=== PATIENT | female | born 1945 | race Caucasian/White ===

== ENCOUNTER → 2016-05-12 | Outpatient (CLI) | payer MEDICARE, MEDICAID ==
[~2016-05-12] MED LIST: /CELE20CA PO; /DICL25CA PO; /DULO30CA; /DULO30CA OR; /ESOM40CA OR; /GLIM4TA; /GLIM4TA OR; /MOXI40TA OR; /OMEP10CA; /OMEP10CA OR; ADV250INH INH; ALBUTEROL LIQ INH; ALEV220T26 PO; BACL10TA2 PO; CARA1SUS OR; CARV3.12 OR; CARV6.25 PO; CIPR500T89 PO; COLA100C2 OR; COLA50CA3 PO; CYCL10TA PO; CYCL5TA PO; DARV100T; DARV100T OR; DEXI60CA PO; DIAZ5TAB PO; DOC-8.6T PO; DULO1CAP3 PO; EXCEDRIN TENSION; EXCETAB; EXCETAB OR; FERR325T OR; FLAG500T PO; FLUN7IN; FLUT50SP; FLUTISP; GEMF600T OR; GLIM4TAB PO; HYDR12.55 PO; HYDR1TAB97 PO; HYDR25TA8 OR; IBUP600T26 PO; INSUH10VL INJ; INSUH10VL SC; INSULADS SC; INSULANT; INSULANT SC; INVO300T PO; IRON28TA OR; Januvia PO; LANTINJ4 SC; LIDO5DIS TOP; LINZ145C PO; LISI10TA4; LISI10TA4 OR; LISI10TA4 PO; MELA10CA PO; MELA5TAB13 PO; METF500T PO; METF500T4; METF500T4 OR; MORP-39 PO; MORP15TASA PO; MORPHINE SULFATE IR PO; MS C200T PO; MSIR30TA PO; NASAL SPRAY; NEUR300C; NEUR300C OR; NICO21DI TD; NICO21DI4 TD; NORC10TA2 PO; OMEP20CA3 PO; OMEP40CA2 PO; OXYC5CAP2 PO; OXYCPOW OR; PRED20TA OR; SENN8.6T5 OR; SENO8.6T9 PO; SERT-141 PO; SIMV40TA2; SIMV40TA2 OR; SITA50TAB PO; SOMA350T PO; SPIR1CAP INH; TRAM50TA2 PO; TYLENOL #3 OR; ULTR37.52 PO; VALI5TAB OR; VITA200016 PO; VITA50003 PO; VOLT1GEL EX; ZANA4CAP OR; ZANA4CAP PO; ZOCO40TA PO; ZOFR8TAB SL; ZOFRAN PO; ZOLO50TA PO; [UNRECOGNIZED DRUG - OTHER]; [UNRECOGNIZED DRUG - OTHER]; [UNRECOGNIZED DRUG - OTHER]; [UNRECOGNIZED DRUG - OTHER] OR; [UNRECOGNIZED DRUG - OTHER] OR; [UNRECOGNIZED DRUG - OTHER] OR; [UNRECOGNIZED DRUG - OTHER] PO; [UNRECOGNIZED DRUG - OTHER] PO; ms contin PO; novolog SQ; oxycontin OR; spiriva INH
[2016-05-12 11:17] LABS: BASO % 0.8 % (0.0-1.0); EOS # 0.2 K/mm3 (0.0-0.50); EOS % 2.6 % (0.0-3.0); LARGE UNSTAINED CELL # 0.1 K/mm3 (0.0-0.4); LARGE UNSTAINED CELL % 2.5 % (0.0-4.0); LYMPH # 1.6 K/mm3 (1.5-4.5); LYMPH % 28.1 % (24.0-44.0); MEAN CORPUSCULAR HEMOGLOBIN 31.7 pg (27.0-33.0); MEAN CORPUSCULAR HGB CONC 32.4 g/dl (32.0-36.5); MONO # 0.3 K/mm3 (0.0-0.8); NEUTROPHILS # 3.4 K/mm3 (1.8-7.7); PLATELET COUNT, AUTOMATED 261 k/mm3 (150-450); RED CELL DISTRIBUTION WIDTH 14.5 % (11.5-14.5); WHITE BLOOD COUNT 5.6 K/mm3 (4.0-10.0)
--- NOTE | 2016-05-12 16:27 | REP ---
CHEST, TWO VIEWS: HISTORY: Shortness of breath. COMPARISON: 01/31/2016. The lungs are clear. The heart is normal in size. The patient is status-post stenting of the thoracic aorta. The thoracic aorta is tortuous. IMPRESSION: No acute disease. Signed by Naeem Artis MD 05/12/2016 04:31 P
== END ==
LOC: M LAB 10:25
PROVIDERS: ATTEND Internal Medicine Cardiovascular Disease
DX: R06.02 Shortness of breath (principal)

== ENCOUNTER → 2016-05-13 | Outpatient (CLI) | payer MEDICARE, MEDICAID ==
[2016-05-13 14:02] LABS: REASON FOR REVIEW COMPREHENSIVE REVIEW
[2016-05-13 14:27] LABS: FOLATE > 24.0 NG/ML; VITAMIN B12 LEVEL 469 PG/ML
[2016-05-13 14:44] LABS: ALBUMIN 3.8 GM/DL (3.2-5.2); ALBUMIN/GLOBULIN RATIO 1.15 (1.00-1.93); ALKALINE PHOSPHATASE 109 U/L (45-117); ALT/SGPT 30 U/L (12-78); AST/SGOT 18 U/L (15-37); BILIRUBIN,DIRECT < 0.1 MG/DL (0.0-0.2); BILIRUBIN,TOTAL 0.4 MG/DL (0.2-1.0); TOTAL IRON BINDING CAPACITY 460 UG/DL (250-450); TOTAL PROTEIN 7.1 GM/DL (6.4-8.2)
[2016-05-14 10:28] LABS: FERRITIN 9 NG/ML (8-252)
== END ==
LOC: M LAB 11:20
PROVIDERS: ATTEND Internal Medicine Cardiovascular Disease
DX: R06.02 Shortness of breath (principal); D64.9 Anemia, unspecified

== ENCOUNTER → 2016-05-22 | Outpatient (CLI) | payer MEDICARE, MEDICAID ==
[~2016-05-22] MED LIST changes: +BUPIVACAINE HCL 0.25% 30 ML VIAL As Ordered ONE; +HYDR-3713 PO; -HYDR1TAB97 PO; +ISOVUE-M 300 61% 15ML VIAL (Q9967) As Ordered ONE; +LIDOCAINE 1% SDV INJ 30 ML VIAL As Ordered ONE; +TRIAMCINOLONE ACETONIDE SUSP 40 MG/ML VIAL (J3301) As Ordered ONE
--- NOTE | 2016-05-22 13:43 | REP ---
Partial SI joint series: Two views. History: Bilateral SI joint injection for pain. 16 seconds of fluoroscopy time was utilized. Findings: A sequence of two fluoroscopically obtained intraprocedural spot radiographs of the SI joints document needle position and contrast injection associated with SI joint injection procedure. Signed by Oracio Barkley MD 05/22/2016 01:45 P
--- NOTE | 2016-05-28 00:39 | ECWPNPC ---
PATIENT NAME: JULES JIMÉNEZ : 1945 GENDER: FEMALE VISIT DATE: 05/22/2016 DISCHARGE DATE: 05/22/16 1303 VISIT LOCKED DATE TIME: PHYSICIAN: ABHIJIT QUIÑONES RESOURCE: ABHIJIT QUIÑONES REASON FOR APPOINTMENT 1. LFBT VS SIJ HISTORY OF PRESENT ILLNESS HISTORY OF PRESENT ILLNESS: PAIN THE PATIENT DESCRIBES THE PAIN... FALL RISK SCREENING: SCREENING :TWO OR MORE FALLS WITH INJURY IN THE PAST YEAR CURRENT MEDICATIONS TAKING CYCLOBENZAPRINE HCL 10 MG TABLET 1 TABLET ORALLY THREE TIMES A DAY NEEDED FOR SPASMS AND PAIN, NOTES: 05/21/162199 TAKING GABAPENTIN 300 MG CAPSULE 1 CAPSULE ORALLY BEFORE BEDTIME FOR PAIN, NOTES: 05/21/16 08 TAKING NUCYNTA 50 MG TABLET 1 TABLET ORALLY EVERY 6 HRS PRN FOR PAIN MDD4, NOTES: 05/21/162199 TAKING GABAPENTIN 300 MG CAPSULE 1 CAPSULE ORALLY BEFORE BEDTIME FOR PAIN, NOTES: 05/21/16799 TAKING DIAZEPAM 5 MG TABLET 1 TABLET NEEDED ORALLY DAILY, NOTES: 05/21/16799 TAKING CYMBALTA 60 MG 1 CAPSULE ORALLY ONCE A DAY, NOTES: 05/21/16799 TAKING FLUTICASONE PROPIONATE 50 MCG/DOSE SUSPENSION 1 SPRAY IN EACH NOSTRIL NASALLY ONCE A DAY, NOTES: 05-22-16599 TAKING LISINOPRIL 10 10 MG TABLET ORAL DAILY, NOTES: 05/21/16 08 TAKING OMEPRAZOLE 40MG 40GM TABLET ORAL DAILY, NOTES: 05/21/16799 TAKING SERTRALINE HCL 100 MG TABLET 1 TABLET ORALLY ONCE A DAY, NOTES: 05/21/16799 TAKING SIMVASTATIN 40 40MG TABLET ORAL DAILY, NOTES: 05/21/16 08 TAKING MYRBETRIQ 25 MG TABLET EXTENDED RELEASE 24 HOUR 1 TABLET ORALLY ONCE A DAY, NOTES: 05/21/16 08 TAKING ACTOS 30 MG TABLET 1 TABLET ORALLY ONCE A DAY, NOTES: 05/21/16 08 TAKING CARVEDILOL 6.25 MG TABLET ORALLY ONCE DAILY, NOTES: 05/21/16 08 TAKING JANUVIA 100 MG TABLET 1/2 TABLET ORALLY ONCE A DAY, NOTES: 05/21/16 08 TAKING SPIRIVA HANDIHALER 18 MCG CAPSULE INHALATION , NOTES: 05/21/16 0800 TAKING ADVAIR DISKUS 250-50 MCG/DOSE AEROSOL POWDER BREATH ACTIVATED 1 PUFF INHALATION TWICE A DAY, NOTES: 05/21/16 0800 TAKING LANTUS 100 UNIT/ML SOLUTION 50 SUBCUTANEOUS , NOTES: 05/21/16 1700 TAKING OXYCODONE-ACETAMINOPHEN 7.5-325 MG TABLET 1 TABLET NEEDED ORALLY EVERY 6 HRS PRN FOR PAIN MDD3, NOTES: 05/21/16 1700 TAKING ALBUTEROL SULFATE (2.5 MG/3ML) 0.083% NEBULIZATION SOLUTION 3 ML INHALATION THREE TIMES A DAY, NOTES: 05/21/16 2200 NOT-TAKING OXYCODONE HCL 5 MG TABLET 1 TO 2 TABLET ORALLY EVERY 6 HRS PRN FOR PAIN MDD4 NOT-TAKING LIDOCAINE 5 % PATCH 2 PATCH TO INTACT SKIN REMOVE AFTER 12 HOURS EXTERNALLY FOR PAIN ONCE A DAY NOT-TAKING BUTRANS 5 MCG/HR PATCH WEEKLY 1 PATCH TO SKIN TRANSDERMAL ONCE PER WEEK NOT-TAKING ULTRACET 37.5-325 MG TABLET 1 TO 2 TABLET NEEDED FOR PAIN MDD6 ORALLY EVERY 6 HRS MDD6 MEDICATION LIST REVIEWED AND RECONCILED WITH THE PATIENT PAST MEDICAL HISTORY DIABETES HYPERTENSION GERD COPD CHRONIC BACK PAIN POST-LAMINECTOMY PAIN SYNDROME HYPERCHOLESTEROLEMIA ALLERGIES TYLENOL/CODEINE #3: NAUSEA, HEADACHE: ALLERGY ALCOHOL (DRINKING): NAUSEA, VOMITING: ALLERGY SOCIAL HISTORY GENERAL: TOBACCO USE ARE YOU A:CURRENT SMOKER LEARNING BARRIERS / SPECIAL NEEDS ORIENTED TO PLAN OF CARE: PATIENT, PAIN MANAGEMENT PATIENT, ORIENTED TO PLAN OF CARE: PATIENT, PAIN MANAGEMENT PATIENT. NEW PATIENT PAIN DIARY TODAY'S VISITNOTES FROM 0-10, WHAT LEVEL IS YOUR PAIN TODAY?0 PAIN CLINIC PFS, CLERGY, PUBLIC HEALTH REFERRALS PFS REFERRAL NEEDED?NO CLERGY REFERRAL NEEDED?NO PUBLIC HEALTH REFERRAL NEEDED?NO WAS THE PROVIDER NOTIFIED OF ANY PERTINENT INFO?NO PFS REFERRAL NEEDED?NO CLERGY REFERRAL NEEDED?NO PUBLIC HEALTH REFERRAL NEEDED?NO WAS THE PROVIDER NOTIFIED OF ANY PERTINENT INFO?NO HOSPITALIZATION/MAJOR DIAGNOSTIC PROCEDURE DIVERTICULITIS REVIEW OF SYSTEMS CONSTITUTIONAL: ANY CHANGE IN YOUR MEDICAL CONDITION? NO . CHILLS NO . FEVER NO . INFECTION: DO YOU HAVE NEW INFECTIONS? NO . DO YOU HAVE HISTORY OF MRSA? NO . MUSCULOSKELETAL: ANY NEW PATTERNS OF PAIN OR NUMBNESS? NO . GASTROENTEROLOGY: ANY NEW CHANGE IN BOWEL CONTROL? NO . GENITOURINARY: ANY NEW CHANGE IN BLADDER CONTROL? NO . IS THERE A CHANCE YOU COULD BE ? NO . HEMATOLOGY/LYMPH: DO YOU TAKE ANY BLOOD THINNERS? (FOR EXAMPLE- COUMADIN, PLAVIX, AGGRENOX, PLATEL, PRADAXA, OR XARELTO) NO . WHEN WAS YOUR LAST DOSE? DATE: TIME: . NEUROLOGY: HAVE YOU FALLEN IN THE PAST 6 MONTHS? YES . ANY NEW EXTREMITY NUMBNESS OR WEAKNESS? NO . CARDIOLOGY: DO YOU HAVE A PACEMAKER OR DEFIBRILLATOR? NO . RESPIRATORY: HAVE YOU BEEN SICK IN THE PAST WEEK? NO . FEVER NO . FLU LIKE SYMPTOMS? NO . COUGH NO . INTEGUMENTARY: DO YOU HAVE ANY RASHES OR OPEN SORES? NO . ALLERGIC/IMMUNO: ARE YOU ALLERGIC TO SHELLFISH OR IV DYE? NO . ANY NEW ALLERGIES? NO . PSYCHIATRIC: DO YOU HAVE THOUGHTS OF HURTING YOURSELF OR SOMEONE ELSE? NO . ARE YOU ABUSED, NEGLECTED, OR IN AN UNSAFE ENVIRONMENT? NO . ENDOCRINOLOGY: ARE YOU DIABETIC? YES . OTHER: DO YOU NEED ANY PRESCRIPTIONS? YES . IF YES, PLEASE LIST: PAIN . ANY NEW PROBLEMS WITH YOUR MEDICATIONS? NO . WHEN DID YOU LAST EAT? 2199 . WHEN DID YOU LAST DRINK? 2229 . WHAT DID YOU LAST DRINK? WATER . NAME OF PERSON DRIVING YOU HOME? [employer] . DO YOU HAVE ANY OTHER QUESTIONS OR CONCERNS NO . REVIEWED BY: PROVIDER: . VITAL SIGNS WT 218 LBS, HT 64 IN, BMI 37.42 INDEX, BP 134/71 MM HG, HR 102 /MIN, RR 18 /MIN, TEMP 97.1 F, OXYGEN SAT % 97%, NA INITIALS SC 11:12, REVIEWED BY: LS. ASSESSMENTS SACROILIITIS, NOT ELSEWHERE CLASSIFIED - M46.1 (PRIMARY) TREATMENT SACROILIITIS, NOT ELSEWHERE CLASSIFIED REFILL OXYCODONE-ACETAMINOPHEN TABLET, 7.5-325 MG, 1 TABLET NEEDED, ORALLY, EVERY 6 HRS PRN FOR PAIN MDD3, 30 DAY(S), 70, REFILLS 0, NOTES: 05/21/16 1700 PROCEDURES PN SI PRE PROCEDURE DIAGNOSIS SACROILIITIS, SACROILIAC JOINT DYSFUNCTION POST PROCEDURE DIAGNOSIS SACROILIITIS, SACROILIAC JOINT DYSFUNCTION PROCEDURE ., BILATERAL SACROILIAC JOINT BLOCK SURGEON DR. ABHIJIT QUIÑONES CABLE ENGINEER NONE ANESTHESIA LOCAL PRE PROCEDURE NOTE PATIENT WITH HISTORY OF CHRONIC LOW BACK PAIN. I EVALUATED THE PATIENT AND REVIEWED THE CHART. I WENT OVER THE RISKS, ALTERNATIVES, AND BENEFITS ASSOCIATED WITH THIS PROCEDURE. THE PATIENT WOULD LIKE TO PROCEED AND GAVE CONSENT TO PERFORM THE PROCEDURE. THE PATIENT DENIES UNEXPLAINABLE WEIGHT LOSS, FEVER, CHILLS, OR NEW CHANGES IN URINARY OR BOWEL CONTROL DESCRIPTION OF PROCEDURE THE PATIENT WAS BROUGHT TO THE PROCEDURE ROOM AND PLACED IN THE PRONE POSITION. THE LUMBOSACRAL AREA WAS CLEANED WITH CHLORAPREP SOLUTION AND DRAPED ASEPTICALLY. THE PROCEDURE WAS DONE UNDER STERILE CONDITIONS. I CHECKED LATERALITY AND THE LEVEL WHERE THE PROCEDURE WAS GOING TO BE PERFORMED WITH THE PATIENT AND THE SUPPORTING STAFF AT THE MOMENT OF THE TIME OUT IN THE PROCEDURE ROOM. UNDER FLUOROSCOPIC GUIDANCE, TARGET POINT WAS SELECTED AT THE LOWER BORDER OF THE RIGHT AND LEFT SACROILIAC JOINT. TARGET POINT WAS SELECTED AFTER MEDIAL ROTATION AND TILT OF THE MAGNIFIER OF THE C-ARM. LIDOCAINE WAS USED TO NUMB THE SKIN AND SUBCUTANEOUS TISSUE BELOW IT. A SPINAL NEEDLE, 22-GAUGE, WAS ADVANCED UNDER FLUOROSCOPIC GUIDANCE AND FOLLOWING PATIENT FEEDBACK UNTIL THE TARGET AREA WAS TOUCHED. THE POSITION OF THE NEEDLE WAS VERIFIED WITH AP AND LATERAL VIEWS. AFTER PROPER POSITION OF THE NEEDLE WAS ACHIEVED, ISOVUE M DYE 30%, 0.25 ML, WAS INJECTED SHOWING SPREAD OF THE DYE. THEN, A SOLUTION OF 20 MG OF KENALOG WAS INJECTED IN RIGHT JOINT WITH 3 ML OF BUPIVACAINE 0.125%. THERE WAS NO EVIDENCE OF BLOOD, PARESTHESIA OR CEREBROSPINAL FLUID DURING THE PROCEDURE. THE PATIENT WAS SENT TO THE RECOVERY ROOM. THE PATIENT WAS MOVING THE EXTREMITIES AND DOING WELL. THERE WAS NO COMPLICATION DURING THE PROCEDURE. FLUOROSCOPY TIME WAS 18 SECONDS POST PROCEDURE NOTE THE PATIENT WILL BE SEEN IN A FOLLOW UP IN THE NEXT FEW WEEKS. INSTRUCTIONS WERE GIVEN, QUESTIONS WERE ANSWERED, AND THE PATIENT EXPRESSED UNDERSTANDING AND AGREED WITH THE PLAN. INSTRUCTIONS WERE GIVEN, QUESTIONS WERE ANSWERED, PATIENT REPORTS UNDERSTANDING AND AGREES WITH THE PLAN. I, MARIELLE MILLIGAN, DOCUMENTED THE ABOVE INFORMATION ACTING A SCRIBE FOR DR. QUIÑONES. I HAVE REVIEWED THE ABOVE DOCUMENT, WRITTEN BY MARIELLE MILLIGAN SCRIBRikki AND I VERIFY THAT IT IS ACCURATE. DIAGNOSTIC IMAGING [facility] FLUORO GUIDANCE (PAIN)[id number] PROCEDURE CODES 76601 INJECT SACROILIAC JOINT [id number] RADXPS IN END [id number] PXD FOLLOW UP 3 WEEKS ELECTRONICALLY SIGNED BY ABHIJIT QUIÑONES MD ON 05/27/2016 AT 08:22 PM EST DISCLAIMER : THIS IS A VISIT SUMMARY EXTRACTED FROM THE [employer] CHART. IT IS NOT A COPY OF THE [employer] PROGRESS NOTE. BRENDAN
== END ==
LOC: M PAIN 11:10
PROVIDERS: ATTEND Anesthesiology
DX: G89.29 Other chronic pain (principal); M46.1 Sacroiliitis, not elsewhere classified; M54.5 Low back pain; Z79.891 Long term (current) use of opiate analgesic; Z79.4 Long term (current) use of insulin; Z79.899 Other long term (current) drug therapy; E11.9 Type 2 diabetes mellitus without complications; I10 Essential (primary) hypertension; J44.9 Chronic obstructive pulmonary disease, unspecified; M96.1 Postlaminectomy syndrome, not elsewhere classified; Z88.6 Allergy status to analgesic agent; Z91.018 Allergy to other foods
CPT/HCPCS: G0260; J3301; Q9967

== ENCOUNTER → 2016-06-19 | Outpatient (CLI) | payer MEDICARE, MEDICAID ==
[~2016-06-19] MED LIST changes: -BUPIVACAINE HCL 0.25% 30 ML VIAL As Ordered ONE; -ISOVUE-M 300 61% 15ML VIAL (Q9967) As Ordered ONE; -LIDOCAINE 1% SDV INJ 30 ML VIAL As Ordered ONE; -TRIAMCINOLONE ACETONIDE SUSP 40 MG/ML VIAL (J3301) As Ordered ONE
--- NOTE | 2016-06-26 02:10 | ECWPNPC ---
PATIENT NAME: JULES JIMÉNEZ : 1945 GENDER: FEMALE VISIT DATE: 06/19/2016 DISCHARGE DATE: 06/19/16 1316 VISIT LOCKED DATE TIME: PHYSICIAN: ABHIJIT QUIÑONES RESOURCE: ABHIJIT QUIÑONES REASON FOR APPOINTMENT 1. LOW BACK PAIN HISTORY OF PRESENT ILLNESS HISTORY OF PRESENT ILLNESS: PAIN THE PATIENT DESCRIBES THE PAIN... THE PATIENT DESCRIBES THE PAIN... 71 YEAR OLD FEMALE PATIENT WITH HISTORY OF CHRONIC BACK PAIN. PATIENT DESCRIBES THE PAIN ACHING, SHARP AND HAVING IT ALL THE TIME WITH A PAIN SCORE OF 10/10. PATIENT RECEIVED A SACROILIAC JOINT BLOCK ON 05/22/16 AND STATES SHE DID NOT GET ANY RELIEF FROM THE INJECTION. CURRENTLY THE PATIENT IS USING CYCLOBENZAPRINE, LIDOCAINE PATCHES, GABAPENTIN, AND OXYCODONE. PATIENT STATES THAT THE MEDICATION IS NOT STRONG ENOUGH TO HELP RELIEVE THE PAIN. MRS. JIMÉNEZ STATES THAT IT IS DIFFICULT FOR HER TO DO ANY TYPE OF ACTIVITY DUE TO THE PAIN. AT THIS TIME THE ONLY THING THAT HAS HELPED IS THE RADIOFREQUENCY BUT THAT ONLY HELPED WITH THE LEG PAIN AND NOT WITH THE LOW BACK PAIN. PATIENT DENIES UNEXPLAINABLE WEIGHT LOSS, FEVER, CHILLS, NEW CHANGES ON HER URINARY OR BOWEL CONTROL. FALL RISK SCREENING: SCREENING :NO FALLS IN THE PAST YEAR :NO FALLS IN THE PAST YEAR SCREENING :NO FALLS IN THE PAST YEAR :NO FALLS IN THE PAST YEAR CURRENT MEDICATIONS TAKING CYCLOBENZAPRINE HCL 10 MG TABLET 1 TABLET ORALLY THREE TIMES A DAY NEEDED FOR SPASMS AND PAIN TAKING GABAPENTIN 300 MG CAPSULE 1 CAPSULE ORALLY BEFORE BEDTIME FOR PAIN TAKING GABAPENTIN 300 MG CAPSULE 1 CAPSULE ORALLY BEFORE BEDTIME FOR PAIN TAKING DIAZEPAM 5 MG TABLET 1 TABLET NEEDED ORALLY DAILY TAKING CYMBALTA 60 MG 1 CAPSULE ORALLY ONCE A DAY TAKING FLUTICASONE PROPIONATE 50 MCG/DOSE SUSPENSION 1 SPRAY IN EACH NOSTRIL NASALLY ONCE A DAY TAKING LISINOPRIL 10 10 MG TABLET ORAL DAILY TAKING OMEPRAZOLE 40MG 40GM TABLET ORAL DAILY TAKING SERTRALINE HCL 100 MG TABLET 1 TABLET ORALLY ONCE A DAY TAKING SIMVASTATIN 40 40MG TABLET ORAL DAILY TAKING MYRBETRIQ 25 MG TABLET EXTENDED RELEASE 24 HOUR 1 TABLET ORALLY ONCE A DAY TAKING ACTOS 30 MG TABLET 1 TABLET ORALLY ONCE A DAY TAKING CARVEDILOL 6.25 MG TABLET ORALLY ONCE DAILY TAKING JANUVIA 100 MG TABLET 1/2 TABLET ORALLY ONCE A DAY, NOTES: NOT SURE IF STILL TAKING TAKING SPIRIVA HANDIHALER 18 MCG CAPSULE INHALATION TAKING ADVAIR DISKUS 500-50 MCG/DOSE AEROSOL POWDER BREATH ACTIVATED 1 PUFF INHALATION TWICE A DAY, NOTES: 05/21/16 0800 TAKING LANTUS 100 UNIT/ML SOLUTION 50 SUBCUTANEOUS TAKING ALBUTEROL SULFATE (2.5 MG/3ML) 0.083% NEBULIZATION SOLUTION 3 ML INHALATION THREE TIMES A DAY TAKING OXYCODONE-ACETAMINOPHEN 7.5-325 MG TABLET 1 TABLET NEEDED ORALLY EVERY 6 HRS PRN FOR PAIN MDD3, NOTES: 05/21/16 1700 TAKING MULTIVITAMIN ADULT - TABLET ORALLY NOT-TAKING NUCYNTA 50 MG TABLET 1 TABLET ORALLY EVERY 6 HRS PRN FOR PAIN MDD4, NOTES: 05/21/16 2200 NOT-TAKING OXYCODONE HCL 5 MG TABLET 1 TO 2 TABLET ORALLY EVERY 6 HRS PRN FOR PAIN MDD4 NOT-TAKING LIDOCAINE 5 % PATCH 2 PATCH TO INTACT SKIN REMOVE AFTER 12 HOURS EXTERNALLY FOR PAIN ONCE A DAY NOT-TAKING BUTRANS 5 MCG/HR PATCH WEEKLY 1 PATCH TO SKIN TRANSDERMAL ONCE PER WEEK NOT-TAKING ULTRACET 37.5-325 MG TABLET 1 TO 2 TABLET NEEDED FOR PAIN MDD6 ORALLY EVERY 6 HRS MDD6 MEDICATION LIST REVIEWED AND RECONCILED WITH THE PATIENT PAST MEDICAL HISTORY DIABETES HYPERTENSION GERD COPD CHRONIC BACK PAIN POST-LAMINECTOMY PAIN SYNDROME HYPERCHOLESTEROLEMIA ALLERGIES TYLENOL/CODEINE #3: NAUSEA, HEADACHE: ALLERGY ALCOHOL (DRINKING): NAUSEA, VOMITING: ALLERGY SURGICAL HISTORY NO SURGICAL HISTORY DOCUMENTED. FAMILY HISTORY NO FAMILY HISTORY DOCUMENTED. SOCIAL HISTORY GENERAL: TOBACCO USE ARE YOU A: IN PROCESS OF QUITTING ARE YOU A: IN PROCESS OF QUITTING LEARNING BARRIERS / SPECIAL NEEDS ORIENTED TO PLAN OF CARE: PATIENT, PAIN MANAGEMENT PATIENT, ORIENTED TO PLAN OF CARE: PATIENT, PAIN MANAGEMENT PATIENT, ORIENTED TO PLAN OF CARE: PATIENT, PAIN MANAGEMENT PATIENT, ORIENTED TO PLAN OF CARE: PATIENT, PAIN MANAGEMENT PATIENT. NEW PATIENT PAIN DIARY TODAY'S VISITNOTES FROM 0-10, WHAT LEVEL IS YOUR PAIN TODAY?0 TODAY'S VISITNOTES FROM 0-10, WHAT LEVEL IS YOUR PAIN TODAY?0 PAIN CLINIC PFS, CLERGY, PUBLIC HEALTH REFERRALS PFS REFERRAL NEEDED?NO CLERGY REFERRAL NEEDED?NO PUBLIC HEALTH REFERRAL NEEDED?NO WAS THE PROVIDER NOTIFIED OF ANY PERTINENT INFO?NO PFS REFERRAL NEEDED?NO CLERGY REFERRAL NEEDED?NO PUBLIC HEALTH REFERRAL NEEDED?NO WAS THE PROVIDER NOTIFIED OF ANY PERTINENT INFO?NO PFS REFERRAL NEEDED?NO CLERGY REFERRAL NEEDED?NO PUBLIC HEALTH REFERRAL NEEDED?NO WAS THE PROVIDER NOTIFIED OF ANY PERTINENT INFO?NO PFS REFERRAL NEEDED?NO CLERGY REFERRAL NEEDED?NO PUBLIC HEALTH REFERRAL NEEDED?NO WAS THE PROVIDER NOTIFIED OF ANY PERTINENT INFO?NO HOSPITALIZATION/MAJOR DIAGNOSTIC PROCEDURE DIVERTICULITIS REVIEW OF SYSTEMS CONSTITUTIONAL: ANY CHANGE IN YOUR MEDICAL CONDITION? NO . CHILLS NO . FEVER NO, NO . INFECTION: DO YOU HAVE NEW INFECTIONS? NO . DO YOU HAVE HISTORY OF MRSA? NO, NO . MUSCULOSKELETAL: ANY NEW PATTERNS OF PAIN OR NUMBNESS? NO . GASTROENTEROLOGY: ANY NEW CHANGE IN BOWEL CONTROL? NO . GENITOURINARY: ANY NEW CHANGE IN BLADDER CONTROL? NO . IS THERE A CHANCE YOU COULD BE ? NO, NO . HEMATOLOGY/LYMPH: DO YOU TAKE ANY BLOOD THINNERS? (FOR EXAMPLE- COUMADIN, PLAVIX, AGGRENOX, PLATEL, PRADAXA, OR XARELTO) NO, NO . WHEN WAS YOUR LAST DOSE? DATE: TIME: , DATE: TIME: . NEUROLOGY: HAVE YOU FALLEN IN THE PAST 6 MONTHS? YES [facility] REG . ANY NEW EXTREMITY NUMBNESS OR WEAKNESS? NO, NO . CARDIOLOGY: DO YOU HAVE A PACEMAKER OR DEFIBRILLATOR? NO, NO . RESPIRATORY: HAVE YOU BEEN SICK IN THE PAST WEEK? NO, NO . FEVER NO, NO . FLU LIKE SYMPTOMS? NO, NO . COUGH NO, NO . INTEGUMENTARY: DO YOU HAVE ANY RASHES OR OPEN SORES? NO, NO . ALLERGIC/IMMUNO: ARE YOU ALLERGIC TO SHELLFISH OR IV DYE? NO, NO . ANY NEW ALLERGIES? NO, NO . PSYCHIATRIC: DO YOU HAVE THOUGHTS OF HURTING YOURSELF OR SOMEONE ELSE? NO, NO . ARE YOU ABUSED, NEGLECTED, OR IN AN UNSAFE ENVIRONMENT? NO, NO . ENDOCRINOLOGY: ARE YOU DIABETIC? YES . OTHER: DO YOU NEED ANY PRESCRIPTIONS? NO, NO . IF YES, PLEASE LIST: ____, ____ . ANY NEW PROBLEMS WITH YOUR MEDICATIONS? NO, NO . WHEN DID YOU LAST EAT? ____, ____ . WHEN DID YOU LAST DRINK? ____, ____ . WHAT DID YOU LAST DRINK? ____, ____ . NAME OF PERSON DRIVING YOU HOME? ____, ____ . DO YOU HAVE ANY OTHER QUESTIONS OR CONCERNS NO, NO . REVIEWED BY: PROVIDER: , ABHIJIT QUIÑONES MD . VITAL SIGNS WT 216.0 LBS, HT 64 IN, BMI 37.07 INDEX, BP 118/69 MM HG, HR 98 /MIN, RR 16 /MIN, TEMP 97.4 F, OXYGEN SAT % 94%, NA INITIALS SC 10:55, REVIEWED BY: KG. EXAMINATION : PATIENT IS ALERT O X 3 AND COOPERATIVE. TENDERNESS IN THE LOWER BACK AND PARASPINAL MUSCLE GROUP. USES WALKER TO FACILITATE. BANDS OF TISSUE, RESTRICTION OF MOVEMENT, AND PRESENCE OF TRIGGER POINTS IN THE LOWER BACK AREA. MRI DONE ON 09/21/13 SHOWS DISC BULGE AT L4-L5 AND L5-S1 WITH SCAR TISSUE AROUND THE L5 NERVES. ASSESSMENTS MYALGIA - M79.1 (PRIMARY) SACROILIITIS, NOT ELSEWHERE CLASSIFIED - M46.1 TREATMENT SACROILIITIS, NOT ELSEWHERE CLASSIFIED REFILL OXYCODONE-ACETAMINOPHEN TABLET, 10-325 MG, 1 TABLET NEEDED, ORALLY, EVERY 6 HRS PRN FOR PAIN MDD3, 30 DAY(S), 80, REFILLS 0, NOTES: 05/21/16 1700 NOTES: WE DISCUSSED SEVERAL ISSUES WITH MRS. JIMÉNEZ'S PAIN MANAGEMENT CASE. AT THIS TIME THE PATIENT WILL RECEIVE OXYCODONE 10 MG TO SEE IF THAT WILL AID IN PAIN RELIEF. PATIENT BROUGHT MEDICATIONS TO TODAY'S VISIT AND BROUGHT THEM IN THEIR ORIGINAL BOTTLES. PATIENT DENIES ABUSE OF ANY MEDICATION, DENIES USE OF ILLEGAL SUBSTANCES, AND STATES THAT SHE IS ONLY USING THE MEDICATION FOR PAIN MANAGEMENT. MRS. JIMÉNEZ REPORTS HAVING A LOT OF TIGHTNESS THROUGHOUT THE BACK AND MAY BENEFIT FROM TRIGGER POINT INJECTIONS. WE DISCUSSED THE RISKS, BENEFITS, AND ALTNERATIVES OF THE INJECTION AND THE PATIENT WOULD LIKE TO PROCEED AT THIS TIME. INSTRUCTIONS WERE GIVEN, QUESTIONS WERE ANSWERED, PATIENT REPORTS UNDERSTANDING AND AGREES WITH THE PLAN. I, NATY BOND, DOCUMENTED THE ABOVE INFORMATION ACTING A SCRIBE FOR DR. QUIÑONES. I HAVE REVIEWED THE ABOVE DOCUMENT, WRITTEN BY NATY PALACIOS AND I VERIFY THAT IT IS ACCURATE. OTHERS REFILL CYCLOBENZAPRINE HCL TABLET, 10 MG, 1 TABLET, ORALLY, THREE TIMES A DAY NEEDED FOR SPASMS AND PAIN, 30 DAY(S), 90, REFILLS 2 REFILL GABAPENTIN CAPSULE, 300 MG, 1 CAPSULE, ORALLY, BEFORE BEDTIME FOR PAIN, 30 DAY(S), 30, REFILLS 2 PROCEDURE CODES FA211 ESTABILISHED PATIENT [facility] F[facility] CHARGE G8427 DOC MEDS VERIFIED W/PT OR RE G8730 PAIN ASSESS POS TOOL F/U PLAN DOC FOLLOW UP TPI AFTER APPROVAL ELECTRONICALLY SIGNED BY ABHIJIT QUIÑONES MD ON 06/22/2016 AT 11:40 AM EST DISCLAIMER : THIS IS A VISIT SUMMARY EXTRACTED FROM THE Classroom [email or web address] CHART. IT IS NOT A COPY OF THE Classroom [email or web address] PROGRESS NOTE. MTDD
== END ==
LOC: M PAIN 11:00
PROVIDERS: ATTEND Anesthesiology
DX: Z09 Encounter for follow-up examination after completed treatment for conditions other than malignant neoplasm (principal); G89.29 Other chronic pain; M79.1 Myalgia; M46.1 Sacroiliitis, not elsewhere classified; E11.9 Type 2 diabetes mellitus without complications; I10 Essential (primary) hypertension; L21.9 Seborrheic dermatitis, unspecified; J44.9 Chronic obstructive pulmonary disease, unspecified; E78.00 Pure hypercholesterolemia, unspecified; Z88.8 Allergy status to other drugs, medicaments and biological substances; Z91.048 Other nonmedicinal substance allergy status; F17.200 Nicotine dependence, unspecified, uncomplicated; Z79.891 Long term (current) use of opiate analgesic; Z79.899 Other long term (current) drug therapy

== ENCOUNTER → 2016-08-18 | Outpatient (CLI) | payer MEDICARE, MEDICAID ==
[~2016-08-18] MED LIST changes: +BUPIVACAINE HCL 0.25% 10 ML VIAL As Ordered ONE; +BUPIVACAINE HCL 0.25% 30 ML VIAL As Ordered ONE; -SERT-141 PO; +SERT50TA PO; +TRIAMCINOLONE ACETONIDE SUSP 40 MG/ML VIAL (J3301) As Ordered ONE; +diazePAM 5 MG TAB As Ordered ONE; +oxyCODONE 5MG TAB As Ordered ONE
--- NOTE | 2016-08-23 23:06 | ECWPNPC ---
PATIENT NAME: JULES JIMÉNEZ : 1945 GENDER: FEMALE VISIT DATE: 08/18/2016 DISCHARGE DATE: 08/18/16 1122 VISIT LOCKED DATE TIME: PHYSICIAN: ABHIJIT QUIÑONES RESOURCE: ABHIJIT QUIÑONES REASON FOR APPOINTMENT 1. TPI HISTORY OF PRESENT ILLNESS HISTORY OF PRESENT ILLNESS: PAIN THE PATIENT DESCRIBES THE PAIN... FALL RISK SCREENING: SCREENING :NO FALLS IN THE PAST YEAR CURRENT MEDICATIONS TAKING CYCLOBENZAPRINE HCL 10 MG TABLET 1 TABLET ORALLY THREE TIMES A DAY NEEDED FOR SPASMS AND PAIN, NOTES: 08-17-162099 TAKING GABAPENTIN 300 MG CAPSULE 1 CAPSULE ORALLY BEFORE BEDTIME FOR PAIN, NOTES: 08-17-162099 TAKING OXYCODONE-ACETAMINOPHEN 10-325 MG TABLET 1 TABLET NEEDED ORALLY EVERY 6 HRS PRN FOR PAIN MDD3, NOTES: WEEK OUT OF MED TAKING DIAZEPAM 5 MG TABLET 1 TABLET NEEDED ORALLY DAILY, NOTES: 08-17-162099 TAKING CYMBALTA 60 MG 1 CAPSULE ORALLY ONCE A DAY, NOTES: 08-17-16 TAKING FLUTICASONE PROPIONATE 50 MCG/DOSE SUSPENSION 1 SPRAY IN EACH NOSTRIL NASALLY ONCE A DAY, NOTES: 08-17-16 TAKING LISINOPRIL 10 10 MG TABLET ORAL DAILY, NOTES: 08-17-16 TAKING OMEPRAZOLE 40MG 40GM TABLET ORAL DAILY, NOTES: 08-17-16 TAKING SERTRALINE HCL 100 MG TABLET 1 TABLET ORALLY ONCE A DAY, NOTES: 08-17-16 TAKING SIMVASTATIN 40 40MG TABLET ORAL DAILY, NOTES: 08-17-16 TAKING MYRBETRIQ 25 MG TABLET EXTENDED RELEASE 24 HOUR 1 TABLET ORALLY ONCE A DAY, NOTES: 08-17-16 TAKING ACTOS 30 MG TABLET 1 TABLET ORALLY ONCE A DAY, NOTES: 08-17-16 TAKING CARVEDILOL 6.25 MG TABLET ORALLY ONCE DAILY, NOTES: 08-17-16 TAKING SPIRIVA HANDIHALER 18 MCG CAPSULE INHALATION , NOTES: 08-17-16 TAKING ADVAIR DISKUS 500-50 MCG/DOSE AEROSOL POWDER BREATH ACTIVATED 1 PUFF INHALATION TWICE A DAY, NOTES: 08-17-16 TAKING LANTUS 100 UNIT/ML SOLUTION 50 SUBCUTANEOUS TWICE DAILY, NOTES: 08-17-162099 TAKING ALBUTEROL SULFATE (2.5 MG/3ML) 0.083% NEBULIZATION SOLUTION 3 ML INHALATION THREE TIMES A DAY, NOTES: 08-17-16 PM TAKING MULTIVITAMIN ADULT - TABLET ONE HALF ORALLY DAILY, NOTES: 08-17-16 AM TAKING LIDOCAINE 5 % PATCH 2 PATCH TO INTACT SKIN REMOVE AFTER 12 HOURS EXTERNALLY FOR PAIN ONCE A DAY NOT-TAKING JANUVIA 100 MG TABLET 1/2 TABLET ORALLY ONCE A DAY, NOTES: OUT OF MED DISCONTINUED GABAPENTIN 300 MG CAPSULE 1 CAPSULE ORALLY BEFORE BEDTIME FOR PAIN DISCONTINUED NUCYNTA 50 MG TABLET 1 TABLET ORALLY EVERY 6 HRS PRN FOR PAIN MDD4, NOTES: 05/21/16 2200 DISCONTINUED OXYCODONE HCL 5 MG TABLET 1 TO 2 TABLET ORALLY EVERY 6 HRS PRN FOR PAIN MDD4 DISCONTINUED BUTRANS 5 MCG/HR PATCH WEEKLY 1 PATCH TO SKIN TRANSDERMAL ONCE PER WEEK DISCONTINUED ULTRACET 37.5-325 MG TABLET 1 TO 2 TABLET NEEDED FOR PAIN MDD6 ORALLY EVERY 6 HRS MDD6 MEDICATION LIST REVIEWED AND RECONCILED WITH THE PATIENT PAST MEDICAL HISTORY DIABETES HYPERTENSION GERD COPD CHRONIC BACK PAIN POST-LAMINECTOMY PAIN SYNDROME HYPERCHOLESTEROLEMIA ALLERGIES TYLENOL/CODEINE #3: NAUSEA, HEADACHE: ALLERGY ALCOHOL (DRINKING): NAUSEA, VOMITING: ALLERGY SOCIAL HISTORY GENERAL: PAIN CLINIC PFS, CLERGY, PUBLIC HEALTH REFERRALS CLERGY REFERRAL NEEDED?NO WAS THE PROVIDER NOTIFIED OF ANY PERTINENT INFO?NO PFS REFERRAL NEEDED?NO PUBLIC HEALTH REFERRAL NEEDED?NO PATIENT: ____. REVIEW OF SYSTEMS CONSTITUTIONAL: ANY CHANGE IN YOUR MEDICAL CONDITION? NO . CHILLS NO . FEVER NO . INFECTION: DO YOU HAVE NEW INFECTIONS? NO . DO YOU HAVE HISTORY OF MRSA? NO . MUSCULOSKELETAL: ANY NEW PATTERNS OF PAIN OR NUMBNESS? NO . GASTROENTEROLOGY: ANY NEW CHANGE IN BOWEL CONTROL? NO . GENITOURINARY: ANY NEW CHANGE IN BLADDER CONTROL? NO . IS THERE A CHANCE YOU COULD BE ? NO . HEMATOLOGY/LYMPH: DO YOU TAKE ANY BLOOD THINNERS? (FOR EXAMPLE- COUMADIN, PLAVIX, AGGRENOX, PLATEL, PRADAXA, OR XARELTO) NO . WHEN WAS YOUR LAST DOSE? DATE: TIME: . NEUROLOGY: HAVE YOU FALLEN IN THE PAST 6 MONTHS? NO . ANY NEW EXTREMITY NUMBNESS OR WEAKNESS? NO . CARDIOLOGY: DO YOU HAVE A PACEMAKER OR DEFIBRILLATOR? NO . RESPIRATORY: HAVE YOU BEEN SICK IN THE PAST WEEK? NO . FEVER NO . FLU LIKE SYMPTOMS? NO . COUGH NO . INTEGUMENTARY: DO YOU HAVE ANY RASHES OR OPEN SORES? NO . ALLERGIC/IMMUNO: ARE YOU ALLERGIC TO SHELLFISH OR IV DYE? NO . ANY NEW ALLERGIES? NO . PSYCHIATRIC: DO YOU HAVE THOUGHTS OF HURTING YOURSELF OR SOMEONE ELSE? NO . ARE YOU ABUSED, NEGLECTED, OR IN AN UNSAFE ENVIRONMENT? NO . ENDOCRINOLOGY: ARE YOU DIABETIC? YES . OTHER: DO YOU NEED ANY PRESCRIPTIONS? YES . IF YES, PLEASE LIST: OXYCODONE . ANY NEW PROBLEMS WITH YOUR MEDICATIONS? NO . WHEN DID YOU LAST EAT? 08-17-16 7PM . WHEN DID YOU LAST DRINK? 08-17-16 10PM . WHAT DID YOU LAST DRINK? WATER . NAME OF PERSON DRIVING YOU HOME? MELISSA . DO YOU HAVE ANY OTHER QUESTIONS OR CONCERNS NO . REVIEWED BY: PROVIDER: . VITAL SIGNS WT 218 LBS, HT 64 IN, BMI 37.42 INDEX, BP 126/72 MM HG, HR 114 /MIN, RR 16 /MIN, TEMP 98.0 F, OXYGEN SAT % 97%, NA INITIALS AW 0929, REVIEWED BY: CM. ASSESSMENTS MYALGIA - M79.1 (PRIMARY) TREATMENT OTHERS REFILL OXYCODONE-ACETAMINOPHEN TABLET, 10-325 MG, 1 TABLET NEEDED, ORALLY, EVERY 6 HRS PRN FOR PAIN MDD3, 30 DAY(S), 80, REFILLS 0, NOTES: 05/21/16 1700 PROCEDURES PN TRIGGER POINT INJECTION WITH STEROIDS PRE PROCEDURE DIAGNOSIS 1. MYALGIA 2. PAIN AT BILATERAL LOWER BACK AREA POST PROCEDURE DIAGNOSIS 1. MYALGIA 2. PAIN AT BILATERAL LOWER BACK AREA PROCEDURE TRIGGER POINT INJECTION AT BILATERAL LOWER BACK AREA SURGEON DR. ABHIJIT QUIÑONES DIRECTOR ECONOMIC NONE ANESTHESIA LOCAL PRE PROCEDURE NOTE THE PATIENT HAS A HISTORY OF CHRONIC PAIN AT THE RIGHT AND LEFT LOWER BACK AREA. I EVALUATE THE PATIENT AND REVIEWED THE CHART. THERE IS EVIDENCE OF BANDS OF TISSUE WITH RESTRICTION OF MOVEMENT AND PRESENCE OF TRIGGER POINT AT THE AFFECTED AREA. I WENT OVER THE RISKS, ALTERNATIVES, AND BENEFITS ASSOCIATED WITH THIS PROCEDURE. THE PATIENT WOULD LIKE TO PROCEED AND GIVE CONSENT TO PERFORMED THE PROCEDURE. THE PATIENT DENIES UNEXPLAINABLE WEIGHT LOSS, FEVER, CHILLS, OR NEW CHANGES IN URINARY OR BOWEL CONTROL DESCRIPTION OF PROCEDURE THE PATIENT WAS BROUGHT TO THE PROCEDURE ROOM AND PLACED IN THE SITTING POSITION. THE AREA WAS CLEANED WITH ALCOHOL. THE PROCEDURE WAS DONE USING ASEPTIC STERILE TECHNIQUE. I CHECKED LATERALITY AND THE LEVEL WHERE THE PROCEDURE WAS GOING TO BE PERFORMED WITH THE PATIENT AND THE SUPPORTING STAFF AT THE MOMENT OF THE TIME OUT IN THE PROCEDURE ROOM. USING A 25-GAUGE NEEDLE, TRIGGER POINTS WERE INJECTED AT THE RIGHT AND LEFT LOWER BACK AREA WITH A TOTAL OF 40 ML OF BUPIVACAINE 0.25% AND KENALOG 40 MG. THERE WAS NO EVIDENCE OF BLOOD, PARESTHESIA OR CEREBROSPINAL FLUID DURING THE PROCEDURE. THE PATIENT WAS SENT TO THE RECOVERY ROOM. THE PATIENT WAS MOVING THE EXTREMITIES AND DOING WELL. THERE WAS NO COMPLICATION DURING THE PROCEDURE POST PROCEDURE NOTE THE PATIENT WILL BE SEEN IN A FOLLOW UP IN THE NEXT FEW WEEKS. INSTRUCTIONS WERE GIVEN, QUESTIONS WERE ANSWERED, AND THE PATIENT EXPRESSED UNDERSTANDING AND AGREES WITH THE PLAN. I, NATY BOND, DOCUMENTED THE ABOVE INFORMATION ACTING A SCRIBE FOR DR. QUIÑONES. I, DR. QUIÑONES, HAVE REVIEWED THE ABOVE DOCUMENT, SCRIBED BY NATY BOND, AND I VERIFY THAT IT IS ACCURATE PROCEDURE CODES 37175 INJ TRIGGER POINT / [facility] [place] FOLLOW UP 3 WEEKS ELECTRONICALLY SIGNED BY ABHIJIT QUIÑONES MD ON 08/23/2016 AT 05:50 PM EDT DISCLAIMER : THIS IS A VISIT SUMMARY EXTRACTED FROM THE [employer] CHART. IT IS NOT A COPY OF THE [employer] PROGRESS NOTE. BRENDAN
== END | disposition home or self-care (01) ==
LOC: M PAIN 09:30
PROVIDERS: ATTEND Anesthesiology
DX: G89.29 Other chronic pain (principal); M79.1 Myalgia; I10 Essential (primary) hypertension; E11.9 Type 2 diabetes mellitus without complications; K21.9 Gastro-esophageal reflux disease without esophagitis; J44.9 Chronic obstructive pulmonary disease, unspecified; E78.00 Pure hypercholesterolemia, unspecified; M96.1 Postlaminectomy syndrome, not elsewhere classified; Z79.899 Other long term (current) drug therapy; Z79.51 Long term (current) use of inhaled steroids; Z79.4 Long term (current) use of insulin; Z88.5 Allergy status to narcotic agent; Z91.018 Allergy to other foods
CPT/HCPCS: 20552; J3301

== ENCOUNTER 2016-08-31 20:52 | Observation (INO) | payer MEDICARE, MEDICAID ==
[~2016-08-31] VITALS: Ht 162.6 cm; Wt 100.9 kg
[~2016-08-31 20:52] MED LIST changes: -BUPIVACAINE HCL 0.25% 10 ML VIAL As Ordered ONE; -BUPIVACAINE HCL 0.25% 30 ML VIAL As Ordered ONE; -TRIAMCINOLONE ACETONIDE SUSP 40 MG/ML VIAL (J3301) As Ordered ONE; -diazePAM 5 MG TAB As Ordered ONE; -oxyCODONE 5MG TAB As Ordered ONE
[2016-08-31] MEDS: ADVAIR DISKUS 500/50 INH PWD INH SCH (21:00)
[2016-08-31 21:21] LABS: VENOUS BASE EXCESS 2.3 (-2.0-2.0); VENOUS O2 SATURATION 83.2 % (60.0-80.0); VENOUS PARTIAL PRESSURE CO2 56.4 mmHg (38.0-50.0); VENOUS PARTIAL PRESSURE O2 50.7 mmHg (30.0-50.0); VENOUS STANDARD HCO3 26.3 MEQ/L
[2016-08-31] MEDS: D5W/0.9% SODIUM CHLORIDE 1,000 ML IV SCH (21:22)
[2016-08-31 21:30] LABS: BASO % 0.2 % (0.0-1.0); EOS # 0.1 K/mm3 (0.0-0.50); EOS % 1.3 % (0.0-3.0); LARGE UNSTAINED CELL # 0.1 K/mm3 (0.0-0.4); LYMPH % 12.9 % (24.0-44.0); MEAN CORPUSCULAR HEMOGLOBIN 32.8 pg (27.0-33.0); MEAN CORPUSCULAR HGB CONC 33.6 g/dl (32.0-36.5); MEAN CORPUSCULAR VOLUME 97.8 fl (80.0-96.0); MONO # 0.3 K/mm3 (0.0-0.8); MONO % 3.8 % (0.0-5.0); NEUTROPHILS # 6.4 K/mm3 (1.8-7.7); NEUTROPHILS % 80.7 % (36.0-66.0); PLATELET COUNT, AUTOMATED 228 k/mm3 (150-450); RED CELL DISTRIBUTION WIDTH 15.9 % (11.5-14.5); WHITE BLOOD COUNT 7.9 K/mm3 (4.0-10.0)
[2016-08-31] MEDS ORDERED: INSULADS INJ (21:38)
[2016-08-31] MEDS ORDERED: HUMA100I5 SC (21:38)
[2016-08-31] MEDS ORDERED: PERC10TA17 PO (21:38)
[2016-08-31] MEDS ORDERED: PIOG30TA4 PO (21:38)
[2016-08-31] MEDS ORDERED: LASI40TA PO (21:38)
[2016-08-31] MEDS ORDERED: MYRB25TA PO (21:38)
[2016-08-31] MEDS ORDERED: GABA-282 PO (21:38)
[2016-08-31 21:46] LABS: ANION GAP 6 MEQ/L (8-16); BLOOD UREA NITROGEN 16 MG/DL (7-18); CALCIUM LEVEL 8.3 MG/DL (8.8-10.2); CARBON DIOXIDE LEVEL 30 MEQ/L (21-32); CHLORIDE LEVEL 104 MEQ/L (98-107); CREATININE FOR GFR 0.92 MG/DL (0.55-1.02); GLOMERULAR FILTRATION RATE > 60.0 (>39); GLUCOSE, FASTING 148 MG/DL (83-110); POTASSIUM SERUM 4.2 MEQ/L (3.5-5.1); SODIUM LEVEL 140 MEQ/L (136-145)
[2016-08-31] MEDS ORDERED: DEXTROSE 50% 50 ML SYRINGE IV STA (22:14)
--- NOTE | 2016-08-31 23:00 | REPUSA ---
CT of the head Clinical history: seizures. Protocol: Multiple axial CT images obtained with 5 mm slice thickness were obtained through the head without administration of contrast. Findings: The ventricles and sulci are symmetric but prominent in size bilaterally. There are periven tricular areas of low attenuation throughout the deep white matter. There is no evidence of acute hem orrhage or infarct. There is no midline shift, mass effect, or extra-axial fluid collection. The osse ous structures are unremarkable. The visualized paranasal sinuses and mastoid air cells are clear. Impression: No acute hemorrhage or infarct. Findings are consistent with age-related atrophy and rampman gracie small vessel ischemic disease.
--- NOTE | 2016-08-31 23:10 | REPUSA ---
CT of the lumbar spine without contrast Clinical history: Pain. Technique: Multiple axial CT images were obtained through the lumbar spine without administration of contrast. Coronal and sagittal 3-D reconstructed images were also obtained. Findings: The lumbar vertebral bodies are in satisfactory alignment There is mild dextroscoliosis noted with th e apex at L3. Posterior surgical fusion at L3/L4 is noted. No fractures or dislocations are demonstra nolan. Intervertebral disc spaces are severely narrowed at all levels, most severe at L3/L4 an L5/S1.. Moderate disc osteophyte complexes are seen at these levels, causing moderate bilateral neural dulce inal narrowing. There is no evidence of facet subluxation. The spinal canal demonstrates normal calib er and contour without evidence of spinal stenosis. There are two large infrarenal abdominal aortic a neurysms, demonstrate and maximal diameter 4.5 x 4.1 cm, measuring approximate 8 cm in length. The s urrounding soft tissues are within normal limits. Impression: 1. No acute fracture or traumatic injury. 2. Scoliosis with severe multilevel degenerative disc disease as described. 3. Disc osteophyte complexes at L3/L4 and L5/S1 are noted, causing moderate bilateral neural foramin al narrowing at both levels.
[2016-09-01] VITALS (7 sets, daily range): BP systolic 110–149; BP diastolic 55–73
[2016-09-01] MEDS ORDERED: ADV500INH INH (00:39)
[2016-09-01] MEDS ORDERED: FLUTISP (00:39)
[2016-09-01] MEDS ORDERED: OXYC1TAB23 PO (00:39)
[2016-09-01] MEDS ORDERED: FLUTICASONE PROP 0.05% NASAL SPRAY 16 GM (FLONASE) PRN (01:00)
[2016-09-01] MEDS ORDERED: ACETAMINOPHEN TAB 650MG DOSE (2X325MG) PO PRN (01:00)
[2016-09-01] MEDS ORDERED: FUROSEMIDE 40 MG TAB PO PRN (01:00)
[2016-09-01] MEDS ORDERED: DEXTROSE 50% 50 ML SYRINGE IV PRN (01:00)
[2016-09-01] MEDS ORDERED: diazePAM 5 MG TAB PO PRN (01:00)
[2016-09-01] MEDS ORDERED: ONDANSETRON 4MG/2ML VIAL (J2405) IV PRN (01:00)
[2016-09-01] MEDS ORDERED: GLUCAGON FOR INJ 1 MG VIAL (J1610) SC PRN (01:00)
[2016-09-01] MEDS ORDERED: GLUCOSE 4 GM CHEW TABLET PO PRN (01:00)
[2016-09-01] MEDS ORDERED: CYCLOBENZAPRINE 10 MG TAB PO PRN (01:00)
--- NOTE | 2016-09-01 01:18 | HPEPDOC ---
General Date of Admission 09/01/16 Primary Care Physician: José Miguel Daniel [facility] Attending Physician: TABITHA RIZVI DO Chief Complaint The patient is a 71-year-old female admitted with a reason for visit of Seizure. Source: Patient History of Present Illness 71-year-old female with past medical history of diabetes mellitus, hypertension , dyslipidemia, COPD, depression, chronic back pain, and GERD was brought to the ER after she was found by her neighbor on the couch in her apartment tremulous and unresponsive. EMS was subsequently called and the patient's blood sugar level was noted to be "too low to read" on the monitor. The patient's blood sugar was checked upon arrival to the ER after she was given some dextrose en route and was noted to be 58. The patient states that she has not been eating much over the last few days because of some personal problems she is dealing with at home. Of note, the patient does state that she has had at least 2 other events like this over the last 5 months because she has not been eating enough food and she has been taking her diabetic medication at the same doses. However, during those episodes the patient states that she woke up on her own. The patient denies any acute complaints of fevers, chills, shortness of breath, chest pain, palpitations, abdominal pain, or any nausea/vomiting/ diarrhea. The patient does not recollect the events that preceded her episode, and notes that the first thing she remembers is waking up in the hospital. She denies any history of seizures, and there were no evidence of any tongue biting , or any urinary/fecal incontinence. In the ER, the patient was given 2 Ampules of dextrose and started on IV fluids containing dextrose but the patient's blood sugar levels still remained in the low 100s. The patient will be admitted under the hospitalist service for further monitoring of hypoglycemic symptoms as the patient is a risk to sent home given the fact that she lives by herself. Home Medications Scheduled Carvedilol (Carvedilol) 6.25 Mg Tab 6.25 MG PO BID (Reported) Duloxetine Hcl (Duloxetine HCl) 60 Mg Cap 60 MG PO QHS (Reported) Gabapentin (Gabapentin) 300 Mg Cap 300 MG PO BID (Reported) Glimepiride (Glimepiride) 4 Mg Tab 8 MG PO DAILY (Reported) Insulin Glargine (Lantus) 100 Unit/Ml Inj 50 UNIT INJ BID (Reported) Insulin Human Lispro (Humalog Kwikpen) 100 Unit/Ml Inj 0 SC ASDIRECTED ( Reported) Per Sliding Scale Lisinopril (Lisinopril) 10 Mg Tab 10 MG PO DAILY (Reported) Mirabegron Base (Myrbetriq) 25 Mg Tab 25 MG PO DAILY (Reported) Omeprazole (Omeprazole) 40 Mg Cap 40 MG PO DAILY (Reported) Pioglitazone Hydrochloride (Pioglitazone HCl) 30 Mg Tab 30 MG PO DAILY ( Reported) Salmeterol/Fluticasone (Advair Diskus 500-50 Mcg/Dose) 28 Puff/Inhaler Aerp 1 PUFF INH BID (Reported) Sertraline Hcl (Sertraline HCl) 50 Mg Tab 100 MG PO DAILY (Reported) Simvastatin - High Dose (Zocor) 40 Mg Tab 40 MG PO DAILY (Reported) Tiotropium [place] Monohydrate (Spiriva Handihaler) 18 Mcg Cap 1 INHALATION INH DAILY (Reported) Scheduled PRN Cyclobenzaprine HCl (Cyclobenzaprine HCl) 10 Mg Tab 10 MG PO BID PRN PRN PAIN ( Reported) Diazepam (Diazepam) 5 Mg Tab 5 MG PO BID PRN PRN ANXIETY (Reported) Fluticasone Propionate (Fluticasone Propionate) 50 Mcg/Act Spr 1 SPRAY NA DAILY PRN PRN NASAL CONGESTION (Reported) Furosemide (Lasix) 40 Mg Tab 40 MG PO DAILY PRN PRN EDEMA (Reported) Oxycodone/Acetaminophen (Oxycodone/Acetaminophen 5-325 mg) 1 Tab Tab 1 TAB PO Q8H PRN PRN PAIN (Reported) Allergies Coded Allergies: Alcohol (Verified Allergy, Unknown, 04/05/13) Acetaminophen (Verified Adverse Reaction, Intermediate, HEADACHE AND NAUSEA, 08/09/12) Codeine (Verified Adverse Reaction, Intermediate, HEADACHE AND NAUSEA, 08/09) Past Medical History Medical History As noted in HPI. Family History Significant Family History: No pertinent family hx Social History * Smoker: other (has smoked 1-2 packs per day for the past 50+ years) Alcohol: Denies Drugs: denies Lives in senior adult apartment complex in an apartment by herself in [facility] Review of Symptoms Other systems 10 point review of systems negative unless otherwise specified in HPI. Physical Examination General Exam: Positive: Alert, Cooperative, No Acute Distress ENT Exam: Positive: Atraumatic, Mucous membr. moist/pink Neck Exam: Negative: JVD Chest Exam: Positive: Clear to auscultation, Normal air movement Heart Exam: Positive: Normal S1, Normal S2, Rate Normal Telemetry: Positive: Sinus Abdomen Exam: Positive: Soft, Negative: Tenderness Extremity Exam: Negative: Swelling, Tenderness Psych Exam: Positive: Oriented x 3 Vital Signs Vital Signs Date Time Temp Pulse Resp B/P Pulse Ox O2 Delivery O2 Flow Rate FiO2 08/31/16 21:40 86 20 113/56 93 Laboratory Data Labs 24H Laboratory Tests 2 08/31/16 21:01: Bedside Glucose (Misc Panel) 177H 08/31/16 21:09: Anion Gap 6L, White Blood Count 7.9, Red Blood Count 3.42L, Hemoglobin 11.2L, Hematocrit 33.4L, Mean Corpuscular Volume 97.8H, Mean Corpuscular Hemoglobin 32.8, Mean Corpuscular Hemoglobin Concent 33.6, Red Cell Distribution Width 15.9H, Platelet Count 228, Neutrophils (%) (Auto) 80.7H, Lymphocytes (%) (Auto) 12.9L, Monocytes (%) (Auto) 3.8, Eosinophils (%) (Auto) 1.3, Basophils (%) (Auto ) 0.2, Neutrophils # (Auto) 6.4, Lymphocytes # (Auto) 1.0L, Monocytes # (Auto) 0.3, Eosinophils # (Auto) 0.1, Basophils # (Auto) 0.0, Blood Gas Bicarbonate Standard 26.3, Blood Urea Nitrogen 16, Creatinine 0.92, Sodium Level 140, Potassium Level 4.2, Chloride Level 104, Carbon Dioxide Level 30, Calcium Level 8.3L, Glomerular Filtration Rate > 60.0, Large Unclassified Cells # 0.1, Large Unclassified Cells % 1.0, Venous Blood Base Excess 2.3H, Venous Blood pH 7.333, Venous Blood Partial Pressure CO2 56.4H, Venous Blood Partial Pressure O2 50.7H , Venous Blood Total Carbon Dioxide 31.0H, Venous Blood HCO3 29.3H, Venous Blood Oxygen Saturation 83.2H 08/31/16 22:11: Bedside Glucose (Misc Panel) 58L 08/31/16 23:06: Bedside Glucose (Misc Panel) 130H 08/31/16 23:59: Bedside Glucose (Misc Panel) 147H CBC/BMP Laboratory Tests 08/31/16 21:09 Calcium Level 8.3 L, Red Blood Count 3.42 L, Mean Corpuscular Volume 97.8 H, Mean Corpuscular Hemoglobin 32.8, Mean Corpuscular Hemoglobin Concent 33.6, Red Cell Distribution Width 15.9 H, Neutrophils (%) (Auto) 80.7 H, Lymphocytes (%) ( Auto) 12.9 L, Monocytes (%) (Auto) 3.8, Eosinophils (%) (Auto) 1.3, Basophils (% ) (Auto) 0.2, Neutrophils # (Auto) 6.4, Lymphocytes # (Auto) 1.0 L, Monocytes # (Auto) 0.3, Eosinophils # (Auto) 0.1, Basophils # (Auto) 0.0 Plan / VTE VTE Prophylaxis Ordered?: Yes Plan Plan Episode of hypoglycemia 2/2 decreased by mouth intake Status post 2 ampules of dextrose, and IV fluids with dextrose in the ER- however her blood sugars have still remained in the low 100s We will admit the patient to med/surgical unit given the fact that the patient lives by herself and is a high risk to become hypoglycemic again this evening/ morning The patient has been continued on IV fluids with dextrose We will continue to monitor her blood glucose levels I have discussed at length with the patient about the importance of maintaining by mouth intake while taking her insulin medication. In addition, I have asked the patient to follow-up with her primary care physician and decrease her insulin dosing on the days that she is not eating as much. We will continue to monitor the patient's progress Diabetes mellitus We'll check a hemoglobin A1c I have held the patient's oral hypoglycemics as they are more likely to cause hypoglycemic events The patient usually takes Lantus 50 units twice a day, I have reduced her dose to Levemir 20 units twice a day here-Will be adjusted according to her blood sugar level readings Insulin sliding scale for additional coverage Dyslipidemia Continue statin COPD, stable Continue current inhaler regimen Hypertension, stable Continue current regimen Depression Continue current regimen GERD Continue PPI DVT prophylaxis-Lovenox subcutaneously The patient will be admitted under the service of Dr. Rizvi, who will begin to follow the patient on 09/01/16 at 7 AM. YECENIA GAMBOA MD Sep 01, 2016 01:18
[2016-09-01] MEDS: GABAPENTIN 300 MG CAP PO SCH ×3 (02:07→22:16)
[2016-09-01] MEDS: DULoxetine 30 MG CAP (CYMBALTA) PO SCH ×2 (02:09→22:16)
[2016-09-01] MEDS: CARVedilol 6.25 MG TAB PO SCH ×3 (02:09→22:17)
[2016-09-01] MEDS: PERCOCET 5MG/325MG TAB PO PRN ×2 (02:10→12:54)
[2016-09-01] MEDS: D5W/0.9% SODIUM CHLORIDE 1,000 ML IV SCH ×2 (04:15→09:12)
[2016-09-01 07:30] LABS: MEAN CORPUSCULAR HEMOGLOBIN 31.9 pg (27.0-33.0); MEAN CORPUSCULAR VOLUME 96.4 fl (80.0-96.0); RED CELL DISTRIBUTION WIDTH 16.1 % (11.5-14.5); WHITE BLOOD COUNT 6.6 K/mm3 (4.0-10.0)
[2016-09-01] MEDS: HumaLOG INSULIN (NovoLOG) PER UNIT SC SCH ×3 (07:30→16:42)
[2016-09-01 07:39] LABS: ANION GAP 7 MEQ/L (8-16); BLOOD UREA NITROGEN 10 MG/DL (7-18); CALCIUM LEVEL 7.8 MG/DL (8.8-10.2); CARBON DIOXIDE LEVEL 27 MEQ/L (21-32); CHLORIDE LEVEL 109 MEQ/L (98-107); CREATININE FOR GFR 0.73 MG/DL (0.55-1.02); GLOMERULAR FILTRATION RATE > 60.0 (>39); POTASSIUM SERUM 3.9 MEQ/L (3.5-5.1); SODIUM LEVEL 143 MEQ/L (136-145)
[2016-09-01 07:58] LABS: GLUCOSE, FASTING 33 MG/DL (83-110)
[2016-09-01] MEDS ORDERED: LEVEMIR (INSULIN DETEMIR) 1 UNITS/0.01ML SC SCH (09:00)
[2016-09-01] MEDS: SIMVASTATIN 40 MG TAB PO SCH (09:05)
[2016-09-01] MEDS: OMEPRAZOLE 20 MG CAP PO SCH (09:05)
[2016-09-01] MEDS: LISINOPRIL 10 MG TAB PO SCH (09:06)
[2016-09-01] MEDS: SERTRALINE HCL 50 MG TAB PO SCH (09:07)
[2016-09-01] MEDS: ENOXAPARIN 40 MG/0.4 ML SYRINGE (J1650) SC SCH (09:08)
[2016-09-01] MEDS: TIOTROPIUM INHALER/CAPSULE (SPIRIVA) INH SCH (09:16)
[2016-09-01] MEDS: ADVAIR DISKUS 500/50 INH PWD INH SCH ×2 (09:16→23:36)
--- NOTE | 2016-09-01 09:20 | ECGEPIP ---
Stationary ECG Study [facility] - ED Test Date: 2016-08-31 Pat Name: JULES JIMÉNEZ Department: Room: [place] [address] Gender: F Area Intelligence Technician: MclaughlinB: 1945 Requested By: BERNARDA Solano Order Number: [id number] Reading MD: Miguel Andrade Measurements Intervals [place] Rate: 84 P: 30 MD: 162 QRS: -36 QRSD: 122 T: 19 QT: 389 QTc: 461 Interpretive Statements SINUS RHYTHM LEFT AXIS DEVIATION LAFB MODERATE INTRAVENTRICULAR CONDUCTION DELAY MODERATE VOLTAGE CRITERIA FOR LVH, CONSIDER NORMAL VARIANT SIMILAR TO 07/15/15 Electronically Signed On 09-01-2016 9:20:46 EDT by Miguel Andrade
[2016-09-01] MEDS ORDERED: HumaLOG INSULIN (NovoLOG) PER UNIT SC SCH (21:00)
[2016-09-02 00:40] VITALS: BP 133/61
[2016-09-02 05:02] VITALS: BP 111/58
[2016-09-02 05:52] LABS: MEAN CORPUSCULAR HEMOGLOBIN 31.8 pg (27.0-33.0); MEAN CORPUSCULAR VOLUME 99.3 fl (80.0-96.0); RED CELL DISTRIBUTION WIDTH 16.5 % (11.5-14.5); WHITE BLOOD COUNT 5.1 K/mm3 (4.0-10.0)
[2016-09-02 06:10] LABS: CALCIUM LEVEL 8.2 MG/DL (8.8-10.2); CREATININE FOR GFR 1.09 MG/DL (0.55-1.02); GLOMERULAR FILTRATION RATE 52.7 (>39); POTASSIUM SERUM 4.3 MEQ/L (3.5-5.1)
[2016-09-02 07:30] VITALS: BP 121/60
[2016-09-02] MEDS: HumaLOG INSULIN (NovoLOG) PER UNIT SC SCH ×2 (08:31→12:31)
[2016-09-02] MEDS: ENOXAPARIN 40 MG/0.4 ML SYRINGE (J1650) SC SCH (08:31)
[2016-09-02] MEDS: GABAPENTIN 300 MG CAP PO SCH (08:31)
[2016-09-02] MEDS: OMEPRAZOLE 20 MG CAP PO SCH (08:32)
[2016-09-02] MEDS: SERTRALINE HCL 50 MG TAB PO SCH (08:33)
[2016-09-02] MEDS: SIMVASTATIN 40 MG TAB PO SCH (08:33)
[2016-09-02 08:39] VITALS: BP 121/60
[2016-09-02] MEDS: LISINOPRIL 10 MG TAB PO SCH (08:39)
[2016-09-02] MEDS: CARVedilol 6.25 MG TAB PO SCH (08:39)
[2016-09-02] MEDS: ADVAIR DISKUS 500/50 INH PWD INH SCH (09:17)
[2016-09-02] MEDS: TIOTROPIUM INHALER/CAPSULE (SPIRIVA) INH SCH (09:17)
[2016-09-02] MEDS ORDERED: SLF 3 ML SYR IV PRN (10:15)
[2016-09-02 12:00] VITALS: BP 139/66
[2016-09-02] MEDS ORDERED: SLF 3 ML SYR IV SCH (14:00)
== END 2016-09-02 16:45 | disposition home or self-care (01) ==
LOC: EDBD 20:52 → M ED 23:17 → M ED INP 09-01 00:50 → UNDOADMOB 09-01 00:50 → M PCU 09-01 18:24 → M ED INP 09-01 18:24 → M PCU 09-01 23:18 → UNDODISOB 09-02 16:45
PROVIDERS: ADMIT Internal Medicine; ATTEND Internal Medicine
DX: E11.649 Type 2 diabetes mellitus with hypoglycemia without coma (principal); R56.9 Unspecified convulsions; E78.5 Hyperlipidemia, unspecified; J44.9 Chronic obstructive pulmonary disease, unspecified; K21.9 Gastro-esophageal reflux disease without esophagitis; I10 Essential (primary) hypertension; F32.9 Major depressive disorder, single episode, unspecified; M54.9 Dorsalgia, unspecified; G89.29 Other chronic pain; F17.210 Nicotine dependence, cigarettes, uncomplicated; Z79.899 Other long term (current) drug therapy; Z79.4 Long term (current) use of insulin; Z79.51 Long term (current) use of inhaled steroids; Z88.8 Allergy status to other drugs, medicaments and biological substances; Z88.5 Allergy status to narcotic agent; Z91.09 Other allergy status, other than to drugs and biological substances
CPT/HCPCS: 36415; 70450; 72131; 80048; 82803; 83036; 83735; 85025; 85027; 93005; 96372; 97161; 99284; G0378; J1650

== ENCOUNTER → 2016-09-07 | Outpatient (CLI) | payer MEDICARE, MEDICAID ==
[~2016-09-07] MED LIST changes: +ADV500INH INH; +GABA-282 PO; +HUMA100I5 SC; +INSULADS INJ; +LASI40TA PO; +MYRB25TA PO; +OXYC1TAB23 PO; +PERC10TA17 PO; +PIOG30TA4 PO
--- NOTE | 2016-09-15 02:08 | ECWPNPC ---
PATIENT NAME: JULES JIMÉNEZ : 1945 GENDER: FEMALE VISIT DATE: 09/07/2016 DISCHARGE DATE: 09/07/16 1458 VISIT LOCKED DATE TIME: PHYSICIAN: ABHIJIT QUIÑONES RESOURCE: ABHIJIT QUIÑONES REASON FOR APPOINTMENT 1. LOW BACK PAIN HISTORY OF PRESENT ILLNESS HISTORY OF PRESENT ILLNESS: PAIN THE PATIENT DESCRIBES THE PAIN... 71 YEAR OLD FEMALE PATIENT WITH HISTORY OF CHRONIC LOW BACK PAIN. PATIENT DESCRIBES THE PAIN ACHING, SHARP, AND HAVING IT ALL THE TIME WITH A PAIN SCORE OF 10/10. PATIENT RECEIVED A TRIGGER POINT INJECTION ON 08/18/16 AND STATES THAT SHE ONLY HAD RELIEF FOR A VERY SHORT AMOUNT OF TIME. PATIENT IS CURRENTLY USING OXYCODONE, GABAPENTIN, AND CYCLOBENZAPRINE. MRS. JIMÉNEZ STATES THAT THE OXYCODONE IS NOT STRONG ENOUGH AND DOES NOT AID IN PAIN RELIEF. PATIENT STATES THAT ANY TYPE OF ACTIVITY INCLUDING STANDING, SITTING, AND WALKING INCREASES THE PAIN IN HER LOWER BACK. PATIENT STATES AT THIS TIME NOTHING GIVES HER RELIEF FROM THE PAIN. PATIENT DENIES UNEXPLAINABLE WEIGHT LOSS, FEVER, CHILLS, NEW CHANGES ON HER URINARY OR BOWEL CONTROL. FALL RISK SCREENING: SCREENING :NO FALLS IN THE PAST YEAR CURRENT MEDICATIONS TAKING CYCLOBENZAPRINE HCL 10 MG TABLET 1 TABLET ORALLY THREE TIMES A DAY NEEDED FOR SPASMS AND PAIN TAKING GABAPENTIN 300 MG CAPSULE 1 CAPSULE ORALLY BEFORE BEDTIME FOR PAIN TAKING DIAZEPAM 5 MG TABLET 1 TABLET NEEDED ORALLY DAILY TAKING CYMBALTA 60 MG 1 CAPSULE ORALLY ONCE A DAY TAKING FLUTICASONE PROPIONATE 50 MCG/DOSE SUSPENSION 1 SPRAY IN EACH NOSTRIL NASALLY ONCE A DAY TAKING LISINOPRIL 10 10 MG TABLET ORAL DAILY TAKING OMEPRAZOLE 40MG 40GM TABLET ORAL DAILY TAKING SERTRALINE HCL 100 MG TABLET 1 TABLET ORALLY ONCE A DAY TAKING SIMVASTATIN 40 40MG TABLET ORAL DAILY TAKING MYRBETRIQ 25 MG TABLET EXTENDED RELEASE 24 HOUR 1 TABLET ORALLY ONCE A DAY TAKING ACTOS 30 MG TABLET 1 TABLET ORALLY ONCE A DAY TAKING CARVEDILOL 6.25 MG TABLET ORALLY ONCE DAILY TAKING SPIRIVA HANDIHALER 18 MCG CAPSULE INHALATION TAKING ADVAIR DISKUS 500-50 MCG/DOSE AEROSOL POWDER BREATH ACTIVATED 1 PUFF INHALATION TWICE A DAY TAKING ALBUTEROL SULFATE (2.5 MG/3ML) 0.083% NEBULIZATION SOLUTION 3 ML INHALATION THREE TIMES A DAY TAKING MULTIVITAMIN ADULT - TABLET ONE HALF ORALLY DAILY TAKING LIDOCAINE 5 % PATCH 2 PATCH TO INTACT SKIN REMOVE AFTER 12 HOURS EXTERNALLY FOR PAIN ONCE A DAY TAKING OXYCODONE-ACETAMINOPHEN 10-325 MG TABLET 1 TABLET NEEDED ORALLY EVERY 6 HRS PRN FOR PAIN MDD3, NOTES: 05/21/16 1700 TAKING JANUVIA 100 MG TABLET 1 TAB ORALLY ONCE A DAY, NOTES: OUT OF MED NOT-TAKING LANTUS 100 UNIT/ML SOLUTION 50 SUBCUTANEOUS TWICE DAILY MEDICATION LIST REVIEWED AND RECONCILED WITH THE PATIENT PAST MEDICAL HISTORY DIABETES HYPERTENSION GERD COPD CHRONIC BACK PAIN POST-LAMINECTOMY PAIN SYNDROME HYPERCHOLESTEROLEMIA ALLERGIES TYLENOL/CODEINE #3: NAUSEA, HEADACHE: ALLERGY ALCOHOL (DRINKING): NAUSEA, VOMITING: ALLERGY SURGICAL HISTORY NO SURGICAL HISTORY DOCUMENTED. FAMILY HISTORY NO FAMILY HISTORY DOCUMENTED. SOCIAL HISTORY GENERAL: PAIN CLINIC PFS, CLERGY, PUBLIC HEALTH REFERRALS CLERGY REFERRAL NEEDED?NO WAS THE PROVIDER NOTIFIED OF ANY PERTINENT INFO?NO PFS REFERRAL NEEDED?NO PUBLIC HEALTH REFERRAL NEEDED?NO PATIENT: ____. HOSPITALIZATION/MAJOR DIAGNOSTIC PROCEDURE DIVERTICULITIS REVIEW OF SYSTEMS CONSTITUTIONAL: ANY CHANGE IN YOUR MEDICAL CONDITION? RESCENT SEIZURE RELATED TO LOW BLOOD SUGAR . CHILLS NO . FEVER NO . INFECTION: DO YOU HAVE NEW INFECTIONS? NO . DO YOU HAVE HISTORY OF MRSA? NO . MUSCULOSKELETAL: ANY NEW PATTERNS OF PAIN OR NUMBNESS? NO . GASTROENTEROLOGY: ANY NEW CHANGE IN BOWEL CONTROL? NO . GENITOURINARY: ANY NEW CHANGE IN BLADDER CONTROL? NO . IS THERE A CHANCE YOU COULD BE ? NO . HEMATOLOGY/LYMPH: DO YOU TAKE ANY BLOOD THINNERS? (FOR EXAMPLE- COUMADIN, PLAVIX, AGGRENOX, PLATEL, PRADAXA, OR XARELTO) NO . WHEN WAS YOUR LAST DOSE? DATE: TIME: . NEUROLOGY: HAVE YOU FALLEN IN THE PAST 6 MONTHS? YES, WITHIN THE LAST WEEK AND SKINNED RIGHT KNEE . ANY NEW EXTREMITY NUMBNESS OR WEAKNESS? NO . CARDIOLOGY: DO YOU HAVE A PACEMAKER OR DEFIBRILLATOR? NO . RESPIRATORY: HAVE YOU BEEN SICK IN THE PAST WEEK? NO . FEVER NO . FLU LIKE SYMPTOMS? NO . COUGH NO . INTEGUMENTARY: DO YOU HAVE ANY RASHES OR OPEN SORES? NO . ALLERGIC/IMMUNO: ARE YOU ALLERGIC TO SHELLFISH OR IV DYE? NO . ANY NEW ALLERGIES? NO . PSYCHIATRIC: DO YOU HAVE THOUGHTS OF HURTING YOURSELF OR SOMEONE ELSE? YES, IS HAVING TROUBLES WITH OTHER RESIDENTS AT HER FACILITY . ARE YOU ABUSED, NEGLECTED, OR IN AN UNSAFE ENVIRONMENT? YES, SEE ABOVE . ENDOCRINOLOGY: ARE YOU DIABETIC? NO . OTHER: DO YOU NEED ANY PRESCRIPTIONS? NO . IF YES, PLEASE LIST: ____ . ANY NEW PROBLEMS WITH YOUR MEDICATIONS? NO . WHEN DID YOU LAST EAT? ____ . WHEN DID YOU LAST DRINK? ____ . WHAT DID YOU LAST DRINK? ____ . NAME OF PERSON DRIVING YOU HOME? ____ . DO YOU HAVE ANY OTHER QUESTIONS OR CONCERNS NO . REVIEWED BY: PROVIDER: ABHIJIT QUIÑONES MD . VITAL SIGNS WT 218 LBS, HT 64 IN, BMI 37.42 INDEX, BP 141/76 MM HG, HR 119 /MIN, RR 16 /MIN, TEMP 97.2 F, OXYGEN SAT % 93%, NA INITIALS AW 1323. EXAMINATION : PATIENT IS ALERT O X 3 AND COOPERATIVE. TENDERNESS IN THE LOWER BACK AND PARASPINAL MUSCLE GROUP. USES WALKER TO FACILITATE. BANDS OF TISSUE, RESTRICTION OF MOVEMENT, AND PRESENCE OF TRIGGER POINTS IN THE LOWER BACK AREA. MRI DONE ON 09/21/13 SHOWS DISC BULGE AT L4-L5 AND L5-S1 WITH SCAR TISSUE AROUND THE L5 NERVES. 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 JIMÉNEZ'S PAIN MANAGEMENT CASE. PATIENT WILL DISCONTINUE OXYCODONE SHE STATES IT DOES NOT AID IN PAIN RELIEF. MRS. JIMÉNEZ WILL START DILAUDID AND WAS ADVISED TO STOP THE MEDICATION IF SHE HAS ANY ADVERSE SIDE EFFECTS. MRS. JIMÉNEZ IS AWARE OF THE RISKS WHILE USING THIS MEDICATION INCLUDING . PATIENT BROUGHT HER MEDICATION TO TODAY'S VISIT IN THEIR ORIGINAL BOTTLES. PATIENT DENIES ABUSE OF ANY MEDICATION, DENIES USE OF ILLEGAL SUBSTANCES, AND STATES THAT HE IS ONLY USING THE MEDICATION FOR PAIN MANAGEMENT. URINE TOXICOLOGY REPORT DONE ON 06/19/16 SHOWS CONSISTENT RESULTS WITH THE PATIENT'S MEDICATION LIST. PATIENT DID NOT HAVE ADEQUATE RESULTS FROM THE TRIGGER POINT INJECTION. WE DISCUSSED DOING A DIAGNOSTIC FACET BLOCK ON THE RIGHT SIDE TO CONSIDER ANOTHER RADIOFREQUENCY. WE DISCUSSED THE RISKS, BENENFITS, AND ALTNERATIVES OF THE INJECTION AND THE PATIENT WOULD LIKE TO PROCEED. INSTRUCTIONS WERE GIVEN, QUESTIONS WERE ANSWERED, PATIENT REPORTS UNDERSTANDING AND AGREES WITH THE PLAN. I, NATY BOND, DOCUMENTED THE ABOVE INFORMATION ACTING A SCRIBE FOR DR. QUIÑONES. I HAVE REVIEWED THE ABOVE DOCUMENT, WRITTEN BY NATY PALACIOS AND I VERIFY THAT IT IS ACCURATE. SACROILIITIS, NOT ELSEWHERE CLASSIFIED START DILAUDID TABLET, 2 MG, 1 TABLET NEEDED, ORALLY FOR PAIN, EVERY 6 HRS PRN FOR PAIN MDD2, 10 DAYS, 20, REFILLS 0 OTHERS REFILL CYCLOBENZAPRINE HCL TABLET, 10 MG, 1 TABLET, ORALLY, THREE TIMES A DAY NEEDED FOR SPASMS AND PAIN, 30 DAY(S), 90, REFILLS 2 REFILL GABAPENTIN CAPSULE, 300 MG, 1 CAPSULE, ORALLY, BEFORE BEDTIME FOR PAIN, 30 DAY(S), 30, REFILLS 2 PREVENTIVE MEDICINE GAVE INFO ON DILAUDIDDISCUSSED PREPROCEDURE CARE AND GAVE INFO ON IT. PROCEDURE CODES FA211 ESTABILISHED PATIENT [facility] CHARGE G8427 DOC MEDS VERIFIED W/PT OR RE G1730 PAIN ASSESS POS TOOL F/U PLAN DOC DISPOSITION & COMMUNICATION FOLLOW UP LFBD AFTER APPROVAL ELECTRONICALLY SIGNED BY ABHIJIT QUIÑONES MD ON 09/14/2016 AT 08:20 PM EDT DISCLAIMER : THIS IS A VISIT SUMMARY EXTRACTED FROM THE [employer] CHART. IT IS NOT A COPY OF THE [employer] PROGRESS NOTE. KAREND
== END | disposition home or self-care (01) ==
LOC: M PAIN 13:20
PROVIDERS: ATTEND Anesthesiology
DX: G89.29 Other chronic pain (principal); M47.816 Spondylosis without myelopathy or radiculopathy, lumbar region; M46.1 Sacroiliitis, not elsewhere classified; M47.817 Spondylosis without myelopathy or radiculopathy, lumbosacral region; M96.1 Postlaminectomy syndrome, not elsewhere classified; E11.9 Type 2 diabetes mellitus without complications; I10 Essential (primary) hypertension; J44.9 Chronic obstructive pulmonary disease, unspecified; K21.9 Gastro-esophageal reflux disease without esophagitis; E78.00 Pure hypercholesterolemia, unspecified; Z79.899 Other long term (current) drug therapy; Z79.84 Long term (current) use of oral hypoglycemic drugs; Z79.51 Long term (current) use of inhaled steroids; Z88.5 Allergy status to narcotic agent; Z91.018 Allergy to other foods

== ENCOUNTER → 2016-10-06 | Outpatient (CLI) | payer MEDICARE, MEDICAID ==
[~2016-10-06] MED LIST changes: +BUPIVACAINE HCL 0.25% 30 ML VIAL As Ordered ONE; +HYDR-3716 PO; +HYDR2TAB2 PO; +IBUP80TA PO; +ISOVUE-M 300 61% 15ML VIAL (Q9967) As Ordered ONE; +JANU100T PO; +LANTINJ4 INJ; +LIDOCAINE 1% SDV INJ 30 ML VIAL As Ordered ONE; +MELO7.5T6 PO; +TRIAMCINOLONE ACETONIDE SUSP 40 MG/ML VIAL (J3301) As Ordered ONE; +diazePAM 5 MG TAB As Ordered ONE; +oxyCODONE 5MG TAB As Ordered ONE
--- NOTE | 2016-10-07 17:49 | REP ---
FLUOROSCOPIC GUIDANCE: The images were reviewed with Dr. Graves. The patient has a history of back pain. The portable C-Arm was provided in the OR for Dr. Martinez for fluoroscopic guidance. Two intraoperative fluoroscopic spot films were obtained for needle placement verification for right sacroiliac joint injection. The films are on the PACs system and are available for review. 13 seconds of fluoroscopy time was utilized for this procedure. Reviewed by GUNNER Dunn 10/08/2016 12:36 PEdited and Signed by Dada Graves MD 10/08/2016 07:22 P
--- NOTE | 2016-10-11 23:35 | ECWPNPC ---
PATIENT NAME: JULES JIMÉNEZ : 1945 GENDER: FEMALE VISIT DATE: 10/06/2016 DISCHARGE DATE: 10/06/16 1146 VISIT LOCKED DATE TIME: PHYSICIAN: ABHIJIT QUIÑONES RESOURCE: ABHIJIT QUIÑONES REASON FOR APPOINTMENT 1. FACET HISTORY OF PRESENT ILLNESS HISTORY OF PRESENT ILLNESS: PAIN THE PATIENT DESCRIBES THE PAIN... FALL RISK SCREENING: SCREENING :NO FALLS IN THE PAST YEAR CURRENT MEDICATIONS TAKING DIAZEPAM 5 MG TABLET 1 TABLET NEEDED ORALLY DAILY, NOTES: 10/05/16 08 TAKING CYMBALTA 60 MG 1 CAPSULE ORALLY ONCE A DAY, NOTES: 10/05/162199 TAKING FLUTICASONE PROPIONATE 50 MCG/DOSE SUSPENSION 1 SPRAY IN EACH NOSTRIL NASALLY ONCE A DAY, NOTES: 10/05/162099 TAKING LISINOPRIL 10 10 MG TABLET ORAL DAILY, NOTES: 10/05/16799 TAKING OMEPRAZOLE 40MG 40GM TABLET ORAL DAILY, NOTES: 10/05/16799 TAKING SERTRALINE HCL 100 MG TABLET 1 TABLET ORALLY ONCE A DAY, NOTES: 10/05/16799 TAKING SIMVASTATIN 40 40MG TABLET ORAL DAILY, NOTES: 09/2916 TAKING MYRBETRIQ 25 MG TABLET EXTENDED RELEASE 24 HOUR 1 TABLET ORALLY ONCE A DAY, NOTES: 10/05/16799 TAKING ACTOS 30 MG TABLET 1 TABLET ORALLY ONCE A DAY, NOTES: 10/05/16799 TAKING CARVEDILOL 6.25 MG TABLET ORALLY ONCE DAILY, NOTES: 10/05/16799 TAKING SPIRIVA HANDIHALER 18 MCG CAPSULE INHALATION , NOTES: 10/05/16799 TAKING ADVAIR DISKUS 500-50 MCG/DOSE AEROSOL POWDER BREATH ACTIVATED 1 PUFF INHALATION TWICE A DAY, NOTES: 10/05/16799 TAKING ALBUTEROL SULFATE (2.5 MG/3ML) 0.083% NEBULIZATION SOLUTION 3 ML INHALATION THREE TIMES A DAY, NOTES: 10/02/16 TAKING MULTIVITAMIN ADULT - TABLET ONE HALF ORALLY DAILY, NOTES: 10/05/16799 TAKING LIDOCAINE 5 % PATCH 2 PATCH TO INTACT SKIN REMOVE AFTER 12 HOURS EXTERNALLY FOR PAIN ONCE A DAY, NOTES: NOT USING TAKING OXYCODONE-ACETAMINOPHEN 10-325 MG TABLET 1 TABLET NEEDED ORALLY EVERY 6 HRS PRN FOR PAIN MDD3, NOTES: NOT TAKING TAKING JANUVIA 100 MG TABLET 1 TAB ORALLY ONCE A DAY, NOTES: 10/05/16 0800 TAKING CYCLOBENZAPRINE HCL 10 MG TABLET 1 TABLET ORALLY THREE TIMES A DAY NEEDED FOR SPASMS AND PAIN, NOTES: 10/05/16 0800 TAKING GABAPENTIN 300 MG CAPSULE 1 CAPSULE ORALLY BEFORE BEDTIME FOR PAIN, NOTES: 10/05/16 2100 TAKING DILAUDID 2 MG TABLET 1 TABLET NEEDED ORALLY FOR PAIN EVERY 6 HRS PRN FOR PAIN MDD2, NOTES: 10/05/16 08 TAKING NOVOLOG FLEXPEN 100 UNIT/ML SOLUTION SUBCUTANEOUS TAKING LANTUS 100 UNIT/ML SOLUTION 50 SUBCUTANEOUS TWICE DAILY MEDICATION LIST REVIEWED AND RECONCILED WITH THE PATIENT PAST MEDICAL HISTORY DIABETES HYPERTENSION GERD COPD CHRONIC BACK PAIN POST-LAMINECTOMY PAIN SYNDROME HYPERCHOLESTEROLEMIA ALLERGIES TYLENOL/CODEINE #3: NAUSEA, HEADACHE: ALLERGY ALCOHOL (DRINKING): NAUSEA, VOMITING: ALLERGY REVIEW OF SYSTEMS CONSTITUTIONAL: ANY CHANGE IN YOUR MEDICAL CONDITION? NO . CHILLS NO . FEVER NO . INFECTION: DO YOU HAVE NEW INFECTIONS? NO . DO YOU HAVE HISTORY OF MRSA? NO . MUSCULOSKELETAL: ANY NEW PATTERNS OF PAIN OR NUMBNESS? NO . GASTROENTEROLOGY: ANY NEW CHANGE IN BOWEL CONTROL? NO . GENITOURINARY: ANY NEW CHANGE IN BLADDER CONTROL? NO . IS THERE A CHANCE YOU COULD BE ? NO . HEMATOLOGY/LYMPH: DO YOU TAKE ANY BLOOD THINNERS? (FOR EXAMPLE- COUMADIN, PLAVIX, AGGRENOX, PLATEL, PRADAXA, OR XARELTO) NO . WHEN WAS YOUR LAST DOSE? DATE: TIME: . NEUROLOGY: HAVE YOU FALLEN IN THE PAST 6 MONTHS? NO . ANY NEW EXTREMITY NUMBNESS OR WEAKNESS? NO . CARDIOLOGY: DO YOU HAVE A PACEMAKER OR DEFIBRILLATOR? NO . RESPIRATORY: HAVE YOU BEEN SICK IN THE PAST WEEK? NO . FEVER NO . FLU LIKE SYMPTOMS? NO . COUGH NO . INTEGUMENTARY: DO YOU HAVE ANY RASHES OR OPEN SORES? NO . ALLERGIC/IMMUNO: ARE YOU ALLERGIC TO SHELLFISH OR IV DYE? NO . ANY NEW ALLERGIES? NO . PSYCHIATRIC: DO YOU HAVE THOUGHTS OF HURTING YOURSELF OR SOMEONE ELSE? NO . ARE YOU ABUSED, NEGLECTED, OR IN AN UNSAFE ENVIRONMENT? NO . ENDOCRINOLOGY: ARE YOU DIABETIC? YES . OTHER: DO YOU NEED ANY PRESCRIPTIONS? YES . IF YES, PLEASE LIST: ____DILAUDID . ANY NEW PROBLEMS WITH YOUR MEDICATIONS? NO . WHEN DID YOU LAST EAT? ____10/05/16 2200 . WHEN DID YOU LAST DRINK? ____10/05/16 2300 . WHAT DID YOU LAST DRINK? ____WATER . NAME OF PERSON DRIVING YOU HOME? ____NICKY . DO YOU HAVE ANY OTHER QUESTIONS OR CONCERNS NO . REVIEWED BY: PROVIDER: . VITAL SIGNS WT 216 LBS, HT 64 IN, BMI 37.07 INDEX, BP 118/58 MM HG, HR 97 /MIN, RR 16 /MIN, TEMP 96.8 F, OXYGEN SAT % 97%, SAFE IN ENV? (Y/N) YES, NA INITIALS SC 10:23, REVIEWED BY: RUPA. ASSESSMENTS SACROILIITIS, NOT ELSEWHERE CLASSIFIED - M46.1 (PRIMARY) TREATMENT SACROILIITIS, NOT ELSEWHERE CLASSIFIED REFILL DILAUDID TABLET, 2 MG, 1 TABLET NEEDED, ORALLY FOR PAIN, EVERY 6 HRS PRN FOR PAIN MDD2, 10 DAYS, 20, REFILLS 0, NOTES: 10/05/16 0800 PROCEDURES PN SI PRE PROCEDURE DIAGNOSIS SACROILIITIS, SACROILIAC JOINT DYSFUNCTION POST PROCEDURE DIAGNOSIS SACROILIITIS, SACROILIAC JOINT DYSFUNCTION PROCEDURE RIGHT SACROILIAC JOINT BLOCK SURGEON DR. 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 I EVALUATED THE PATIENT AND REVIEWED THE CHART. I WENT OVER THE RISKS, ALTERNATIVES, AND BENEFITS ASSOCIATED WITH THIS PROCEDURE. THE PATIENT WOULD LIKE TO PROCEED AND GAVE CONSENT TO PERFORM THE PROCEDURE. THE PATIENT DENIES UNEXPLAINABLE WEIGHT LOSS, FEVER, CHILLS, OR NEW CHANGES IN URINARY OR BOWEL CONTROL DESCRIPTION OF PROCEDURE THE PATIENT WAS BROUGHT TO THE PROCEDURE ROOM AND PLACED IN THE PRONE POSITION. THE LUMBOSACRAL AREA WAS CLEANED WITH CHLORAPREP SOLUTION AND DRAPED ASEPTICALLY. THE PROCEDURE WAS DONE UNDER STERILE CONDITIONS. I CHECKED LATERALITY AND THE LEVEL WHERE THE PROCEDURE WAS GOING TO BE PERFORMED WITH THE PATIENT AND THE SUPPORTING STAFF AT THE MOMENT OF THE TIME OUT IN THE PROCEDURE ROOM. UNDER FLUOROSCOPIC GUIDANCE, TARGET POINT WAS SELECTED AT THE LOWER BORDER OF THE RIGHT SACROILIAC JOINT. TARGET POINT WAS SELECTED AFTER MEDIAL ROTATION AND TILT OF THE MAGNIFIER OF THE C-ARM. LIDOCAINE WAS USED TO NUMB THE SKIN AND SUBCUTANEOUS TISSUE BELOW IT. A SPINAL NEEDLE, 22-GAUGE, WAS ADVANCED UNDER FLUOROSCOPIC GUIDANCE AND FOLLOWING PATIENT FEEDBACK UNTIL THE TARGET AREA WAS TOUCHED. THE POSITION OF THE NEEDLE WAS VERIFIED WITH AP AND LATERAL VIEWS. AFTER PROPER POSITION OF THE NEEDLE WAS ACHIEVED, ISOVUE M DYE 30%, 0.25 ML, WAS INJECTED SHOWING SPREAD OF THE DYE. THEN, A SOLUTION OF 20 MG OF KENALOG WAS INJECTED IN RIGHT JOINT WITH 3 ML OF BUPIVACAINE 0.125%. THERE WAS NO EVIDENCE OF BLOOD, PARESTHESIA OR CEREBROSPINAL FLUID DURING THE PROCEDURE. THE PATIENT WAS SENT TO THE RECOVERY ROOM. THE PATIENT WAS MOVING THE EXTREMITIES AND DOING WELL. THERE WAS NO COMPLICATION DURING THE PROCEDURE. FLUOROSCOPY TIME WAS 13 SECONDS POST PROCEDURE NOTE THE PATIENT WILL BE SEEN IN A FOLLOW UP IN THE NEXT FEW WEEKS. INSTRUCTIONS WERE GIVEN, QUESTIONS WERE ANSWERED, AND THE PATIENT EXPRESSED UNDERSTANDING AND AGREED WITH THE PLAN. I, NATY BOND, DOCUMENTED THE ABOVE INFORMATION ACTING A SCRIBE FOR DR. QUIÑONES. I, DR. QUIÑONES, HAVE REVIEWED THE ABOVE DOCUMENT, SCRIBED BY NATY BOND, AND I VERIFY THAT IT IS ACCURATE DIAGNOSTIC IMAGING [facility] FLUORO GUIDANCE (PAIN)[id number] PROCEDURE CODES 46345 INJECT SACROILIAC JOINT 6045F RADXPS IN END [id number] PXD DISPOSITION & COMMUNICATION FOLLOW UP 3 WEEKS ELECTRONICALLY SIGNED BY ABHIJIT QUIÑONES MD ON 10/11/2016 AT 05:34 PM EDT DISCLAIMER : THIS IS A VISIT SUMMARY EXTRACTED FROM THE [employer] CHART. IT IS NOT A COPY OF THE [employer] PROGRESS NOTE. MTDD
== END | disposition home or self-care (01) ==
LOC: M PAIN 10:20
PROVIDERS: ATTEND Anesthesiology
DX: G89.29 Other chronic pain (principal); M46.1 Sacroiliitis, not elsewhere classified; E11.9 Type 2 diabetes mellitus without complications; I10 Essential (primary) hypertension; K21.9 Gastro-esophageal reflux disease without esophagitis; J44.9 Chronic obstructive pulmonary disease, unspecified; M96.1 Postlaminectomy syndrome, not elsewhere classified; E78.00 Pure hypercholesterolemia, unspecified; Z79.899 Other long term (current) drug therapy; Z79.51 Long term (current) use of inhaled steroids; Z79.4 Long term (current) use of insulin; Z79.84 Long term (current) use of oral hypoglycemic drugs; Z88.8 Allergy status to other drugs, medicaments and biological substances; Z91.09 Other allergy status, other than to drugs and biological substances
CPT/HCPCS: G0260; J3301; Q9967

== ENCOUNTER → 2016-10-14 | Outpatient (CLI) | payer MEDICARE, MEDICAID ==
[~2016-10-14] MED LIST changes: -BUPIVACAINE HCL 0.25% 30 ML VIAL As Ordered ONE; -ISOVUE-M 300 61% 15ML VIAL (Q9967) As Ordered ONE; -LIDOCAINE 1% SDV INJ 30 ML VIAL As Ordered ONE; -TRIAMCINOLONE ACETONIDE SUSP 40 MG/ML VIAL (J3301) As Ordered ONE; -diazePAM 5 MG TAB As Ordered ONE; -oxyCODONE 5MG TAB As Ordered ONE
--- NOTE | 2016-10-27 01:24 | ECWPNPC ---
PATIENT NAME: JULES JIMÉNEZ : 1945 GENDER: FEMALE VISIT DATE: 10/14/2016 DISCHARGE DATE: 10/14/16 1447 VISIT LOCKED DATE TIME: PHYSICIAN: ABHIJIT QUIOÑNES RESOURCE: ABHIJIT QUIÑONES REASON FOR APPOINTMENT 1. LOW BACK PAIN HISTORY OF PRESENT ILLNESS HISTORY OF PRESENT ILLNESS: PAIN THE PATIENT DESCRIBES THE PAIN... 71 YEAR OLD FEMALE PATIENT WITH HISTORY OF CHRONIC LOW BACK PAIN. PATIENT DESCRIBES THE PAIN ACHING, STABBING, THROBBING AND SORE WITH A PAIN SCORE OF 5/10. MRS. JIMÉNEZ RECEIVED A SACROILIAC JOINT INJECTION ON 10/06/16 AND STATES THE INJECTION DECREASED HER PAIN OVER 50% AND INCREASED HER MOBILITY AND FUNCTIONALITY. CURRENTLY THE PATIENT IS USING CYCLOBENZAPRINE, CYMBALTA AND GABAPENTIN AND WAS USING DILAUDID BUT REPORTS IT DID NOT AID IN PAIN RELIEF. MRS. JIMÉNEZ STATES THAT ANY TYPE OF ACTIVITY INCLUDING WALKING, STANDING, AND SITTING INCREASES THE PAIN IN THE LOWER BACK. PATIENT DENIES UNEXPLAINABLE WEIGHT LOSS, FEVER, CHILLS, NEW CHANGES ON HER URINARY OR BOWEL CONTROL. FALL RISK SCREENING: SCREENING :NO FALLS IN THE PAST YEAR CURRENT MEDICATIONS TAKING DIAZEPAM 5 MG TABLET 1 TABLET NEEDED ORALLY DAILY TAKING CYMBALTA 60 MG 1 CAPSULE ORALLY ONCE A DAY TAKING FLUTICASONE PROPIONATE 50 MCG/DOSE SUSPENSION 1 SPRAY IN EACH NOSTRIL NASALLY ONCE A DAY TAKING LISINOPRIL 10 10 MG TABLET ORAL DAILY TAKING OMEPRAZOLE 40MG 40GM TABLET ORAL DAILY TAKING SERTRALINE HCL 100 MG TABLET 1 TABLET ORALLY ONCE A DAY TAKING SIMVASTATIN 40 40MG TABLET ORAL DAILY TAKING MYRBETRIQ 25 MG TABLET EXTENDED RELEASE 24 HOUR 1 TABLET ORALLY ONCE A DAY TAKING ACTOS 30 MG TABLET 1 TABLET ORALLY ONCE A DAY TAKING CARVEDILOL 6.25 MG TABLET ORALLY ONCE DAILY TAKING SPIRIVA HANDIHALER 18 MCG CAPSULE INHALATION ONCE DAILY TAKING ADVAIR DISKUS 500-50 MCG/DOSE AEROSOL POWDER BREATH ACTIVATED 1 PUFF INHALATION TWICE A DAY TAKING ALBUTEROL SULFATE (2.5 MG/3ML) 0.083% NEBULIZATION SOLUTION 3 ML INHALATION THREE TIMES A DAY TAKING MULTIVITAMIN ADULT - TABLET ONE HALF ORALLY DAILY TAKING LIDOCAINE 5 % PATCH 2 PATCH TO INTACT SKIN REMOVE AFTER 12 HOURS EXTERNALLY FOR PAIN ONCE A DAY TAKING JANUVIA 100 MG TABLET 1 TAB ORALLY ONCE A DAY TAKING CYCLOBENZAPRINE HCL 10 MG TABLET 1 TABLET ORALLY THREE TIMES A DAY NEEDED FOR SPASMS AND PAIN TAKING GABAPENTIN 300 MG CAPSULE 1 CAPSULE ORALLY BEFORE BEDTIME FOR PAIN TAKING NOVOLOG FLEXPEN 100 UNIT/ML SOLUTION SLIDING SCALE SUBCUTANEOUS BID TAKING LANTUS 100 UNIT/ML SOLUTION 45 UNITS SUBCUTANEOUS TWICE DAILY TAKING DILAUDID 2 MG TABLET 1 TABLET NEEDED ORALLY FOR PAIN EVERY 6 HRS PRN FOR PAIN MDD2 NOT-TAKING OXYCODONE-ACETAMINOPHEN 10-325 MG TABLET 1 TABLET NEEDED ORALLY EVERY 6 HRS PRN FOR PAIN MDD3 MEDICATION LIST REVIEWED AND RECONCILED WITH THE PATIENT PAST MEDICAL HISTORY DIABETES HYPERTENSION GERD COPD CHRONIC BACK PAIN POST-LAMINECTOMY PAIN SYNDROME HYPERCHOLESTEROLEMIA ALLERGIES TYLENOL/CODEINE #3: NAUSEA, HEADACHE: ALLERGY ALCOHOL (DRINKING): NAUSEA, VOMITING: ALLERGY SURGICAL HISTORY NO SURGICAL HISTORY DOCUMENTED. FAMILY HISTORY NO FAMILY HISTORY DOCUMENTED. SOCIAL HISTORY GENERAL: TOBACCO USE E-CIGARETTEYES PAIN CLINIC PFS, CLERGY, PUBLIC HEALTH REFERRALS CLERGY REFERRAL NEEDED?NO WAS THE PROVIDER NOTIFIED OF ANY PERTINENT INFO?NO PFS REFERRAL NEEDED?NO PUBLIC HEALTH REFERRAL NEEDED?NO PATIENT: ____. HOSPITALIZATION/MAJOR DIAGNOSTIC PROCEDURE DIVERTICULITIS REVIEW OF SYSTEMS CONSTITUTIONAL: ANY CHANGE IN YOUR MEDICAL CONDITION? NO . CHILLS NO . FEVER NO . INFECTION: DO YOU HAVE NEW INFECTIONS? NO . DO YOU HAVE HISTORY OF MRSA? NO . MUSCULOSKELETAL: ANY NEW PATTERNS OF PAIN OR NUMBNESS? NO . GASTROENTEROLOGY: ANY NEW CHANGE IN BOWEL CONTROL? NO . GENITOURINARY: ANY NEW CHANGE IN BLADDER CONTROL? NO . IS THERE A CHANCE YOU COULD BE ? NO . HEMATOLOGY/LYMPH: DO YOU TAKE ANY BLOOD THINNERS? (FOR EXAMPLE- COUMADIN, PLAVIX, AGGRENOX, PLATEL, PRADAXA, OR XARELTO) NO . WHEN WAS YOUR LAST DOSE? DATE: TIME: . NEUROLOGY: HAVE YOU FALLEN IN THE PAST 6 MONTHS? YES, CAN'T REMEMBER WHEN THE LAST TIME WAS, JUST LOST HER BALANCE WHEN TURNING TOO FAST&NBSP;. ANY NEW EXTREMITY NUMBNESS OR WEAKNESS? &NBSP;&NBSP; NO&NBSP;. CARDIOLOGY: DO YOU HAVE A PACEMAKER OR DEFIBRILLATOR? NO . RESPIRATORY: HAVE YOU BEEN SICK IN THE PAST WEEK? NO . FEVER NO . FLU LIKE SYMPTOMS? NO . COUGH NO . INTEGUMENTARY: DO YOU HAVE ANY RASHES OR OPEN SORES? YES . ALLERGIC/IMMUNO: ARE YOU ALLERGIC TO SHELLFISH OR IV DYE? NO . ANY NEW ALLERGIES? NO . PSYCHIATRIC: DO YOU HAVE THOUGHTS OF HURTING YOURSELF OR SOMEONE ELSE? NO . ARE YOU ABUSED, NEGLECTED, OR IN AN UNSAFE ENVIRONMENT? NO . ENDOCRINOLOGY: ARE YOU DIABETIC? YES FSBS THIS A.M. 138 . OTHER: DO YOU NEED ANY PRESCRIPTIONS? NO . IF YES, PLEASE LIST: ____ . ANY NEW PROBLEMS WITH YOUR MEDICATIONS? NO . WHEN DID YOU LAST EAT? ____ . WHEN DID YOU LAST DRINK? ____ . WHAT DID YOU LAST DRINK? ____ . NAME OF PERSON DRIVING YOU HOME? ____ . DO YOU HAVE ANY OTHER QUESTIONS OR CONCERNS DILAUDID IS NOT EFFECTIVE . REVIEWED BY: PROVIDER: ABHIJIT QUIÑONES MD . VITAL SIGNS WT 208 LBS, HT 64 IN, BMI 35.70 INDEX, BP 118/69 MM HG, HR 104 /MIN, RR 16 /MIN, TEMP 98.6 F, OXYGEN SAT % 96%, NA INITIALS AW 1354, REVIEWED BY: AD. EXAMINATION : PATIENT IS ALERT O X 3 AND COOPERATIVE. TENDERNESS IN THE LOWER BACK AND PARASPINAL MUSCLE GROUP. USES WALKER TO FACILITATE. BANDS OF TISSUE, RESTRICTION OF MOVEMENT, AND PRESENCE OF TRIGGER POINTS IN THE LOWER BACK AREA. MRI DONE ON 09/21/13 SHOWS DISC BULGE AT L4-L5 AND L5-S1 WITH SCAR TISSUE AROUND THE L5 NERVES. ASSESSMENTS POSTLAMINECTOMY SYNDROME, NOT ELSEWHERE CLASSIFIED - M96.1 (PRIMARY) SACROILIITIS, NOT ELSEWHERE CLASSIFIED - M46.1 SPONDYLOSIS WITHOUT MYELOPATHY OR RADICULOPATHY, LUMBAR REGION - M47.816 SPONDYLOSIS WITHOUT MYELOPATHY OR RADICULOPATHY, LUMBOSACRAL REGION - M47.817 TREATMENT POSTLAMINECTOMY SYNDROME, NOT ELSEWHERE CLASSIFIED NOTES: WE DISCUSSED SEVERAL ISSUES WITH MRS. JIMÉNEZ'S PAIN MANAGEMENT CASE. AT THIS TIME THE PATIENT WILL CONTINUE USING GABAPENTIN AND CYMBALTA FOR THE NEUROPATHIC PAIN. I WOULD LIKE THE PATIENT TO START USING IBUPROFEN. PATIENT WAS ADVISED TO USE THE MEDICATION WITH FOOD. AT THIS TIME THE PATIENT IS DOING FAIRLY WELL FROM THE SACROILIAC JOINT INJECTION AND STATES THAT HER PAIN IS MANAGEABLE. PATIENT WILL RETURN TO THE CLINIC IN 2 MONTHS BUT WAS ADVISED TO CALL IF THE PAIN SIGNIFICANTLY WORSENS AT ANY TIME. INSTRUCTIONS WERE GIVEN, QUESTIONS WERE ANSWERED, PATIENT REPORTS UNDERSTANDING AND AGREES WITH THE PLAN. I, NATY BOND, DOCUMENTED THE ABOVE INFORMATION ACTING A SCRIBE FOR DR. QUIÑONES. I HAVE REVIEWED THE ABOVE DOCUMENT, WRITTEN BY NATY PALACIOS AND I VERIFY THAT IT IS ACCURATE. OTHERS REFILL CYMBALTA, 60 MG, 1 CAPSULE, ORALLY, ONCE A DAY, 30 DAY(S), 30 CAPSULE, REFILLS 2 REFILL GABAPENTIN CAPSULE, 300 MG, 1 CAPSULE, ORALLY, BEFORE BEDTIME FOR PAIN, 30 DAY(S), 30, REFILLS 2 START IBUPROFEN TABLET, 800 MG, 1 TABLET WITH FOOD OR MILK, ORALLY, EVERY 6 HOURS NEEDED FOR PAIN MDD3, 30 DAY(S), 50, REFILLS 1 PROCEDURE CODES G8427 DOC MEDS VERIFIED W/PT OR RE G8730 PAIN ASSESS POS TOOL F/U PLAN DOC FA211 ESTABILISHED PATIENT [facility] CHARGE DISPOSITION & COMMUNICATION FOLLOW UP 2 MONTHS ELECTRONICALLY SIGNED BY ABHIJIT QUIÑONES MD ON 10/26/2016 AT 04:28 PM EDT DISCLAIMER : THIS IS A VISIT SUMMARY EXTRACTED FROM THE [employer] CHART. IT IS NOT A COPY OF THE [employer] PROGRESS NOTE. BRENDAN
== END | disposition home or self-care (01) ==
LOC: M PAIN 13:40
PROVIDERS: ATTEND Anesthesiology
DX: G89.29 Other chronic pain (principal); M96.1 Postlaminectomy syndrome, not elsewhere classified; M46.1 Sacroiliitis, not elsewhere classified; M47.816 Spondylosis without myelopathy or radiculopathy, lumbar region; M47.817 Spondylosis without myelopathy or radiculopathy, lumbosacral region; E11.9 Type 2 diabetes mellitus without complications; I10 Essential (primary) hypertension; J44.9 Chronic obstructive pulmonary disease, unspecified; K21.9 Gastro-esophageal reflux disease without esophagitis; E78.00 Pure hypercholesterolemia, unspecified; Z79.899 Other long term (current) drug therapy; Z79.4 Long term (current) use of insulin; Z79.84 Long term (current) use of oral hypoglycemic drugs; Z79.51 Long term (current) use of inhaled steroids; Z88.8 Allergy status to other drugs, medicaments and biological substances; Z91.018 Allergy to other foods; F17.210 Nicotine dependence, cigarettes, uncomplicated

== ENCOUNTER 2016-10-19 11:53 | Inpatient (IN) | payer MEDICARE, MEDICAID ==
[~2016-10-19] VITALS: Ht 162.6 cm; Wt 68.0 kg
[~2016-10-19 11:53] MED LIST changes: -HYDR-3716 PO; -HYDR2TAB2 PO; -IBUP80TA PO; -JANU100T PO; -LANTINJ4 INJ; -MELO7.5T6 PO
[2016-10-19] MEDS ORDERED: TETANUS/DIPHTHERIA TOX ADSORB ADULT 0.5ML SYR/VIAL (90714) IM ONE (12:15)
[2016-10-19] MEDS ORDERED: MORPHINE 4 MG/ML 1ML SYRINGE IV ONE ×2 (12:15→13:45)
[2016-10-19] MEDS ORDERED: GLIM4TAB PO (12:26)
[2016-10-19] MEDS ORDERED: HYDR2TAB2 PO (12:26)
[2016-10-19] MEDS ORDERED: JANU100T PO (12:26)
[2016-10-19] MEDS ORDERED: LANTINJ4 INJ (12:26)
[2016-10-19] MEDS ORDERED: PIOG30TA4 PO (12:26)
[2016-10-19] MEDS ORDERED: IBUP80TA PO (12:26)
--- NOTE | 2016-10-19 13:05 | REP ---
CT of the brain without IV contrast: Comparison is 08/31/2016. There is no subdural or epidural hematoma. There is no hemorrhage, edema, mass effect or midline shift. There are left basal ganglia calcifications, unchanged. There are lucencies in the periventricular white matter, unchanged, compatible with chronic microvascular ischemic change. The visualized paranasal sinuses and mastoid air cells are clear. Impression: No subdural hematoma or hemorrhage. No mass effect or shift. There is evidence for chronic microvascular ischemia. Otherwise, negative CT study of the brain. No change from the comparison study. Signed by Dada Arteaga MD 10/19/2016 12:56 P
[2016-10-19 13:08] LABS: BASO % 0.4 % (0.0-1.0); EOS # 0.1 K/mm3 (0.0-0.50); LARGE UNSTAINED CELL # 0.1 K/mm3 (0.0-0.4); LARGE UNSTAINED CELL % 0.7 % (0.0-4.0); LYMPH # 1.2 K/mm3 (1.5-4.5); LYMPH % 12.4 % (24.0-44.0); MEAN CORPUSCULAR HEMOGLOBIN 32.6 pg (27.0-33.0); MEAN CORPUSCULAR HGB CONC 32.4 g/dl (32.0-36.5); MEAN CORPUSCULAR VOLUME 100.5 fl (80.0-96.0); MONO # 0.4 K/mm3 (0.0-0.8); MONO % 3.8 % (0.0-5.0); NEUTROPHILS # 8.1 K/mm3 (1.8-7.7); NEUTROPHILS % 81.8 % (36.0-66.0); PLATELET COUNT, AUTOMATED 261 k/mm3 (150-450); RED CELL DISTRIBUTION WIDTH 14.7 % (11.5-14.5); WHITE BLOOD COUNT 9.9 K/mm3 (4.0-10.0)
[2016-10-19 13:32] LABS: ANION GAP 5 MEQ/L (8-16); BLOOD UREA NITROGEN 20 MG/DL (7-18); CALCIUM LEVEL 8.7 MG/DL (8.8-10.2); CARBON DIOXIDE LEVEL 31 MEQ/L (21-32); CHLORIDE LEVEL 102 MEQ/L (98-107); CREATININE FOR GFR 1.11 MG/DL (0.55-1.02); GLOMERULAR FILTRATION RATE 51.6 (>39); GLUCOSE, FASTING 104 MG/DL (83-110); POTASSIUM SERUM 4.7 MEQ/L (3.5-5.1); SODIUM LEVEL 138 MEQ/L (136-145)
--- NOTE | 2016-10-19 13:48 | REP ---
CT CERVICAL SPINE WITHOUT CONTRAST: HISTORY: Trauma. There is no acute fracture. Disc bulges are present at the C2-3 through C4-5 levels. Disc bulges with associated osteophyte formation are present at the C5-6 and C6-7 levels. There is minimal narrowing of the spinal canal. Uncinate process and/or facet hypertrophy are present at the C2-3 through C7-T1 levels. These findings produce minimal to severe narrowing of the neural foramina. The C4-5 through C6-7 intervertebral discs are decreased in height consistent with disc degeneration. There are 1.5 mm of anterior subluxation of C3 on C4 and C4 on C5. IMPRESSION: 1. There is no acute fracture. 2. There is cervical spondylosis at the C2-3 through C6-7 levels. Signed by Naeem Artis MD 10/19/2016 01:58 P
--- NOTE | 2016-10-19 13:49 | REP ---
CT THORACIC SPINE WITHOUT CONTRAST: HISTORY: Trauma. There is no acute fracture or subluxation. There is an old compression fracture of the T10 vertebral body with minimal height loss. There is no disc bulge or herniation. The spinal canal and the neural foramina are patent. There is loss of height of several mid and lower thoracic intervertebral discs. There is scoliosis of the upper thoracic spine convex to the right and lower thoracic spine convex to the left. A 7 mm parenchymal nodule is present in the right upper lobe. The patient is status post stenting of the thoracic aorta. IMPRESSION: 1. There is no acute fracture or subluxation. 2. Old T10 compression fracture with minimal height loss. 3. 7 mm right upper lobe parenchymal nodule. CT of the chest may be helpful for further evaluation. Signed by Naeem Artis MD 10/19/2016 01:58 P
--- NOTE | 2016-10-19 13:59 | REP ---
CT LUMBAR SPINE WITHOUT CONTRAST: HISTORY: Trauma. COMPARISON: 08/31/2016. A diffuse disc bulge is present at the L1-2 level. There is minimal compression of the thecal sac. There is hypertrophy of the posterior articulating facets. The L1 nerves exit the neural foramina without compression. A diffuse disc bulge is present at the L2-3 level. There is hypertrophy of the ligamenta flava and posterior articulating facets. These findings produce moderate central canal stenosis. The L2 nerves exit the neural foramina without compression. A diffuse disc bulge is present at the L3-4 level. There is hypertrophy of the ligamenta flava and posterior articulating facets. These findings produce moderate central canal stenosis. There is compression of the left L3 nerve in the neural foramen. The right L3 nerve exits the neural foramen without compression. An interspinous spacer is present. A diffuse disc bulge is present at the L4-5 level. There is hypertrophy of the ligamenta flava and posterior articulating facets. There are 3 mm of grade 1 spondylolisthesis of L4 on 5. These findings produce moderate central canal stenosis. There is compression of the L4 nerves in the neural foramina. A laminectomy defect is present. A diffuse disc bulge is present at the L5-S1 level. There is minimal compression of the thecal sac. There is hypertrophy of the posterior articulating facets. There is compression of the L5 nerves in the neural foramina. The L2-3 through L5-S1 intervertebral discs are decreased in height. Vacuum phenomenon is present at the L2-3, L3-4 and L5-S1 levels. These findings are consistent with disc degeneration. There is no acute fracture. IMPRESSION: 1. Diffuse disc bulge at the L1-2 level with minimal thecal sac compression. 2. Moderate central canal stenosis at the L2-3 and L3-4 levels secondary to disc bulge, ligamentous and facet hypertrophy. An intraspinous spacer is present at the L3-4 level. 3. Moderate central canal stenosis at the L4-5 level secondary to disc bulge, ligamentous and facet hypertrophy and grade 1 spondylolisthesis. A laminectomy defect is present. 4. Diffuse disc bulge at the L5-S1 level with minimal thecal sac compression. Signed by Naeem Artis MD 10/19/2016 02:11 P
--- NOTE | 2016-10-19 15:14 | HPEPDOC ---
"Medical History and Physical Date of Admission 10/19/16 History and Physical ATTENDING: PCP: Niru Daniel NP CC: Low BS HPI: 71yoF with a past medical history significant for HTN, HLD, IDDM who was found on the floor by neighbor at 6 Am. FSBS 20s, 250ml D10 IVF given with FSBS 82. Pt was brought to ED for evaluation by EMS. Pt states she took her DM medications last PM but then she was upset with a neighbor in her complex and forgot to eat, so when she got up this AM her BS was low. She states she noticed she was unsteady when she got out of bed. She got to the front door and fell on the floor. She was unable to get up for 2 hours because of her back pain. She states she has been feeling anxious and depressed. She states she intended to eat but then she didn't. Her neighbor has been saying things about her and she got upset. Denies any fevers, chills, weakness, fatigue, [place], CP, SOB, cough, palpitations , abdominal pain, N/V/D or changes in bowel or bladder habits. Upon presentation to the hospital the patient was found to have hypoglycemia, s/ p fall, thus the hospitalist team was consulted. PMHx: IDDM depression anxiety COPD GERD Chronic back pain- SMV|C pain mgmt HTN HLD allergic rhinitis [place]-declines CPAP PSHX: hysterectomy Lumbar laminectomy-[place] Bladder suspension SOCHX: Resides in: [facility] Kids: 1 son Tobacco use: Denies ETOH: Denies Illicit Drugs: Denies Recent travel: Denies Advanced directives: None FAMHX: Mother: , unknown Father: , heart disease Siblings: One brother, one sister Alive, obesity, diabetes Children: Alive, well Unexpected deaths due to medical reasons: None. ROS: As noted in HPI, otherwise 11pt ROS of systems reviewed and unremarkable. PE: GEN: 71yoF, appears stated age. Well-nourished, well developed. No acute distress. Alert and oriented x 3. Pleasant, interactive. HEENT: Normocephalic, atraumatic. Pupils are equal, round, and reactive to light. Extraocular movements are intact. No nystagmus appreciated. Sclera are nonicteric. Conjunctiva without injection. Nose midline. Nasal turbinates without bogginess. EACs both patent BL. TMs both visualized and choudhury with good cone of light, no bulging or erythema. No facial asymmetry. Moist mucous membranes. Dentition fair. Pharynx pink and moist, no cobblestoning. Neck supple , trachea midline. No lymphadenopathy or thyromegaly appreciated. CHEST: Regular rate and rhythm, +S1, +S2 LUNGS: Clear to auscultation bilaterally. No wheezes, rales, or rhonchi. Breathing appears symmetric and easy. Patient is speaking in full sentences. No accessory muscle use. ABD: Round, soft, non-tender, non-distended. +Bowel sounds throughout. No rebound or guarding. No costovertebral angle tenderness. EXT: Pulses 2+ bilaterally dorsalis pedis and radial. No lower extremity edema appreciated. SKIN: [place], dry, warm. Capillary refill <2sec. No rashes. NEURO: Alert and oriented x 3. Cranial nerves III-XII are intact. No focal deficits appreciated. Mild TTP in lumbar area. CT: head No subdural hematoma or hemorrhage. No mass effect or shift. There is evidence for chronic microvascular ischemia. Otherwise, negative CT study of the brain. No change from the comparison study CT C spine There is no acute fracture. There is cervical spondylosis at the C2-3 through C6-[address] Thoracic spine There is no acute fracture or subluxation. Old T10 compression fracture with minimal height loss. 7 mm right upper lobe parenchymal nodule. CT of the chest may be helpful for further evaluation. CT Lspine Diffuse disc bulge at the L1-2 level with minimal thecal sac compression. Moderate central canal stenosis at the L2-3 and L3-4 levels secondary to disc bulge, ligamentous and facet hypertrophy. An intraspinous spacer is present at the L3-4 level. Moderate central canal stenosis at the L4-5 level secondary to disc bulge, ligamentous and facet hypertrophy and grade 1 spondylolisthesis. A laminectomy defect is present. Diffuse disc bulge at the L5-S1 level with minimal thecal sac compression. A&P: 71yoF with a past medical history significant for HTN, HLD, IDDM who was found on the floor by neighbor at 6 Am. FSBS 20s, 250ml D10 IVF given with FSBS 82. Pt was brought to ED for evaluation by EMS. The patient will be admitted to PCU for at least [address] Villela's service. Pt is discussed with Dr Barone. 1. Status post fall/intractable back pain. Imaging as noted above. No acute changes noted. Will continue home pain medication regimen. This includes Flexeril 10 mg 3 times a day as needed, ibuprofen 800 mg 3 times a day as needed and hydromorphone 2 mg every 6 hours as needed, gabapentin 300 mg at bedtime. Also check CIP/troponin 3. Urine culture, blood cultures. 2. Chronic low back pain. Patient [facility] with [facility] pain management. Consider pain management consultation if pain remains uncontrolled. 3. Hypoglycemia. We will hold oral diabetic agents. Reduce Lantus to half dosing. Sliding scale insulin. Serum creatinine is noted to be slightly elevated at 1.11. IV fluids for gentle hydration at 75 mL per hour. 4. IDDM. As noted above, we will hold Januvia and glimepiride. Consistent carbohydrate diet. Sliding scale insulin. Levemir 22 units subcutaneous twice a day. 5. Hypertension. Continue Coreg with hold parameters. Hold Lasix and lisinopril temporarily. Blood pressure noted to be 111/56. 6. [place]. Patient refuses CPAP. 7. GERD. Continue PPI. 8. Hyperlipidemia. Continue Zocor. 9. Depression/anxiety. Patient remains on Cymbalta 60 mg daily, sertraline 100 mg daily, and diazepam 5 mg twice a day as needed. Patient is reporting increased anxiety and depression related to her neighbor at her housing complex. Possibly consider psychiatry pending her mood. 10. DVT prophylaxis. Lovenox. The patient is a full code Vital Signs Vital Signs Date Time Temp Pulse Resp B/P (MAP) Pulse Ox O2 Delivery O2 Flow Rate FiO2 10/19/16 14:58 20 111/56 (74) 10/19/16 14:38 88 94 Room Air 10/19/16 11:58 96.8 Laboratory Data Labs 24H Laboratory Tests 2 10/19/16 12:43: Bedside Glucose (Misc Panel) 115H 10/19/16 12:53: White Blood Count 9.9, Red Blood Count 3.71L, Hemoglobin 12.1, Hematocrit 37.3, Mean Corpuscular Volume 100.5H, Mean Corpuscular Hemoglobin 32.6, Mean Corpuscular Hemoglobin Concent 32.4, Red Cell Distribution Width 14.7H, Platelet Count 261, Neutrophils (%) (Auto) 81.8H, Lymphocytes (%) (Auto) 12.4L, Monocytes (%) (Auto) 3.8, Eosinophils (%) (Auto) 1.0, Basophils (%) (Auto) 0.4, Neutrophils # (Auto) 8.1H, Lymphocytes # (Auto) 1.2L, Monocytes # (Auto) 0.4, Eosinophils # (Auto) 0.1, Basophils # (Auto) 0.0, Large Unclassified Cells % 0.7 , Large Unclassified Cells # 0.1, Anion Gap 5L, Glomerular Filtration Rate 51.6 , Blood Urea Nitrogen 20H, Creatinine 1.11H, Sodium Level 138, Potassium Level 4.7, Chloride Level 102, Carbon Dioxide Level 31, Calcium Level 8.7L CBC/BMP Laboratory Tests 10/19/16 12:53 Red Blood Count 3.71 L, Mean Corpuscular Volume 100.5 H, Mean Corpuscular Hemoglobin 32.6, Mean Corpuscular Hemoglobin Concent 32.4, Red Cell Distribution Width 14.7 H, Neutrophils (%) (Auto) 81.8 H, Lymphocytes (%) (Auto ) 12.4 L, Monocytes (%) (Auto) 3.8, Eosinophils (%) (Auto) 1.0, Basophils (%) ( Auto) 0.4, Neutrophils # (Auto) 8.1 H, Lymphocytes # (Auto) 1.2 L, Monocytes # ( Auto) 0.4, Eosinophils # (Auto) 0.1, Basophils # (Auto) 0.0, Calcium Level 8.7 L Home Medications Scheduled Carvedilol (Carvedilol) 6.25 Mg Tab, 6.25 MG PO BID Duloxetine Hcl (Duloxetine HCl) 60 Mg Cap, 60 MG PO QHS Fluticasone Propionate (Fluticasone Propionate) 50 Mcg/Act Spr, 1 SPRAY NA DAILY Gabapentin (Gabapentin) 300 Mg Cap, 300 MG PO QHS Glimepiride (Glimepiride) 4 Mg Tab, 8 MG PO QAM Insulin Glargine (Lantus Solostar) 100 Unit/Ml Inj, 45 UNITS INJ BID Insulin Human Lispro (Humalog Kwikpen) 100 Unit/Ml Inj, 1 DOSE SC BID Per Sliding Scale Lisinopril (Lisinopril) 10 Mg Tab, 10 MG PO DAILY Mirabegron Base (Myrbetriq) 25 Mg Tab, 25 MG PO DAILY Omeprazole (Omeprazole) 40 Mg Cap, 40 MG PO DAILY Pioglitazone Hydrochloride (Pioglitazone HCl) 30 Mg Tab, 30 MG PO DAILY Salmeterol/Fluticasone (Advair Diskus 500-50 Mcg/Dose) 28 Puff/Inhaler Aerp, 1 PUFF INH BID Sertraline Hcl (Sertraline HCl) 50 Mg Tab, 100 MG PO DAILY Simvastatin - High Dose (Zocor) 40 Mg Tab, 40 MG PO DAILY Sitagliptin Phosphate (Januvia) 100 Mg Tab, 100 MG PO DAILY Tiotropium [place] Monohydrate (Spiriva Handihaler) 18 Mcg Cap, 1 INHALATION INH DAILY Scheduled PRN Cyclobenzaprine HCl (Cyclobenzaprine HCl) 10 Mg Tab, 10 MG PO TID PRN for PAIN Diazepam (Diazepam) 5 Mg Tab, 5 MG PO BID PRN for ANXIETY Furosemide (Lasix) 40 Mg Tab, 40 MG PO DAILY PRN for EDEMA Hydromorphone HCl (Hydromorphone HCl) 2 Mg Tab, 2 MG PO Q6H PRN for PAIN Ibuprofen (Ibuprofen) 800 Mg Tab, 800 MG PO Q6H PRN for PAIN Allergies Coded Allergies: Alcohol (Verified Allergy, Unknown, 04/05/13) Acetaminophen (Verified Adverse Reaction, Intermediate, HEADACHE AND NAUSEA, 08/09/12) Codeine (Verified Adverse Reaction, Intermediate, HEADACHE AND NAUSEA, 08/09) Attending Note Attending Note I have seen and examined the above patient and agree with the assessment and plan as documented. The one exception is that the patient tells me when I interview her that she has thought about resuscitation and wishes to be DNR/ DNI. We will honor these wishes. Patsy Gil Oct 19, 2016 15:14 ANUP BARONE Oct 19, 2016 17:38"
[2016-10-19] MEDS ORDERED: GLUCAGON FOR INJ 1 MG VIAL (J1610) SC PRN (16:00)
[2016-10-19] MEDS ORDERED: diazePAM 5 MG TAB PO PRN (16:00)
[2016-10-19] MEDS ORDERED: DEXTROSE 50% 50 ML SYRINGE IV PRN (16:00)
[2016-10-19] MEDS ORDERED: GLUCOSE 4 GM CHEW TABLET PO PRN (16:00)
[2016-10-19] MEDS: HumaLOG INSULIN (NovoLOG) PER UNIT SC SCH ×2 (18:00→20:38)
[2016-10-19] MEDS: NS 1,000 ML IV SCH ×2 (18:02→22:06)
[2016-10-19 20:00] VITALS: BP 122/59
[2016-10-19] MEDS ORDERED: traMADol 50 MG TAB PO ONE (20:15)
[2016-10-19] MEDS ORDERED: PERCOCET 5MG/325MG TAB PO ONE (20:30)
[2016-10-19] MEDS: GABAPENTIN 300 MG CAP PO SCH (20:32)
[2016-10-19] MEDS: CYCLOBENZAPRINE 10 MG TAB PO PRN (20:32)
[2016-10-19] MEDS: CARVedilol 6.25 MG TAB PO SCH (20:48)
[2016-10-19] MEDS: DULoxetine 30 MG CAP (CYMBALTA) PO SCH (20:48)
[2016-10-19] MEDS: LEVEMIR (INSULIN DETEMIR) 1 UNITS/0.01ML SC SCH (20:48)
[2016-10-19 21:25] VITALS: BP 129/71
[2016-10-20] MEDS: ADVAIR DISKUS 500/50 INH PWD INH SCH ×3 (01:30→19:53)
[2016-10-20] MEDS: HYDROmorphone 2 MG TAB PO PRN ×2 (01:53→09:05)
[2016-10-20 06:00] VITALS: BP 122/63
[2016-10-20 07:15] LABS: MEAN CORPUSCULAR HEMOGLOBIN 33.2 pg (27.0-33.0); MEAN CORPUSCULAR HGB CONC 33.3 g/dl (32.0-36.5); MEAN CORPUSCULAR VOLUME 99.7 fl (80.0-96.0); RED CELL DISTRIBUTION WIDTH 14.7 % (11.5-14.5)
[2016-10-20 07:18] LABS: ALBUMIN 3.3 GM/DL (3.2-5.2); BILIRUBIN,TOTAL 0.3 MG/DL (0.2-1.0); CALCIUM LEVEL 8.6 MG/DL (8.8-10.2); CREATININE FOR GFR 1.06 MG/DL (0.55-1.02); GLOMERULAR FILTRATION RATE 54.4 (>39); MAGNESIUM LEVEL 2.3 MG/DL (1.8-2.4); POTASSIUM SERUM 4.8 MEQ/L (3.5-5.1); TOTAL PROTEIN 6.6 GM/DL (6.4-8.2)
[2016-10-20] MEDS: HumaLOG INSULIN (NovoLOG) PER UNIT SC SCH ×4 (07:30→20:35)
[2016-10-20] MEDS: TIOTROPIUM INHALER/CAPSULE (SPIRIVA) INH SCH (07:54)
[2016-10-20] MEDS: LEVEMIR (INSULIN DETEMIR) 1 UNITS/0.01ML SC SCH (08:40)
[2016-10-20] MEDS: SIMVASTATIN 40 MG TAB PO SCH (09:04)
[2016-10-20] MEDS: OMEPRAZOLE 20 MG CAP PO SCH (09:04)
[2016-10-20] MEDS: CARVedilol 6.25 MG TAB PO SCH ×2 (09:04→21:42)
[2016-10-20] MEDS: SERTRALINE HCL 50 MG TAB PO SCH (09:04)
[2016-10-20] MEDS: ENOXAPARIN 40 MG/0.4 ML SYRINGE (J1650) SC SCH (09:05)
[2016-10-20] MEDS: FLUTICASONE PROP 0.05% NASAL SPRAY 16 GM (FLONASE) SCH (09:05)
--- NOTE | 2016-10-20 09:11 | ED PDOC ---
Post-Departure Follow-Up radiology report faxed to Mirella Day MD Oct 20, 2016 09:11
[2016-10-20] MEDS ORDERED: MORPHINE 2 MG/ML 1ML SYRINGE IV ONE (11:15)
[2016-10-20] MEDS ORDERED: ANEXSIA, NORCO 7.5MG/325MG TABLET(HYDROCODONE/APAP) PO PRN (11:15)
[2016-10-20] MEDS ORDERED: ANEXSIA, NORCO 7.5MG/325MG TABLET(HYDROCODONE/APAP) PO ONE (11:15)
[2016-10-20] MEDS: D5W 1,000 ML IV SCH ×2 (11:30→19:47)
[2016-10-20] MEDS: LIDOCAINE 5% OINT 30 GM TOP SCH ×2 (12:54→21:42)
--- NOTE | 2016-10-20 13:10 | REP ---
CT of the chest without IV contrast: Comparisons are the PA and lateral chest of 05/[address] dated 07/06/2010. There is a 7 mm sharply circumscribed noncalcified nodule in the apex of the right upper lobe posterolaterally. On the comparison CT this measured 6 mm. Given the time differences 6 years this is not significant growth. There are no other lung nodules or masses. There are no acute infiltrates or effusions. There is an endovascular stent in the descending thoracic aorta as previously. Cardiac size is normal. The visualized upper abdominal contents are unchanged and unremarkable. There is no adrenal mass. Impression: There is a stable nodule in the right upper lobe, likely a granuloma. Otherwise, essentially negative CT study of the chest. There is an endovascular stent in the descending thoracic aorta, as previously. Signed by Dada Arteaga MD 10/20/2016 01:02 P
[2016-10-20 14:00] VITALS: BP 148/70
[2016-10-20] MEDS: MORPHINE 2 MG/ML 1ML SYRINGE IV PRN ×2 (15:51→19:51)
[2016-10-20] MEDS: CYCLOBENZAPRINE 10 MG TAB PO PRN (15:51)
--- NOTE | 2016-10-20 16:08 | REP ---
RIGHT HIP, TWO VIEWS: There is no evidence of an acute fracture, dislocation or intrinsic bone disease. IMPRESSION: No fracture or dislocation. Signed by Dada Graves MD 10/21/2016 07:39 P
--- NOTE | 2016-10-20 16:37 | IPN ---
DATE: 10/20/2016 The patient is seen and examined at the bedside. Chart has been reviewed. This morning, the patient complains of severe pain of the right lateral hip area in the parasternal region, described as 10/10. No radiation to the lower extremity. No weakness. No urine or bowel incontinence. No constipation or diarrhea. The patient had a fall yesterday and was found to have glucose in the 20s. She was brought into the hospital for severe hypoglycemia. VITAL SIGNS: Temperature 97.3, pulse 76, respiratory rate 18, blood pressure 122/63, 93% on room air. GENERAL: Awake, alert and oriented times three, answering questions appropriately. HEENT: Pupils are equal, round, and reactive to light and accommodation. Extraocular muscles are intact. No nystagmus. Sclera is anicteric. No jaundice. Nasal turbinates: No bogginess. Facial asymmetry. Moist mucous membranes. Trachea is midline. No jugular venous distention, thyromegaly or cervical lymphadenopathy. LUNGS: Clear to auscultation. No wheezing, rales, or rhonchi. HEART: S1, S2, sinus rhythm. No murmurs, rubs, or gallops. ABDOMEN: Soft, nontender, nondistended. Positive bowel sounds. EXTREMITIES: No lower extremity edema. No cyanosis or clubbing. MUSCULOSKELETAL: The patient has some point tenderness in the paraspinal area around L4-5 on the right. Hip able to interval and external rotate with no difficulty. Gait was not tested. LABORATORY DATA: White count 8, hemoglobin 11, hematocrit 33, platelet count 216. Sodium 139, potassium 4.9, chloride 104, bicarbonate 27, BUN 27, creatinine 1.06, glucose of 26. Lumbar spine CT shows diffuse disc bulges, moderate central canal stenosis L2-4, intraspinous spacer at L3-4, disc bulge L1-2. A laminectomy defect is present, diffuse disc bulge L5-S1 with minimal thecal sac compression. Cervical spine CT shows no acute fracture, cervical spondylosis C2-3, C6-7. CT of the head shows subdural hematoma. No mass effect or shift. Chronic microvascular ischemia. Otherwise, negative CT of the brain. Thoracic spine CT shows old T10 compression fracture, minimal height loss, 7 mm right upper lobe nodule. CT of the chest may be helpful for further evaluation. CT chest still pending. ASSESSMENT AND PLAN: This is a 71-year-old female with a history of 7 mm right upper lobe nodule, insulin-dependent diabetes, depression, anxiety, chronic obstructive pulmonary disease (COPD), reflux, spinal stenosis, disc bulges, status post laminectomy with Dr. West three years ago, hypertension, hyperlipidemia, allergic rhinitis, obstructive sleep apnea (CLAY[place]) declined continuous positive airway pressure (CPAP), hysterectomy, bladder suspension, resides in [place], was brought in to the hospital due to low blood sugar after being found on the floor by a neighbor at 6:00 a.m. Glucose was in the 20s. The patient had gotten to the front door and fell on the floor, unable to get up for two hours due to back pain. CURRENT ISSUES: 1. Hypoglycemia. Infectious etiology is currently being ruled out. Obtain urinalysis (UA), urine culture and sensitivity. Blood culture is negative. Chest x-ray is unremarkable. No empiric antibiotics. Hypoglycemia is not improved. We will discontinue long-acting Levemir insulin. Continue the patient on supplemental glucose with D5W 100 mL per hour. Continue with fingersticks. Once stabilized, we may resume low-dose baseline long-acting hyperglycemic. 2. Back pain, status post fall with laminectomy defect. Per the patient, no relief from current medications. We will provide with [place] 1-2 tablets every six hours for severe pain, morphine for breakthrough pain, and consult neurosurgery, Dr. West, due to laminectomy defect for disc bulges and central canal stenosis. Consult pain management. Due to risk of hypercarbia with history of obstructive sleep apnea (CLAYTON), Narcan as needed for respiratory rate less than 10. 3. Obstructive sleep apnea, refused continuous positive airway pressure (CPAP). We will monitor for hypercarbia in light of hydrocodone use and morphine as needed. 4. Hypertension, appears to be controlled at the moment. Continue with present medications. Continue with Coreg. 5. Hyperlipidemia. Continue on simvastatin. 6. Diabetic neuropathy, on Neurontin. We may need to decrease if patient exhibits confusion. 7. Reflux. Continue on Prilosec. 8. Depression. Continue on Zoloft.
[2016-10-20] MEDS: ANEXSIA, NORCO 7.5MG/325MG TABLET(HYDROCODONE/APAP) PO PRN (18:25)
[2016-10-20] MEDS: DULoxetine 30 MG CAP (CYMBALTA) PO SCH (21:41)
[2016-10-20] MEDS: GABAPENTIN 300 MG CAP PO SCH (21:42)
[2016-10-20 22:00] VITALS: BP 120/60
[2016-10-20] MEDS: IBUPROFEN 800 MG TAB PO PRN (23:55)
[2016-10-21] MEDS: ANEXSIA, NORCO 7.5MG/325MG TABLET(HYDROCODONE/APAP) PO PRN ×3 (05:07→23:44)
[2016-10-21] MEDS: D5W 1,000 ML IV SCH ×3 (05:08→23:57)
[2016-10-21 06:00] VITALS: BP 111/62
[2016-10-21] MEDS: CYCLOBENZAPRINE 10 MG TAB PO PRN ×2 (06:23→21:44)
[2016-10-21] MEDS ORDERED: ANEXSIA, NORCO 7.5MG/325MG TABLET(HYDROCODONE/APAP) PO ONE (06:30)
[2016-10-21] MEDS ORDERED: HYDR-3716 PO (06:34)
[2016-10-21 06:39] LABS: MEAN CORPUSCULAR HEMOGLOBIN 33.6 pg (27.0-33.0); MEAN CORPUSCULAR HGB CONC 33.7 g/dl (32.0-36.5); MEAN CORPUSCULAR VOLUME 99.5 fl (80.0-96.0); RED CELL DISTRIBUTION WIDTH 15.1 % (11.5-14.5)
[2016-10-21 06:59] LABS: ALBUMIN 3.1 GM/DL (3.2-5.2); ALBUMIN/GLOBULIN RATIO 0.97 (1.00-1.93); BILIRUBIN,TOTAL 0.3 MG/DL (0.2-1.0); CALCIUM LEVEL 8.3 MG/DL (8.8-10.2); CREATININE FOR GFR 1.08 MG/DL (0.55-1.02); GLOMERULAR FILTRATION RATE 53.2 (>39); MAGNESIUM LEVEL 1.9 MG/DL (1.8-2.4); POTASSIUM SERUM 4.5 MEQ/L (3.5-5.1); TOTAL PROTEIN 6.3 GM/DL (6.4-8.2)
[2016-10-21] MEDS: HumaLOG INSULIN (NovoLOG) PER UNIT SC SCH ×4 (08:00→20:55)
[2016-10-21] MEDS: ENOXAPARIN 40 MG/0.4 ML SYRINGE (J1650) SC SCH (08:00)
[2016-10-21] MEDS: OMEPRAZOLE 20 MG CAP PO SCH (08:01)
[2016-10-21] MEDS: SERTRALINE HCL 50 MG TAB PO SCH (08:02)
[2016-10-21] MEDS: FLUTICASONE PROP 0.05% NASAL SPRAY 16 GM (FLONASE) SCH (08:02)
[2016-10-21] MEDS: LIDOCAINE 5% OINT 30 GM TOP SCH ×2 (08:02→21:00)
[2016-10-21] MEDS: SIMVASTATIN 40 MG TAB PO SCH (08:02)
[2016-10-21] MEDS: CARVedilol 6.25 MG TAB PO SCH ×2 (08:03→21:00)
[2016-10-21] MEDS: ADVAIR DISKUS 500/50 INH PWD INH SCH ×2 (08:42→19:52)
[2016-10-21] MEDS: TIOTROPIUM INHALER/CAPSULE (SPIRIVA) INH SCH (08:42)
[2016-10-21 14:00] VITALS: BP 139/67
--- NOTE | 2016-10-21 14:57 | CR ---
DATE OF CONSULTATION: 10/21/2016 CHIEF COMPLAINT: Right thoracic lateral torso pain. HISTORY OF PRESENT ILLNESS: Zo is a 71-year-old female, well-known to the pain clinic, who was found on the floor with complaints of severe right thoracic back pain. Her blood sugar was noted to be in the 20s on admission. Complaining of severe right thoracic back pain. Rating pain level 10/10. Pain is aggravated by any movement. Currently receiving pain medication but the patient does not feel they are effective. Reporting normal bowel and bladder function. No recent fever, illness, or weight loss. PAST MEDICAL HISTORY: 1. Insulin dependent diabetes mellitus. 2. Depression. 3. Anxiety. 4. Chronic obstructive pulmonary disease (COPD). 5. Gastroesophageal reflux disease (GERD). 6. Chronic back pain. 7. Hypertension. 8. Hyperlipidemia. 9. Allergic rhinitis. 10. Obstructive sleep apnea (CLAYTON), declined continuous positive airway pressure (CPAP). PAST SURGICAL HISTORY: 1. Hysterectomy. 2. Lumbar laminectomy. 3. Bladder suspension. ALLERGIES: ALCOHOL, CODEINE. SOCIAL HISTORY: She lives in [place]. She has one son. Denies alcohol use. Denies illicit drug use. Recent history of smoking several packs per day. FAMILY HISTORY: Children alive and well. Mother, unknown. Father , heart disease. Siblings, one brother, one sister alive, obesity, diabetes. REVIEW OF SYSTEMS: As noted in history of present illness (HPI), otherwise 11-point review of systems reviewed and unremarkable. PHYSICAL EXAMINATION: GENERAL: Appears uncomfortable. VITAL SIGNS: Temperature 97.3, pulse 90, respiratory rate 20, blood pressure 148/70, oxygen saturation is 94% on room air. CARDIAC: S1, S2. Normal rate and rhythm. RESPIRATORY: Lung sounds clear. Respirations nonlabored. ABDOMEN: Soft, nontender. MUSCULOSKELETAL: Palpation nontender over hip region bilaterally. No bruising noted over torso. Trigger point: Multiple trigger points elicited in mid to lower right thoracic region. Nontender over sacroiliac joint (SIJ) region bilaterally. Mild tenderness noted over lumbosacral (LS) spine and lumbar paraspinals. Very difficult for the patient to move from side to side. EXTREMITIES: Bruising noted over left arm. Full range of joint motion, upper and lower extremities. Normal sensation to light touch, upper and lower extremities. DIAGNOSTICS DATA: Right hip x-ray 10/20/2016 shows no fracture or dislocation. Chest CT 10/19/2016 shows stable nodule in the right upper lobe likely a granuloma. CT cervical spine without contrast 10/19/2016 shows cervical spondylosis at the C2-3 through C6-7 level. No acute fracture. Head CT 10/19/2016: There is no subdural or epidural hematoma. Lumbar spine CT 10/19/2016: Multilevel degenerative disc causing moderate central canal stenosis at the L2-3 and L3-4 levels. Moderate central canal stenosis at the L4-5 level. A laminectomy duct is present. Grade 1 spondylolisthesis. Diffuse disc bulge L5-S1 with minimal thecal sac compression. ASSESSMENT: 1. Myalgia 2. Chronic low back pain. 3. Lumbar spinal stenosis. PLAN: May consider switching Flexeril to [place] 350 three times a day. Plan is to do trigger point injections at pain center 10/21/2016. Continue periodic use of IV morphine or hydrocodone for pain. Thank you for allowing us to participate in the care of your patient, Zo Lemon. If you have any questions or concerns, please do not hesitate to contact me.
[2016-10-21] MEDS ORDERED: BUPIVACAINE HCL 0.25% 10 ML VIAL As Ordered ONE (16:09)
[2016-10-21] MEDS ORDERED: TRIAMCINOLONE ACETONIDE SUSP 40 MG/ML VIAL (J3301) As Ordered ONE (16:09)
[2016-10-21] MEDS ORDERED: BUPIVACAINE HCL 0.25% 30 ML VIAL As Ordered ONE (16:09)
[2016-10-21 20:30] VITALS: BP 174/79
[2016-10-21] MEDS: GABAPENTIN 300 MG CAP PO SCH (21:00)
[2016-10-21] MEDS: DULoxetine 30 MG CAP (CYMBALTA) PO SCH (21:00)
[2016-10-22] MEDS: IBUPROFEN 800 MG TAB PO PRN (03:20)
[2016-10-22 05:25] VITALS: BP 150/74
[2016-10-22 06:11] LABS: MEAN CORPUSCULAR HEMOGLOBIN 32.5 pg (27.0-33.0); MEAN CORPUSCULAR HGB CONC 32.8 g/dl (32.0-36.5); MEAN CORPUSCULAR VOLUME 98.9 fl (80.0-96.0); RED CELL DISTRIBUTION WIDTH 14.4 % (11.5-14.5); WHITE BLOOD COUNT 5.2 K/mm3 (4.0-10.0)
[2016-10-22 06:29] LABS: ALBUMIN/GLOBULIN RATIO 0.88 (1.00-1.93); BILIRUBIN,TOTAL 0.2 MG/DL (0.2-1.0); CALCIUM LEVEL 8.5 MG/DL (8.8-10.2); CREATININE FOR GFR 1.07 MG/DL (0.55-1.02); GLOMERULAR FILTRATION RATE 53.8 (>39); MAGNESIUM LEVEL 2.1 MG/DL (1.8-2.4); POTASSIUM SERUM 4.6 MEQ/L (3.5-5.1); TOTAL PROTEIN 6.4 GM/DL (6.4-8.2)
[2016-10-22] MEDS ORDERED: SOMA350T PO (07:10)
[2016-10-22] MEDS: TIOTROPIUM INHALER/CAPSULE (SPIRIVA) INH SCH (08:11)
[2016-10-22] MEDS: ADVAIR DISKUS 500/50 INH PWD INH SCH ×2 (08:11→20:30)
[2016-10-22] MEDS: SERTRALINE HCL 50 MG TAB PO SCH (08:14)
[2016-10-22] MEDS: LIDOCAINE 5% OINT 30 GM TOP SCH ×2 (08:14→20:23)
[2016-10-22] MEDS: FLUTICASONE PROP 0.05% NASAL SPRAY 16 GM (FLONASE) SCH (08:14)
[2016-10-22] MEDS: SIMVASTATIN 40 MG TAB PO SCH (08:15)
[2016-10-22] MEDS: CARVedilol 6.25 MG TAB PO SCH ×2 (08:15→20:22)
[2016-10-22] MEDS: GLIMEPIRIDE 2 MG TAB PO SCH (08:15)
[2016-10-22] MEDS: HumaLOG INSULIN (NovoLOG) PER UNIT SC SCH ×4 (08:15→20:18)
[2016-10-22] MEDS: OMEPRAZOLE 20 MG CAP PO SCH (08:16)
[2016-10-22] MEDS: SITagliptin 50 MG TAB (JANUVIA) PO SCH (08:16)
[2016-10-22] MEDS ORDERED: CARISOPRODOL 350 MG TAB PO SCH (09:00)
[2016-10-22] MEDS: ANEXSIA, NORCO 7.5MG/325MG TABLET(HYDROCODONE/APAP) PO PRN ×2 (11:39→20:22)
--- NOTE | 2016-10-22 13:35 | IPN ---
DATE OF SERVICE: 10/21/2016 The patient is seen and examined at the bedside. Chart has been reviewed. This morning, she still complains of severe pain along the right hip area. X-ray is negative. Severe pain and discomfort is 10/10 when she tries to sit up and ambulate. Unable to fully assess due to severe pain. Temperature 99, pulse 88, respiratory rate 20, blood pressure 111/62, 92% on room air. Generally, awake, alert, and oriented times three, answering questions appropriately. LUNGS: Clear to auscultation. No wheezing, rales, or rhonchi. HEART: S1, S2, sinus rhythm. No murmurs, rubs, or gallops. ABDOMEN: Soft, nontender, nondistended. Positive bowel sounds. EXTREMITIES: No pitting edema, cyanosis, or clubbing. MUSCULOSKELETAL: Paraspinal area L4-L5 pain. Unable to complete examination due to severe discomfort. LABORATORY DATA: Reviewed. IMAGING STUDIES: Reviewed. ASSESSMENT AND PLAN: This is a 71-year-old female with a history of right upper lobe nodule 7 mm, insulin-dependent diabetes, depression, anxiety, chronic obstructive pulmonary disease (COPD), reflux, spinal stenosis, disc bulge status post laminectomy with Dr. West in 2013, hypertension, hyperlipidemia, allergic rhinitis, obstructive sleep apnea ([place]) declined continuous positive airway pressure (CPAP), hysterectomy, bladder suspension, resides in [place], was brought in to the hospital due to low blood sugar and found on the floor by a neighbor after a fall. Now, has worsening back pain, which is intractable. CURRENT ISSUES: 1. Hypoglycemia. Infectious etiology has been ruled out. Currently, on D5W. Appears to be stable. Discontinue long-acting Levemir insulin. On sliding scale and consistent-carbohydrate diet. 2. Back pain, status post fall, laminectomy defect. Intractable despite [place], pain clinic, and neurosurgery has been consulted. 3. Obstructive sleep apnea (CLAYTON), on continuous positive airway pressure (CPAP). 4. Hypertension. Continue on Coreg. 5. Hyperlipidemia. On simvastatin. DISPOSITION: Unable to be discharged due to intractable back pain.
[2016-10-22 14:00] VITALS: BP 159/76
[2016-10-22] MEDS ORDERED: MOM 30ML SUSPENSION UDC PO PRN (18:00)
[2016-10-22] MEDS ORDERED: SENNA 8.6 MG TAB (SENOKOT) PO ONE (18:00)
[2016-10-22 19:55] VITALS: BP 144/84
[2016-10-22] MEDS: DULoxetine 30 MG CAP (CYMBALTA) PO SCH (20:22)
[2016-10-22] MEDS: GABAPENTIN 300 MG CAP PO SCH (20:23)
--- NOTE | 2016-10-22 20:35 | IPN ---
DATE: 10/22/2016 Yesterday, pain management had done trigger point injections. Patient has seen not much relief. They had recommended Soma, which is not covered by her insurance. She has had good control with Anexsia 1-2 tablets every 6 hours and has passed a home safety evaluation. Patient's glucose has been improved on D5 normal saline, currently discontinued. Oral hyperglycemics will be resumed today. Patient feels well, able to ambulate with minimal distress. Temperature 98.9, pulse 87, respiratory rate 17, blood pressure 155/74, 91% on room air. Lungs are clear to auscultation. No wheezing, rales, or rhonchi. Heart S1, S2, sinus rhythm. Abdomen is obese, soft, nontender, nondistended. Positive bowel sounds. Extremities trace edema. Patient has multiple ecchymotic areas on the right paravertebral area where trigger point injections were administered. LABORATORY DATA: White count 5.2, hemoglobin 9.7, hematocrit 29, platelet count 187. Sodium 134, potassium 4.6, chloride 101, bicarbonate 28, BUN 24, creatinine 1.07, glucose 350. Microbiology: Urine culture 10/21/2016, no growth. Blood culture no growth. IMAGING STUDIES: Hip xray: No acute fracture or dislocation. ASSESSMENT AND PLAN: This is a 71-year-old female with history of diabetes, hypertension, depression, anxiety, chronic obstructive pulmonary disease (COPD), reflux, spinal stenosis, disc bulges, status post laminectomy by Dr. West in 2013, hyperlipidemia, allergic rhinitis, obstructive sleep apnea ([place]), declines continuous positive airway pressure (CPAP), hysterectomy, bladder suspension, resides alone with her dog in [place], was brought in to the hospital due to hypoglycemia after being found by the neighbor on the floor, glucose level was in the 20s. Her oral, as well as her long-acting insulin, had been discontinued and she has been placed on D5W. Since the fall, patient complained of right paravertebral pain evaluated with xrays and a CT scan which were negative for acute fracture or dislocation. There was a laminectomy defect evaluated by her neurosurgeon, Dr. West. Patient has had symptomatic relief with hydrocodone. Pain Clinic has done trigger point injections with no relief per the patient. At this time, her pain appears to be well controlled on Clawson. Her insurance will not cover Soma, therefore we will discontinue. Current active issues are as follows: 1. Hypoglycemia. We will discontinue the D5 today, resume her on her oral hyperglycemics. If stable, will continue sliding scale and consistent carbohydrate diet as outpatient. Will need a home care referral to check up on her glucose control at home. Continue to withhold long-acting insulin until the patient's oral hyperglycemics have been instituted and stable. 2. Fall with right paravertebral pain. Improved with Clawson. Soma is not covered by her insurance and will not be prescribed. She has been evaluated by both neurosurgeon as well as pain management, diagnosed with myalgia and lumbar spinal stenosis. Recommendation was to switch from Flexeril to Soma but the insurance company is not covering the Soma and patient is comfortable on her Clawson, therefore will prescribe Clawson as outpatient with outpatient followup with pain management as well as neurosurgery. 3. Obstructive sleep apnea. Refused CPAP. Monitor for hypercarbia in light of hydrocodone use. 4. Hypertension. Continue on Coreg. 5. Hyperlipidemia. On simvastatin. 6. Diabetic neuropathy. On Neurontin. 7. Reflux. On Prilosec. 8. Depression. On Zoloft. DISPOSITION: Discharge home on 10/23/2016, if patient is stable on her oral hyperglycemics.
[2016-10-23] MEDS: ANEXSIA, NORCO 7.5MG/325MG TABLET(HYDROCODONE/APAP) PO PRN ×2 (03:29→09:48)
[2016-10-23 05:30] VITALS: BP 142/78
[2016-10-23 06:21] LABS: MEAN CORPUSCULAR HEMOGLOBIN 33.6 pg (27.0-33.0); MEAN CORPUSCULAR HGB CONC 34.2 g/dl (32.0-36.5); MEAN CORPUSCULAR VOLUME 98.3 fl (80.0-96.0); RED CELL DISTRIBUTION WIDTH 14.8 % (11.5-14.5)
[2016-10-23] MEDS: IBUPROFEN 800 MG TAB PO PRN (06:43)
[2016-10-23 06:52] LABS: ALBUMIN 3.4 GM/DL (3.2-5.2); ALBUMIN/GLOBULIN RATIO 1.03 (1.00-1.93); BILIRUBIN,TOTAL 0.2 MG/DL (0.2-1.0); CALCIUM LEVEL 8.5 MG/DL (8.8-10.2); CREATININE FOR GFR 1.01 MG/DL (0.55-1.02); GLOMERULAR FILTRATION RATE 57.5 (>39); MAGNESIUM LEVEL 2.5 MG/DL (1.8-2.4); POTASSIUM SERUM 4.5 MEQ/L (3.5-5.1); TOTAL PROTEIN 6.7 GM/DL (6.4-8.2)
[2016-10-23] MEDS: ADVAIR DISKUS 500/50 INH PWD INH SCH (08:23)
[2016-10-23] MEDS ORDERED: MELO7.5T6 PO (08:33)
[2016-10-23] MEDS ORDERED: LACTULOSE 20 GM/30 ML SYRUP UD PO ONE (08:45)
[2016-10-23] MEDS ORDERED: MOM 30ML SUSPENSION UDC PO ONE (08:45)
[2016-10-23] MEDS ORDERED: MELOXICAM (MOBIC) 7.5 MG TAB PO SCH (09:00)
[2016-10-23] MEDS ORDERED: SENNA 8.6 MG TAB (SENOKOT) PO SCH (09:00)
[2016-10-23] MEDS: HumaLOG INSULIN (NovoLOG) PER UNIT SC SCH ×2 (09:38→13:26)
[2016-10-23] MEDS: SITagliptin 50 MG TAB (JANUVIA) PO SCH (09:39)
[2016-10-23] MEDS: ENOXAPARIN 40 MG/0.4 ML SYRINGE (J1650) SC SCH (09:39)
[2016-10-23] MEDS: GLIMEPIRIDE 2 MG TAB PO SCH (09:40)
[2016-10-23] MEDS: SIMVASTATIN 40 MG TAB PO SCH (09:40)
[2016-10-23] MEDS: OMEPRAZOLE 20 MG CAP PO SCH (09:40)
[2016-10-23 09:41] VITALS: BP 142/78
[2016-10-23] MEDS: SERTRALINE HCL 50 MG TAB PO SCH (09:41)
[2016-10-23] MEDS: CARVedilol 6.25 MG TAB PO SCH (09:41)
[2016-10-23] MEDS: LIDOCAINE 5% OINT 30 GM TOP SCH (09:41)
[2016-10-23] MEDS: FLUTICASONE PROP 0.05% NASAL SPRAY 16 GM (FLONASE) SCH (09:42)
--- NOTE | 2016-10-24 10:04 | DSES ---
DATE OF ADMISSION: 10/21/2016 DATE OF DISCHARGE: 10/23/2016 PRIMARY CARE PHYSICIAN: Carrie Davies. CONSULTANTS DURING THIS ADMISSION: Pain management, Greta Marin. Neurosurgeon Dr. West. PRIMARY DISCHARGE DIAGNOSES: Hypoglycemia. Fall with right paravertebral pain and myalgia. Obstructive sleep apnea refused CPAP. Hypertension. Hyperlipidemia. Diabetic neuropathy. Reflex depression. Laminectomy defect status post fall. Chronic lumbar disc bulges. DISCHARGE MEDICATIONS: - Belding - hydrocodone/acetaminophen 7.5/325 one tablet every 4 hours as needed, maximum daily dose of 6, dispense 60 tablets - meloxicam 7.5 mg daily dispense 30 tablets - Coreg 6.25 twice daily - duloxetine 60 daily at bedtime - fluticasone 1 spray daily - Lasix 40 daily - gabapentin 300 daily at bedtime - glimepiride 8 mg daily every morning - Lispro twice daily - lisinopril 10 daily - Myrbetriq 25 daily - Prilosec 40 daily - Advair discus one puff twice daily - Sertraline 50 mg tablet 100 daily - Simvastatin 40 daily - Januvia 100 daily - Spiriva one inhaled daily Patient's Lantus insulin 45 units twice daily has been discontinued due to persistent hypoglycemia. Glucose level yesterday was 77 with a peak of 3 at 1 this morning on her current oral hypoglycemics. PROCEDURES DURING THIS ADMISSION: Trigger point injections by pain management on the right thoracic lateral torso on 10/21/2016. HOSPITAL COURSE: This is a 71-year-old female with history of 7 mm right upper lobe nodule, insulin dependent diabetes, depression, anxiety, chronic obstructive pulmonary disease (COPD), reflex spinal stenosis, disc bulges status post laminectomy by Dr. West 3 years ago in 2013, hypertension, hyperlipidemia, allergic rhinitis, obstructive sleep apnea declined CPAP, hysterectomy, bladder suspension, resides in [place], lives alone with her dog, was brought into the hospital by the neighbor after calling EMS. Patient was found down on the ground with the dog barking, was found to have a glucose level in the 20s. Patient was brought in, ruled out for infectious etiology. No empiric antibiotics. Urine, blood and chest x-rays were negative. Hypoglycemia improved with discontinuation of Levemir insulin and holding oral hypoglycemics. Patient remained on D5W with stable findings. This was discontinued and patient was placed back on oral hypoglycemics with glucose ranging from 77-301. Long acting Levemir insulin, Lantus insulin had not been resumed due to persistent hypoglycemia and due to the fall, patient complained of severe pain at the right lateral thoracic torso area. Evaluated with CT of the thorax and lumbar spine shows disc bulges, right laminectomy defect evaluated by Dr. West, no neurosurgical intervention and pain management Greta Marin who had done finger point injections with no relief. Patient was placed on Belding and soma. Soma was not covered by her insurance and was changed over to meloxicam with little improvement. Patient passed a home safety evaluation, is currently on Belding and discharged to followup with pain clinic as outpatient. LABS ON DISCHARGE: White count 5, hemoglobin 10, hematocrit 29, platelet count 219. Sodium 134, potassium 4.5, chloride 101, bicarbonate 27, BUN 25, creatinine 1, glucose of 248. Microbiology: Urine culture 10/20 negative, blood culture negative. Imaging studies: CT of the thoracic spine: Lumbar disc changes, old T10 compression fracture with minimal height loss, 7 mm right upper lobe parenchymal nodule. FOLLOWUP ISSUES: Right upper lobe parenchymal nodule 7 mm requires outpatient followup. CT thorax and lumbar spine shows disc bulges, moderate central canal stenosis at L2-L5 with minimal thecal fat compression. CT of the head showed no subdural hematoma or hemorrhage, mass effect or shift. Evidence of chronic microvascular ischemia. Negative CT of the brain. Time spent on discharge: 30 minutes.
== END 2016-10-23 16:30 | disposition home health service (06) | DRG 639 ==
LOC: EDBD 11:53 → M ED 12:43 → M ED INP 15:58 → M MSPAV 21:01 → OBSVTOIN 10-21 06:30
PROVIDERS: ADMIT Hospitalist; ATTEND General Practice
PROC: 3E0R3NZ Introduction of Analgesics, Hypnotics, Sedatives into Spinal Canal, Percutaneous Approach (ICD-10-PCS; principal; 2016-10-21)
DX: E11.649 Type 2 diabetes mellitus with hypoglycemia without coma (principal); I10 Essential (primary) hypertension; E78.5 Hyperlipidemia, unspecified; F32.9 Major depressive disorder, single episode, unspecified; F41.9 Anxiety disorder, unspecified; J44.9 Chronic obstructive pulmonary disease, unspecified; E11.40 Type 2 diabetes mellitus with diabetic neuropathy, unspecified; K21.9 Gastro-esophageal reflux disease without esophagitis; J30.9 Allergic rhinitis, unspecified; R91.1 Solitary pulmonary nodule; M79.1 Myalgia; M48.06 Spinal stenosis, lumbar region; M51.26 Other intervertebral disc displacement, lumbar region; G47.33 Obstructive sleep apnea (adult) (pediatric); Z79.4 Long term (current) use of insulin; Z79.84 Long term (current) use of oral hypoglycemic drugs; Z79.899 Other long term (current) drug therapy; Z88.5 Allergy status to narcotic agent; Z88.6 Allergy status to analgesic agent; Z88.8 Allergy status to other drugs, medicaments and biological substances; Z87.891 Personal history of nicotine dependence

== ENCOUNTER 2016-11-20 18:32 | Inpatient (IN) | payer MEDICARE, MEDICAID ==
[~2016-11-20] VITALS: Ht 162.6 cm; Wt 94.0 kg
[~2016-11-20 18:32] MED LIST changes: +CIPR-249 PO; -CIPR500T89 PO; +HYDR-3716 PO; +HYDR2TAB2 PO; +IBUP-1022 PO; -IBUP600T26 PO; +IBUP80TA PO; +JANU100T PO; +LANTINJ4 INJ; +MELO7.5T7 PO; -METF500T PO; +METF500T13 PO; -NORC10TA2 PO; +NORC10TA21 PO; -PERC10TA17 PO; +PERC10TA26 PO; -ULTR37.52 PO; +ULTR37.54 PO; +VITA1CAP40 PO; -VITA50003 PO
[2016-11-20] MEDS ORDERED: NS 500 ML IV ONE ×2 (19:00→19:30)
--- NOTE | 2016-11-20 19:16 | REP ---
Chest one-view HISTORY: Syncope Comparison: 05/12/2016 The lungs are clear. The heart is normal in size. The pulmonary vasculature is normal in appearance. The patient is status post stenting of the thoracic aorta. Impression: No acute disease. Signed by Naeem Artis MD 11/20/2016 07:08 P
[2016-11-20 19:20] LABS: MEAN CORPUSCULAR HEMOGLOBIN 33.4 pg (27.0-33.0); MEAN CORPUSCULAR HGB CONC 33.5 g/dl (32.0-36.5); MEAN CORPUSCULAR VOLUME 99.7 fl (80.0-96.0); RED CELL DISTRIBUTION WIDTH 14.3 % (11.5-14.5)
--- NOTE | 2016-11-20 19:36 | REP ---
CT Head without contrast HISTORY: Syncope COMPARISON: 10/19/2016 Areas of decreased attenuation are present in the periventricular and subcortical white matter. This represents small-vessel ischemic disease. There is no intraparenchymal hemorrhage, acute infarct, mass or midline shift. The ventricular system and cortical sulci are dilated consistent with mild volume loss. There is no extra cerebral collection. There is no fracture. The visualized sinuses are clear. IMPRESSION: 1. Small vessel ischemic disease. 2. Mild volume loss. Signed by Naeem Artis MD 11/20/2016 07:27 P
[2016-11-20 19:44] LABS: ANION GAP 8 MEQ/L (8-16); BLOOD UREA NITROGEN 48 MG/DL (7-18); CALCIUM LEVEL 9.3 MG/DL (8.8-10.2); CARBON DIOXIDE LEVEL 26 MEQ/L (21-32); CHLORIDE LEVEL 105 MEQ/L (98-107); CREATININE FOR GFR 2.58 MG/DL (0.55-1.02); GLOMERULAR FILTRATION RATE 19.5 (>39); GLUCOSE, FASTING 74 MG/DL (83-110); POTASSIUM SERUM 4.3 MEQ/L (3.5-5.1); SODIUM LEVEL 139 MEQ/L (136-145)
[2016-11-20 20:00] LABS: BASOPHILS 1 % (0-4)
[2016-11-20 21:09] LABS: T UPTAKE 32 % (30-39)
[2016-11-20] MEDS ORDERED: SERT-138 PO (21:13)
[2016-11-20] MEDS ORDERED: DIAZ5TAB PO (21:18)
[2016-11-20] MEDS ORDERED: NORC7.5T35 PO (21:18)
[2016-11-20] MEDS ORDERED: LANTINJ4 SC (21:18)
[2016-11-20] MEDS ORDERED: CYCL10TA PO (21:18)
[2016-11-20] MEDS ORDERED: IBUP1TAB7 PO (21:18)
--- NOTE | 2016-11-20 21:40 | ECGEPIP ---
Stationary ECG Study [facility] - ED Test Date: 2016-11-20 Pat Name: JULES JIMÉNEZ Department: Room: - Gender: F Sleep Medicine Physician: martin : 1945 Requested By: JUANCHO Hayes Order Number: [id number] Reading MD: Mirella Gustafson Measurements Intervals [place] Rate: 71 P: 49 MS: 161 QRS: -37 QRSD: 118 T: -1 QT: 392 QTc: 426 Interpretive Statements SINUS RHYTHM MARKED LEFT AXIS DEVIATION/LAFB LOW QRS VOLTAGE IN PRECORDIAL LEADS MODERATE INTRAVENTRICULAR CONDUCTION DELAY MODERATE VOLTAGE CRITERIA FOR LVH, CONSIDER NORMAL VARIANT DECREASED RATE 08/31/16 Electronically Signed On 11-20-2016 21:40:43 EDT by Mirella Gustafson
[2016-11-20] MEDS ORDERED: DEXTROSE 50% 50 ML SYRINGE IV PRN (21:45)
[2016-11-20] MEDS ORDERED: GLUCAGON FOR INJ 1 MG VIAL (J1610) SC PRN (21:45)
[2016-11-20] MEDS: NS 1,000 ML IV SCH (21:45)
[2016-11-20] MEDS ORDERED: GLUCOSE 4 GM CHEW TABLET PO PRN (21:45)
[2016-11-20] MEDS ORDERED: ONDANSETRON 4MG/2ML VIAL (J2405) IV PRN (22:00)
[2016-11-20] MEDS ORDERED: ACETAMINOPHEN TAB 650MG DOSE (2X325MG) PO PRN (22:00)
[2016-11-21] VITALS (10 sets, daily range): BP systolic 89–123; BP diastolic 47–70
--- NOTE | 2016-11-21 00:16 | HPE ---
DATE OF ADMISSION: 11/20/2016 CHIEF COMPLAINT: Episodes of unresponsiveness, hypotension. HISTORY OF THE PRESENT ILLNESS: This is a 71-year-old female patient with underlying medical history of insulin-dependent diabetes, type 2 diabetes, depression, anxiety, chronic obstructive pulmonary disease (COPD), gastroesophageal reflux disease (GERD), chronic back pain with degenerative disc disease, hypertension, dyslipidemia, allergic rhinitis, obstructive sleep apnea, refusing continuous positive airway pressure (CPAP). The patient was brought in by emergency medical services (EMS), called by a friend who noticed that the patient has been having two episodes of LOC, lethargy and as per friend, has been with loss of consciousness. As per patient, she really does not remember that. The last time the patient was admitted for a similar problem about a month ago, in October 2016, patient was found to be hypotensive by EMS with blood pressure systolic in the 80s as well as a fingerstick of 80. Given IV fluids in the emergency room (ER).After IV fluids, the patient's blood pressure has improved, but at the lowest, it was 78/51, orthostatic positive. The patient denies any fevers, chills, chest pain, pressure or discomfort. Denies any palpitations, abdominal pain, diarrhea. Denies any recent medication change. The patient is in the process of getting back surgery set up with the patient's neurosurgeon, Dr. West's group, and will be following with Dr. Rose for a stress test prior to surgery. ALLERGIES: ALCOHOL and CODEINE. PAST MEDICAL HISTORY: Insulin-dependent type 2 diabetes. Depression. Anxiety. COPD. GERD. Chronic back pain. Hypertension. Dyslipidemia. Allergic rhinitis. Obstructive sleep apnea, refusing continuous positive airway pressure (CPAP). PAST SURGICAL HISTORY: Lumbar laminectomy by Dr. West. Hysterectomy. Bladder suspension. SOCIAL HISTORY: Has a son. Quit smoking 2 months ago; one pack per day smoking history since she was 13 years old. Denies alcohol use or illicit drug use. FAMILY HISTORY: Father with coronary artery disease. Sister with obesity and diabetes. REVIEW OF SYSTEMS: Reported back pain and chilliness. All other review of systems are negative. HOME MEDICATIONS: - [place] 7.5/325 mg by mouth every 4 hours as needed - Coreg 6.25 mg by mouth twice a day - cyclobenzaprine 10 mg by mouth three times a day - Valium 5 mg by mouth twice a day - duloxetine 60 mg by mouth nightly - Flonase nasal spray daily - Lasix 40 mg by mouth daily as needed - gabapentin 300 mg by mouth nightly - glimepiride 8 mg by mouth every morning - ibuprofen 800 mg by mouth three times a day as needed - Lantus SoloStar 50 units subcu nightly - Humalog insulin twice a day via scale - lisinopril 10 mg by mouth daily - mirabegron 25 mg by mouth daily - omeprazole 40 mg by mouth daily - Advair Diskus 500-50 mcg inhalation twice a day - Zoloft 100 mg by mouth daily - Zocor 40 mg by mouth daily - Januvia 100 mg by mouth daily - Spiriva inhalation daily PHYSICAL EXAMINATION: VITAL SIGNS: Patient orthostatic positive. Temperature 96.7, pulse 60, respirations 18, blood pressure 92/54, pulse oximetry 93% on room air. GENERAL: Patient alert and oriented times three, in no acute distress. Obese. HEENT: Normocephalic, atraumatic. PULMONARY: Bilaterally clear to auscultation. CARDIAC: Regular, S1, S2. ABDOMEN: Obese, soft, nontender. Positive bowel sounds. EXTREMITIES: No edema bilateral lower extremities. NEUROLOGIC: Cranial nerves II-XII grossly intact. Able to move all four extremities. LABORATORY: WBC 15, hemoglobin and hematocrit 11.5 over 36.3, platelets 276. Chemistry: Sodium 139, potassium 4.3, chloride 105, bicarbonate 26, BUN 48, creatinine 2.5, A1c 9. Cardiac enzymes negative times one. C-reactive protein negative. TSH 11.5. Urine toxicology is still pending. ASSESSMENT AND PLAN: This is a 71-year-old female patient with underlying medical history of insulin-dependent type 2 diabetes, depression, anxiety, chronic obstructive pulmonary disease, gastroesophageal reflux disease, chronic back pain, hypertension, dyslipidemia, allergic rhinitis, obstructive sleep apnea, not compliant with CPAP, presented with syncopal episode with hypotension. PROBLEMS: 1. Syncope with hypotension. Differential diagnosis includes volume depletion versus adrenal insufficiency, versus cardiac disease. Blood pressure improved with IV fluids. Followup cardiac enzymes. Telemetry monitoring. EKG is appreciated, was sinus rhythm at 71 with no change. Continue IV fluids for hydration. Followup urine toxicology (u tox). Will be holding Lasix, lisinopril , monitor blood pressure. Cosyntropin stimulation test in the morning and morning cortisol. 2. Hypothyroidism. Synthroid added. Thyroid panel appreciated. Patient also needs outpatient followup with primary care provider for further followup thyroid study. 3. Leukocytosis, likely reactive. Will withhold antibiotics given C-reactive protein has been negative. Followup cultures. 4. Diabetes. A1c appreciated. Insulin basal bolus given elevated creatinine function. Will decrease Levemir, holding oral medications. 5. Acute renal insufficiency. Possible dehydration versus alternative explanation. Followup urine studies and followup with ultrasound - renal. 6. Chronic back pain. Continue pain medication as ordered. Pain management consultation. Outpatient followup with neurosurgery for back surgery. The patient will also need a stress test from Dr. Rose prior to surgery. Will need assessment for adrenal insufficiency with Cosyntropin stimulation test. Pain medication as ordered. 7. Chronic obstructive pulmonary disease. Continue current pain medication. Patient does not have any wheeze. 8. Anxiety and depression. Continue current medication. 9. Gastroesophageal reflux disease. Continue current medication. 10. Dyslipidemia. Continue statin. 11. Hypertension. The patient is currently hypotensive. Will continue to follow. 12. Obstructive sleep apnea. Patient declines CPAP. CLAYTON monitoring. 13. Deep vein thrombosis (DVT) prophylaxis. Heparin subcutaneously. DISPOSITION PLANNING: Pending echocardiogram, serial cardiac enzymes, Cosyntropin stimulation test, workup for renal insufficiency. Physical therapy has been ordered. MTDD
[2016-11-21] MEDS: LEVEMIR (INSULIN DETEMIR) 1 UNITS/0.01ML SC SCH ×2 (00:53→20:53)
[2016-11-21] MEDS ORDERED: LEVEMIR (INSULIN DETEMIR) 1 UNITS/0.01ML SC ONE (01:00)
[2016-11-21] MEDS: DULoxetine 30 MG CAP (CYMBALTA) PO SCH ×2 (01:07→20:30)
[2016-11-21] MEDS: GABAPENTIN 300 MG CAP PO SCH ×2 (01:07→20:30)
[2016-11-21] MEDS: HEPARIN SOD (PORCINE) 5000 UNITS/ML VIAL SC SCH ×4 (01:07→20:31)
[2016-11-21] MEDS: CYCLOBENZAPRINE 10 MG TAB PO SCH ×4 (01:07→20:30)
[2016-11-21] MEDS: diazePAM 5 MG TAB PO SCH ×3 (01:08→20:30)
[2016-11-21] MEDS: CARVedilol 6.25 MG TAB PO SCH ×4 (02:59→20:59)
[2016-11-21] MEDS ORDERED: COSYNTROPIN 0.25 MG/ML VIAL (J0835) IV ONE (06:00)
[2016-11-21] MEDS: LEVOTHYROXINE 50MCG TABLET (0.05MG) PO SCH (06:09)
[2016-11-21 06:32] LABS: MEAN CORPUSCULAR HEMOGLOBIN 33.8 pg (27.0-33.0); MEAN CORPUSCULAR HGB CONC 33.4 g/dl (32.0-36.5); MEAN CORPUSCULAR VOLUME 101.2 fl (80.0-96.0); RED CELL DISTRIBUTION WIDTH 14.8 % (11.5-14.5); WHITE BLOOD COUNT 5.5 K/mm3 (4.0-10.0)
[2016-11-21 06:46] LABS: CALCIUM LEVEL 8.3 MG/DL (8.8-10.2); CREATININE FOR GFR 2.52 MG/DL (0.55-1.02); MAGNESIUM LEVEL 2.3 MG/DL (1.8-2.4); POTASSIUM SERUM 4.4 MEQ/L (3.5-5.1)
[2016-11-21] MEDS: TIOTROPIUM INHALER/CAPSULE (SPIRIVA) INH SCH (07:45)
[2016-11-21] MEDS: ADVAIR HFA 230/21MCG INHALER INH SCH ×2 (07:45→20:39)
[2016-11-21] MEDS: HumaLOG INSULIN (NovoLOG) PER UNIT SC SCH ×4 (07:58→20:48)
--- NOTE | 2016-11-21 08:26 | IPNPDOC ---
Subjective Date Seen The patient was seen on 11/21/16. Subjective Chief Complaint/HPI The patient is a 71-year-old female admitted with a reason for visit of Hypotension. General: Denies: Chills, Night Sweats Eyes: Denies: Pain, Vision change, Conjunctivae inflammation ENT: Denies: Head Aches Skin: Denies: Lesions Pulmonary: Denies: Dyspnea, Cough, Pleuritic Chest Pain Cardiovascular: Reports: Lt Headedness, Denies: Chest Pain, Palpitations, Orthopnea Gastrointestinal: Denies: Nausea, Vomiting, Abdominal Pain, Diarrhea, Constipation Genitourinary: Denies: Dysuria Neurological: Reports: Weakness, Denies: Incoordination Psych: Reports: Mood Normal Objective Physical Examination General Exam: Positive: Alert, Cooperative, No Acute Distress Eye Exam: Positive: PERRLA ENT Exam: Positive: Atraumatic, Mucous membr. moist/pink Neck Exam: Positive: Supple Chest Exam: Positive: Clear to auscultation, Normal air movement, Negative: Rales, Rhonchi, Wheezing Heart Exam: Positive: Rate Normal, Normal S1, Normal S2, Negative: Gallops, Murmurs, Rubs Telemetry: Positive: No significant arrhythmia Abdomen Exam: Positive: Normal bowel sounds, Soft, Negative: Tenderness, Hepatospenomegaly Extremity Exam: Negative: Clubbing, Cyanosis, Edema Assessment /Plan Problems (1) Hypotension Status: Acute Problem Text: stable 106/56 likely 2/2 polypharmacy and dehydration WBC normal, no fevers reported. do not believe infectious in nature-bloodcx pending AM cortisol pending will d/c fluids and allow pts BP to rise naturally will perform orthostatics hold home BP meds no events overnight on tele. (2) Syncope and collapse Status: Acute Response to Treatment: Stable Problem Text: suspect 2/2 low BP continue to monitor w/ fall precautions (3) CLEVE (acute kidney injury) Status: Acute Response to Treatment: Stable Problem Text: cr 2.5 today baseline below 1 before 08/24 suspect likely to polypharmacy ( DYLAN and Lasix) and possible dehydration pt denies vomiting or diarrhea c/w fluid therapy renal u/s -L 1.6 cm renal cyst urine osmo. low, protein high- suspect likely due to acute ARF and decreased kidney ability to concentrate (4) Hyperlipidemia Status: Chronic Response to Treatment: Stable Problem Text: c/w home med (5) DVT prophylaxis Status: Acute Response to Treatment: Stable Problem Text: scd nolan Plan/VTE VTE Prophylaxis Ordered?: Yes Plan/Urinary Catheter Reason for insertion/continuin: Critical Pt monitoring VS, I&O, 24H, Fishbone Vital Signs/I&O Vital Signs Date Time Temp Pulse Resp B/P (MAP) Pulse Ox O2 Delivery O2 Flow Rate FiO2 11/21/16 07:43 Room Air 11/21/16 04:07 106/56 (73) 11/21/16 04:00 97.3 77 18 93 I&O- Last 24 Hours up to 6 AM 11/21/16 06:00 Intake Total 1840 ml Output Total 475 ml Balance 1365 ml Laboratory Data 24H LABS Laboratory Tests 2 11/20/16 19:00: Neutrophils 57, Lymphocytes (Manual) 34, Monocytes (Manual) 6, Basophils (Manual ) 1, Atypical Lymphocytes 2, Platelet Estimate NORMAL, Anion Gap 8, Glomerular Filtration Rate 19.5L, Estimated Mean Plasma Glucose 212H, Hemoglobin A1c 9.0H, Lactic Acid Level 1.1, Blood Urea Nitrogen 48H, Creatinine 2.58H, Sodium Level 139, Potassium Level 4.3, Chloride Level 105, Carbon Dioxide Level 26, Calcium Level 9.3, Total Creatine Kinase 46, Creatine Kinase MB 1.8, Creatine Kinase MB Relative Index 3.91, Troponin I < 0.02, C-Reactive Protein, Quantitative < 0.30 , Thyroid Stimulating Hormone (TSH) 11.500H, Free Thyroxine Index 1.3, Thyroxine (T4) 4.0L, Triiodothyronine (T3) Uptake 32, Ethyl Alcohol Level < 0.003 11/20/16 19:53: Urine Appearance CLEAR, Urine Color YELLOW, Urine pH 5.0, Urine Specific [place] 1.013, Urine Protein NEGATIVE, Urine Glucose (UA) NEGATIVE, Urine Ketones NEGATIVE, Urine Urobilinogen 0.2, Urine Bilirubin NEGATIVE, Urine Leukocyte Esterase NEGATIVE, Urine Blood NEGATIVE, Urine Nitrite NEGATIVE, Urine WBC (Auto) 0, Urine RBC (Auto) 0, Urine Hyaline Casts (Auto) 0, Urine Bacteria (Auto) NEGATIVE, Urine Squamous Epithelial Cells 0, Urine Mucus (Auto) SMALL, Urine Sperm (Auto) 11/21/16 01:00: Total Creatine Kinase 45, Creatine Kinase MB 2.1, Creatine Kinase MB Relative Index 4.66H, Troponin I < 0.02 11/21/16 01:06: Bedside Glucose (Misc Panel) 142H 11/21/16 06:00: Anion Gap 10, Glomerular Filtration Rate 20.0L, Blood Urea Nitrogen 48H, Creatinine 2.52H, Sodium Level 139, Potassium Level 4.4, Chloride Level 108H, Carbon Dioxide Level 21, Calcium Level 8.3L, Magnesium Level 2.3 11/21/16 06:16: Urine Random Osmolality 373L, Urine Random Creatinine 87.4, Urine Random Total Protein 44.3H, Urine Random Sodium 38, Urine Random Potassium 40.6, Urine Random Chloride 39 11/21/16 06:42: 11/21/16 07:14: CBC/BMP Laboratory Tests 11/20/16 19:00 Calcium Level 9.3 11/21/16 06:00 Calcium Level 8.3 L, Red Blood Count 3.01 L, Mean Corpuscular Volume 101.2 H, Mean Corpuscular Hemoglobin 33.8 H, Mean Corpuscular Hemoglobin Concent 33.4, Red Cell Distribution Width 14.8 H Microbiology Microbiology 11/20/16 Blood Culture, Received Pending 11/20/16 Urine Culture, Received Pending GME ATTESTATION GME ATTESTATION My preceptor for this patient encounter was physically present in the building during the encounter and was fully available. As needed, all aspects of the patient interview, examination, medical decision making process, and medical care plan development were reviewed and approved by the preceptor. Preceptor is aware and concurs with the plan as stated in the body of this note and will attest to such by his/her cosignature. GURWINDER BORGES DO Nov 21, 2016 08:25
[2016-11-21] MEDS: FLUTICASONE PROP 0.05% NASAL SPRAY 16 GM (FLONASE) SCH (09:00)
--- NOTE | 2016-11-21 09:10 | REP ---
RENAL ULTRASOUND: HISTORY: Acute injury. The kidneys are slightly decreased in echogenicity. The right kidney measures 5.8 cm in transverse x 5.2 cm in AP x 10.1 cm in cephalocaudal dimensions. The left kidney measures 4.9 cm in transverse x 5.2 cm in AP x 10.2 cm in cephalocaudal dimensions. A 1.6 cm cyst is present in the left kidney. There is no hydronephrosis or mass. The urinary bladder is not seen. IMPRESSION: 1.6 cm left renal cyst. Signed by Naeem Artis MD 11/21/2016 09:21 A
[2016-11-21] MEDS: SERTRALINE 100 MG TAB PO SCH (09:42)
[2016-11-21] MEDS: SIMVASTATIN 40 MG TAB PO SCH (09:42)
[2016-11-21] MEDS: SENOKOT S TAB PO SCH ×2 (09:42→20:30)
[2016-11-21] MEDS: OMEPRAZOLE 20 MG CAP PO SCH (09:44)
[2016-11-21] MEDS: NS 1,000 ML IV SCH (09:44)
[2016-11-21] MEDS: ANEXSIA, NORCO 7.5MG/325MG TABLET(HYDROCODONE/APAP) PO PRN ×2 (15:03→19:51)
[2016-11-22] VITALS (8 sets, daily range): BP systolic 98–145; BP diastolic 49–92
[2016-11-22] MEDS: ANEXSIA, NORCO 7.5MG/325MG TABLET(HYDROCODONE/APAP) PO PRN ×4 (04:02→23:35)
[2016-11-22] MEDS: HEPARIN SOD (PORCINE) 5000 UNITS/ML VIAL SC SCH (05:03)
[2016-11-22] MEDS: LEVOTHYROXINE 50MCG TABLET (0.05MG) PO SCH (05:03)
[2016-11-22 05:33] LABS: MEAN CORPUSCULAR HEMOGLOBIN 33.8 pg (27.0-33.0); MEAN CORPUSCULAR HGB CONC 33.1 g/dl (32.0-36.5); MEAN CORPUSCULAR VOLUME 101.9 fl (80.0-96.0); RED CELL DISTRIBUTION WIDTH 14.7 % (11.5-14.5); WHITE BLOOD COUNT 9.5 K/mm3 (4.0-10.0)
[2016-11-22 05:51] LABS: CALCIUM LEVEL 8.7 MG/DL (8.8-10.2); CREATININE FOR GFR 1.94 MG/DL (0.55-1.02); GLOMERULAR FILTRATION RATE 27.1 (>39); MAGNESIUM LEVEL 2.1 MG/DL (1.8-2.4)
--- NOTE | 2016-11-22 07:29 | ECHO ---
DATE OF PROCEDURE: 11/21/2016 AGE: 71 GENDER: Female HEIGHT: 64 inches WEIGHT: 198 pounds BODY SURFACE AREA: 1.95 m2 PATIENT LOCATION: Inpatient, PCU, room 3228 REFERRING PHYSICIAN: Eufemia Roldan MD INDICATION: Hypotension. 2-D MEASUREMENTS: RV: 2.9 cm LV: 4.4 cm Septum: 1.2 cm Posterior wall: 1.2 cm Aortic root: 3.7 cm LA: 3.9 cm LVEF: 80% DOPPLER MEASUREMENTS: AV: 1.7 m/s LVOT: 1.6 m/s LVOT diameter: 2.4 cm MV-E: 99, A: 180, EA ratio: 0.5 E prime: 7.6, A prime: 14, EE prime ratio: 13 PV: 1.2 m/s Pulmonary artery acceleration time: 90 ms RVSP: 45 mmHg IVC: 1.7 cm COMMENTS: Sinus tachycardia with incomplete left bundle branch block (LBBB) configuration. Borderline left atrial enlargement, but normal left ventricular size. Right heart chamber sizes were normal. Borderline concentric left ventricle hypertrophy with hyperkinetic wall motion. Moderate to moderately severe mitral annular calcification, but normal leaflet thickness and excursion with no posterior systolic buckling. Three equal sized aortic cusps with mildly thickened cusp edges, but adequate cusp separation. Aortic root diameter upper limits of normal. No apparent intracardiac mass. Very small pericardial effusion. Color flow Doppler study taken from the parasternal and apical projections showed trace aortic, very mild mitral and moderate tricuspid insufficiency. Guided continuous wave Doppler of her aortic valve showed a normal peak systolic velocity against LV outflow tract obstruction. Pulsed and continuous wave Doppler of her LV inflow tract taken from the apical four-chamber projection showed normal diastolic filling velocities against mitral stenosis. There was more prominent late diastolic / atrial dependent filling pattern. Diastolic dysfunction was confirmed using tissue Doppler of her mitral annulus, but current estimated mean left atrial pressure was only upper limits of normal at approximately 15 mmHg. Pulsed and continuous wave Doppler of her pulmonary trunk showed a normal peak systolic velocity against RV outflow tract obstruction. Her pulmonary artery acceleration time was abbreviated in keeping with an elevated pulmonary vascular resistance. Guided continuous wave Doppler of her tricuspid valve allowed our estimation of her right ventricular systolic pressure (moderately increased). Her inferior vena cava was of normal size with normal size with normal respiratory collapse against an elevated central venous pressure at this time. CONCLUSIONS: Borderline concentric left ventricle hypertrophy with hyperkinetic wall motion. Borderline left atrial enlargement with Doppler evidence of impairment of LV diastolic function, but currently normal estimated mean left atrial pressure. Normal right heart chamber sizes and contraction with Doppler evidence of moderate pulmonary hypertension. Normal IVC size and collapse against an elevated central venous pressure. Mild aortic valvular sclerosis without stenosis and only trace insufficiency. Moderate to moderately severe mitral annular calcification without inflow tract obstruction and only very mild insufficiency. Based on the above test findings it may be prudent to consider pulmonary embolism as the cause of the patient's hypotension.
[2016-11-22] MEDS: SENOKOT S TAB PO SCH ×2 (07:36→21:32)
[2016-11-22] MEDS: TIOTROPIUM INHALER/CAPSULE (SPIRIVA) INH SCH (07:43)
[2016-11-22] MEDS: ADVAIR HFA 230/21MCG INHALER INH SCH ×2 (07:44→20:30)
[2016-11-22] MEDS ORDERED: GASTROGRAFIN SOLUTION 30ML PO ONE (08:30)
[2016-11-22] MEDS: HumaLOG INSULIN (NovoLOG) PER UNIT SC SCH ×4 (08:36→21:32)
[2016-11-22] MEDS: FLUTICASONE PROP 0.05% NASAL SPRAY 16 GM (FLONASE) SCH (08:36)
[2016-11-22] MEDS: CYCLOBENZAPRINE 10 MG TAB PO SCH ×3 (08:36→21:32)
[2016-11-22] MEDS: SIMVASTATIN 40 MG TAB PO SCH (08:36)
[2016-11-22] MEDS: diazePAM 5 MG TAB PO SCH ×2 (08:36→21:32)
[2016-11-22] MEDS: OMEPRAZOLE 20 MG CAP PO SCH (08:36)
[2016-11-22] MEDS: CARVedilol 6.25 MG TAB PO SCH ×2 (08:40→21:31)
[2016-11-22] MEDS: SERTRALINE 100 MG TAB PO SCH (08:41)
[2016-11-22] MEDS ORDERED: GASTROGRAFIN SOLUTION 30ML (Q9963) PO ONE (09:00)
[2016-11-22] MEDS: NS 1,000 ML IV SCH ×2 (09:19→21:52)
--- NOTE | 2016-11-22 10:42 | IPNPDOC ---
Subjective Date Seen The patient was seen on 11/22/16. Subjective Chief Complaint/HPI The patient is a 71-year-old female admitted with a reason for visit of Hypotension. Events since last encounter pateint started having bloody diarrhea overnight several episodes with crampy abdominal pain , no fever or chills, no nausea or vomiting . no chest pain or sob. Objective Physical Examination General Exam: Positive: Alert, Cooperative, No Acute Distress Eye Exam: Positive: PERRLA ENT Exam: Positive: Atraumatic, Mucous membr. moist/pink Neck Exam: Positive: Supple Chest Exam: Positive: Clear to auscultation, Normal air movement, Negative: Rales, Rhonchi, Wheezing Heart Exam: Positive: Rate Normal, Normal S1, Normal S2, Negative: Gallops, Murmurs, Rubs Telemetry: Positive: No significant arrhythmia Abdomen Exam: Positive: Normal bowel sounds, Soft, Negative: Tenderness, Hepatospenomegaly Extremity Exam: Negative: Clubbing, Cyanosis, Edema Assessment /Plan Problems (1) Bloody diarrhea Status: Acute Problem Text: will check GI youth nutritional monitor h/h q 6hs clear liquid diet will get ct abdomen and pelvis with po contrast. (2) Hypotension Status: Acute Problem Text: stable 106/56 likely 2/2 polypharmacy and dehydration WBC normal, no fevers reported. do not believe infectious in nature-bloodcx pending AM cortisol pending will d/c fluids and allow pts BP to rise naturally will perform orthostatics hold home BP meds no events overnight on tele. (3) Syncope and collapse Status: Acute Response to Treatment: Stable Problem Text: suspect 2/2 low BP continue to monitor w/ fall precautions (4) CLEVE (acute kidney injury) Status: Acute Response to Treatment: Stable, Improving Problem Text: baseline below 1 before 08/24 suspect likely to polypharmacy ( DYLAN and Lasix) and possible dehydration pt denies vomiting or diarrhea c/w fluid therapy renal u/s -L 1.6 cm renal cyst urine osmo. low, protein high- suspect likely due to acute ARF and decreased kidney ability to concentrate (5) Hyperlipidemia Status: Chronic Response to Treatment: Stable Problem Text: c/w home med (6) DVT prophylaxis Status: Acute Response to Treatment: Stable Problem Text: scd nolan will hold heparin due to GIB Plan/VTE VTE Prophylaxis Ordered?: Yes Plan/Urinary Catheter Reason for insertion/continuin: Critical Pt monitoring VS, I&O, 24H, Fishbone Vital Signs/I&O Vital Signs Date Time Temp Pulse Resp B/P (MAP) Pulse Ox O2 Delivery O2 Flow Rate FiO2 11/22/16 09:10 18 11/22/16 08:40 75 145/92 11/22/16 08:00 98.3 93 Room Air I&O- Last 24 Hours up to 6 AM 11/22/16 06:00 Intake Total 3380 ml Output Total 1800 ml Balance 1580 ml Laboratory Data 24H LABS Laboratory Tests 2 11/21/16 11:38: Bedside Glucose (Misc Panel) 107 11/21/16 17:00: Bedside Glucose (Misc Panel) 162H 11/21/16 20:47: Bedside Glucose (Misc Panel) 85 11/22/16 04:48: Anion Gap 7L, Glomerular Filtration Rate 27.1L, Blood Urea Nitrogen 40H, Creatinine 1.94H, Sodium Level 142, Potassium Level 5.0, Chloride Level 111H, Carbon Dioxide Level 24, Calcium Level 8.7L, Magnesium Level 2.1 CBC/BMP Laboratory Tests 11/22/16 04:48 Red Blood Count 3.26 L, Mean Corpuscular Volume 101.9 H, Mean Corpuscular Hemoglobin 33.8 H, Mean Corpuscular Hemoglobin Concent 33.1, Red Cell Distribution Width 14.7 H, Calcium Level 8.7 L 11/22/16 09:57 Microbiology Microbiology 11/20/16 Blood Culture - Preliminary, Resulted No growth after 24 hours . All specim... 11/20/16 Urine Culture - Final, Complete NAN MCKEON MD Nov 22, 2016 10:42
--- NOTE | 2016-11-22 11:11 | REP ---
CT ABDOMEN AND PELVIS WITHOUT CONTRAST: HISTORY: Diarrhea. COMPARISON: 07/15/2015 The pancreas is very atrophic. The liver, gallbladder, spleen, adrenal glands and kidneys are normal in appearance. The patient is status post stenting of a thoracic aortic aneurysm. The aneurysm measures 4.5 x 3.5 cm and appears unchanged compared to the previous study. An infrarenal abdominal aortic aneurysm is present. This measures 5.8 x 4.3 cm and is unchanged compared to the previous study. An aneurysm is present at the aortic bifurcation involving the proximal left common iliac artery. This measures 3.9 x 3.4 cm and is unchanged compared to the previous study. There is thickening of the wall of the descending and sigmoid colon. A small amount of surrounding edema is present. Several diverticula are present in the sigmoid colon. The patient is status post hysterectomy. A small amount of air is present in the urinary bladder. There is no mass or adenopathy. Degenerative change is present in the spine. There is an old compression fracture of the T12 vertebral body with mild height loss. An interspinous spacer is present at the L3-4 level. The visualized lungs are clear. IMPRESSION: 1. There is atrophy of the pancreas. 2. There is thickening of the wall of the descending and sigmoid colon with surrounding edema consistent with inflammatory bowel disease. 3. The patient is status post stenting of a thoracic aortic aneurysm. 4. Abdominal aortic aneurysms as described above, unchanged compared to the previous study. Signed by Naeem Artis MD 11/22/2016 11:27 A
[2016-11-22] MEDS: DULoxetine 30 MG CAP (CYMBALTA) PO SCH (21:32)
[2016-11-22] MEDS: GABAPENTIN 300 MG CAP PO SCH (21:32)
[2016-11-22] MEDS: LEVEMIR (INSULIN DETEMIR) 1 UNITS/0.01ML SC SCH (21:34)
[2016-11-23] VITALS: BP 103/54
[2016-11-23 04:00] VITALS: BP_SYST 105; BP_SYST 109; BP_DIAS 53; BP_DIAS 60
[2016-11-23 04:29] LABS: MEAN CORPUSCULAR HEMOGLOBIN 34.5 pg (27.0-33.0); MEAN CORPUSCULAR HGB CONC 34.3 g/dl (32.0-36.5); MEAN CORPUSCULAR VOLUME 100.4 fl (80.0-96.0); RED CELL DISTRIBUTION WIDTH 14.6 % (11.5-14.5); WHITE BLOOD COUNT 6.5 K/mm3 (4.0-10.0)
[2016-11-23 04:51] LABS: CALCIUM LEVEL 8.3 MG/DL (8.8-10.2); GLOMERULAR FILTRATION RATE 58.2 (>39); MAGNESIUM LEVEL 1.9 MG/DL (1.8-2.4); POTASSIUM SERUM 3.7 MEQ/L (3.5-5.1)
[2016-11-23] MEDS: LEVOTHYROXINE 50MCG TABLET (0.05MG) PO SCH (06:20)
[2016-11-23] MEDS: HumaLOG INSULIN (NovoLOG) PER UNIT SC SCH ×4 (07:30→21:00)
[2016-11-23] MEDS: TIOTROPIUM INHALER/CAPSULE (SPIRIVA) INH SCH (07:40)
[2016-11-23] MEDS: ADVAIR HFA 230/21MCG INHALER INH SCH ×2 (07:40→20:55)
[2016-11-23 08:00] VITALS: BP 123/62
--- NOTE | 2016-11-23 10:12 | IPNPDOC ---
Subjective Date Seen The patient was seen on 11/23/16. Subjective Chief Complaint/HPI The patient is a 71-year-old female admitted with a reason for visit of Hypotension. Events since last encounter still having diarrhea with blood in it, has some soreness on the left side of the abdomen , no radiation of the pain , no fever or chills, no chest pain or sob , no nausea or vomiting. Objective Physical Examination General Exam: Positive: Alert, Cooperative, No Acute Distress Eye Exam: Positive: PERRLA ENT Exam: Positive: Atraumatic, Mucous membr. moist/pink Neck Exam: Positive: Supple Chest Exam: Positive: Clear to auscultation, Normal air movement, Negative: Rales, Rhonchi, Wheezing Heart Exam: Positive: Rate Normal, Normal S1, Normal S2, Negative: Gallops, Murmurs, Rubs Telemetry: Positive: No significant arrhythmia Abdomen Exam: Positive: Normal bowel sounds, Soft, Negative: Tenderness, Hepatospenomegaly Extremity Exam: Negative: Clubbing, Cyanosis, Edema Assessment /Plan Problems (1) Bloody diarrhea Status: Acute Problem Text: GI panel is negative , CT abdomen and pelvis with inflammatory bowel dis of the left could be ischemic colitis as the patient was hypotensive on presentation will give cipro and flagyl. will send serology monitor h/h q 6hs (2) Hypotension Status: Acute Problem Text: stable 106/56 likely 2/2 polypharmacy and dehydration WBC normal, no fevers reported. do not believe infectious in nature-bloodcx pending AM cortisol pending will d/c fluids and allow pts BP to rise naturally will perform orthostatics hold home BP meds no events overnight on tele. (3) Syncope and collapse Status: Acute Response to Treatment: Stable Problem Text: suspect 2/2 low BP continue to monitor w/ fall precautions (4) CLEVE (acute kidney injury) Status: Resolved Problem Text: baseline below 1 before 08/24 suspect likely to polypharmacy ( DYLAN and Lasix) and possible dehydration pt denies vomiting or diarrhea (5) Hyperlipidemia Status: Chronic Response to Treatment: Stable Problem Text: c/w home med (6) DVT prophylaxis Status: Acute Response to Treatment: Stable Problem Text: scd nolan will hold heparin due to GIB Plan/VTE VTE Prophylaxis Ordered?: Yes Plan/Urinary Catheter Reason for insertion/continuin: Critical Pt monitoring VS, I&O, 24H, Fishbone Vital Signs/I&O Vital Signs Date Time Temp Pulse Resp B/P (MAP) Pulse Ox O2 Delivery O2 Flow Rate FiO2 11/23/16 08:00 99.6 111 18 123/62 (82) 98 Nasal Cannula 2.0 I&O- Last 24 Hours up to 6 AM 11/23/16 06:00 Intake Total 3380 ml Output Total 500 ml Balance 2880 ml Laboratory Data 24H LABS Laboratory Tests 2 11/22/16 12:13: Bedside Glucose (Misc Panel) 294H 11/22/16 16:43: Bedside Glucose (Misc Panel) 188H 11/22/16 21:29: Bedside Glucose (Misc Panel) 165H 11/23/16 04:06: Anion Gap 11, Glomerular Filtration Rate 58.2, Blood Urea Nitrogen 26H, Creatinine 1.00, Sodium Level 140, Potassium Level 3.7#, Chloride Level 108H, Carbon Dioxide Level 21, Calcium Level 8.3L, Magnesium Level 1.9 CBC/BMP Laboratory Tests 11/22/16 21:15 11/23/16 04:06 Red Blood Count 2.75 L, Mean Corpuscular Volume 100.4 H, Mean Corpuscular Hemoglobin 34.5 H, Mean Corpuscular Hemoglobin Concent 34.3, Red Cell Distribution Width 14.6 H, Calcium Level 8.3 L Microbiology Microbiology 11/20/16 Blood Culture - Preliminary, Resulted No Growth after 48 hours. All Specime... 11/23/16 Stool Occult Blood ([facility]) - Final, Complete 11/22/16 Gastrointestinal Tract Panel (PCR) - Final, Complete 11/20/16 Urine Culture - Final, Complete NAN MCKEON MD Nov 23, 2016 10:12
[2016-11-23] MEDS: CIPROFLOXACIN 200 MG in APPROPRIATE DILUENT 1 EA IV SCH ×2 (10:20→21:26)
[2016-11-23] MEDS: OMEPRAZOLE 20 MG CAP PO SCH (10:23)
[2016-11-23] MEDS: CYCLOBENZAPRINE 10 MG TAB PO SCH ×3 (10:23→21:26)
[2016-11-23] MEDS: diazePAM 5 MG TAB PO SCH ×2 (10:23→21:26)
[2016-11-23] MEDS: SIMVASTATIN 40 MG TAB PO SCH (10:24)
[2016-11-23] MEDS: CARVedilol 6.25 MG TAB PO SCH ×2 (10:25→21:25)
[2016-11-23] MEDS: SENOKOT S TAB PO SCH ×2 (10:25→21:26)
[2016-11-23] MEDS: SERTRALINE 100 MG TAB PO SCH (10:26)
[2016-11-23] MEDS: FLUTICASONE PROP 0.05% NASAL SPRAY 16 GM (FLONASE) SCH (10:27)
[2016-11-23] MEDS: metroNIDAZOLE 500 MG in APPROPRIATE DILUENT 1 EA IV SCH ×2 (10:56→17:02)
[2016-11-23] MEDS: ANEXSIA, NORCO 7.5MG/325MG TABLET(HYDROCODONE/APAP) PO PRN ×2 (10:58→21:57)
[2016-11-23] MEDS: NS 1,000 ML IV SCH (10:58)
[2016-11-23 12:00] VITALS: BP 123/60
[2016-11-23 16:00] VITALS: BP 129/69
[2016-11-23 19:45] VITALS: BP 134/63
[2016-11-23] MEDS: LEVEMIR (INSULIN DETEMIR) 1 UNITS/0.01ML SC SCH (21:00)
[2016-11-23] MEDS: GABAPENTIN 300 MG CAP PO SCH (21:26)
[2016-11-23] MEDS: DULoxetine 30 MG CAP (CYMBALTA) PO SCH (21:26)
[2016-11-24] VITALS (7 sets, daily range): BP systolic 123–163; BP diastolic 57–72
[2016-11-24] MEDS: metroNIDAZOLE 500 MG in APPROPRIATE DILUENT 1 EA IV SCH ×3 (01:14→16:32)
[2016-11-24] MEDS: LEVOTHYROXINE 50MCG TABLET (0.05MG) PO SCH (05:16)
[2016-11-24 05:40] LABS: MEAN CORPUSCULAR HEMOGLOBIN 33.9 pg (27.0-33.0); MEAN CORPUSCULAR HGB CONC 34.4 g/dl (32.0-36.5); MEAN CORPUSCULAR VOLUME 98.5 fl (80.0-96.0); RED CELL DISTRIBUTION WIDTH 14.6 % (11.5-14.5); WHITE BLOOD COUNT 5.1 K/mm3 (4.0-10.0)
[2016-11-24] MEDS: ANEXSIA, NORCO 7.5MG/325MG TABLET(HYDROCODONE/APAP) PO PRN ×2 (05:41→12:50)
[2016-11-24 05:58] LABS: ANION GAP 6 MEQ/L (8-16); BLOOD UREA NITROGEN 10 MG/DL (7-18); CALCIUM LEVEL 8.2 MG/DL (8.8-10.2); CARBON DIOXIDE LEVEL 24 MEQ/L (21-32); CHLORIDE LEVEL 112 MEQ/L (98-107); CREATININE FOR GFR 0.61 MG/DL (0.55-1.02); GLOMERULAR FILTRATION RATE > 60.0 (>39); GLUCOSE, FASTING 81 MG/DL (83-110); MAGNESIUM LEVEL 1.9 MG/DL (1.8-2.4); POTASSIUM SERUM 3.5 MEQ/L (3.5-5.1); SODIUM LEVEL 142 MEQ/L (136-145)
[2016-11-24] MEDS: NS 1,000 ML IV SCH (06:54)
[2016-11-24] MEDS: HumaLOG INSULIN (NovoLOG) PER UNIT SC SCH ×4 (07:37→20:20)
[2016-11-24] MEDS: TIOTROPIUM INHALER/CAPSULE (SPIRIVA) INH SCH (07:42)
[2016-11-24] MEDS: ADVAIR HFA 230/21MCG INHALER INH SCH ×2 (07:42→20:25)
--- NOTE | 2016-11-24 08:02 | CR ---
DATE OF CONSULTATION: 11/23/2016 REASON FOR CONSULTATION: Rectal bleeding and abnormal colon by CT scanning HISTORY OF PRESENT ILLNESS: The patient is a very pleasant 71-year-old woman who was admitted on the evening of [id number] after presenting to the emergency department with a history of unresponsiveness and hypotension. The patient is a 71-year-old woman with type 2 diabetes which is insulin dependent. She has multiple other medical problems as well. She was brought to the emergency department by ambulance after a friend noted that the patient was having loss of consciousness with lethargy. The patient did not recall the event. She does report that she has had two prior episodes since when she was found to be hypoglycemic and less responsive. She was noted to be hypotensive. She was admitted by the hospitalist service for management. The patient was felt to be hypotensive from the effects of medication and dehydration. She received some IV fluid. Her kidney function revealed signs of acute kidney injury. She improved with stabilization of her vital signs and improvement in her renal function. However , the patient was noted to have some bloody appearing diarrhea overnight from 11/21/2016 to 11/22/2016. She had some crampy abdominal pain but no fevers or chills and had no nausea or vomiting. She had a gastroenteritis panel obtained, which was negative. A CT scan of the abdomen and pelvis was obtained, which was interpreted by the radiologist as showing some thickening of the wall of the descending and sigmoid colon with surrounding edema. She had evidence of stenting of a thoracic aortic aneurysm. She continued to have some bloody appearing stool and I have been asked to evaluate the patient regarding her apparent rectal bleeding. Allergies are reported to alcohol and codeine. Her medications are as listed in the medical record. Her medical history is significant for type 2 diabetes. She has a history of anxiety and depression. She has chronic obstructive pulmonary disease (COPD). She has diagnosis of gastroesophageal reflux disease. She has chronic back pain , hypertension, and dyslipidemia. She also apparently has obstructive sleep apnea but has refused C-PAP. Surgical history is significant for a lumbar laminectomy previously by Dr. West. She has had a hysterectomy many years ago and reports having had a bladder suspension. She has had an endovascular treatment for a thoracic aneurysm. SOCIAL HISTORY: The patient has one son. She is a former smoker who quit recently. Family history reveals that her father had coronary artery disease. Review of systems reveals a history of some back pain. She reports that she is supposed to have surgery on her spine by Dr. Porter upcoming if she is cleared by her segment block layer and primary physician. She denies any prior history of rectal bleeding. She has apparently not had a colonoscopy in the past. She is having a little abdominal soreness currently but no fevers or chills. No cramping and no nausea or vomiting. She denies chest pains, palpitation, shortness of breath, dysuria or hematuria. Physical exam reveals a pleasant woman lying quietly on the hospital bed watching TV. She is alert, oriented and cooperative. Her most recent vital signs showed temperature of 99.4 with a pulse of 115, respirations of 18 and blood pressure of 134/63. She has a pulse oximetry of 92 % on room air. Skin is warm and dry. Sclerae are anicteric. Neck is supple without mass. Heart exam shows a regular rhythm. The lungs show bilateral breath sounds. The abdomen is obese. She has a depressed lower midline scar. She has very active bowel sounds in all four quadrants. The abdomen is not significantly distended. On percussion, she has some mild tenderness in the left midabdomen and the left upper quadrant and the remainder of the abdomen is without significant tenderness. On palpation there is no guarding or rebound. She does have tenderness on palpation in the left midabdomen far laterally and in the left upper quadrant. She reports some very mild tenderness on palpation elsewhere. There is no mass appreciated and no sign of hernia. She has palpable radial and pedal pulses bilaterally. Her laboratory studies include an H H from 1600 showing a hemoglobin of 9.4 with a hematocrit of 27.3. A BMP from the morning of 11/23/2016 showed a sodium of 140, potassium 0.7, chloride 108, CO2 of 21, BUN of 26, creatinine 1.0 and glucose of 105. At the time of her admission her BUN was 48 with a creatinine of 2.58. Her TSH is high at the time of admission at 11 with a free T4 1.3 and a thyroxine of 4.0. I reviewed the imaging from her CT scan. I would agree that there is thickening in the distal transverse colon and the splenic flexure and descending colon. There is evidence for some inflammation surrounding this portion of the colon. The sigmoid and rectum appear normal as does the proximal transverse colon. There is no sign of free air or significant free fluid. She does have a vascular graft in her thoracic aorta. 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 IMPRESSION: 1. Rectal bleeding most likely secondary to some ischemia of the distal transverse and descending colon from her period of hypotension. 2. Anemia secondary to recent blood loss. 3. Insulin requiring type 2 diabetes. 4. Acute kidney injury, resolved. 5. Chronic back pain. 6. Status post endovascular repair of thoracic aortic aneurysm. 7. Hypertension. 8. Hyperlipidemia. 9. Chronic obstructive pulmonary disease secondary to smoking. 10. Depression and anxiety. 11. History of obstructive sleep apnea. RECOMMENDATIONS: At this point, the patient appears to be doing quite well. She reports some mild tenderness in her abdomen in the areas of her thickened colon. Her passage of blood seems to have diminished. She is tolerating a liquid diet well without any nausea or vomiting. I would anticipate that her colon would heal. I would not recommend acute endoscopy at this point. Once her bleeding has resolved, advancing her diet would certainly I think be reasonable. I will be happy to monitor the patient during the rest of his hospital stay as long as necessary to see that she is continuing to improve. BRENDAN
[2016-11-24] MEDS: OMEPRAZOLE 20 MG CAP PO SCH (09:36)
[2016-11-24] MEDS: SERTRALINE 100 MG TAB PO SCH (09:37)
[2016-11-24] MEDS: diazePAM 5 MG TAB PO SCH ×2 (09:37→20:19)
[2016-11-24] MEDS: SENOKOT S TAB PO SCH ×2 (09:37→20:19)
[2016-11-24] MEDS: CYCLOBENZAPRINE 10 MG TAB PO SCH ×3 (09:37→20:19)
[2016-11-24] MEDS: SIMVASTATIN 40 MG TAB PO SCH (09:37)
[2016-11-24] MEDS: CARVedilol 6.25 MG TAB PO SCH ×2 (09:37→20:20)
[2016-11-24] MEDS: CIPROFLOXACIN 200 MG in APPROPRIATE DILUENT 1 EA IV SCH ×2 (09:38→20:18)
[2016-11-24] MEDS: FLUTICASONE PROP 0.05% NASAL SPRAY 16 GM (FLONASE) SCH (09:38)
--- NOTE | 2016-11-24 12:06 | IPNPDOC ---
Subjective Date Seen The patient was seen on 11/24/16. Subjective Chief Complaint/HPI The patient is a 71-year-old female admitted with a reason for visit of Hypotension. General: Denies: Chills, Night Sweats Constitutional: Denies: Chills, Fever Eyes: Denies: Pain, Vision change Pulmonary: Denies: Dyspnea, Cough, Pleuritic Chest Pain Cardiovascular: Denies: Chest Pain, Palpitations, Orthopnea Gastrointestinal: Denies: Nausea, Vomiting, Abdominal Pain Genitourinary: Denies: Dysuria, Frequency Neurological: Denies: Weakness Psych: Reports: Mood Normal Objective Physical Examination General Exam: Positive: Alert, Cooperative, No Acute Distress Eye Exam: Positive: PERRLA ENT Exam: Positive: Atraumatic, Mucous membr. moist/pink Neck Exam: Positive: Supple Chest Exam: Positive: Clear to auscultation, Normal air movement, Negative: Rales, Rhonchi, Wheezing Heart Exam: Positive: Rate Normal, Normal S1, Normal S2, Negative: Gallops, Murmurs, Rubs Telemetry: Positive: No significant arrhythmia Abdomen Exam: Positive: Normal bowel sounds, Soft, Negative: Tenderness, Hepatospenomegaly Extremity Exam: Negative: Clubbing, Cyanosis, Edema Assessment /Plan Problems (1) Bloody diarrhea Status: Acute Problem Text: GI panel is negative , CT abdomen and pelvis with inflammatory bowel dis of the left could be ischemic colitis as the patient was hypotensive on presentation will give cipro and flagyl. stool occult negative will send serology monitor h/h q 6hs h/h 8.8/25.5 today stable is not actively bleeding Dr Huff saw pt one day ago- appreciate surgery help- can wait on endoscopy for now advance diet as tolerated- patient is feeling well, states abdominal pain has decreased and is now tolerable, would like to eat advance diet to const. carb., if pt tolerating food- can d/c fluids this afternoon (2) Hypotension Status: Acute Problem Text: stable 163/72 likely 2/2 polypharmacy and dehydration-likely WBC normal, no fevers reported. do not believe infectious in nature-bloodcx pending AM cortisol stable will d/c fluids and allow pts BP to rise naturally will perform orthostatics- negative so far will continue to hold home BP meds no events overnight on tele. (3) Syncope and collapse Status: Acute Response to Treatment: Stable Problem Text: suspect 2/2 low BP continue to monitor w/ fall precautions (4) CLEVE (acute kidney injury) Status: Resolved Problem Text: .61 today baseline below 1 before 08/24 suspect likely to polypharmacy ( DYLAN and Lasix) and possible dehydration pt denies vomiting or diarrhea continue to monitor (5) Hyperlipidemia Status: Chronic Response to Treatment: Stable Problem Text: c/w home med (6) DVT prophylaxis Status: Acute Response to Treatment: Stable Problem Text: scd nolan will hold heparin due to GIB Plan/VTE VTE Prophylaxis Ordered?: Yes Plan/Urinary Catheter Reason for insertion/continuin: Critical Pt monitoring VS, I&O, 24H, Fishbone Vital Signs/I&O Vital Signs Date Time Temp Pulse Resp B/P (MAP) Pulse Ox O2 Delivery O2 Flow Rate FiO2 11/24/16 09:37 163/72 11/24/16 07:58 Room Air 11/24/16 07:45 97.9 97 20 93 11/23/16 12:00 2.0 I&O- Last 24 Hours up to 6 AM 11/24/16 06:00 Intake Total 2075 ml Output Total 1800 ml Balance 275 ml Laboratory Data 24H LABS Laboratory Tests 2 11/23/16 16:51: Bedside Glucose (Misc Panel) 107 11/23/16 21:45: Bedside Glucose (Misc Panel) 186H 11/24/16 05:14: Anion Gap 6L, Glomerular Filtration Rate > 60.0, Blood Urea Nitrogen 10#, Creatinine 0.61, Sodium Level 142, Potassium Level 3.5, Chloride Level 112H, Carbon Dioxide Level 24, Calcium Level 8.2L, Magnesium Level 1.9 11/24/16 11:47: Bedside Glucose (Misc Panel) 126H CBC/BMP Laboratory Tests 11/23/16 16:06 11/23/16 22:03 11/24/16 05:14 Red Blood Count 2.59 L, Mean Corpuscular Volume 98.5 H, Mean Corpuscular Hemoglobin 33.9 H, Mean Corpuscular Hemoglobin Concent 34.4, Red Cell Distribution Width 14.6 H, Calcium Level 8.2 L Microbiology Microbiology 11/20/16 Blood Culture - Preliminary, Resulted No Growth after 72 hours. All specime... 11/23/16 Stool Occult Blood (ALEJO) - Final, Complete 11/22/16 Gastrointestinal Tract Panel (PCR) - Final, Complete 11/20/16 Urine Culture - Final, Complete GME ATTESTATION GME ATTESTATION My preceptor for this patient encounter was physically present in the building during the encounter and was fully available. As needed, all aspects of the patient interview, examination, medical decision making process, and medical care plan development were reviewed and approved by the preceptor. Preceptor is aware and concurs with the plan as stated in the body of this note and will attest to such by his/her cosignature. GURWINDER BORGES DO Nov 24, 2016 12:06
[2016-11-24] MEDS: GABAPENTIN 300 MG CAP PO SCH (20:18)
[2016-11-24] MEDS: DULoxetine 30 MG CAP (CYMBALTA) PO SCH (20:19)
[2016-11-24] MEDS: LEVEMIR (INSULIN DETEMIR) 1 UNITS/0.01ML SC SCH (20:20)
[2016-11-25] MEDS: metroNIDAZOLE 500 MG in APPROPRIATE DILUENT 1 EA IV SCH ×2 (01:00→09:14)
[2016-11-25] MEDS: NS 1,000 ML IV SCH (02:54)
[2016-11-25 03:42] VITALS: BP 146/72
[2016-11-25] MEDS: LEVOTHYROXINE 50MCG TABLET (0.05MG) PO SCH (05:29)
[2016-11-25 05:46] LABS: MEAN CORPUSCULAR HGB CONC 34.4 g/dl (32.0-36.5); RED CELL DISTRIBUTION WIDTH 14.5 % (11.5-14.5); WHITE BLOOD COUNT 5.4 K/mm3 (4.0-10.0)
[2016-11-25 06:25] LABS: ANION GAP 6 MEQ/L (8-16); BLOOD UREA NITROGEN 9 MG/DL (7-18); CALCIUM LEVEL 8.3 MG/DL (8.8-10.2); CARBON DIOXIDE LEVEL 25 MEQ/L (21-32); CHLORIDE LEVEL 114 MEQ/L (98-107); GLOMERULAR FILTRATION RATE > 60.0 (>39); GLUCOSE, FASTING 131 MG/DL (83-110); MAGNESIUM LEVEL 1.9 MG/DL (1.8-2.4); POTASSIUM SERUM 3.9 MEQ/L (3.5-5.1); SODIUM LEVEL 145 MEQ/L (136-145)
[2016-11-25] MEDS: HumaLOG INSULIN (NovoLOG) PER UNIT SC SCH ×2 (07:58→12:26)
[2016-11-25] MEDS: CIPROFLOXACIN 200 MG in APPROPRIATE DILUENT 1 EA IV SCH (07:58)
[2016-11-25 08:00] VITALS: BP 138/83
[2016-11-25] MEDS: TIOTROPIUM INHALER/CAPSULE (SPIRIVA) INH SCH (08:36)
[2016-11-25] MEDS: ADVAIR HFA 230/21MCG INHALER INH SCH (08:36)
--- NOTE | 2016-11-25 08:39 | IPNPDOC ---
Subjective Date Seen The patient was seen on 11/25/16. Subjective Chief Complaint/HPI The patient is a 71-year-old female admitted with a reason for visit of Hypotension. General: Denies: Chills, Night Sweats Constitutional: Denies: Chills, Fever Skin: Denies: Rash, Lesions Pulmonary: Reports: Dyspnea, Denies: Cough, Pleuritic Chest Pain Gastrointestinal: Denies: Nausea, Vomiting, Abdominal Pain Neurological: Denies: Weakness Psych: Reports: Mood Normal Objective Physical Examination General Exam: Positive: Alert, Cooperative, No Acute Distress Eye Exam: Positive: PERRLA ENT Exam: Positive: Atraumatic, Mucous membr. moist/pink Neck Exam: Positive: Supple Chest Exam: Positive: Clear to auscultation, Normal air movement, Negative: Rales, Rhonchi, Wheezing Heart Exam: Positive: Rate Normal, Normal S1, Normal S2, Negative: Gallops, Murmurs, Rubs Telemetry: Positive: No significant arrhythmia Abdomen Exam: Positive: Normal bowel sounds, Soft, Negative: Tenderness, Hepatospenomegaly Extremity Exam: Negative: Clubbing, Cyanosis, Edema Neuro Exam: Positive: Normal Speech Assessment /Plan Problems (1) Bloody diarrhea Status: Acute Problem Text: GI panel is negative , CT abdomen and pelvis with inflammatory bowel dis of the left could be ischemic colitis as the patient was hypotensive on presentation c/w cipro and flagyl. stool occult negative will send serology monitor h/h q 6hs h/h 9.3.1 today stable is not actively bleeding Dr Huff saw pt- appreciate surgery help- can wait on endoscopy for now advance diet as tolerated- patient is feeling well, states abdominal pain has decreased and is now tolerable. tolerating food well w/minimal abdominal pain advanced diet to const. carb. (2) Hypotension Status: Acute Problem Text: stable 163/72 likely 2/2 polypharmacy and dehydration-likely WBC normal, no fevers reported. do not believe infectious in nature-bloodcx pending AM cortisol stable will d/c fluids and allow pts BP to rise naturally will perform orthostatics- negative so far will continue to hold home BP meds no events overnight on tele. (3) Syncope and collapse Status: Acute Response to Treatment: Stable Problem Text: suspect 2/2 low BP continue to monitor w/ fall precautions (4) CLEVE (acute kidney injury) Status: Resolved Problem Text: .70 today baseline below 1 before 08/24 suspect likely to polypharmacy ( DYLAN and Lasix) and possible dehydration pt denies vomiting or diarrhea continue to monitor (5) Hyperlipidemia Status: Chronic Response to Treatment: Stable Problem Text: c/w home med (6) DVT prophylaxis Status: Acute Response to Treatment: Stable Problem Text: scd nolan will hold heparin due to GIB Plan/VTE VTE Prophylaxis Ordered?: Yes Plan/Urinary Catheter Reason for insertion/continuin: Critical Pt monitoring VS, I&O, 24H, Fishbone Vital Signs/I&O Vital Signs Date Time Temp Pulse Resp B/P (MAP) Pulse Ox O2 Delivery O2 Flow Rate FiO2 11/25/16 08:01 Room Air 11/25/16 03:42 98.3 98 20 146/72 (96) 96 11/23/16 12:00 2.0 I&O- Last 24 Hours up to 6 AM 11/25/16 06:00 Intake Total 1540 ml Output Total 1075 ml Balance 465 ml Laboratory Data 24H LABS Laboratory Tests 2 11/24/16 11:47: Bedside Glucose (Misc Panel) 126H 11/24/16 17:09: Bedside Glucose (Misc Panel) 126H 11/24/16 20:08: Bedside Glucose (Misc Panel) 213H 11/25/16 05:28: Anion Gap 6L, Glomerular Filtration Rate > 60.0, Blood Urea Nitrogen 9, Creatinine 0.70, Sodium Level 145, Potassium Level 3.9, Chloride Level 114H, Carbon Dioxide Level 25, Calcium Level 8.3L, Magnesium Level 1.9 CBC/BMP Laboratory Tests 11/25/16 05:28 Red Blood Count 2.74 L, Mean Corpuscular Volume 99.0 H, Mean Corpuscular Hemoglobin 34.0 H, Mean Corpuscular Hemoglobin Concent 34.4, Red Cell Distribution Width 14.5, Calcium Level 8.3 L Microbiology Microbiology 11/20/16 Blood Culture - Preliminary, Resulted No Growth after 72 hours. All specime... 11/23/16 Stool Occult Blood (ALEJO) - Final, Complete 11/22/16 Gastrointestinal Tract Panel (PCR) - Final, Complete 11/20/16 Urine Culture - Final, Complete GME ATTESTATION GME ATTESTATION My preceptor for this patient encounter was physically present in the building during the encounter and was fully available. As needed, all aspects of the patient interview, examination, medical decision making process, and medical care plan development were reviewed and approved by the preceptor. Preceptor is aware and concurs with the plan as stated in the body of this note and will attest to such by his/her cosignature. GURWINDER BORGES DO Nov 25, 2016 08:38 ANUP SCOTT Dec 09, 2016 15:49
[2016-11-25] MEDS: SIMVASTATIN 40 MG TAB PO SCH (09:13)
[2016-11-25] MEDS: CYCLOBENZAPRINE 10 MG TAB PO SCH (09:13)
[2016-11-25] MEDS: SENOKOT S TAB PO SCH (09:13)
[2016-11-25 09:14] VITALS: BP 138/83
[2016-11-25] MEDS: FLUTICASONE PROP 0.05% NASAL SPRAY 16 GM (FLONASE) SCH (09:14)
[2016-11-25] MEDS: CARVedilol 6.25 MG TAB PO SCH (09:14)
[2016-11-25] MEDS: diazePAM 5 MG TAB PO SCH (09:14)
[2016-11-25] MEDS: OMEPRAZOLE 20 MG CAP PO SCH (09:14)
[2016-11-25] MEDS: SERTRALINE 100 MG TAB PO SCH (09:14)
[2016-11-25] MEDS ORDERED: FLAG500T PO (11:21)
[2016-11-25] MEDS ORDERED: CIPR500T3 PO (11:21)
--- NOTE | 2016-11-25 12:19 | DS.PDOC ---
Discharge Summary General Date of Admission Nov 20, 2016 at 21:52 Date of Discharge [address] Discharge Summary PROCEDURES PERFORMED DURING STAY: None ADMITTING DIAGNOSES: 1. Syncope w/hypotension 2. Elevated TSH 3. Leukocytosis 4. DM2 5. Acute renal insufficiency 6. CBP 7. anxiety and depression 8. HTN DISCHARGE DIAGNOSES: 1. Bloody diarrhea 2. Hypotension 3. Syncope & Collapse 4. CLEVE 5. Hyperlipidemia COMPLICATIONS/CHIEF COMPLAINT: Hypotension. HISTORY OF PRESENT ILLNESS: 71 y/o female who presented to ED on 11-20-16 with CC of LOC and lethargy. HOSPITAL COURSE: During the course of the stay, the pt was found to have low BP (89/55) that was responsive to IV fluid hydration. Her cardiac enzymes during her stay were all negative and she was monitored on cardiac telemetry which did not reveal a cardiac source for her syncope. Echocardiogram showed diastolic dysfunction. Urine toxicology was negative, and the pts blood pressure medications were held in light of her hypotension. Morning cortisol and cosyntropin stimulation test were also negative and within normal limits. She initially had a leukocytosis on admission that was likely 2/2 reactive process , however the patient was started on ciprofloxacin and flagyl inpatient as pt began to experience episodes of crampy abdominal pain associated with bloody loose stool. Her GI panel was negative for a possible infective source of the change in bowel movements, and her stool occult was negative, she was seen by general surgery inpt who concluded she did not need an endoscopy inpt. CT ab/pelvis did show some inflammatory bowel disease and it was though it could be suggestive of ischemic colitis, the pt was started on Cipro and flagy as mentioned above and will complete 7 day course. Serology testing for inflammatory bowel disease UC vs Crohns was still pending on day of d/c. IV fluids were stopped and the patients BP naturally lalo to acceptable levels on its own. The pts H/H continued to remain stable and on day of d/c it had been three days since last bloody bowel movement. Her hypotension was thought to have been caused from polypharmacy with her DYLAN and Lasix home medications and consequent dehydration. A renal u/s performed inpt did reveal a stable 1.6 cm renal cyst and urine osmo studies demonstrated a low osmolality urine and high protein, likely secondary to ARF and her kidney s inability to concentrate fully at that point in time. Her syncope was thought to be due to her hypotension. Of note, her TSH was also elevated on admission likely 2/2 stress, since it did normalize during the course of her stay, would recommend PCP check TSH within 6 weeks of d/c. On day of d/c the patient felt well, denied feeling light headed or dizzy nor SOB, she stated she was happy to be going home. Her CLEVE has resolved, and ACEI was restarted on discharge, but lasix was stopped. In summary, she did not have any respiratory complaints or symptoms and her hypotension resolved well with fluids during her stay. DISCHARGE MEDICATIONS: Please see below. ALLERGIES: Please see below. PHYSICAL EXAMINATION ON DISCHARGE: VITAL SIGNS: Please see below. GENERAL: pleasant, conversant, in no distress, breathing well and not labored, happy to be going home HEENT: NCAT, nares patent b/l, neck supple, trachea midliline CARDIOVASCULAR EXAMINATION: RRR, normal s1 and s2, no murmurs, rubs or gallops appreciated RESPIRATORY EXAMINATION: diffusely diminished, no rales, rhonchi or crackles appreciated ABDOMINAL EXAMINATION: soft, obese, nabsx4, non-distended, no organomegaly, no tenderness on exam to palpation EXTREMITIES: no cyanosis, clubbing or edema appreciated SKIN: intact NEUROLOGICAL EXAMINATION: no focal deficits appreciated PSYCHIATRIC EXAMINATION: normal affect and appropriate demeanor LABORATORY DATA: Please see below. IMAGING: Head CT 11-20-16 IMPRESSION: 1. Small vessel ischemic disease. 2. Mild volume loss. CXR 11-20-16 The lungs are clear. The heart is normal in size. The pulmonary vasculature is normal in appearance. The patient is status post stenting of the thoracic aorta. Impression: No acute disease. Renal u/s 11-20-16 IMPRESSION: 1.6 cm left renal cyst. CT ab/pelvis 11-22-16 IMPRESSION: 1. There is atrophy of the pancreas. 2. There is thickening of the wall of the descending and sigmoid colon with surrounding edema consistent with inflammatory bowel disease. 3. The patient is status post stenting of a thoracic aortic aneurysm. 4. Abdominal aortic aneurysms as described above, unchanged compared to the previous study. PROGNOSIS: stable ACTIVITY: As tolerated DIET: as tolerated, const. carb due to DM2 DISCHARGE PLAN: home with resumption of home health care, d/c on PO Ciprofloxacin and Flagyl 5 day course. DISPOSITION: Stable DISCHARGE INSTRUCTIONS: 1. Please follow with PCP within one week of d/c, please have them follow TSH levels within 6 weeks of d.c ITEMS TO FOLLOWUP ON ON OUTPATIENT: 1. Please follow with PCP within one week of d/c, please have them follow TSH levels within 6 weeks of d.c 2. PCP will also need to follow serology results for possible IBD, as well as residential follow up of AAA seen on CT A/P. DISCHARGE CONDITION: Stable TIME SPENT ON DISCHARGE: Greater than 30 minutes. Vital Signs/I&Os Vital Signs Date Time Temp Pulse Resp B/P (MAP) Pulse Ox O2 Delivery O2 Flow Rate FiO2 11/25/16 09:14 95 138/83 11/25/16 08:01 Room Air 11/25/16 08:00 97.8 20 94 11/23/16 12:00 2.0 I&O- Last 24 Hours up to 6 AM 11/25/16 06:00 Intake Total 1540 ml Output Total 1075 ml Balance 465 ml Laboratory Data Labs 24H Laboratory Tests 2 11/24/16 17:09: Bedside Glucose (Misc Panel) 126H 11/24/16 20:08: Bedside Glucose (Misc Panel) 213H 11/25/16 05:28: Anion Gap 6L, Glomerular Filtration Rate > 60.0, Blood Urea Nitrogen 9, Creatinine 0.70, Sodium Level 145, Potassium Level 3.9, Chloride Level 114H, Carbon Dioxide Level 25, Calcium Level 8.3L, Magnesium Level 1.9 CBC/BMP Laboratory Tests 11/25/16 05:28 Red Blood Count 2.74 L, Mean Corpuscular Volume 99.0 H, Mean Corpuscular Hemoglobin 34.0 H, Mean Corpuscular Hemoglobin Concent 34.4, Red Cell Distribution Width 14.5, Calcium Level 8.3 L FSBS Laboratory Tests Test 11/24/16 17:09 11/24/16 20:08 Range/Units Bedside Glucose (Misc Panel) 126 213 83-110 MG/DL Microbiology Microbiology 11/20/16 Blood Culture - Preliminary, Resulted No Growth after 72 hours. All specime... 11/23/16 Stool Occult Blood (ALEJO) - Final, Complete 11/22/16 Gastrointestinal Tract Panel (PCR) - Final, Complete 11/20/16 Urine Culture - Final, Complete Discharge Medications Scheduled Carvedilol (Carvedilol) 6.25 Mg Tab, 6.25 MG PO BID, (Reported) Ciprofloxacin HCl (Ciprofloxacin HCl) 500 Mg Tab, 500 MG PO Q12H Cyclobenzaprine HCl (Cyclobenzaprine HCl) 10 Mg Tab, 10 MG PO TID, (Reported) Diazepam (Diazepam) 5 Mg Tab, 5 MG PO BID, (Reported) Duloxetine Hcl (Duloxetine HCl) 60 Mg Cap, 60 MG PO QHS, (Reported) Fluticasone Propionate (Fluticasone Propionate) 50 Mcg/Act Spr, 1 SPRAY NA DAILY , (Reported) Gabapentin (Gabapentin) 300 Mg Cap, 300 MG PO QHS, (Reported) Glimepiride (Glimepiride) 4 Mg Tab, 8 MG PO QAM, (Reported) Insulin Glargine (Lantus Solostar) 100 Unit/Ml Inj, 50 UNITS SC QHS, (Reported) Insulin Human Lispro (Humalog Kwikpen) 100 Unit/Ml Inj, 1 DOSE SC BID, (Reported ) Per Sliding Scale Lisinopril (Lisinopril) 10 Mg Tab, 10 MG PO DAILY, (Reported) Metronidazole (Flagyl) 500 Mg Tab, 500 MG PO Q8H FOR 5 DAYS Mirabegron Base (Myrbetriq) 25 Mg Tab, 25 MG PO DAILY, (Reported) Omeprazole (Omeprazole) 40 Mg Cap, 40 MG PO DAILY, (Reported) Salmeterol/Fluticasone (Advair Diskus 500-50 Mcg/Dose) 28 Puff/Inhaler Aerp, 1 PUFF INH BID, (Reported) Sertraline HCl (Sertraline HCl) 100 Mg Tab, 100 MG PO DAILY, (Reported) Simvastatin - High Dose (Zocor) 40 Mg Tab, 40 MG PO DAILY, (Reported) Sitagliptin Phosphate (Januvia) 100 Mg Tab, 100 MG PO DAILY, (Reported) Tiotropium Chandler Monohydrate (Spiriva Handihaler) 18 Mcg Cap, 1 INHALATION INH DAILY, (Reported) Scheduled PRN Acetaminophen/Hydrocodone (Harmon 7.5-325 mg) 1 Tab Tab, 1 TAB PO Q4H PRN for PAIN, (Reported) Ibuprofen (Ibuprofen) 800 Mg Tab, 800 MG PO TID PRN for PAIN, (Reported) Allergies Coded Allergies: Alcohol (Verified Allergy, Unknown, 04/05/13) Codeine (Verified Adverse Reaction, Intermediate, HEADACHE AND NAUSEA, 08/09) GME ATTESTATION GME ATTESTATION My preceptor for this patient encounter was physically present in the building during the encounter and was fully available. As needed, all aspects of the patient interview, examination, medical decision making process, and medical care plan development were reviewed and approved by the preceptor. Preceptor is aware and concurs with the plan as stated in the body of this note and will attest to such by his/her cosignature. GURWINDER BORGES DO Nov 25, 2016 12:19 ANUP SCOTT Nov 25, 2016 14:25
[2016-11-25] MEDS: ANEXSIA, NORCO 7.5MG/325MG TABLET(HYDROCODONE/APAP) PO PRN (12:26)
[2016-11-26 14:15] LABS: Chitobioside Carbohydrat (ACCA 44 units (0-90); Laminaribioside Carbohyd (ALCA 21 units (0-60); Mannobioside Carbohydrat (AMCA 36 units (0-100); Saccharomyces cerevisiae IgG A 21 units (0-50)
== END 2016-11-25 15:02 | disposition home health service (06) | DRG 394 ==
LOC: M ED 18:32 → EDBD 18:32 → M ED INP 21:52 → M PCU 23:54
PROVIDERS: ADMIT Hospitalist; ATTEND Hospitalist
DX: K55.9 Vascular disorder of intestine, unspecified (principal); N17.9 Acute kidney failure, unspecified; I95.9 Hypotension, unspecified; R55 Syncope and collapse; E78.5 Hyperlipidemia, unspecified; E11.9 Type 2 diabetes mellitus without complications; G47.33 Obstructive sleep apnea (adult) (pediatric); E03.9 Hypothyroidism, unspecified; J44.9 Chronic obstructive pulmonary disease, unspecified; F32.9 Major depressive disorder, single episode, unspecified; F41.9 Anxiety disorder, unspecified; K21.9 Gastro-esophageal reflux disease without esophagitis; I10 Essential (primary) hypertension; Z79.4 Long term (current) use of insulin; Z88.5 Allergy status to narcotic agent; Z88.8 Allergy status to other drugs, medicaments and biological substances; Z91.19 Patient's noncompliance with other medical treatment and regimen; Z90.710 Acquired absence of both cervix and uterus; Z87.891 Personal history of nicotine dependence; Z96.7 Presence of other bone and tendon implants; Z79.899 Other long term (current) drug therapy

== ENCOUNTER → 2016-12-16 | Outpatient (CLI) | payer MEDICARE, MEDICAID ==
[~2016-12-16] MED LIST changes: +CIPR500T3 PO; +IBUP1TAB7 PO; +NORC7.5T35 PO; +SERT-138 PO
[2016-12-16 09:56] LABS: CALCIUM LEVEL 8.7 MG/DL (8.8-10.2); CREATININE FOR GFR 1.31 MG/DL (0.55-1.02); GLOMERULAR FILTRATION RATE 42.6 (>39); POTASSIUM SERUM 4.9 MEQ/L (3.5-5.1)
== END ==
LOC: M LAB 08:17
PROVIDERS: ATTEND Nurse Practitioner Family
DX: I10 Essential (primary) hypertension (principal)

== ENCOUNTER → 2016-12-21 | Outpatient (CLI) | payer MEDICARE, MEDICAID ==
[2016-12-21 11:31] LABS: MEAN CORPUSCULAR HEMOGLOBIN 33.3 pg (27.0-33.0); MEAN CORPUSCULAR HGB CONC 33.7 g/dl (32.0-36.5); MEAN CORPUSCULAR VOLUME 98.8 fl (80.0-96.0); RED CELL DISTRIBUTION WIDTH 13.7 % (11.5-14.5); WHITE BLOOD COUNT 5.9 K/mm3 (4.0-10.0)
[2016-12-21 11:35] LABS: INR 0.97
[2016-12-21 12:00] LABS: ALBUMIN/GLOBULIN RATIO 1.25 (1.00-1.93); BILIRUBIN,TOTAL 0.3 MG/DL (0.2-1.0); CALCIUM LEVEL 9.5 MG/DL (8.8-10.2); CREATININE FOR GFR 1.14 MG/DL (0.55-1.02); TOTAL PROTEIN 7.2 GM/DL (6.4-8.2)
[2016-12-21 12:01] LABS: POTASSIUM SERUM 5.6 MEQ/L (3.5-5.1)
== END ==
LOC: M LAB 10:58
PROVIDERS: ATTEND Neurological Surgery
DX: Z01.818 Encounter for other preprocedural examination (principal); M41.86 Other forms of scoliosis, lumbar region; M48.06 Spinal stenosis, lumbar region

== ENCOUNTER 2017-02-17 08:53 | Outpatient (RCR) | payer MEDICARE, MEDICAID | END 2017-03-09 | LOC: M PT 08:53 | PROVIDERS: ATTEND Neurological Surgery | DX: Z51.89 Encounter for other specified aftercare (principal); M43.17 Spondylolisthesis, lumbosacral region | CPT/HCPCS: 97162; G8978; G8979; G8980 ==

== ENCOUNTER → 2017-04-27 | Outpatient (CLI) | payer MEDICARE, MEDICAID ==
[2017-04-27 15:39] LABS: CREATININE FOR GFR 1.51 MG/DL (0.55-1.02); GLOMERULAR FILTRATION RATE 36.1 (>39)
== END ==
LOC: M LAB 14:49
PROVIDERS: ATTEND Neurological Surgery
DX: Z01.89 Encounter for other specified special examinations (principal)

== ENCOUNTER → 2017-09-08 | Outpatient (CLI) | payer MEDICARE, MEDICAID | LOC: M RAD 08:16 | DX: I71.4 Abdominal aortic aneurysm, without rupture (principal) | CPT/HCPCS: 76706 ==

== ENCOUNTER → 2017-10-07 | Outpatient (CLI) | payer MEDICARE, MEDICAID | LOC: M RAD 18:01 | DX: I71.4 Abdominal aortic aneurysm, without rupture (principal); I25.10 Atherosclerotic heart disease of native coronary artery without angina pectoris; K57.30 Diverticulosis of large intestine without perforation or abscess without bleeding; M51.34 Other intervertebral disc degeneration, thoracic region; Z95.828 Presence of other vascular implants and grafts | CPT/HCPCS: 74176 ==

== ENCOUNTER → 2018-02-10 | Outpatient (CLI) | payer MEDICARE, MEDICAID ==
[2018-02-10 19:09] LABS: ANION GAP 9 MEQ/L (8-16); BLOOD UREA NITROGEN 29 MG/DL (7-18); CALCIUM LEVEL 8.5 MG/DL (8.8-10.2); CARBON DIOXIDE LEVEL 24 MEQ/L (21-32); CHLORIDE LEVEL 107 MEQ/L (98-107); CREATININE FOR GFR 1.62 MG/DL (0.55-1.30); GLOMERULAR FILTRATION RATE 33.2 (>39); GLUCOSE, FASTING 108 MG/DL (70-100); POTASSIUM SERUM 5.4 MEQ/L (3.5-5.1); SODIUM LEVEL 140 MEQ/L (136-145)
== END ==
LOC: M WUC 11:34
DX: I10 Essential (primary) hypertension (principal)
CPT/HCPCS: 80048

== ENCOUNTER → 2018-06-15 | Outpatient (CLI) | payer MEDICARE, MEDICAID ==
[~2018-06-15] MED LIST changes: -GABA-282 PO; +GABA-843 PO; -LASI40TA PO; +LASI40TA9 PO; +PIOG1TAB37 PO; -PIOG30TA4 PO; -VITA1CAP40 PO; +VITA50005 PO
[2018-06-15 11:14] LABS: BASO # 0.1 10^3/uL (0.0-0.2); BASO % 1.2 % (0.0-1.0); EOS # 0.4 10^3/uL (0.0-0.50); EOS % 6.5 % (0.0-3.0); HEMATOCRIT 33.3 % (36.0-47.0); HEMOGLOBIN 10.6 g/dl (12.0-15.5); LYMPH # 1.8 10^3/uL (1.5-4.5); LYMPH % 29.8 % (24.0-44.0); MEAN CORPUSCULAR HGB CONC 31.8 g/dl (32.0-36.5); MEAN CORPUSCULAR VOLUME 103.7 fl (80.0-96.0); MONO # 0.6 10^3/uL (0.0-0.8); MONO % 9.3 % (0.0-5.0); NEUTROPHILS # 3.2 10^3/uL (1.8-7.7); PLATELET COUNT, AUTOMATED 254 10^3/uL (150-450); RED BLOOD COUNT 3.21 10^6/uL (4.00-5.40)
[2018-06-15 11:36] LABS: HEMOGLOBIN A1c 6.7 %
[2018-06-15 12:09] LABS: ALBUMIN 4.2 GM/DL (3.2-5.2); BILIRUBIN,TOTAL 0.3 MG/DL (0.2-1.0); CALCIUM LEVEL 8.9 MG/DL (8.8-10.2); CHOLESTEROL RISK RATIO 5.071 (<5); CREATININE FOR GFR 1.3 MG/DL (0.55-1.30); GLOMERULAR FILTRATION RATE 42.7 (>39); POTASSIUM SERUM 4.4 MEQ/L (3.5-5.1); TOTAL PROTEIN 7.1 GM/DL (6.4-8.2)
== END ==
LOC: M LAB 10:19
PROVIDERS: ATTEND Nurse Practitioner Family
DX: D50.9 Iron deficiency anemia, unspecified (principal); I10 Essential (primary) hypertension; E11.9 Type 2 diabetes mellitus without complications

== ENCOUNTER → 2018-06-21 | Outpatient (CLI) | payer MEDICARE, MEDICAID ==
--- NOTE | 2018-06-21 10:32 | REP ---
Abdominal aorta ultrasound: Abdominal Aortic Measurements are as follows: Proximal 2.5 cm AP 2.8 cm TRV Renal Artery Level 2.7 cm AP 3.0 cm TRV Mid Aorta 4.5 cm AP 2.7 cm TRV Distal Aorta 2.2 cm AP 4.2 cm TRV R Iliac Artery 1.2 cm AP 1.2 cm TRV L Iliac Artery 0.8 cm AP 0.9 cm TRV There is a dumbbell shaped aneurysm measuring 4.5 cm AP by 4.4 cm transverse and extending for a craniocaudad length of 9.9 cm. This is not significantly changed from a prior study dated 09/08/2017. Electronically Signed by Dada Arteaga MD 06/21/2018 10:23 A
== END ==
LOC: M RAD 08:32
PROVIDERS: ATTEND Surgery Vascular Surgery
DX: I71.4 Abdominal aortic aneurysm, without rupture (principal)

== ENCOUNTER 2018-07-03 13:12 | Emergency (ER) | payer MEDICARE, MEDICAID ==
[~2018-07-03] VITALS: Ht 160 cm; Wt 99.1 kg
[2018-07-03] MEDS ORDERED: DEXTROSE 50% 50 ML SYRINGE IV STA (13:59)
[2018-07-03] MEDS ORDERED: DEXTROSE 50% 50 ML SYRINGE As Ordered ONE (14:01)
--- NOTE | 2018-07-03 14:01 | REP ---
CT of the brain without IV contrast: Comparison is 11/20/2016. There is no hemorrhage, edema, mass effect or midline shift. The cortical stripe is unremarkable. The sulci are mildly dilated compatible with diffuse volume loss. This is unchanged. The cortical stripe is unremarkable and unchanged. There is heterogeneity in the deep white matter compatible with chronic microvascular ischemia, unchanged. Impression: There is no hemorrhage, acute infarct or mass. There is mild diffuse volume loss and chronic microvascular ischemia, unchanged. Electronically Signed by Dada Arteaga MD 07/03/2018 01:53 P
[2018-07-03 14:09] LABS: BLOOD UREA NITROGEN 21 MG/DL (7-18); CALCIUM LEVEL 8.8 MG/DL (8.8-10.2); CARBON DIOXIDE LEVEL 25 MEQ/L (21-32); CHLORIDE LEVEL 109 MEQ/L (98-107); CPK CREATINE PHOSPHOKINASE 88 U/L (26-192); CREATININE FOR GFR 1.13 MG/DL (0.55-1.30); ETHYL ALCOHOL (ETHANOL) < 0.003 % (0.000-0.010); GLOMERULAR FILTRATION RATE 50.2 (>39); GLUCOSE, FASTING 71 MG/DL (70-100); MAGNESIUM LEVEL 1.9 MG/DL (1.8-2.4); MB/CK RELATIVE INDEX 3.18 (< OR =4); POTASSIUM SERUM 4.4 MEQ/L (3.5-5.1); SODIUM LEVEL 142 MEQ/L (136-145); TROPONIN I 0.02 NG/ML (< 0.10)
[2018-07-03 14:21] LABS: INR 0.95; PROTHROMBIN TIME 12.8 SECONDS (12.1-14.4)
--- NOTE | 2018-07-03 14:22 | REP ---
Portable chest, 01:46 p.m., AP view, the patient upright: Comparison is 03/15/2017. Lung barney are clear. Cardiac size is normal. The kisha, mediastinum, skeletal structures are unremarkable. An endovascular stent is again identified in the descending thoracic aorta, unchanged. Impression: There are no acute cardiopulmonary findings. There is an endovascular stent in the descending thoracic aorta, unchanged. Electronically Signed by Dada Arteaga MD 07/03/2018 02:14 P
[2018-07-03 14:24] LABS: BASO % 0.4 % (0.0-1.0); EOS # 0.1 10^3/uL (0.0-0.50); EOS % 1.5 % (0.0-3.0); HEMATOCRIT 32.6 % (36.0-47.0); HEMOGLOBIN 10.3 g/dl (12.0-15.5); LYMPH # 0.9 10^3/uL (1.5-4.5); LYMPH % 12.6 % (24.0-44.0); MEAN CORPUSCULAR HEMOGLOBIN 32.5 pg (27.0-33.0); MEAN CORPUSCULAR HGB CONC 31.6 g/dl (32.0-36.5); MEAN CORPUSCULAR VOLUME 102.8 fl (80.0-96.0); MONO # 0.4 10^3/uL (0.0-0.8); MONO % 5.9 % (0.0-5.0); NEUTROPHILS # 5.7 10^3/uL (1.8-7.7); NEUTROPHILS % 79.3 % (36.0-66.0); PLATELET COUNT, AUTOMATED 229 10^3/uL (150-450); RED BLOOD COUNT 3.17 10^6/uL (4.00-5.40); WHITE BLOOD COUNT 7.1 10^3/uL (4.0-10.0)
[2018-07-03 16:16] VITALS: BP 128/70
--- NOTE | 2018-07-03 17:57 | ECGEPIP ---
Stationary ECG Study [facility] - ED Test Date: 2018-07-03 Pat Name: JULES JIMÉNEZ Department: Room: - Gender: F Travel Rn Or: caty : 1945 Requested By: MEGHAN SALINAS Order Number: [id number] Reading MD: Mirella Gustafson Measurements Intervals [place] Rate: 100 P: 56 LA: 181 QRS: -49 QRSD: 108 T: 29 QT: 359 QTc: 463 Interpretive Statements SINUS TACHYCARDIA LEFT ANTERIOR FASCICULAR BLOCK NSTTW ABNORMALITY Electronically Signed On 07-03-2018 17:57:29 EST by Mirella Gustafson
== END 2018-07-03 16:23 | disposition home or self-care (01) ==
LOC: M ED 13:12 → EDSEX 13:12 → EDBD 13:12 → M ED 16:23
DX: E11.649 Type 2 diabetes mellitus with hypoglycemia without coma (principal); I10 Essential (primary) hypertension; I25.10 Atherosclerotic heart disease of native coronary artery without angina pectoris; K21.9 Gastro-esophageal reflux disease without esophagitis; Z79.899 Other long term (current) drug therapy; Z79.4 Long term (current) use of insulin; Z88.5 Allergy status to narcotic agent; Z91.048 Other nonmedicinal substance allergy status
CPT/HCPCS: 36415; 70450; 71045; 80048; 82550; 82553; 83735; 84443; 84484; 85025; 85610; 93005; 93041; 94760; 96374; 99285; G0480

== ENCOUNTER 2018-08-30 14:48 | Emergency (ER) | payer MEDICARE, MEDICAID ==
[~2018-08-30 14:48] MED LIST changes: -/CELE20CA PO; -/DICL25CA PO; -/DULO30CA; -/DULO30CA OR; -/ESOM40CA OR; -/GLIM4TA; -/GLIM4TA OR; -/MOXI40TA OR; +AMAR1TAB6; +AMAR1TAB6 OR; +AVEL1TAB2 OR; +CELE1CAP4 PO; -CYCL5TA PO; +CYCL5TAB5 PO; +CYMB1CAP5; +CYMB1CAP5 OR; +DICL1CAP PO; +FLUT50SP12; +NEXI1CAP3 OR; -NORC10TA21 PO; +NORC1TAB5 PO; +NORC1TAB8 PO; -NORC7.5T35 PO; +ONDA-227 SL; +SERT-141 PO; -SERT50TA PO; -ZOFR8TAB SL
[2018-08-30 15:33] LABS: BASO # 0.1 10^3/uL (0.0-0.2); BASO % 0.6 % (0.0-1.0); EOS # 0.3 10^3/uL (0.0-0.50); EOS % 3.1 % (0.0-3.0); HEMATOCRIT 34.8 % (36.0-47.0); HEMOGLOBIN 10.8 g/dl (12.0-15.5); MONO # 0.5 10^3/uL (0.0-0.8); MONO % 5.8 % (0.0-5.0); NEUTROPHILS # 7.1 10^3/uL (1.8-7.7); NEUTROPHILS % 79.2 % (36.0-66.0); PLATELET COUNT, AUTOMATED 202 10^3/uL (150-450); RED BLOOD COUNT 3.38 10^6/uL (4.00-5.40); WHITE BLOOD COUNT 8.9 10^3/uL (4.0-10.0)
--- NOTE | 2018-08-30 15:36 | REP ---
CT Head without contrast HISTORY: Tremor COMPARISON: 07/03/2018 Areas of decreased attenuation are present in the periventricular and subcortical white matter. This represents small-vessel ischemic disease. There is no intraparenchymal hemorrhage, acute infarct, mass or midline shift. The ventricular system and cortical sulci are dilated consistent with mild volume loss. There is no extra cerebral collection. There is no fracture. The visualized sinuses are clear. IMPRESSION: 1. Small vessel ischemic disease. 2. Mild volume loss. Electronically Signed by Naeem Artis MD 08/30/2018 03:29 P
[2018-08-30 15:53] LABS: ALT/SGPT 17 U/L (12-78); BLOOD UREA NITROGEN 25 MG/DL (7-18); CALCIUM LEVEL 8.7 MG/DL (8.8-10.2); CARBON DIOXIDE LEVEL 29 MEQ/L (21-32); CHLORIDE LEVEL 105 MEQ/L (98-107); CREATININE FOR GFR 1.27 MG/DL (0.55-1.30); GLOMERULAR FILTRATION RATE 43.9 (>39); GLUCOSE, FASTING 239 MG/DL (70-100); POTASSIUM SERUM 4.7 MEQ/L (3.5-5.1); SODIUM LEVEL 138 MEQ/L (136-145)
[2018-08-30 15:54] LABS: ALBUMIN 3.7 GM/DL (3.2-5.2); BILIRUBIN,DIRECT < 0.1 MG/DL (0.0-0.2); BILIRUBIN,TOTAL 0.2 MG/DL (0.2-1.0); LIPASE 55 U/L (73-393); TOTAL PROTEIN 6.5 GM/DL (6.4-8.2)
[2018-08-30 18:00] VITALS: BP 118/63
== END 2018-08-30 18:29 | disposition home or self-care (01) ==
LOC: M ED 14:48 → EDBD 14:48 → M ED 18:29
DX: E11.649 Type 2 diabetes mellitus with hypoglycemia without coma (principal); I10 Essential (primary) hypertension; J44.9 Chronic obstructive pulmonary disease, unspecified; E78.5 Hyperlipidemia, unspecified; K21.9 Gastro-esophageal reflux disease without esophagitis; G89.29 Other chronic pain; M54.9 Dorsalgia, unspecified; G47.33 Obstructive sleep apnea (adult) (pediatric); F33.9 Major depressive disorder, recurrent, unspecified; Z79.899 Other long term (current) drug therapy; Z79.4 Long term (current) use of insulin; Z88.5 Allergy status to narcotic agent; Z91.048 Other nonmedicinal substance allergy status; Z87.891 Personal history of nicotine dependence

== ENCOUNTER → 2018-11-03 | Outpatient (CLI) | payer MEDICARE, MEDICAID ==
--- NOTE | 2018-11-03 13:58 | REP ---
Clinical: Aneurysm. Technique: Axial noncontrast images from the lung bases to the pubic symphysis with coronal and sagittal re-formations. Comparison: 10/07/2017. Findings: The visualized thoracic aneurysm demonstrates prior stent repair. The abdominal aorta demonstrates extensive atherosclerotic disease and tortuosity as well as dumbbell shaped aortic aneurysm originating at the level of the renal arteries and measuring 4.5 cm maximal diameter and approximately 5 cm in craniocaudal length where waist-likely narrowing measures 2.5 cm diameter followed by a second aneurysmal dilatation measuring 3.7 cm maximal diameter and approximately 3.5 cm in craniocaudal length terminating just above the bifurcation to common iliac arteries. Iliac arteries demonstrate extensive atherosclerotic disease without aneurysm. Liver, spleen, atrophic pancreas, gallbladder, and bilateral adrenal glands are normal. The kidneys demonstrate chronic perinephric stranding without hydronephrosis or nephrolithiasis. The enteric system is without obstruction or acute inflammatory process. Colonic and sigmoid diverticulosis noted without acute diverticulitis. Pelvis demonstrates normal bladder and evidence for prior hysterectomy. No ascites. No free air. No adenopathy. Musculoskeletal structures demonstrate degenerative changes and evidence for prior posterior lumbar fixation. Impression: 1. Stent repair to the visualized thoracic aortic aneurysm remains stable. 2. Extensive atherosclerotic disease noted throughout the aorta and branch vessels with relatively stable bilobed dumbbell shaped abdominal aortic aneurysm measuring 4.5 cm maximal diameter and 3.7 cm maximal diameter with intervening waist of approximately 2.5 cm diameter extending from the level of the renal arteries to just above the bifurcation to common iliac arteries. 3. Diverticulosis. 4. Chronic renal changes. 5. No ascites. No free air. No focal inflammatory stranding. No adenopathy. Electronically Signed by Holden Mtz MD 11/03/2018 01:50 P
--- NOTE | 2018-11-03 14:11 | REP ---
Clinical: Thoracic aortic aneurysm. Technique: Axial noncontrast images from the thoracic inlet to the upper abdomen with coronal and sagittal re-formations. Comparison: 10/19/2016. Findings: The patient is again noted to be status post stenting for descending thoracic aortic aneurysm which is stable and unchanged measuring up to approximately 4.5 cm maximal diameter without extraluminal, periaortic fluid or acute inflammatory stranding. Atherosclerotic changes to the thoracic aorta and coronary arteries are again noted. The ascending thoracic aorta measures approximately 3.5 cm maximal diameter and remains unchanged. Pulmonary arteries are normal in appearance. The heart demonstrates atherosclerotic changes without significant cardiomegaly. No pericardial effusion. The bilateral lung barney demonstrate chronic age-related interstitial changes along with stable 7 mm noncalcified granuloma in the right upper lobe and 13 mm noncalcified nodule at the base of the right middle lobe inseparable from the diaphragmatic pleural surface (image 49) which previously measured 10.5 mm maximal diameter. No further parenchymal consolidation, significant nodule or mass lesion appreciated. No pleural effusion. No pneumothorax. Tracheobronchial tree is patent. No obvious adenopathy. Musculoskeletal structures demonstrate age-related degenerative changes. Impression: 1. Stable appearance to the thoracic aorta including extensive atherosclerotic disease and aneurysm with stent repair. 2. Stable noncalcified nodule in the right apex again measures 7 mm. 3. Noncalcified nodule in the right middle lobe base measuring approximately 13 mm with suggestions for slight increased from prior examination and follow-up examination in 3-6 months may be warranted. Electronically Signed by Holden Mtz MD 11/03/2018 02:02 P
== END ==
LOC: M RAD 13:16
PROVIDERS: ATTEND Surgery Vascular Surgery
DX: I72.3 Aneurysm of iliac artery (principal); I71.4 Abdominal aortic aneurysm, without rupture

== ENCOUNTER → 2018-11-04 | Outpatient (CLI) | payer MEDICARE, MEDICAID ==
--- NOTE | 2018-11-04 14:44 | REP ---
Clinical: Back pain. Technique: Single AP view of the pelvis. Findings: Fixation of the lower lumbar spine noted. Skeletal structures demonstrate age-related osteopenia and mild degenerative changes. No acute fracture dislocation. Impression: Essentially age-related degenerative changes. Electronically Signed by Holden Mtz MD 11/04/2018 02:35 P
--- NOTE | 2018-11-04 14:47 | REP ---
Clinical: Back pain. Technique: AP, lateral, bilateral oblique and coned-down views of the lumbosacral spine. Findings: Fixation involving the L4-5 spinous processes noted. Chronic dextroconvex scoliosis and osteopenia appreciated along with advanced multilevel degenerative disc osteophyte complexes including hypertrophic facet changes. There is chronic compression fracture involving T12. Impression: Osteopenia and advanced multilevel degenerative changes including chronic vertebra plana compression deformity at T12. Electronically Signed by Holden Mtz MD 11/04/2018 02:39 P
--- NOTE | 2018-11-04 15:23 | REP ---
MRI lumbar spine without contrast: History: History of lumbar surgery. Disc degeneration. 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 Scoliosis. In July of 2010 the patient underwent endovascular repair for thoracic aortic aneurysm. Comparison lumbar spine radiographs are from November 04, 2018. Comparison CT study of the lumbar spine is from October 19, 2016. Technique: Sagittal and axial T1 and T2-weighted scans are acquired in the usual fashion with and without fat saturation. Sequences include spin echo, turbo spin-echo, and STIR imaging sequences. MRI findings: There is a prominent metallic field susceptibility blooming artifact affecting the upper lumbar spine segments associated with the patient's thoracic aortic graft stent material. There is also metallic field susceptibility artifact emanating from the spinous processes at L3-4 due to effusion metallic hardware at these spinous processes. The abdominal aorta is noted to be aneurysmal although incompletely included in the imaging field of view. The abdominal aorta measures up to 4.4 cm in greatest transverse dimension within a portion of aorta included in the field of view. No other extra vertebral abnormality is appreciated. There is a dextroconvex lumbar scoliotic curvature. Axial and sagittal images taken at L1-L2 show no evidence of disc protrusion or significant thecal sac compression. At L2-L3, there is degenerative disc narrowing. There is diffuse disc bulging. This contributes, along with developmentally short pedicles and mild ligamentum flavum hypertrophy, to central canal stenosis at the L2-3 level moderate in degree. Midline AP dimension of the thecal sac at L2-L3 measures 7 mm. CSF signal is effaced. There is no definite neural foraminal narrowing. At the L3-4, there is marked narrowing of the disc. Diffuse posterior disc bulging and osteophytic ridging is seen. There is mild central canal stenosis at L3-4. Facet hypertrophy is noted bilaterally, worse on the left. There is mild bilateral neural foraminal narrowing at L3-4. At L4-L5, there is diffuse disc bulging. A right foraminal disc protrusion is seen producing neural foraminal encroachment. A left-sided neural foraminal narrowing. There is central canal stenosis at L4-5 mild in degree. At L5-S1, there is facet hypertrophy bilaterally. Diffuse disc bulging and osteophytic ridging is seen. There is bilateral neural foraminal narrowing. Impression: There is some image degradation by metallic hardware in the thoracic aorta and in the spinous processes at the L3-4. There is significant scoliosis and advanced degenerative spondylosis. Central canal stenosis is noted. Multilevel neural foraminal narrowing is seen. An abdominal aortic aneurysm is observed, up to 4.4 cm in transverse dimension. Electronically Signed by Oracio Barkley MD 11/04/2018 04:25 P
== END ==
LOC: M RAD 13:05
PROVIDERS: ATTEND Orthopaedic Surgery
DX: M41.56 Other secondary scoliosis, lumbar region (principal); M48.062 Spinal stenosis, lumbar region with neurogenic claudication

== ENCOUNTER → 2019-01-16 | Outpatient (REF) | payer MEDICARE, MEDICAID ==
[~2019-01-16] MED LIST changes: -DULO1CAP3 PO; +DULO1CAP6 PO
[2019-01-16 13:57] LABS: HEMATOCRIT 36.2 % (36.0-47.0); HEMOGLOBIN 11.5 g/dl (12.0-15.5); MEAN CORPUSCULAR HEMOGLOBIN 32.7 pg (27.0-33.0); MEAN CORPUSCULAR HGB CONC 31.8 g/dl (32.0-36.5); MEAN CORPUSCULAR VOLUME 102.8 fl (80.0-96.0); PLATELET COUNT, AUTOMATED 242 10^3/uL (150-450); RED BLOOD COUNT 3.52 10^6/uL (4.00-5.40); WHITE BLOOD COUNT 7.2 10^3/uL (4.0-10.0)
[2019-01-16 14:17] LABS: PERCENT SATURATION 65.8 % (13.2-45.0)
[2019-01-16 14:23] LABS: ALBUMIN 3.8 GM/DL (3.2-5.2); ALT/SGPT 20 U/L (12-78); BILIRUBIN,TOTAL 0.3 MG/DL (0.2-1.0); BLOOD UREA NITROGEN 26 MG/DL (7-18); CALCIUM LEVEL 9.2 MG/DL (8.8-10.2); CARBON DIOXIDE LEVEL 23 MEQ/L (21-32); CHLORIDE LEVEL 106 MEQ/L (98-107); CHOLESTEROL LEVEL 217 MG/DL (<200); CHOLESTEROL RISK RATIO 5.292 (<5); CREATININE FOR GFR 1.31 MG/DL (0.55-1.30); GLOMERULAR FILTRATION RATE 42.4 (>39); GLUCOSE, FASTING 137 MG/DL (70-100); HDL CHOLESTEROL 41 MG/DL (>40); NON-HDL-C 176 MG/DL; POTASSIUM SERUM 4.7 MEQ/L (3.5-5.1); SODIUM LEVEL 140 MEQ/L (136-145); TOTAL PROTEIN 7.2 GM/DL (6.4-8.2); TRIGLYCERIDES LEVEL 420 MG/DL (<150)
[2019-01-16 14:25] LABS: MALB URINE SIEMENS 42.3 MG/L; MAU/CREAT RATIO 39.5 MCG/MG (0.0-30.0)
[2019-01-16 15:26] LABS: FOLATE 9.6 NG/ML
[2019-01-16 15:39] LABS: HEMOGLOBIN A1c 7.3 %
[2019-01-19 10:45] LABS: FREE T4 0.73 NG/DL (0.76-1.46)
== END ==
LOC: M SFHCPLAZ 08:28
PROVIDERS: ATTEND Nurse Practitioner Family
DX: E11.9 Type 2 diabetes mellitus without complications (principal); E78.5 Hyperlipidemia, unspecified; F41.8 Other specified anxiety disorders; D64.9 Anemia, unspecified
CPT/HCPCS: 80053; 80061; 82043; 82607; 82746; 83036; 83550; 84439; 84443; 85027; G0463

== ENCOUNTER → 2019-03-10 | Outpatient (CLI) | payer MEDICARE, MEDICAID ==
[~2019-03-10] MED LIST changes: +DAILTAB62 PO; -FLUTISP; +FLUTISP NARES; -GLIM4TAB PO; +GLIM4TAB3 PO; +MOBI4TAB PO; +OMEP40CA97 PO; +PIOG1TAB36 PO; +VITA200015 PO; +ZOCO80TA PO; +[UNRECOGNIZED DRUG - OTHER]
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
== END ==
LOC: M PAIN 14:00
PROVIDERS: ATTEND Anesthesiology
DX: M54.5 Low back pain (principal); G89.29 Other chronic pain; M47.816 Spondylosis without myelopathy or radiculopathy, lumbar region; M96.1 Postlaminectomy syndrome, not elsewhere classified; M51.16 Intervertebral disc disorders with radiculopathy, lumbar region; E11.9 Type 2 diabetes mellitus without complications; I10 Essential (primary) hypertension; K21.9 Gastro-esophageal reflux disease without esophagitis; J44.9 Chronic obstructive pulmonary disease, unspecified; E78.00 Pure hypercholesterolemia, unspecified; Z86.59 Personal history of other mental and behavioral disorders; G47.30 Sleep apnea, unspecified; Z87.891 Personal history of nicotine dependence; Z88.5 Allergy status to narcotic agent; Z91.09 Other allergy status, other than to drugs and biological substances; Z79.4 Long term (current) use of insulin; Z79.899 Other long term (current) drug therapy

== ENCOUNTER 2019-03-25 17:32 | Inpatient (IN) | payer MEDICARE, MEDICAID ==
[~2019-03-25] VITALS: Ht 165.1 cm; Wt 88.4 kg
[~2019-03-25 17:32] MED LIST changes: -DAILTAB62 PO; -MOBI4TAB PO; -PIOG1TAB36 PO; -VITA200015 PO; -ZOCO80TA PO; -[UNRECOGNIZED DRUG - OTHER]
[2019-03-25 17:55] LABS: BASO % 0.2 % (0.0-1.0); HEMATOCRIT 38.1 % (36.0-47.0); HEMOGLOBIN 12.1 g/dl (12.0-15.5); LYMPH # 1.1 10^3/uL (1.5-5.0); MEAN CORPUSCULAR HGB CONC 31.8 g/dl (32.0-36.5); MEAN CORPUSCULAR VOLUME 103.8 fl (80.0-96.0); MONO # 1.1 10^3/uL (0.0-0.8); MONO % 7.8 % (0.0-5.0); NEUTROPHILS # 11.3 10^3/uL (1.5-8.5); NEUTROPHILS % 83.6 % (36.0-66.0); PLATELET COUNT, AUTOMATED 230 10^3/uL (150-450); RED BLOOD COUNT 3.67 10^6/uL (4.00-5.40); WHITE BLOOD COUNT 13.5 10^3/uL (4.0-10.0)
[2019-03-25 18:09] LABS: INR 1.06; PROTHROMBIN TIME 13.5 SECONDS (11.8-14.0)
[2019-03-25 18:10] LABS: PARTIAL THROMBOPLASTIN TIME 28.4 SECONDS (25.0-38.4)
[2019-03-25] MEDS: NS 1,000 ML IV SCH (18:23)
[2019-03-25 18:31] LABS: ALBUMIN 3.8 GM/DL (3.2-5.2); ALT/SGPT 30 U/L (12-78); BILIRUBIN,DIRECT < 0.1 MG/DL (0.0-0.2); BILIRUBIN,TOTAL 0.4 MG/DL (0.2-1.0); BLOOD UREA NITROGEN 22 MG/DL (7-18); CALCIUM LEVEL 9.2 MG/DL (8.8-10.2); CARBON DIOXIDE LEVEL 25 MEQ/L (21-32); CHLORIDE LEVEL 106 MEQ/L (98-107); CK-MB VALUE MASS 9.9 NG/ML (<3.6); CPK CREATINE PHOSPHOKINASE 1507 U/L (26-192); CREATININE FOR GFR 1.32 MG/DL (0.55-1.30); ETHYL ALCOHOL (ETHANOL) < 0.003 % (0.000-0.010); GLOMERULAR FILTRATION RATE 41.9 (>39); GLUCOSE, FASTING 175 MG/DL (70-100); MB/CK RELATIVE INDEX 0.66 (< OR =4); POTASSIUM SERUM 4.9 MEQ/L (3.5-5.1); SODIUM LEVEL 139 MEQ/L (136-145); THYROID STIMULATING HORMONE 0.342 uIU/ML (0.358-3.740); TOTAL PROTEIN 7.2 GM/DL (6.4-8.2); TROPONIN I 0.06 NG/ML (< 0.10)
[2019-03-25] MEDS ORDERED: MOBI4TAB PO (18:49)
[2019-03-25] MEDS ORDERED: PIOG1TAB36 PO (18:49)
[2019-03-25] MEDS ORDERED: VITA200015 PO (18:49)
[2019-03-25] MEDS ORDERED: ZOCO80TA PO (18:49)
[2019-03-25] MEDS ORDERED: DAILTAB62 PO (18:49)
[2019-03-25] MEDS ORDERED: TRAM50TA2 PO (18:49)
[2019-03-25] MEDS ORDERED: [UNRECOGNIZED DRUG - OTHER] (18:52)
--- NOTE | 2019-03-25 18:58 | REPVR ---
PROCEDURE INFORMATION: Exam: CT Head Without Contrast Exam date and time: 03/25/2019 6:12 PM Clinical history: 74 years old, female; Injury or trauma; Injury history: Unresponsive; Initial encounter; Unconscious TECHNIQUE: Imaging protocol: Computed tomography of the head without contrast. Radiation optimization: All CT scans at this facility use at least one of tVasculature the cervical finger ray maker Other technique: hese dose optimization techniques: automated exposure control; mA and/or kV adjustment per patient size (includes targeted exams where dose is matched to clinical indication); or iterative reconstruction. COMPARISON: CT Head without contrast 08/30/2018 3:11 PM FINDINGS: Brain: No intracranial mass, focal mass effect or midline shift. No acute intracranial hemorrhage. Moderate decreased attenuation in periventricular/centrum semiovale white matter. No focal effacement of cortical sulci to indicate acute cortical infarct. Ventricles: Prominent ventricles and CSF spaces suggest parenchymal volume loss. Bones/joints: No calvarial fracture or destructive process. Sinuses: Visualized paranasal sinuses are unremarkable. Mastoid air cells: Mastoid air cells are normally aerated. Orbits: Visualized globes and orbits are unremarkable. Soft tissues: Asymmetric left periorbital extracranial soft tissue swelling. IMPRESSION: 1. Left periorbital extracranial swelling. 2. No acute intracranial abnormality. 3. Atrophy and chronic microangiopathic change in supratentorial white matter. Electronically signed by: Gilberto Dhillon On 03/25/2019 18:58:27 PM
[2019-03-25] MEDS ORDERED: cefTRIAXone SOD 1 GM in D5W MINI-BAG PLUS 50 ML IV ONE (19:00)
--- NOTE | 2019-03-25 19:00 | REPVR ---
PROCEDURE INFORMATION: Exam: CT Cervical Spine Without Contrast Exam date and time: 03/25/2019 6:12 PM Clinical history: 74 years old, female; Other: Unresponsive; Additional info: Trauma TECHNIQUE: Imaging protocol: Computed tomography images of the cervical spine without contrast. Radiation optimization: All CT scans at this facility use at least one of these dose optimization techniques: automated exposure control; mA and/or kV adjustment per patient size (includes targeted exams where dose is matched to clinical indication); or iterative reconstruction. COMPARISON: No relevant prior studies available. FINDINGS: Vertebrae: No acute traumatic segmental malalignment of cervical spine or craniocervical junction. Vertebral body height is maintained at all levels. No acute fracture. No destructive or blastic cervical spine osseous lesion. Discs/Spinal canal/Neural foramina: Intervertebral disc height is decreased at multiple levels, with typical degenerative pattern and associated endplate, articular pillar and uncovertebral spurs. Degenerative anterolisthesis C3-4 with hypertrophic facets. Moderate spinal canal stenosis C5-6 and to a lesser extent C6-7 secondary to degenerative osteophytes. Marked right neural foraminal stenosis at C5-6, and mild bilateral neural foraminal stenosis at C6-7 Prevertebral Space: Prevertebral soft tissues demonstrate no asymmetry. Lungs: No concerning abnormality of the imaged lung apices. IMPRESSION: 1. No acute fracture or traumatic subluxation of the cervical spine. 2. Multilevel degenerative disc and articular pillar arthropathy. Electronically signed by: Gilberto Dhillon On 03/25/2019 19:00:02 PM
--- NOTE | 2019-03-25 19:01 | REPVR ---
PROCEDURE INFORMATION: Exam: CT Maxillofacial Without Contrast Exam date and time: 03/25/2019 6:12 PM Clinical history: 74 years old, female; Other: Unresponsive; Additional info: Trauma TECHNIQUE: Imaging protocol: Computed tomography images of the face without contrast. Radiation optimization: All CT scans at this facility use at least one of these dose optimization techniques: automated exposure control; mA and/or kV adjustment per patient size (includes targeted exams where dose is matched to clinical indication); or iterative reconstruction. COMPARISON: No relevant prior studies available. FINDINGS: Asymmetric left periorbital and praneeth-zygomatic soft tissue edema/hematoma is present. Mandible is intact and the TMJ's align normally. Degenerative changes of the TMJs Maxilla, hard palate and pterygoid plates are intact. Zygomaticomaxillary complexes and zygomatic arches appear normal. Paranasal sinuses show no acute fracture. Paranasal sinuses show no abnormal opacification. Mastoid air cells are normally aerated. No acute orbital fracture. Orbital soft tissues are unremarkable. No acute nasal bone or nasal septal fracture. Visualized skull base structures are unremarkable. Posterior nasopharynx soft tissues are symmetric. IMPRESSION: Mild left facial soft tissue injury No acute facial fracture. Electronically signed by: Gilberto Dhillon On 03/25/2019 19:01:25 PM
--- NOTE | 2019-03-25 19:04 | REPVR ---
PROCEDURE INFORMATION: Exam: CT Chest Without Contrast Exam date and time: 03/25/2019 6:12 PM Clinical history: 74 years old, female; Other: Unresponsive; Additional info: Altered mental status TECHNIQUE: Imaging protocol: Computed tomography of the chest without contrast. 3D rendering: MIP reconstructed images were created and reviewed. Radiation optimization: All CT scans at this facility use at least one of these dose optimization techniques: automated exposure control; mA and/or kV adjustment per patient size (includes targeted exams where dose is matched to clinical indication); or iterative reconstruction. COMPARISON: CT Chest without contrast 11/03/2018 1:17 PM FINDINGS: Limited by artifact. Also limited by absence of IV contrast and by patient motion. No obvious mediastinal hematoma. Descending thoracic aortic graft is present with no adjacent abnormal fluid. No hemothorax or pneumothorax. No enlarged mediastinal lymph nodes. No evidence of lung contusion, aspiration or concerning lung mass. No central endobronchial lesion. Pulmonary vascular/interstitial pattern does not suggest active pulmonary edema. No acute displaced fractures involving ribs, thoracic spine or shoulder girdle. Rib fractures could be missed secondary to the significant motion artifact present. Old appearing lower thoracic insufficiency fractures at T10 and T12, unchanged since October 2018 IMPRESSION: No CT evidence of acute thoracic trauma Electronically signed by: Gilberto Dhillon On 03/25/2019 19:04:37 PM
[2019-03-25] MEDS ORDERED: ISOVUE-370 76% 100ML VIAL (Q9967) As Ordered ONE (19:26)
[2019-03-25 19:53] LABS: FREE T4 0.83 NG/DL (0.76-1.46)
[2019-03-25 20:11] LABS: AMPHETAMINES LEVEL URINE NEGATIVE (NEGATIVE); BARBITURATES URINE NEGATIVE (NEGATIVE); BENZODIAZEPINES URINE POSITIVE (NEGATIVE); CANNABINOIDS URINE NEGATIVE (NEGATIVE); COCAINE METABOLITE URINE NEGATIVE (NEGATIVE); METHADONE URINE NEGATIVE (NEGATIVE); OPIATES URINE NEGATIVE (NEGATIVE); PHENCYCLIDINE URINE NEGATIVE (NEGATIVE)
--- NOTE | 2019-03-25 20:13 | REPVR ---
PROCEDURE INFORMATION: Exam: CT Angiography Neck With Contrast Exam date and time: 03/25/2019 7:30 PM Clinical history: 74 years old, female; Other: CVA TECHNIQUE: Imaging protocol: Computed tomography angiography of the neck with intravenous contrast. 3D rendering: MIP and 3D reconstructed images were created and reviewed. Radiation optimization: All CT scans at this facility use at least one of these dose optimization techniques: automated exposure control; mA and/or kV adjustment per patient size (includes targeted exams where dose is matched to clinical indication); or iterative reconstruction. Contrast material: ISOVUE 370; Contrast volume: 75 ml; Contrast route: IV COMPARISON: CT Spine,cervical w/o contrast 03/25/2019 6:03 PM FINDINGS: Right common carotid, cervical ICA and proximal ECA demonstrate contrast opacification with no occlusion, flow limiting stenosis, or intimal flap to suggest dissection. No concerning luminal irregularity to suggest vasculitis. Mild calcified right carotid bulb plaque with lumen narrowing to 3.4 mm focally compared to the poststenotic diameter of 5 mm, indicating mild than 50% luminal caliber narrowing. Left common carotid, cervical ICA and proximal ECA demonstrate contrast opacification, with no occlusion, flow limiting stenosis, or intimal flap to suggest dissection. No concerning luminal irregularity to suggest vasculitis. Left carotid bulb demonstrates minimal plaque with no flow limitation Vertebral arteries demonstrate normal course to the level of the skull base and show no occlusion, flow limiting stenosis or dissection. No flow limiting stenosis or anomaly of the great vessel origins. Imaged soft tissue structures show no abnormality. No focal abnormality in the imaged lung apices IMPRESSION: Minimal bilateral calcified atherosclerotic plaque, with milder than 50% luminal caliber narrowing on the right and negligible narrowing on the left. No hemodynamically significant lesion. CAROTID STENOSIS REFERENCE USING NASCET CRITERIA: % ICA stenosis = (1 - narrowest ICA diameter/diameter of distal cervical ICA) x 100. Mild - <50% stenosis. Moderate - 50-69% stenosis. Severe - 70-94% stenosis. Near occlusion - 95-99% stenosis. Occluded - 100% stenosis. Electronically signed by: Gilberto Dhillon On 03/25/2019 20:12:58 PM
--- NOTE | 2019-03-25 20:14 | REPVR ---
PROCEDURE INFORMATION: Exam: CT Angiography Head With Contrast Exam date and time: 03/25/2019 7:30 PM Clinical history: 74 years old, female; Other: CVA TECHNIQUE: Imaging protocol: Computed tomography angiography of the head with intravenous contrast. 3D rendering: MIP and 3D reconstructed images were created and reviewed. Radiation optimization: All CT scans at this facility use at least one of these dose optimization techniques: automated exposure control; mA and/or kV adjustment per patient size (includes targeted exams where dose is matched to clinical indication); or iterative reconstruction. Contrast material: ISOVUE 370; Contrast volume: 75 ml; Contrast route: IV COMPARISON: CT Head without contrast 03/25/2019 6:03 PM FINDINGS: Ventricles, cisterns and sulci are symmetric and appropriate for age. No intracranial mass or focal mass effect. No intracranial hemorrhage, midline shift or acute territorial infarct. Mild decreased attenuation in periventricular/centrum semiovale white matter. Anterior circulation: Normal contrast opacification and luminal caliber in the petrous, cavernous and supraclinoid internal carotid arteries. Normal appearance of the anterior cerebral artery branches and middle cerebral artery branches through the MCA trifurcations. No occlusion, high-grade focal stenosis or dissection. No aneurysm. Posterior circulation: Normal distal vertebral arteries, with patent normal caliber basilar artery, and normal superior cerebellar and posterior cerebral arteries. No occlusion, high-grade stenosis or aneurysm. Dural sinuses appear patent. Bony structures show no acute fracture or destructive process. IMPRESSION: Unremarkable CT Angiogram of the head and [place]. No intracranial large vessel lesion Electronically signed by: Gilberto Dhillon On 03/25/2019 20:13:53 PM
[2019-03-25] MEDS ORDERED: ACETAMINOPHEN *IV* 1,000 MG in IV 1 EA IV ONE (21:00)
[2019-03-25] MEDS ORDERED: GLUCOSE 4 GM CHEW TABLET PO PRN (21:30)
[2019-03-25] MEDS ORDERED: DEXTROSE 50% 50 ML SYRINGE IV PRN (21:30)
[2019-03-25] MEDS ORDERED: GLUCAGON FOR INJ 1 MG VIAL (J1610) SC PRN (21:30)
--- NOTE | 2019-03-25 21:31 | HPEPDOC ---
[facility] Medical History & Physical Date of Admission Mar 25, 2019 Date of Service: Mar 25, 2019 Attending Physician: BRENDA ISABEL MD History and Physical CHIEF COMPLAINT: Altered mental status, fall HISTORY OF PRESENT ILLNESS: Zo Lemon is a 74 YO F with history of orthostatic hypotension, T2DM, [place] who presents to the ED tonight brought in by EMS after a friend found her on the floor at her home. She was last known well on 03/24/2019 at 1900. The patient was found nonresponsive and soaked in urine face down on the floor in front of her couch. EMS personnel found her blood glucose to be 280, temperature 101. She was breathing on her own. The patient apparently lives alone and manages her own medication. She was still unresponsive in the ED at the time of this admission and the friend who brought her had left the hospital. History is obtained through nursing and [employer]. REVIEW OF SYSTEMS: Unable to perform ROS as patient is unresponsive PAST MEDICAL HISTORY: per chart review History of syncope 2/2 hypotension Insulin-dependent type 2 diabetes. Depression. Anxiety. COPD. GERD. Chronic back pain. Hypertension. Dyslipidemia. Allergic rhinitis. Laminectomy Thoracic Aortic Aneurysm Repair Obstructive sleep apnea CPAP PAST SURGICAL HISTORY: Lumbar laminectomy Hysterectomy. Bladder suspension. SOCIAL HISTORY: per chart review Has a son. Former smoker; no documented history of alcohol use or illicit drug use. FAMILY HISTORY: per chart review Father with coronary artery disease. Sister with obesity and diabetes. ALLERGIES: Please see below. HOME MEDICATIONS: Please see below. PHYSICAL EXAMINATION: VITAL SIGNS: Please see below. GENERAL APPEARANCE: Laying in bed, grunting, appears uncomfortable, unresponsive HEENT: EOMI, PERRLA, neck is supple with no thyromegaly or lymphadenopathy RESPIRATORY: Lungs are clear to auscultation bilaterally with no adventitious breath sounds appreciated CARDIOVASCULAR: no JVD, tachycardic , no murmurs/rubs/gallops ABDOMEN: Soft, obese, nontender to palpation in all four quadrants, no masses/organomegaly EXTREMITIES: no clubbing, cyanosis or edema noted NEUROLOGICAL: unable to perform neurologic exam 2/2 AMS, reflexes are brisk, toes upgoing PSYCHIATRIC: unable to determine Skin: She has dark red howard on the dorsal surface of her toes and redness around her ankles LN: No significant cervical or inguinal lymphadenopathy LABORATORY DATA: See below. IMAGING: CT HEAD: " IMPRESSION: 1. Left periorbital extracranial swelling. 2. No acute intracranial abnormality. 3. Atrophy and chronic microangiopathic change in supratentorial white matter." CT MAXILOFACIAL: "IMPRESSION: Mild left facial soft tissue injury. No acute facial fracture." CT CHEST: "IMPRESSION: No CT evidence of acute thoracic trauma" CT SPINE: "IMPRESSION: 1. No acute fracture or traumatic subluxation of the cervical spine. 2. Multilevel degenerative disc and articular pillar arthropathy" CT ANGIO NECK: "IMPRESSION: Minimal bilateral calcified atherosclerotic plaque, with milder than 50% luminal caliber narrowing on the right and negligible narrowing on the left. No hemodynamically significant lesion." CT ANGIO HEAD: "IMPRESSION: Unremarkable CT Angiogram of the head and [place]. No intracranial large vessel lesion" MICROBIOLOGY: Please see below. ASSESSMENT: This is a 74 YO F with history of syncope, DM2 who presents to ED after being found down and unresponsive found to have possible UTI and rhabdomyolysis and altered mental status. PLAN: 1. Altered mental status/ Encephalopathy -possibly 2/2 infection (UTI vs PNA) vs drug side effect/overdose vs seizure/Stroke activity vs hypertensive encephalopathy -WBC mildly elevated at 13.5, patient afebrile (although was found febrile at home) -No obvious metabolic encephalopathy on labs. Ammonia, lactic acid level WNL & TSH unremarkable -UA demonstrates possible UTI. Empiric Rocephin given in ED -CT Chest negative for PNA -CT Angio head negative for vascular abnormality -Patient was positive for benzodiazepines on tox screen. As she manages meds at home AMS could be 2/2 medication overdose. Takes Diazepam 5mg BID. Holding home pain medications at this time (Meloxicam, Tramadol) as they may be sedating -admit to ICU for frequent neurochecks -Continue IVF NS 150cc/hr -pending MRI brain, respiratory panel VBG, blood cultures, B12, B1 and EEG -Neuro consult placed -if continuest to spike fevers and remains altered would consider getting a LP -PFS consult placed to help find her family 2.Rhabdomyolysis 2/2 fall ? -CK found to be 1507 -Continue IVF NS 150cc/hr -trend CK 3. SIRS -reactive vs possibly 2/2 UTI? -SIRS criterial include fever and tachycardia -lactic acid was 1.8 -Continue IV abx -follow up pancultures -Ofrimev for fever 4. UTI? -Continue IV Rocephin. Pending urine cultures and will deescalate 5. Uncontrolled Hypertension -Hypertensive Urgency resolved, her SPB was in the 190s initially -Patient takes Lisinopril and Carvedilol at home. -Holding oral meds at the moment as she is acutely altered. -Will order IV cardizem with hold parameters 6. T2DM -SSI with hypoglycemic protocol -f/u A1C 7. GERD -IV protonix for now 8. Chronic CAD -Holding Simvastatin for time being 2/2 AMS 9. Abrasions on dorsal surface of toes -wound care 10. Obesity -BMI 37.6 -complicates care -air mattress & frequent repositioning to prevent skin breakdown DVT Ppx: lovenox DISPO: likely home after more than 2 midnight's stay pending improvement in mental status Vital Signs Vital Signs Date Time Temp Pulse Resp B/P (MAP) Pulse Ox O2 Delivery O2 Flow Rate FiO2 03/25/19 17:48 97.5 125 35 173/106 (128) 95 Room Air Laboratory Data Labs 24H Laboratory Tests 2 03/25/19 17:42: Urine Color YELLOW, Urine Appearance HAZY, Urine pH 5.0, Urine Specific [place] 1.021, Urine Protein 1+H, Urine Glucose (UA) 1+H, Urine Ketones 1+H, Urine Blood 3+H, Urine Nitrite POSITIVEH, Urine Bilirubin NEGATIVE, Urine Urobilinogen 0.2, Urine Leukocyte Esterase 1+H, Urine WBC (Auto) 10H, Urine RBC (Auto) 1, Urine Hyaline Casts (Auto) 0, Urine Bacteria (Auto) 3+H, Urine Squamous Epithelial Cells 0, Urine Sperm (Auto) 03/25/19 17:44: Immature Granulocyte % (Auto) 0.4, Neutrophils (%) (Auto) 83.6H, Lymphocytes (%) (Auto) 8.0L, Monocytes (%) (Auto) 7.8H, Eosinophils (%) (Auto) 0.0, Basophils (%) (Auto) 0.2, Neutrophils # (Auto) 11.3H, Lymphocytes # (Auto) 1.1L, Monocytes # (Auto) 1.1H, Eosinophils # (Auto) 0.0, Basophils # (Auto) 0.0, Nucleated Red Blood Cells % (auto) 0.0, Prothrombin Time 13.5, Prothromb Time International Ratio 1.06, Activated Partial Thromboplast Time 28.4, Anion Gap 8, Glomerular Filtration Rate 41.9, Calcium Level 9.2, Total Bilirubin 0.4, Direct Bilirubin < 0.1, Aspartate Amino Transf (AST/SGOT) 43H, Alanine Aminotransferase (ALT/SGPT) 30, Alkaline Phosphatase 91, Total Creatine Kinase 1507H, Creatine Kinase MB 9.9H, Creatine Kinase MB Relative Index 0.66, Troponin I 0.06, Total Protein 7.2, Albumin 3.8, Albumin/Globulin Ratio 1.12, Thyroid Stimulating Hormone (TSH) 0.342L, Ethyl Alcohol Level < 0.003 03/25/19 17:50: POC Glucose (Misc Panel) 186H, POC Sodium (Misc Panel) 138, POC Potassium (Misc Panel) 4.8, POC Chloride (Misc Panel) 105, POC Total CO2 (Misc Panel) 26.0, POC Blood Urea Nitrogen (Misc Panel 26, POC Ionized Calcium (Misc Panel) 4.8, POC Creatinine (Misc Panel) 1.1, POC Hematocrit (Misc Panel) 37.0L 03/25/19 17:52: Bedside Glucose (Misc Panel) 178H CBC/BMP Laboratory Tests 03/25/19 17:44 Microbiology Microbiology 03/25/19 Urine Culture, Received Pending Home Medications Scheduled Carvedilol (Carvedilol) 6.25 Mg Tab, 6.25 MG PO BID Cholecalciferol (Vitamin D3) (Vitamin D3) 2,000 Unit Tablet, 2,000 UNIT PO DAILY Duloxetine Hcl (Duloxetine HCl) 60 Mg Cap, 60 MG PO QHS Fluticasone Propionate (Fluticasone Propionate) 50 Mcg/Act Spr, 1 SPRAY NARES DAILY Glimepiride (Glimepiride) 4 Mg Tab, 8 MG PO QAM Insulin Glargine,Hum.rec.anlog (Lantus Solostar) 100 Unit/Ml Inj, 80 UNITS SC QHS Insulin Lispro (Humalog Kwikpen U-100) 100 Unit/Ml Inj, 1 DOSE SC BID Per Sliding Scale Lisinopril (Lisinopril) 10 Mg Tab, 10 MG PO DAILY Meloxicam (Mobic) 7.5 Mg Tablet, 7.5 MG PO DAILY Mirabegron (Myrbetriq) 25 Mg Tab, 25 MG PO DAILY Multivitamin with Iron (Daily Vitamin + Iron) 1 Each Tablet, 1 TAB PO DAILY Omeprazole (Omeprazole) 40 Mg Cap, 40 MG PO DAILY Pioglitazone HCl (Pioglitazone HCl) 15 Mg Tablet, 15 MG PO DAILY Sertraline HCl (Sertraline HCl) 100 Mg Tab, 100 MG PO DAILY Simvastatin (Zocor) 80 Mg Tablet, 80 MG PO QPM Sitagliptin Phosphate (Januvia) 100 Mg Tab, 100 MG PO DAILY Scheduled PRN Diazepam (Diazepam) 5 Mg Tab, 5 MG PO BID PRN for ANXIETY Tramadol HCl (Tramadol HCl) 50 Mg Tablet, 50 MG PO BID PRN for PAIN Miscellaneous Medications [comm] PT IS UNRESPONSIVE. MED LIST MADE WITH EXTERNAL MED HISTORY WELL THE MEDICATION BROUGHT IN BY THE FAMILY OF THE PT. PT HASN'T BEEN SEEN BY ANYONE SINCE 7PM ON 03/24 Allergies Coded Allergies: alcohol (Verified Allergy, Unknown, 08/30/18) codeine (Verified Allergy, Unknown, 08/30/18) A-FIB/CHADSVASC A-FIB History Current/History of A-Fib/PAF?: No GME ATTESTATION GME ATTESTATION My faculty preceptor for this patient encounter was physically present during the encounter and was fully available. All aspects of the patient interview, examination, medical decision making process, and medical care plan development were reviewed and approved by the faculty preceptor. The faculty preceptor is aware and concurs with the plan as stated in the body of this note and will attest to such by his/her cosignature. ATTENDING NOTE CC time 35 min I examined Ms. Lemon 8:30 PM, discussed the case with Dr. Malone, edited, the note and agree with the findings as documented NELLIE MALONE MD Mar 25, 2019 19:43 BRENDA ISABEL MD Mar 26, 2019 01:31
[2019-03-25 21:51] LABS: VENOUS BASE EXCESS -4.6 (-2.0-2.0); VENOUS HCO3 20.3 MEQ/L (23.0-27.0); VENOUS O2 SATURATION 99.2 % (60.0-80.0); VENOUS PARTIAL PRESSURE CO2 36.8 mmHg (38.0-50.0); VENOUS PARTIAL PRESSURE O2 177.9 mmHg (30.0-50.0); VENOUS PH 7.359 UNITS (7.330-7.430); VENOUS STANDARD HCO3 20.7 MEQ/L; VENOUS TOTAL CO2 21.4 MEQ/L (24.0-28.0)
[2019-03-25 22:00] VITALS: BP 138/76
[2019-03-25] MEDS ORDERED: KETOROLAC 30 MG/ML VIAL (J1885) IV ONE (22:00)
[2019-03-26] VITALS (18 sets, daily range): BP systolic 110–182; BP diastolic 54–99
[2019-03-26] MEDS ORDERED: ACETAMINOPHEN *IV* 650 MG in IV 1 EA IV ONE (01:00)
[2019-03-26] MEDS: NS 1,000 ML IV SCH ×4 (01:46→18:34)
[2019-03-26 05:03] LABS: HEMOGLOBIN 10.7 g/dl (12.0-15.5); MEAN CORPUSCULAR HEMOGLOBIN 32.8 pg (27.0-33.0); MEAN CORPUSCULAR HGB CONC 31.5 g/dl (32.0-36.5); MEAN CORPUSCULAR VOLUME 104.3 fl (80.0-96.0); PLATELET COUNT, AUTOMATED 205 10^3/uL (150-450); RED BLOOD COUNT 3.26 10^6/uL (4.00-5.40); WHITE BLOOD COUNT 8.6 10^3/uL (4.0-10.0)
[2019-03-26 05:25] LABS: ALBUMIN 3.3 GM/DL (3.2-5.2); BILIRUBIN,TOTAL 0.4 MG/DL (0.2-1.0); CALCIUM LEVEL 8.4 MG/DL (8.8-10.2); CREATININE FOR GFR 1.18 MG/DL (0.55-1.30); GLOMERULAR FILTRATION RATE 47.7 (>39); POTASSIUM SERUM 4.4 MEQ/L (3.5-5.1); TOTAL PROTEIN 6.5 GM/DL (6.4-8.2)
[2019-03-26 07:29] LABS: INFLUENZA A AMPLIFICATION NEGATIVE (NEGATIVE); INFLUENZA B AMPLIFICATION NEGATIVE (NEGATIVE)
[2019-03-26] MEDS ORDERED: HumaLOG INSULIN (NovoLOG) PER UNIT SC SCH ×2 (07:30→21:00)
[2019-03-26] MEDS: ENOXAPARIN 40 MG/0.4 ML SYRINGE (J1650) SC SCH (08:55)
--- NOTE | 2019-03-26 09:37 | IPNPDOC ---
Subjective Date Seen The patient was seen on 03/26/19. Subjective Chief Complaint/HPI Patient is confused, does does not follow commands. Not agitated afebrile General: Reports: ROS Unobtainable Objective Physical Examination Chest Exam: Positive: Clear to auscultation, Normal air movement Heart Exam: Positive: Normal S1, Normal S2 Abdomen Exam: Positive: Normal bowel sounds, Soft Extremity Exam: Positive: Normal pulses Neuro Exam: Positive: Other (unable to examine but moves all extremities) Assessment /Plan Problems (1) Acute metabolic encephalopathy Status: Acute Problem Text: -Most likely secondary to urinary tract infection/hypertension/drug overdose -WBC mildly elevated at 13.5, patient afebrile (although was found febrile at home) -Ammonia, lactic acid level WNL & TSH unremarkable -UA demonstrates possible UTI. -CT Chest negative for PNA -CT Angio head negative for vascular abnormality -Patient was positive for benzodiazepines on tox screen. As she manages meds at home AMS could be 2/2 medication overdose. Takes Diazepam 5mg BID. Holding home pain medications at this time (Meloxicam, Tramadol) as they may be sedating -Neuro checks as per orders -Continue IVF NS 150cc/hr -pending MRI brain, respiratory panel VBG, blood cultures, B12, B1 and EEG -Neuro consult placed -Patient's antibiotics changed from Rocephin to Zosyn 3.375 mg IV every 6 hours for broad-spectrum coverage -Follow urine cultures (2) HTN (hypertension) Status: Acute Problem Text: -Hypertensive Urgency resolved, her SPB was in the 190s initially -Patient takes Lisinopril and Carvedilol at home. -Holding oral meds at the moment as she is acutely altered. -Will order IV cardizem with hold parameters (3) Diabetes Status: Chronic Problem Text: Fingerstick blood sugar as per orders with coverage Hold home meds. till Patient is awake, alert and taken oral meds (4) COPD (chronic obstructive pulmonary disease) Status: Chronic Problem Text: DuoNeb every 4 hours when necessary (5) Hyperlipidemia Status: Chronic Problem Text: Home meds Plan/VTE VTE Prophylaxis Ordered?: Yes VS, I&O, 24H, Fishbone Vital Signs/I&O Vital Signs Date Time Temp Pulse Resp B/P (MAP) Pulse Ox O2 Delivery O2 Flow Rate FiO2 03/26/19 08:00 97.8 107 35 130/86 (101) 100 Nasal Cannula 2.0 I&O- Last 24 Hours up to 6 AM 03/26/19 06:00 Intake Total 1415 ml Output Total 535 ml Balance 880 ml Laboratory Data 24H LABS Laboratory Tests 2 03/25/19 17:42: Urine Color YELLOW, Urine Appearance HAZY, Urine pH 5.0, Urine Specific [place] 1.021, Urine Protein 1+H, Urine Glucose (UA) 1+H, Urine Ketones 1+H, Urine Blood 3+H, Urine Nitrite POSITIVEH, Urine Bilirubin NEGATIVE, Urine Urobilinogen 0.2, Urine Leukocyte Esterase 1+H, Urine WBC (Auto) 10H, Urine RBC (Auto) 1, Urine Hyaline Casts (Auto) 0, Urine Bacteria (Auto) 3+H, Urine Squamous Epithelial Cells 0, Urine Sperm (Auto) 03/25/19 17:44: Immature Granulocyte % (Auto) 0.4, Neutrophils (%) (Auto) 83.6H, Lymphocytes (%) (Auto) 8.0L, Monocytes (%) (Auto) 7.8H, Eosinophils (%) (Auto) 0.0, Basophils (%) (Auto) 0.2, Neutrophils # (Auto) 11.3H, Lymphocytes # (Auto) 1.1L, Monocytes # (Auto) 1.1H, Eosinophils # (Auto) 0.0, Basophils # (Auto) 0.0, Nucleated Red Blood Cells % (auto) 0.0, Prothrombin Time 13.5, Prothromb Time International Ratio 1.06, Activated Partial Thromboplast Time 28.4, Anion Gap 8, Glomerular Filtration Rate 41.9, Calcium Level 9.2, Total Bilirubin 0.4, Direct Bilirubin < 0.1, Aspartate Amino Transf (AST/SGOT) 43H, Alanine Aminotransferase (ALT/SGPT) 30, Alkaline Phosphatase 91, Total Creatine Kinase 1507H, Creatine Kinase MB 9.9H, Creatine Kinase MB Relative Index 0.66, Troponin I 0.06, Total Protein 7.2, Albumin 3.8, Albumin/Globulin Ratio 1.12, Thyroid Stimulating Hormone (TSH) 0.342L, Free Thyroxine 0.83, Urine Opiates Screen NEGATIVE, Urine Methadone Screen NEGATIVE, Urine Barbiturates Screen NEGATIVE, Urine Phencyclidine Screen NEGATIVE, Urine Amphetamines Screen NEGATIVE, Urine Benzodiazepines Screen POSITIVEH, Urine Cocaine Metabolite Screen NEGATIVE, Urine Cannabinoids Screen NEGATIVE, Ethyl Alcohol Level < 0.003 03/25/19 17:50: POC Glucose (Misc Panel) 186H, POC Sodium (Misc Panel) 138, POC Potassium (Misc Panel) 4.8, POC Chloride (Misc Panel) 105, POC Total CO2 (Misc Panel) 26.0, POC Blood Urea Nitrogen (Misc Panel 26, POC Ionized Calcium (Misc Panel) 4.8, POC Creatinine (Misc Panel) 1.1, POC Hematocrit (Misc Panel) 37.0L 03/25/19 17:52: Bedside Glucose (Misc Panel) 178H 03/25/19 20:24: POC pH (Misc Panel) 7.346L, POC Base Excess (Misc Panel) -6.0L, POC Saturated Percent O2 (Misc) 97, POC pO2 (Misc Panel) 99.0, POC pCO2 (Misc Panel) 36.6, POC HCO3 (Misc Panel) 20.0L, POC Total CO2 (Misc Panel) 21.0L 03/25/19 20:25: Lactic Acid Level 1.8, Ammonia < 10 03/25/19 21:45: Blood Gas Bicarbonate Standard 20.7, Venous Blood pH 7.359, Venous Blood Partial Pressure CO2 36.8L, Venous Blood Partial Pressure O2 177.9H, Venous Blood Total Carbon Dioxide 21.4L, Venous Blood HCO3 20.3L, Venous Blood Oxygen Saturation 99.2H, Venous Blood Base Excess -4.6L 03/25/19 23:51: Bedside Glucose (Misc Panel) 141H 03/26/19 04:38: Nucleated Red Blood Cells % (auto) 0.0, Anion Gap 6L, Glomerular Filtration Rate 47.7, Calcium Level 8.4L, Total Bilirubin 0.4, Aspartate Amino Transf (AST/SGOT) 56H, Alanine Aminotransferase (ALT/SGPT) 37, Alkaline Phosphatase 71, Total Creatine Kinase 1880H, Total Protein 6.5, Albumin 3.3, Albumin/Globulin Ratio 1.03 03/26/19 06:39: Influenza Type A (RT-PCR) NEGATIVE, Influenza Type B (RT-PCR) NEGATIVE 03/26/19 08:50: Bedside Glucose (Misc Panel) 118H CBC/BMP Laboratory Tests 03/25/19 17:44 11/17/19 04:38 Microbiology Microbiology 03/25/19 Blood Culture, Received Pending 03/25/19 Blood Culture, Received Pending 03/25/19 Urine Culture, Received Pending JUAN GROVES MD Mar 26, 2019 09:37
[2019-03-26] MEDS ORDERED: GLUCAGON FOR INJ 1 MG VIAL (J1610) SC PRN (09:45)
[2019-03-26] MEDS ORDERED: DEXTROSE 50% 50 ML SYRINGE IV PRN (09:45)
[2019-03-26] MEDS ORDERED: GLUCOSE 4 GM CHEW TABLET PO PRN (09:45)
[2019-03-26] MEDS: HumaLOG INSULIN (NovoLOG) PER UNIT SC SCH ×3 (09:45→17:54)
[2019-03-26] MEDS: PIPERACILLIN/TAZOBACTAM SOD 3.375 GM in D5W MINI-BAG PLUS 50 ML IV SCH ×3 (10:50→20:32)
--- NOTE | 2019-03-26 12:09 | ECGEPIP ---
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
--- NOTE | 2019-03-26 13:35 | REP ---
CT brain without contrast: History: Altered mental status. Rule out left parietal CVA. Comparison CT brain study March 25, 2019. CT findings: Digital preliminary net coordinator radiograph is unremarkable. Vascular calcifications are again noted in the distal vertebral and distal carotid arteries. The bony calvarium is intact. Visualized paranasal sinuses are clear. No skull fracture is seen. There is mild generalized volume loss. There are fairly extensive periventricular white matter changes consistent with microangiopathic atherosclerotic change. There is a tiny old lacunar infarct in the left basal ganglia which is unchanged. There is no evidence of hemorrhage. No new infarct is seen. No mass or extra-axial fluid collection. Impression: Old lacunar infarct left basal ganglia. Small vessel changes. No acute intracranial abnormality. Electronically Signed by Oracio Barkley MD 03/26/2019 01:27 P
[2019-03-26] MEDS: IPRATROPIUM 0.5MG/ALBUTEROL 2.5MG INH SOL UD 3ML (DUONEB)(J7620) NEB PRN (15:33)
[2019-03-26] MEDS: cefTRIAXone SOD 1 GM in D5W MINI-BAG PLUS 50 ML IV SCH (18:14)
[2019-03-26] MEDS ORDERED: METOPROLOL 5 MG/5 ML VIAL IV STA (20:05)
[2019-03-27] VITALS (30 sets, daily range): BP systolic 137–194; BP diastolic 65–93
[2019-03-27] MEDS: HumaLOG INSULIN (NovoLOG) PER UNIT SC SCH ×5 (00:50→23:56)
[2019-03-27] MEDS: NYSTATIN 100,000 UNITS/GM TOPICAL PWD 15 GM TOP PRN (03:29)
[2019-03-27] MEDS: PIPERACILLIN/TAZOBACTAM SOD 3.375 GM in D5W MINI-BAG PLUS 50 ML IV SCH ×4 (04:05→21:05)
[2019-03-27] MEDS: NS 1,000 ML IV SCH (04:05)
[2019-03-27] MEDS: hydrALAZINE INJ 20 MG/ML VIAL IV PRN ×3 (04:06→21:05)
[2019-03-27] MEDS: IPRATROPIUM 0.5MG/ALBUTEROL 2.5MG INH SOL UD 3ML (DUONEB)(J7620) NEB PRN (04:25)
[2019-03-27] MEDS ORDERED: FUROSEMIDE 20 MG/2 ML VIAL (J1940) IV ONE (04:30)
[2019-03-27 05:34] LABS: HEMATOCRIT 34.3 % (36.0-47.0); HEMOGLOBIN 11.3 g/dl (12.0-15.5); MEAN CORPUSCULAR HEMOGLOBIN 33.2 pg (27.0-33.0); MEAN CORPUSCULAR HGB CONC 32.9 g/dl (32.0-36.5); MEAN CORPUSCULAR VOLUME 100.9 fl (80.0-96.0); PLATELET COUNT, AUTOMATED 207 10^3/uL (150-450)
[2019-03-27 06:05] LABS: ALBUMIN 3.5 GM/DL (3.2-5.2); ALT/SGPT 45 U/L (12-78); BILIRUBIN,TOTAL 0.5 MG/DL (0.2-1.0); BLOOD UREA NITROGEN 13 MG/DL (7-18); CALCIUM LEVEL 8.9 MG/DL (8.8-10.2); CARBON DIOXIDE LEVEL 19 MEQ/L (21-32); CHLORIDE LEVEL 112 MEQ/L (98-107); GLOMERULAR FILTRATION RATE > 60.0 (>39); GLUCOSE, FASTING 167 MG/DL (70-100); MAGNESIUM LEVEL 1.7 MG/DL (1.8-2.4); POTASSIUM SERUM 3.6 MEQ/L (3.5-5.1); SODIUM LEVEL 142 MEQ/L (136-145); TOTAL PROTEIN 7.1 GM/DL (6.4-8.2)
[2019-03-27] MEDS ORDERED: METOPROLOL 5 MG/5 ML VIAL IV STA (06:25)
--- NOTE | 2019-03-27 07:30 | CR ---
DATE OF CONSULTATION: 03/26/2019 REFERRING PHYSICIAN: Dr. Analisa Rider REASON FOR CONSULTATION: Altered mental status. HISTORY OF PRESENT ILLNESS: Zo Lemon is a 74-year-old woman with history of orthostatic hypotension, type 2 diabetes, sleep apnea who was brought to [facility] after a friend found her on the floor at home. The patient's friend was present in the room during this visit. The patient's friend had last seen her well on March 24, 2019 around 7:00 p.m. The next day she found her in the afternoon unresponsive, incontinent of urine, face down on the floor in front of her couch in her apartment. Her blood sugar was found to be 280 and temperature was 101. The patient was breathing on her own. The patient lives alone and manages her own medications. She was still unresponsive in the emergency department. The patient lives in an apartment and her friend lives nearby. She does her own cooking. Her friend helps her with the shopping. At her baseline she does not drive. She is usually awake, alert and her memory is not different then anybody else at her age. She was not sick in any way. There were no reports of headaches, neck pain or the general medical illnesses currently. The patient has history of chronic back pain and was considered not to be a candidate for repeat back surgery. She had back surgery a few years ago. REVIEW OF SYSTEMS: Could not be obtained from the patient. PAST MEDICAL HISTORY: History of syncope secondary to hypotension and history of possible seizures due to hypoglycemia with blood sugar 45 in 2018, type 2 diabetes, depression, anxiety, chronic obstructive pulmonary artery disease (COPD), chronic back pain, acid reflux, hypertension, dyslipidemia, lumbosacral laminectomy thoracic aortic aneurysm repair sleep apnea. PAST SURGICAL HISTORY: Hysterectomy, lumbosacral laminectomy, bladder suspension. LABORATORY STUDIES: Her CK was 1880 and AST was 56 with urine toxicology screen positive for benzodiazepines. Arterial blood gas was unremarkable. HOME MEDICATIONS: - carvedilol 6.25 mg by mouth twice a day - Cymbalta 60 mg by mouth daily - Flonase nasal spray - glyburide 8 mg by mouth daily - insulin Lantus 80 units subcutaneous daily - insulin Humalog sliding scale - lisinopril 10 mg by mouth daily - meloxicam 7.5 mg by mouth daily - Myrbetriq 25 mg by mouth daily - Prilosec 40 mg by mouth daily - pioglitazone 15 mg by mouth daily - Zoloft 100 mg by mouth daily - simvastatin 80 mg by mouth daily - Januvia 100 mg by mouth daily - Valium 5 mg by mouth twice a day as needed - tramadol 50 mg by mouth twice a day FAMILY HISTORY: Father with history of coronary artery disease and sister with history of obesity and diabetes. PHYSICAL EXAMINATION: Blood pressure 130/80, pulse 107, respiratory 35, 100% saturation on 2 liters nasal cannula oxygen, temperature 97.8. Heart: Regular rate and rhythm. Lungs: Clear to auscultation. Abdomen: Soft, nontender, nondistended. No pedal edema. No musculoskeletal abnormalities. No rash. No signs of meningeal irritation. The patient is awake with her eyes open but only moaning and groaning and moving around in bed. She has mittens on her both arms. She moves both sides equally well. There is no focal motor weakness. She does not follow commands. She does not articulate any words. Extraocular muscles are intact. Tongue and uvula are midline. Face is symmetric bilaterally. Pupils are 5 mm bilaterally reactive to light. She has bruises on her bilateral knees. Plantars are mute. Sensory, cerebellar and gait testing could not be performed. DIAGNOSTIC STUDIES: CT angiography of head and neck were unremarkable. CT scan of cervical spine showed multilevel degenerative disc disease. ASSESSMENT: 1. Altered mental status due to unclear etiology. 2. Seizure is in the differential diagnosis. According to the patient's friend she had seizures related to hypoglycemia in 2018 but her blood sugar was noted to be 280 when EMS checked it at her home this time. It is unknown how long the patient was on the floor unresponsive. 3. History of diabetes and syncopal episodes due to hypotension in past. PLAN: 1. Repeat CT scan of head if we cannot do MRI scan of brain. 2. EEG. Avoid Tramadol. 3. Consider antiepileptic medications if EEG is suggestive of epileptic risk. KAREND
[2019-03-27] MEDS ORDERED: MAG SULF 1GM/100ML (MAG RUN) 1 GM in IV 1 EA IV ONE (08:00)
[2019-03-27] MEDS: ENOXAPARIN 40 MG/0.4 ML SYRINGE (J1650) SC SCH (08:23)
--- NOTE | 2019-03-27 10:57 | IPNPDOC ---
Date Seen The patient was seen on 03/27/19. Progress Note SUBJECTIVE: Patient still appeared confused this morning, mumbles incomprehensively. HR in 110s this morning but now slightly down to 100s. Afebrile overnight. WBC 9.0 Urine culture + E. coli. OBJECTIVE PHYSICAL EXAMINATION: VITAL SIGNS: Please see below. General: confused, mumbles Eyes: Normal sclera, EOMI, KATERIN HENT: Atraumatic Cardiovascular: Tachycardic, regular rhythm Pulmonary: Clear to auscultation b/l GI: Soft, nontender Skin: Warm and dry Neuro: CN grossly intact. confused, does not follow command at this time but moving extremities. LABORATORY DATA, IMAGING STUDIES, MICROBIOLOGY: Please see below. DVT prophylaxis ordered?: Lovenox ASSESSMENT AND PLAN: 1. Acute metabolic encephalopathy - Suspect 2/2 UTI vs. drug use - TSH unremarkable. UA + E. coli. drug screen + benzo, takes diazepam 5mg BID at home, concern for taking too many. - Neuro checks. IVF. - Neuro consulted, appreciated input. - CT showing old lacunar infarct with no acute changes. To get MRI if possible, otherwise repeat CT head per neuro recommendation. 2. DM - FS. NPO at this time. - Consistent carbohydrate diet once mental status improves and patient can tolerate PO/follow directions. 3. HTN - IV antihypertensive until patient is alert and follow commands to take PO meds. - Resume when able. 4. COPD - chronic. Nebs PRN for SOB/wheezing. 5. HLD - resume statin when patient is not NPO. 6. UTI - urine culture + E. coli. - c/w Zosyn with to transition to Rocephin. - f/u blood cultures. Code status: Full code DISPOSITION: Unknown. To assess living situation once clinically improves. VS, I&O, 24H, Fishbone Vital Signs/I&O Vital Signs Date Time Temp Pulse Resp B/P (MAP) Pulse Ox O2 Delivery O2 Flow Rate FiO2 03/27/19 08:00 98.1 106 23 151/67 (95) 96 Room Air 03/26/19 08:00 2.0 l I&O- Last 24 Hours up to 6 AM 03/27/19 06:00 Intake Total 3100 ml Output Total 1675 ml Balance 1425 ml Laboratory Data 24H LABS Laboratory Tests 2 03/26/19 13:30: Bedside Glucose (Misc Panel) 117H 03/26/19 15:43: Bedside Glucose (Misc Panel) 107 03/26/19 17:53: Bedside Glucose (Misc Panel) 132H 03/27/19 01:05: Bedside Glucose (Misc Panel) 148H 03/27/19 05:07: Nucleated Red Blood Cells % (auto) 0.0, Anion Gap 11, Glomerular Filtration Rate > 60.0, Calcium Level 8.9, Magnesium Level 1.7L, Total Bilirubin 0.5, Aspartate Amino Transf (AST/SGOT) 68H, Alanine Aminotransferase (ALT/SGPT) 45, Alkaline Phosphatase 77, Total Protein 7.1, Albumin 3.5, Albumin/Globulin Ratio 0.97L 03/27/19 06:20: Bedside Glucose (Misc Panel) 175H CBC/BMP Laboratory Tests 03/27/19 05:07 Microbiology Microbiology 03/25/19 Blood Culture - Preliminary, Resulted No growth after 24 hours . All specim... 03/25/19 Blood Culture - Preliminary, Resulted No growth after 24 hours . All specim... 03/25/19 Urine Culture - Final, Complete Escherichia Coli RONNY RAYGOZA MD Mar 27, 2019 10:57
[2019-03-27] MEDS: ACETAMINOPHEN 650 MG SUPP PR PRN (17:19)
[2019-03-27] MEDS: cefTRIAXone SOD 1 GM in D5W MINI-BAG PLUS 50 ML IV SCH (18:03)
[2019-03-27] MEDS ORDERED: OLANZapine 5 MG TAB PO ONE (22:45)
[2019-03-27] MEDS ORDERED: OLANZapine INTRAMUSCULAR 10 MG VIAL (S0166) IM ONE (23:00)
[2019-03-27] MEDS ORDERED: ISOVUE-370 76% 100ML VIAL (Q9967) As Ordered ONE (23:05)
[2019-03-27] MEDS: ENOXAPARIN 100MG/1ML SYRINGE (J1650) SC SCH (23:57)
[2019-03-28] VITALS (22 sets, daily range): BP systolic 122–174; BP diastolic 56–90
--- NOTE | 2019-03-28 00:07 | REPVR ---
PROCEDURE INFORMATION: Exam: CT Angiography Chest With Contrast Exam date and time: 03/27/2019 11:20 PM Clinical history: 74 years old, female; Chest pain; Additional info: R/O pe, elevated D-dimer TECHNIQUE: Imaging protocol: Computed tomographic angiography of the chest with intravenous contrast. 3D rendering: MIP reconstructed images were created and reviewed. Radiation optimization: All CT scans at this facility use at least one of these dose optimization techniques: automated exposure control; mA and/or kV adjustment per patient size (includes targeted exams where dose is matched to clinical indication); or iterative reconstruction. Contrast material: ISOVUE 370; Contrast volume: 75 ml; Contrast route: IV; COMPARISON: CT Chest without contrast 03/25/2019 6:16 PM FINDINGS: Limitations: Respiratory motion artifact degrades the image quality. Pulmonary arteries: There is no pulmonary embolism in the main pulmonary arteries. The timing of the contrast bolus was suboptimal for the assessment of the lobar, segmental, and subsegmental pulmonary arteries, which are poorly opacified and degraded by respiratory motion artifact. Aorta: There is an endovascular stent graft extending from the descending thoracic aorta to the suprarenal abdominal aorta. The ascending aorta measures 3.7 cm in diameter and the descending aorta is dilated and measures 3.7 cm in diameter, which are stable measurements compared to the prior CT on 03/25/2019. There are moderate atherosclerotic calcifications. Lungs: There is a 7 mm solid pulmonary nodule in the right upper lobe (image 15 of the axial series 402), which is stable compared to the prior CT on 10/19/2016 and for which follow-up is not necessary. No new pulmonary nodules are noted. There is no lung consolidation. Pleural space: Unremarkable. No pneumothorax. No pleural effusion. Heart: No cardiomegaly. No pericardial effusion. The ratio of the diameter of the right ventricle to the diameter of the left ventricle measures less than 1, which is within normal limits and there is no evidence for a right ventricular strain. There are coronary artery and mitral annular calcifications. There is lipomatous hypertrophy of the interatrial septum. Mediastinum: No mediastinal mass, fluid collection, or pneumomediastinum. Pancreas: There is extensive fatty infiltration of the pancreas. The pancreas was not fully imaged. Kidneys: There is a 16 mm simple cyst in superior pole of the right kidney for which follow-up is not necessary. The kidneys were not fully imaged. Lymph nodes: Normal. No enlarged lymph nodes. Bones/joints: Allowing for motion artifact, no acute fracture is identified. There are old healed fractures of the left anterior third and fourth ribs. There is a mild chronic anterior wedge compression fracture of T10 and a severe chronic anterior wedge compression fracture of T12, which are similar in appearance compared to the prior CT on 03/25/2019. The bones have a demineralized appearance. No suspicious osteolytic or osteoblastic lesion is noted. There is a mild S-shaped scoliosis of the thoracic spine. Soft tissues: Unremarkable. IMPRESSION: No pulmonary embolism in the main pulmonary arteries. The timing of the contrast bolus was suboptimal for the assessment of the lobar, segmental, and subsegmental pulmonary arteries, which are poorly opacified and degraded by respiratory motion artifact. Electronically signed by: Sumanth Flores On 03/28/2019 00:07:11 AM
--- NOTE | 2019-03-28 00:07 | IPNPDOC ---
Text Note Date of Service The patient was seen on 03/28/19. NOTE NIGHT FLOAT NOTE: D-dimer from the day resulted 3300+. Chart reviewed, patient examined at bedside. Reportedly has been agitated for days during this admission and is unchanged currently. Attempted to obtain CTA for concern of possible PE, however she continued to be agitated. Improved somewhat with olanzapine, but pulled out IV midway through imaging. Vitals otherwise unchanged from earlier in the day. We will hold off imaging until the morning so that CTA can be done along with MRI/MRA of head due to the difficulty with her agitation, and consent may be obtained at that time from her HCP to proceed with MR imaging. In meanwhile, will start on therapeutic dose anticoagulation empirically for possible PE and continue close monitoring in ICU. VS,Fishbone, I+O VS, Fishbone, I+O Laboratory Tests 03/27/19 05:07 Vital Signs Date Time Temp Pulse Resp B/P (MAP) Pulse Ox O2 Delivery O2 Flow Rate FiO2 03/27/19 21:16 116 184/77 (112) 97 03/27/19 17:00 20 Room Air 03/27/19 16:00 96.7 03/26/19 08:00 2.0 I&O- Last 24 Hours up to 6 AM 03/28/19 06:00 Intake Total 150 ml Output Total 1350 ml Balance -1200 ml GME ATTESTATION GME ATTESTATION My faculty preceptor for this patient encounter was physically present during the encounter and was fully available. All aspects of the patient interview, examination, medical decision making process, and medical care plan development were reviewed and approved by the faculty preceptor. The faculty preceptor is aware and concurs with the plan as stated in the body of this note and will attest to such by his/her cosignature. BARRIE ALVAREZ DO Mar 28, 2019 00:07
[2019-03-28] MEDS: PIPERACILLIN/TAZOBACTAM SOD 3.375 GM in D5W MINI-BAG PLUS 50 ML IV SCH ×4 (04:04→21:33)
[2019-03-28 05:26] LABS: HEMATOCRIT 35.3 % (36.0-47.0); HEMOGLOBIN 11.4 g/dl (12.0-15.5); MEAN CORPUSCULAR HEMOGLOBIN 32.7 pg (27.0-33.0); MEAN CORPUSCULAR HGB CONC 32.3 g/dl (32.0-36.5); MEAN CORPUSCULAR VOLUME 101.1 fl (80.0-96.0); PLATELET COUNT, AUTOMATED 205 10^3/uL (150-450); RED BLOOD COUNT 3.49 10^6/uL (4.00-5.40); WHITE BLOOD COUNT 7.6 10^3/uL (4.0-10.0)
[2019-03-28 05:50] LABS: ALBUMIN 3.2 GM/DL (3.2-5.2); BILIRUBIN,TOTAL 0.4 MG/DL (0.2-1.0); CREATININE FOR GFR 1.08 MG/DL (0.55-1.30); GLOMERULAR FILTRATION RATE 52.8 (>39); POTASSIUM SERUM 3.3 MEQ/L (3.5-5.1); TOTAL PROTEIN 7.1 GM/DL (6.4-8.2)
[2019-03-28] MEDS: HumaLOG INSULIN (NovoLOG) PER UNIT SC SCH ×4 (06:21→23:33)
[2019-03-28] MEDS: hydrALAZINE INJ 20 MG/ML VIAL IV PRN ×2 (06:22→17:35)
[2019-03-28] MEDS ORDERED: POTASSIUM CHLORIDE 10 MEQ SR TABLET PO ONE (09:00)
[2019-03-28] MEDS: ENOXAPARIN 100MG/1ML SYRINGE (J1650) SC SCH ×2 (11:57→23:33)
[2019-03-28] MEDS: KCL 10MEQ/100ML SWI (KRUN) 10 MEQ in IV 1 EA IV SCH ×4 (15:15→18:26)
--- NOTE | 2019-03-28 15:42 | IPNPDOC ---
Date Seen The patient was seen on 03/28/19. Progress Note SUBJECTIVE: Patient confused but slightly improved in comprehension. Was able to state her name but does not answer other questions. HR remains sinus tachycardia 120s. D dimer elevated, attempted to do CT angio to r/o PE but unable to due to confusion. OBJECTIVE PHYSICAL EXAMINATION: VITAL SIGNS: Please see below. General: confused, mumbles Eyes: Normal sclera, EOMI, KATERIN HENT: Atraumatic Cardiovascular: Tachycardic, regular rhythm Pulmonary: Clear to auscultation b/l GI: Soft, nontender Skin: Warm and dry Neuro: CN grossly intact. confused, does not follow command at this time but moving extremities. LABORATORY DATA, IMAGING STUDIES, MICROBIOLOGY: Please see below. DVT prophylaxis ordered?: Lovenox ASSESSMENT AND PLAN: 1. Acute metabolic encephalopathy - Suspect 2/2 UTI vs. postictal confusion vs. drug use - TSH .34 with normal free T4. UA + E. coli. drug screen + benzo, takes diazepam 5mg BID at home, concern for taking too many. - Neuro checks. IVF. - Neuro consulted, appreciated input. 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 2. DM - FS. NPO at this time. - Consistent carbohydrate diet once mental status improves and patient can tolerate PO/follow directions. 3. HTN - IV antihypertensive until patient is alert and follow commands to take PO meds. - Resume when able. 4. COPD - chronic. Nebs PRN for SOB/wheezing. 5. HLD - resume statin when patient is not NPO. 6. UTI - urine culture + E. coli. - c/w Zosyn to transition to Rocephin. - f/u blood cultures. 7. Tachycardia - sinus rhythm. May partially be contributed to agitation and possible pain but difficult to assess pain. - Patient does appear comfortable but reportedly has had back pain at home and supposed to follow up with pain management. - Will give lose dose morphine standing. - CTA attempted but unsuccessful, only partially done. complete if patient able to cooperate. - increase d dimer. treated with therapeutic Lovenox at this time. Code status: Full code DISPOSITION: Unknown. To assess living situation once clinically improves. VS, I&O, 24H, Fishbone Vital Signs/I&O Vital Signs Date Time Temp Pulse Resp B/P (MAP) Pulse Ox O2 Delivery O2 Flow Rate FiO2 03/28/19 12:16 97.4 121 20 149/74 (99) 96 Room Air 03/28/19 10:16 2.0 I&O- Last 24 Hours up to 6 AM 03/28/19 06:00 Intake Total 200 ml Output Total 1350 ml Balance -1150 ml Laboratory Data 24H LABS Laboratory Tests 2 03/27/19 18:05: Bedside Glucose (Misc Panel) 138H 03/27/19 20:07: D-Dimer, Quantitative 3359.98H 03/27/19 23:51: Bedside Glucose (Misc Panel) 211H 03/28/19 04:59: Nucleated Red Blood Cells % (auto) 0.0, Anion Gap 10, Glomerular Filtration Rate 52.8, Calcium Level 9.0, Total Bilirubin 0.4, Aspartate Amino Transf (AST/SGOT) 75H, Alanine Aminotransferase (ALT/SGPT) 50, Alkaline Phosphatase 69, Total Prot ein 7.1, Albumin 3.2, Albumin/Globulin Ratio 0.82L 03/28/19 11:47: Bedside Glucose (Misc Panel) 152H CBC/BMP Laboratory Tests 03/28/19 04:59 Microbiology Microbiology 03/25/19 Blood Culture - Preliminary, Resulted No Growth after 48 hours. All Specime... 03/25/19 Blood Culture - Preliminary, Resulted No Growth after 48 hours. All Specime... 03/25/19 Urine Culture - Final, Complete Escherichia Coli RONNY RAYGOZA MD Mar 28, 2019 15:42
[2019-03-28] MEDS: NS 1,000 ML IV SCH (15:58)
[2019-03-28] MEDS: cefTRIAXone SOD 1 GM in D5W MINI-BAG PLUS 50 ML IV SCH (18:26)
[2019-03-28] MEDS: ACETAMINOPHEN 650 MG SUPP PR PRN (23:33)
[2019-03-29] VITALS (14 sets, daily range): BP systolic 122–185; BP diastolic 56–82
[2019-03-29] MEDS: NS 1,000 ML IV SCH ×3 (03:08→21:45)
[2019-03-29] MEDS: PIPERACILLIN/TAZOBACTAM SOD 3.375 GM in D5W MINI-BAG PLUS 50 ML IV SCH ×2 (03:08→09:00)
[2019-03-29 05:21] LABS: HEMATOCRIT 39.6 % (36.0-47.0); HEMOGLOBIN 12.2 g/dl (12.0-15.5); MEAN CORPUSCULAR HEMOGLOBIN 33.2 pg (27.0-33.0); MEAN CORPUSCULAR HGB CONC 30.8 g/dl (32.0-36.5); MEAN CORPUSCULAR VOLUME 107.9 fl (80.0-96.0); PLATELET COUNT, AUTOMATED 213 10^3/uL (150-450); RED BLOOD COUNT 3.67 10^6/uL (4.00-5.40); WHITE BLOOD COUNT 6.3 10^3/uL (4.0-10.0)
[2019-03-29 05:34] LABS: GLOMERULAR FILTRATION RATE 57.7 (>39); POTASSIUM SERUM 3.5 MEQ/L (3.5-5.1)
[2019-03-29] MEDS: HumaLOG INSULIN (NovoLOG) PER UNIT SC SCH ×3 (06:05→17:44)
[2019-03-29] MEDS: ACETAMINOPHEN 650 MG SUPP PR PRN ×2 (06:16→11:58)
[2019-03-29] MEDS ORDERED: MORPHINE 2 MG/ML 1ML VIAL (J2270) IV PRN (08:45)
[2019-03-29] MEDS: ENOXAPARIN 100MG/1ML SYRINGE (J1650) SC SCH (11:58)
--- NOTE | 2019-03-29 12:43 | IPNPDOC ---
Date Seen The patient was seen on 03/29/19. Progress Note SUBJECTIVE: Patient still with confusion but was able to state name again and said no to question if anything is bother her. Falls back as sleep following short conversation. Appear still not follow commands. HR low 100s while sleeping, remains more tachy in 120-130s while awake. OBJECTIVE PHYSICAL EXAMINATION: VITAL SIGNS: Please see below. General: confused, answer some questions appropriately Eyes: Normal sclera, EOMI, KATERIN HENT: Atraumatic Cardiovascular: Tachycardic, regular rhythm Pulmonary: Clear to auscultation b/l GI: Soft, nontender Skin: Warm and dry Neuro: CN grossly intact. confused, does not follow command at this time but moving extremities. Psych: AAO x1 LABORATORY DATA, IMAGING STUDIES, MICROBIOLOGY: Please see below. DVT prophylaxis ordered?: Lovenox ASSESSMENT AND PLAN: 1. Acute metabolic encephalopathy - Slight improvement each day. AAO x1 and answer some questions now. - Suspect 2/2 UTI vs. postictal confusion vs. drug use - TSH .34 with normal free T4. UA + E. coli. drug screen + benzo, takes diazepam 5mg BID at home, concern for taking too many. - Neuro checks. IVF. - Neuro consulted, appreciated input. 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 2. DM - FS. NPO at this time. - Consistent carbohydrate diet once mental status improves and patient can tolerate PO/follow directions. 3. HTN - IV antihypertensive until patient is alert and follow commands to take PO meds. - Resume when able. 4. COPD - chronic. Nebs PRN for SOB/wheezing. 5. HLD - resume statin when patient is not NPO. 6. UTI - urine culture + E. coli. - c/w Rocephin. - f/u blood cultures. 7. Tachycardia - sinus rhythm. May partially be contributed to agitation and possible pain but difficult to assess pain. Started on low dose morphine standing as patient not alert to report pain. - Patient does appear comfortable but reportedly has had back pain at home and supposed to follow up with pain management. - Will give lose dose morphine standing. - CTA attempted but unsuccessful, only partially done. complete if patient able to cooperate. - increase d dimer. treated with therapeutic Lovenox at this time. Code status: DNR/DNI DISPOSITION: Likely will need placement, pending mental status improvement. VS, I&O, 24H, Fishbone Vital Signs/I&O Vital Signs Date Time Temp Pulse Resp B/P (MAP) Pulse Ox O2 Delivery O2 Flow Rate FiO2 03/29/19 12:10 2.0 03/29/19 12:06 98.0 114 26 98 Room Air 03/29/19 08:00 158/72 (100) I&O- Last 24 Hours up to 6 AM 03/29/19 06:00 Intake Total 1885 ml Output Total 1245 ml Balance 640 ml Laboratory Data 24H LABS Laboratory Tests 2 03/28/19 18:20: Bedside Glucose (Misc Panel) 141H 03/28/19 23:27: Bedside Glucose (Misc Panel) 184H 03/29/19 04:58: Nucleated Red Blood Cells % (auto) 0.0, Anion Gap 8, Glomerular Filtration Rate 57.7, Calcium Level 9.0 03/29/19 11:54: Bedside Glucose (Misc Panel) 149H CBC/BMP Laboratory Tests 03/29/19 04:58 Microbiology Microbiology 03/25/19 Blood Culture - Preliminary, Resulted No Growth after 72 hours. All specime... 03/25/19 Blood Culture - Preliminary, Resulted No Growth after 72 hours. All specime... 03/25/19 Urine Culture - Final, Complete Escherichia Coli RONNY RAYGOZA MD Mar 29, 2019 12:43
[2019-03-29] MEDS ORDERED: MORPHINE 2 MG/ML 1ML VIAL (J2270) IV SCH (13:00)
[2019-03-29] MEDS ORDERED: LORazepam 2 MG/ML VIAL (J2060) IV ONE (13:00)
[2019-03-29] MEDS ORDERED: ISOVUE-370 76% 100ML VIAL (Q9967) As Ordered ONE (13:47)
--- NOTE | 2019-03-29 14:44 | REP ---
CT pulmonary angiogram: With IV contrast. History: Assess for embolism. Comparison studies: Comparison CT angiography March 27, 2019. Contrast dose: 75 mL of Isovue [address] technique: Helical scanning is acquired and overlapping 1.5 mm and contiguous 3 mm axial images are reformatted. In addition, maximum intensity projection and multiplanar re-formation images are generated in sagittal and coronal imaging projections. CT pulmonary angiographic findings: There is good opacification of the pulmonary arterial tree today. No filling defect or vessel cutoff is seen in the pulmonary arterial tree to suggest pulmonary embolism. The thoracic aorta enhances homogeneously. There is a descending aortic stent graft in place. There is no evidence of graft leak or intimal flap. Some vascular calcification is seen in the proximal aorta. No pleural or pericardial effusion is appreciated. No hilar or mediastinal mass or adenopathy is observed. No adrenal lesion is seen. There is mildly prominent size gallbladder noted in the upper abdomen. The lung windows show no evidence of infiltrate or significant atelectasis. There is minimal linear fibrosis in the left lower lobe. There is a pulmonary nodule in the right lung apex measuring 8 mm. This was present on October 19, 2016 and was measured at 7 mm. It is essentially unchanged. There is also a nodule anteriorly and medially in the right middle lobe which measures 11 mm. This is unchanged from the October 19, 2016 study as well. No new pulmonary nodule is appreciated. Impression: No CT evidence of pulmonary embolism. Stable pulmonary nodules on the right. Status post descending aortic stent graft placement. No evidence of dissection or leak. Mildly distended gallbladder. Electronically Signed by Oracio Barkley MD 03/29/2019 03:26 P
[2019-03-29] MEDS: hydrALAZINE INJ 20 MG/ML VIAL IV PRN (15:13)
--- NOTE | 2019-03-29 15:29 | REP ---
MRI brain: 03/29/2019. Indication: Altered mental status. Stroke. Comparison: No previous MRI brain studies are available for direct comparison. Findings: Image quality is degraded by patient motion. No areas of restricted diffusion are detected. There is no evidence of intracranial mass effect or hydrocephalous. No significant intracranial hemorrhage is detected. There are scattered areas of elevated T2 signal throughout the cerebral hemisphere white matter as well as the brainstem most consistent with sequelae of chronic small vessel disease. No abnormalities of the flow voids are detected. Impression: Within the limitations of the study, no acute intracranial process is detected. Electronically Signed by Enrique Ayon DO 03/29/2019 03:20 P
[2019-03-29] MEDS ORDERED: METOPROLOL 5 MG/5 ML VIAL IV ONE (17:00)
[2019-03-29] MEDS: MORPHINE 2 MG/ML 1ML VIAL (J2270) IV SCH (17:43)
[2019-03-29] MEDS: cefTRIAXone SOD 1 GM in D5W MINI-BAG PLUS 50 ML IV SCH (18:29)
[2019-03-30] VITALS (13 sets, daily range): BP systolic 120–197; BP diastolic 56–92
[2019-03-30] MEDS: MORPHINE 2 MG/ML 1ML VIAL (J2270) IV SCH ×3 (00:17→12:03)
[2019-03-30] MEDS: HumaLOG INSULIN (NovoLOG) PER UNIT SC SCH ×4 (00:22→18:34)
[2019-03-30 05:14] LABS: HEMATOCRIT 32.5 % (36.0-47.0); MEAN CORPUSCULAR HEMOGLOBIN 33.2 pg (27.0-33.0); MEAN CORPUSCULAR HGB CONC 31.1 g/dl (32.0-36.5); MEAN CORPUSCULAR VOLUME 106.9 fl (80.0-96.0); PLATELET COUNT, AUTOMATED 221 10^3/uL (150-450); RED BLOOD COUNT 3.04 10^6/uL (4.00-5.40); WHITE BLOOD COUNT 5.5 10^3/uL (4.0-10.0)
[2019-03-30 05:23] LABS: HEMOGLOBIN 10.1 g/dl (12.0-15.5)
[2019-03-30 05:32] LABS: BLOOD UREA NITROGEN 8 MG/DL (7-18); CALCIUM LEVEL 8.5 MG/DL (8.8-10.2); CARBON DIOXIDE LEVEL 22 MEQ/L (21-32); CHLORIDE LEVEL 115 MEQ/L (98-107); CREATININE FOR GFR 0.91 MG/DL (0.55-1.30); GLOMERULAR FILTRATION RATE > 60.0 (>39); GLUCOSE, FASTING 153 MG/DL (70-100); POTASSIUM SERUM 3.4 MEQ/L (3.5-5.1); SODIUM LEVEL 148 MEQ/L (136-145)
[2019-03-30] MEDS: NS 1,000 ML IV SCH ×2 (07:45→14:30)
[2019-03-30] MEDS: ENOXAPARIN 40 MG/0.4 ML SYRINGE (J1650) SC SCH (08:53)
[2019-03-30] MEDS: KCL 10MEQ/100ML SWI (KRUN) 10 MEQ in IV 1 EA IV SCH ×2 (08:53→11:14)
[2019-03-30] MEDS ORDERED: METOPROLOL 5 MG/5 ML VIAL IV ONE (09:00)
[2019-03-30] MEDS: hydrALAZINE INJ 20 MG/ML VIAL IV PRN (09:39)
[2019-03-30] MEDS ORDERED: oxyCODONE 5MG TAB As Ordered ONE (13:45)
[2019-03-30] MEDS ORDERED: oxyCODONE 5MG TAB PO PRN (13:45)
[2019-03-30] MEDS ORDERED: MORPHINE 2 MG/ML 1ML VIAL (J2270) IV ONE (14:00)
[2019-03-30] MEDS: METOPROLOL TART 25 MG TABLET PO SCH ×2 (15:57→20:38)
--- NOTE | 2019-03-30 17:52 | IPNPDOC ---
Date Seen The patient was seen on 03/30/19. Progress Note SUBJECTIVE: Patient remains confused today but able to answer questions and follow some commands. HR also still elevated. Passed swallow eval with nectar thick liquid and was started on PO meds and diet. Afebrile OBJECTIVE PHYSICAL EXAMINATION: VITAL SIGNS: Please see below. General: confused, answer some questions appropriately Eyes: Normal sclera, EOMI, KATERIN HENT: Atraumatic Cardiovascular: Tachycardic, regular rhythm Pulmonary: Clear to auscultation b/l GI: Soft, nontender Skin: Warm and dry Neuro: CN grossly intact. confused, follow some commands and moves extremities. Psych: AAO x0 LABORATORY DATA, IMAGING STUDIES, MICROBIOLOGY: Please see below. DVT prophylaxis ordered?: Lovenox ASSESSMENT AND PLAN: 1. Acute metabolic encephalopathy - Slight improvement each day. - Suspect 2/2 UTI vs. postictal confusion vs. drug use - TSH .34 with normal free T4. UA + E. coli. drug screen + benzo, takes diazepam 5mg BID at home, concern for taking too many. - Neuro checks. IVF. - Neuro consulted. 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 2. DM - FS. - Consistent carbohydrate diet. 3. HTN - resume PO meds. Normall on coreg, changed to metoprolol to also treat tachycardia better. 4. COPD - chronic. Nebs PRN for SOB/wheezing. 5. HLD - resume statin 6. UTI - urine culture + E. coli. - c/w Rocephin. - f/u blood cultures. 7. Tachycardia - sinus rhythm. May partially be contributed to agitation and possible pain. Started on low dose morphine standing as patient not alert to report pain. - Patient does appear comfortable but reportedly has had back pain at home and supposed to follow up with pain management. - Will give lose dose morphine standing. - CTA shows no evidence of PE. - Hb had dropped slightly on admission from 12->10 now. Get FOBT. - normally on low dose Coreg, switched to metoprolol. 8. Sepsis 2/2 UTI on presentation - On presentation: HR 123, RR 35, T 101, leukocytosis in setting of UTI. - Vital signs improvement apart from tachycardia. - c/w Rocephin. Code status: DNR/DNI DISPOSITION: Likely will need placement, pending mental status improvement. VS, I&O, 24H, Fishbone Vital Signs/I&O Vital Signs Date Time Temp Pulse Resp B/P (MAP) Pulse Ox O2 Delivery O2 Flow Rate FiO2 03/30/19 16:26 124 95 Room Air 03/30/19 16:00 99.2 24 156/81 (106) 03/30/19 07:31 2.0 I&O- Last 24 Hours up to 6 AM 03/30/19 06:00 Intake Total 2300 ml Output Total 1110 ml Balance 1190 ml Laboratory Data 24H LABS Laboratory Tests 2 03/30/19 00:16: Bedside Glucose (Misc Panel) 176H 03/30/19 04:33: Nucleated Red Blood Cells % (auto) 0.0, Anion Gap 11, Glomerular Filtration Rate > 60.0, Calcium Level 8.5L 03/30/19 11:55: Bedside Glucose (Misc Panel) 171H CBC/BMP Laboratory Tests 03/30/19 04:33 Microbiology Microbiology 03/25/19 Blood Culture - Preliminary, Resulted No Growth after 72 hours. All specime... 03/25/19 Blood Culture - Preliminary, Resulted No Growth after 72 hours. All specime... 03/25/19 Urine Culture - Final, Complete Escherichia Coli RONNY RAYGOZA MD Mar 30, 2019 17:52
[2019-03-30] MEDS: cefTRIAXone SOD 1 GM in D5W MINI-BAG PLUS 50 ML IV SCH (18:34)
[2019-03-30] MEDS: oxyCODONE 5MG TAB PO SCH (20:37)
[2019-03-31] VITALS (11 sets, daily range): BP systolic 119–196; BP diastolic 54–92
[2019-03-31] MEDS: HumaLOG INSULIN (NovoLOG) PER UNIT SC SCH ×5 (01:03→21:00)
[2019-03-31] MEDS: NS 1,000 ML IV SCH (01:03)
[2019-03-31] MEDS: oxyCODONE 5MG TAB PO SCH (02:38)
[2019-03-31] MEDS ORDERED: CARVedilol 3.125 MG TAB PO ONE (03:00)
[2019-03-31 05:02] LABS: HEMATOCRIT 27.6 % (36.0-47.0); HEMOGLOBIN 8.6 g/dl (12.0-15.5); MEAN CORPUSCULAR HEMOGLOBIN 32.8 pg (27.0-33.0); MEAN CORPUSCULAR HGB CONC 31.2 g/dl (32.0-36.5); MEAN CORPUSCULAR VOLUME 105.3 fl (80.0-96.0); PLATELET COUNT, AUTOMATED 206 10^3/uL (150-450); RED BLOOD COUNT 2.62 10^6/uL (4.00-5.40); WHITE BLOOD COUNT 5.5 10^3/uL (4.0-10.0)
[2019-03-31 05:20] LABS: BLOOD UREA NITROGEN 6 MG/DL (7-18); CALCIUM LEVEL 8.2 MG/DL (8.8-10.2); CARBON DIOXIDE LEVEL 24 MEQ/L (21-32); CHLORIDE LEVEL 115 MEQ/L (98-107); CREATININE FOR GFR 0.76 MG/DL (0.55-1.30); GLOMERULAR FILTRATION RATE > 60.0 (>39); GLUCOSE, FASTING 157 MG/DL (70-100); POTASSIUM SERUM 3.2 MEQ/L (3.5-5.1); SODIUM LEVEL 147 MEQ/L (136-145)
[2019-03-31] MEDS ORDERED: POTASSIUM CHLORIDE 10% LIQ 20 MEQ/15 ML UDC PO ONE (05:45)
[2019-03-31] MEDS: METOPROLOL TART 25 MG TABLET PO SCH ×3 (05:46→21:29)
[2019-03-31] MEDS ORDERED: CARVedilol 6.25 MG TAB PO SCH (09:00)
[2019-03-31] MEDS: amLODIPine 5 MG TAB PO SCH (09:21)
[2019-03-31] MEDS: ENOXAPARIN 40 MG/0.4 ML SYRINGE (J1650) SC SCH (09:22)
[2019-03-31] MEDS ORDERED: SLF 3 ML SYR IV PRN (10:30)
[2019-03-31] MEDS: oxyCODONE 5MG TAB PO PRN ×2 (11:35→21:30)
[2019-03-31] MEDS ORDERED: PILL CUTTER 1 EACH XX PRN (12:15)
[2019-03-31] MEDS: SLF 3 ML SYR IV SCH ×2 (14:00→21:34)
[2019-03-31] MEDS: cefTRIAXone SOD 1 GM in D5W MINI-BAG PLUS 50 ML IV SCH (18:03)
--- NOTE | 2019-03-31 19:29 | EEG ---
DATE OF PROCEDURE: 03/31/2019 REFERRING PHYSICIAN: Analisa Rider DIAGNOSIS: Altered mental status, rule out seizures. EEG NUMBER: [id number] HISTORY: The patient is a 74-year-old woman who was admitted at [facility] after she was found unresponsive and has been confused for a few days. She becomes agitated at times. This EEG was done to rule out epileptic potential. TECHNICAL DESCRIPTION: This digital EEG was recorded by 21 scalp, ear and two EKG electrodes and was reviewed in bipolar and referential montages following reformatting in 10-20 international electrode placement system. INTERPRETATION: The patient was noted to be in awake and drowsy states during this EEG. Resting background rhythm consisted of 4-5 Hz theta activity measuring 15-40 microvolts in amplitude which was symmetric bilaterally. Intermittent bilateral temporal delta slowing was noted. No sleep was achieved. Hyperventilation could not be performed. Photic stimulation remained unremarkable. EKG revealed normal sinus rhythm. No focal, lateralizing or epileptiform abnormalities were seen. No relevant clinical activity was noted. CONCLUSION: This EEG in awake, drowsy states is abnormal due to presence of generalized slowing and disorganization of background consistent with nonspecific diffuse cerebral dysfunction such as seen in encephalopathy due to multiple potential causes including toxic, metabolic, infectious, medication related or multifocal structural brain abnormalities. No epileptiform abnormalities were seen. Clinical correlation is recommended. [facility]
[2019-04-01] VITALS (10 sets, daily range): BP systolic 132–170; BP diastolic 60–88; O2SAT 94–99
[2019-04-01] MEDS ORDERED: QUEtiapine FUMARATE 12.5 MG HALF-TAB PO ONE (01:00)
[2019-04-01 06:21] LABS: HEMATOCRIT 28.2 % (36.0-47.0); HEMOGLOBIN 8.9 g/dl (12.0-15.5); MEAN CORPUSCULAR HEMOGLOBIN 32.7 pg (27.0-33.0); MEAN CORPUSCULAR HGB CONC 31.6 g/dl (32.0-36.5); MEAN CORPUSCULAR VOLUME 103.7 fl (80.0-96.0); PLATELET COUNT, AUTOMATED 204 10^3/uL (150-450); RED BLOOD COUNT 2.72 10^6/uL (4.00-5.40); WHITE BLOOD COUNT 4.7 10^3/uL (4.0-10.0)
[2019-04-01 06:38] LABS: BLOOD UREA NITROGEN 6 MG/DL (7-18); CALCIUM LEVEL 8.8 MG/DL (8.8-10.2); CARBON DIOXIDE LEVEL 25 MEQ/L (21-32); CHLORIDE LEVEL 112 MEQ/L (98-107); CREATININE FOR GFR 0.75 MG/DL (0.55-1.30); GLOMERULAR FILTRATION RATE > 60.0 (>39); GLUCOSE, FASTING 242 MG/DL (70-100); POTASSIUM SERUM 3.2 MEQ/L (3.5-5.1); SODIUM LEVEL 146 MEQ/L (136-145)
[2019-04-01] MEDS: METOPROLOL TART 25 MG TABLET PO SCH ×3 (06:40→22:25)
[2019-04-01] MEDS: SLF 3 ML SYR IV SCH ×3 (06:41→22:25)
[2019-04-01] MEDS ORDERED: POTASSIUM CHLORIDE 10 MEQ SR TABLET PO SCH (09:00)
[2019-04-01] MEDS: HumaLOG INSULIN (NovoLOG) PER UNIT SC SCH ×4 (09:34→22:24)
[2019-04-01] MEDS: amLODIPine 5 MG TAB PO SCH (10:36)
[2019-04-01] MEDS: oxyCODONE 5MG TAB PO PRN ×2 (10:36→18:38)
[2019-04-01] MEDS: ENOXAPARIN 40 MG/0.4 ML SYRINGE (J1650) SC SCH (10:36)
[2019-04-01] MEDS: POTASSIUM CHLORIDE 10% LIQ 20 MEQ/15 ML UDC PO SCH ×3 (10:44→22:24)
--- NOTE | 2019-04-01 11:33 | IPN ---
DATE: 04/01/2019 Zo is seen in progressive care unit (PCU). Her dictation from yesterday appears to be unavailable. She is admitted with encephalopathy, presumably from her urinary tract infection (UTI). No fever or chills. Mental status is the same as yesterday. PHYSICAL EXAMINATION: Afebrile. Vital signs stable at 158/90. She is alert but answers "yes" to every question I ask her without processing content. LUNGS: Clear. HEART: Regular rhythm. ABDOMEN: Soft, nontender. EXTREMITIES: No peripheral edema. LABORATORIES: CBC is stable. Sodium is down to 146, potassium 3.2. Urine culture grew out Escherichia (E) coli . Blood culture is negative. IMPRESSION: 1. Encephalopathy secondary to urinary tract infection (UTI). I think that she is probably at her baseline mental status. 2. Diabetes. Fingerstick sugars with consistent carbohydrate diet. 3. Hypertension. Blood pressure is well controlled on current regimen. 4. Chronic obstructive pulmonary disease (COPD). She is stable. 5. Hyperlipidemia. Continue statin therapy. 6. Hypokalemia. Supplemental potassium has been ordered. We will transfer off progressive care unit (PCU) up to the general medical floor.
[2019-04-01] MEDS: ACETAMINOPHEN 650 MG SUPP PR PRN (16:23)
[2019-04-01] MEDS: cefTRIAXone SOD 1 GM in D5W MINI-BAG PLUS 50 ML IV SCH (18:37)
[2019-04-01] MEDS: LEVEMIR (INSULIN DETEMIR) 1 UNITS/0.01ML SC SCH (22:23)
[2019-04-01] MEDS: DULoxetine 30 MG CAP (CYMBALTA) PO SCH (22:25)
[2019-04-02 06:00] VITALS: BP 157/87
[2019-04-02] MEDS: METOPROLOL TART 25 MG TABLET PO SCH ×2 (06:00→13:23)
[2019-04-02] MEDS: SLF 3 ML SYR IV SCH ×3 (06:00→22:17)
[2019-04-02] MEDS: HumaLOG INSULIN (NovoLOG) PER UNIT SC SCH ×4 (09:54→21:15)
[2019-04-02] MEDS: ENOXAPARIN 40 MG/0.4 ML SYRINGE (J1650) SC SCH (09:54)
[2019-04-02] MEDS: amLODIPine 5 MG TAB PO SCH (09:55)
[2019-04-02] MEDS: POTASSIUM CHLORIDE 10% LIQ 20 MEQ/15 ML UDC PO SCH ×3 (09:55→21:14)
[2019-04-02] MEDS: oxyCODONE 5MG TAB PO PRN ×2 (09:56→21:17)
[2019-04-02 14:00] VITALS: BP 138/75
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
[2019-04-02 15:51] VITALS: BP 155/92
[2019-04-02 17:18] VITALS: O2SAT 95
[2019-04-02] MEDS: cefTRIAXone SOD 1 GM in D5W MINI-BAG PLUS 50 ML IV SCH (18:19)
[2019-04-02 21:00] VITALS: O2SAT 95
[2019-04-02] MEDS: METOPROLOL TART 50 MG TAB PO SCH (21:13)
[2019-04-02] MEDS: LEVEMIR (INSULIN DETEMIR) 1 UNITS/0.01ML SC SCH (21:14)
[2019-04-02] MEDS: DULoxetine 30 MG CAP (CYMBALTA) PO SCH (21:14)
[2019-04-02 22:00] VITALS: BP 128/79
[2019-04-03] VITALS (8 sets, daily range): BP systolic 134–139; BP diastolic 79–90; O2SAT 93–94
[2019-04-03] MEDS: SLF 3 ML SYR IV SCH ×3 (06:01→22:08)
[2019-04-03] MEDS: METOPROLOL TART 50 MG TAB PO SCH ×3 (06:11→22:07)
[2019-04-03 08:09] LABS: HEMATOCRIT 33.3 % (36.0-47.0); HEMOGLOBIN 10.4 g/dl (12.0-15.5); MEAN CORPUSCULAR HEMOGLOBIN 32.7 pg (27.0-33.0); MEAN CORPUSCULAR HGB CONC 31.2 g/dl (32.0-36.5); MEAN CORPUSCULAR VOLUME 104.7 fl (80.0-96.0); PLATELET COUNT, AUTOMATED 270 10^3/uL (150-450); RED BLOOD COUNT 3.18 10^6/uL (4.00-5.40); WHITE BLOOD COUNT 6.2 10^3/uL (4.0-10.0)
[2019-04-03 08:11] LABS: CALCIUM LEVEL 9.4 MG/DL (8.8-10.2); CREATININE FOR GFR 1.36 MG/DL (0.55-1.30); GLOMERULAR FILTRATION RATE 40.5 (>39); POTASSIUM SERUM 5.9 MEQ/L (3.5-5.1)
[2019-04-03] MEDS: HumaLOG INSULIN (NovoLOG) PER UNIT SC SCH ×4 (08:39→22:06)
[2019-04-03] MEDS: amLODIPine 5 MG TAB PO SCH (08:40)
[2019-04-03] MEDS: ENOXAPARIN 40 MG/0.4 ML SYRINGE (J1650) SC SCH (08:41)
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
[2019-04-03] MEDS ORDERED: LORazepam 1 MG TAB PO ONE (11:30)
[2019-04-03] MEDS: ACETAMINOPHEN 650 MG SUPP PR PRN (17:19)
[2019-04-03] MEDS ORDERED: LEVEMIR (INSULIN DETEMIR) 1 UNITS/0.01ML SC SCH (21:00)
[2019-04-03] MEDS: DULoxetine 30 MG CAP (CYMBALTA) PO SCH (22:07)
[2019-04-04] VITALS (7 sets, daily range): BP systolic 107–149; BP diastolic 67–102; O2SAT 95
[2019-04-04] MEDS: SLF 3 ML SYR IV SCH ×3 (05:53→20:53)
[2019-04-04] MEDS: METOPROLOL TART 50 MG TAB PO SCH ×3 (05:53→20:52)
[2019-04-04 06:27] LABS: HEMATOCRIT 34.9 % (36.0-47.0); MEAN CORPUSCULAR HEMOGLOBIN 33.6 pg (27.0-33.0); MEAN CORPUSCULAR HGB CONC 31.5 g/dl (32.0-36.5); MEAN CORPUSCULAR VOLUME 106.7 fl (80.0-96.0); PLATELET COUNT, AUTOMATED 259 10^3/uL (150-450); RED BLOOD COUNT 3.27 10^6/uL (4.00-5.40); WHITE BLOOD COUNT 6.6 10^3/uL (4.0-10.0)
[2019-04-04 06:57] LABS: CALCIUM LEVEL 9.6 MG/DL (8.8-10.2); CREATININE FOR GFR 1.25 MG/DL (0.55-1.30); GLOMERULAR FILTRATION RATE 44.6 (>39); POTASSIUM SERUM 3.9 MEQ/L (3.5-5.1)
[2019-04-04] MEDS: ENOXAPARIN 40 MG/0.4 ML SYRINGE (J1650) SC SCH (08:27)
[2019-04-04] MEDS: HumaLOG INSULIN (NovoLOG) PER UNIT SC SCH ×4 (08:27→20:45)
[2019-04-04] MEDS: amLODIPine 5 MG TAB PO SCH (08:27)
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
[2019-04-04] MEDS: DULoxetine 30 MG CAP (CYMBALTA) PO SCH (20:52)
[2019-04-04] MEDS: LEVEMIR (INSULIN DETEMIR) 1 UNITS/0.01ML SC SCH (20:53)
[2019-04-05 06:00] VITALS: BP 140/78
[2019-04-05] MEDS: SLF 3 ML SYR IV SCH ×3 (06:04→21:15)
[2019-04-05] MEDS: METOPROLOL TART 50 MG TAB PO SCH ×3 (06:04→21:22)
[2019-04-05 06:39] LABS: HEMOGLOBIN 11.8 g/dl (12.0-15.5); MEAN CORPUSCULAR HEMOGLOBIN 33.2 pg (27.0-33.0); MEAN CORPUSCULAR HGB CONC 31.9 g/dl (32.0-36.5); MEAN CORPUSCULAR VOLUME 104.2 fl (80.0-96.0); PLATELET COUNT, AUTOMATED 288 10^3/uL (150-450); RED BLOOD COUNT 3.55 10^6/uL (4.00-5.40); WHITE BLOOD COUNT 8.4 10^3/uL (4.0-10.0)
[2019-04-05 06:54] LABS: CALCIUM LEVEL 9.5 MG/DL (8.8-10.2); CREATININE FOR GFR 1.53 MG/DL (0.55-1.30); GLOMERULAR FILTRATION RATE 35.3 (>39); POTASSIUM SERUM 4.1 MEQ/L (3.5-5.1)
[2019-04-05] MEDS: ENOXAPARIN 40 MG/0.4 ML SYRINGE (J1650) SC SCH (08:57)
[2019-04-05] MEDS: HumaLOG INSULIN (NovoLOG) PER UNIT SC SCH ×4 (08:57→20:56)
[2019-04-05] MEDS: amLODIPine 5 MG TAB PO SCH (08:58)
[2019-04-05 10:00] VITALS: BP 142/80
[2019-04-05] MEDS: ACETAMINOPHEN 650 MG SUPP PR PRN ×2 (11:10→17:34)
[2019-04-05] MEDS: NS 1,000 ML IV SCH ×2 (11:11→20:15)
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
[2019-04-05 14:00] VITALS: BP 128/65
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
[2019-04-05 18:00] VITALS: BP 133/88
[2019-04-05] MEDS: LEVEMIR (INSULIN DETEMIR) 1 UNITS/0.01ML SC SCH (21:21)
[2019-04-05 22:00] VITALS: BP 147/87
[2019-04-05 23:33] VITALS: O2SAT 94
[2019-04-06] VITALS (8 sets, daily range): BP systolic 122–152; BP diastolic 65–94; O2SAT 94–98
[2019-04-06] MEDS: METOPROLOL TART 50 MG TAB PO SCH ×3 (05:55→20:31)
[2019-04-06] MEDS: SLF 3 ML SYR IV SCH ×3 (05:56→20:31)
[2019-04-06 06:19] LABS: HEMATOCRIT 33.7 % (36.0-47.0); HEMOGLOBIN 10.6 g/dl (12.0-15.5); MEAN CORPUSCULAR HEMOGLOBIN 32.8 pg (27.0-33.0); MEAN CORPUSCULAR HGB CONC 31.5 g/dl (32.0-36.5); MEAN CORPUSCULAR VOLUME 104.3 fl (80.0-96.0); PLATELET COUNT, AUTOMATED 195 10^3/uL (150-450); RED BLOOD COUNT 3.23 10^6/uL (4.00-5.40); WHITE BLOOD COUNT 7.1 10^3/uL (4.0-10.0)
[2019-04-06 06:43] LABS: CALCIUM LEVEL 8.7 MG/DL (8.8-10.2); CREATININE FOR GFR 1.26 MG/DL (0.55-1.30); GLOMERULAR FILTRATION RATE 44.2 (>39); POTASSIUM SERUM 3.6 MEQ/L (3.5-5.1)
[2019-04-06] MEDS: HumaLOG INSULIN (NovoLOG) PER UNIT SC SCH ×4 (07:31→20:23)
[2019-04-06] MEDS: amLODIPine 5 MG TAB PO SCH (08:10)
[2019-04-06] MEDS: ENOXAPARIN 40 MG/0.4 ML SYRINGE (J1650) SC SCH (08:11)
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
[2019-04-06] MEDS: LEVEMIR (INSULIN DETEMIR) 1 UNITS/0.01ML SC SCH (20:30)
[2019-04-07] VITALS (9 sets, daily range): BP systolic 121–163; BP diastolic 67–91; O2SAT 94–97
[2019-04-07] MEDS: METOPROLOL TART 50 MG TAB PO SCH ×3 (05:39→22:19)
[2019-04-07] MEDS: SLF 3 ML SYR IV SCH ×3 (05:39→22:00)
[2019-04-07 06:30] LABS: HEMATOCRIT 36.5 % (36.0-47.0); HEMOGLOBIN 11.3 g/dl (12.0-15.5); MEAN CORPUSCULAR HEMOGLOBIN 32.8 pg (27.0-33.0); MEAN CORPUSCULAR VOLUME 106.1 fl (80.0-96.0); PLATELET COUNT, AUTOMATED 221 10^3/uL (150-450); RED BLOOD COUNT 3.44 10^6/uL (4.00-5.40); WHITE BLOOD COUNT 7.1 10^3/uL (4.0-10.0)
[2019-04-07 06:35] LABS: CALCIUM LEVEL 9.1 MG/DL (8.8-10.2); CREATININE FOR GFR 1.13 MG/DL (0.55-1.30); GLOMERULAR FILTRATION RATE 50.1 (>39); POTASSIUM SERUM 3.7 MEQ/L (3.5-5.1)
[2019-04-07] MEDS: HumaLOG INSULIN (NovoLOG) PER UNIT SC SCH ×4 (08:36→22:20)
[2019-04-07] MEDS: ENOXAPARIN 40 MG/0.4 ML SYRINGE (J1650) SC SCH (08:37)
[2019-04-07] MEDS: amLODIPine 5 MG TAB PO SCH (08:37)
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
--- NOTE | 2019-04-07 13:32 | REP ---
Clinical: Altered mental status . Comparison: 03/26/2019 Findings: Age-related atrophy and microvascular ischemic changes are appreciated. The ventricles and sulci are symmetric. Graves-white differentiation is maintained. There is no evidence for acute intracranial hemorrhage, mass/mass effect, pathology or infarction. No extra-axial fluid collection. Calvarium is intact. Paranasal sinuses and mastoid air cells are clear. Impression: Age related atrophy and microvascular ischemic changes. No acute intracranial hemorrhage, infarction, or mass/mass effect. Electronically Signed by Holden Mtz MD 04/07/2019 01:23 P
[2019-04-07] MEDS: LEVEMIR (INSULIN DETEMIR) 1 UNITS/0.01ML SC SCH (22:19)
[2019-04-08] VITALS (7 sets, daily range): BP systolic 125–148; BP diastolic 64–88
[2019-04-08] MEDS: SLF 3 ML SYR IV SCH ×4 (06:00→21:32)
[2019-04-08 06:02] LABS: MEAN CORPUSCULAR HEMOGLOBIN 33.6 pg (27.0-33.0); MEAN CORPUSCULAR HGB CONC 32.4 g/dl (32.0-36.5); PLATELET COUNT, AUTOMATED 238 10^3/uL (150-450); RED BLOOD COUNT 3.27 10^6/uL (4.00-5.40); WHITE BLOOD COUNT 6.1 10^3/uL (4.0-10.0)
[2019-04-08] MEDS: METOPROLOL TART 50 MG TAB PO SCH ×3 (06:21→21:15)
[2019-04-08 06:25] LABS: CALCIUM LEVEL 8.6 MG/DL (8.8-10.2); CREATININE FOR GFR 1.11 MG/DL (0.55-1.30); GLOMERULAR FILTRATION RATE 51.2 (>39); POTASSIUM SERUM 3.4 MEQ/L (3.5-5.1)
[2019-04-08] MEDS: HumaLOG INSULIN (NovoLOG) PER UNIT SC SCH ×4 (08:04→21:00)
[2019-04-08] MEDS: ENOXAPARIN 40 MG/0.4 ML SYRINGE (J1650) SC SCH (08:04)
[2019-04-08] MEDS: amLODIPine 5 MG TAB PO SCH (08:05)
[2019-04-08 17:08] LABS: CLOSTRIDIUM DIFFICILE PCR NEGATIVE (NEGATIVE)
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
[2019-04-08] MEDS: LEVEMIR (INSULIN DETEMIR) 1 UNITS/0.01ML SC SCH (21:16)
[2019-04-09 02:00] VITALS: BP 134/85
[2019-04-09 05:51] LABS: HEMATOCRIT 39.4 % (36.0-47.0); HEMOGLOBIN 12.2 g/dl (12.0-15.5); MEAN CORPUSCULAR HEMOGLOBIN 32.9 pg (27.0-33.0); MEAN CORPUSCULAR VOLUME 106.2 fl (80.0-96.0); PLATELET COUNT, AUTOMATED 240 10^3/uL (150-450); RED BLOOD COUNT 3.71 10^6/uL (4.00-5.40); WHITE BLOOD COUNT 7.1 10^3/uL (4.0-10.0)
[2019-04-09 06:00] VITALS: BP 134/77
[2019-04-09] MEDS: METOPROLOL TART 50 MG TAB PO SCH ×3 (06:14→22:32)
[2019-04-09 06:17] LABS: CALCIUM LEVEL 9.3 MG/DL (8.8-10.2); CREATININE FOR GFR 1.09 MG/DL (0.55-1.30); GLOMERULAR FILTRATION RATE 52.2 (>39); POTASSIUM SERUM 3.5 MEQ/L (3.5-5.1)
[2019-04-09] MEDS: ENOXAPARIN 40 MG/0.4 ML SYRINGE (J1650) SC SCH (08:20)
[2019-04-09] MEDS: HumaLOG INSULIN (NovoLOG) PER UNIT SC SCH ×4 (08:20→22:41)
[2019-04-09] MEDS: amLODIPine 5 MG TAB PO SCH (08:22)
[2019-04-09] MEDS ORDERED: POTASSIUM CHLORIDE 10 MEQ SR TABLET PO ONE (09:00)
[2019-04-09 10:00] VITALS: BP 145/75
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
[2019-04-09 14:00] VITALS: BP 127/71
[2019-04-09 18:00] VITALS: BP 139/73
[2019-04-09 22:00] VITALS: BP 135/66
[2019-04-09] MEDS: LEVEMIR (INSULIN DETEMIR) 1 UNITS/0.01ML SC SCH (22:32)
[2019-04-10 02:00] VITALS: BP 144/97
[2019-04-10] MEDS: METOPROLOL TART 50 MG TAB PO SCH ×3 (05:36→21:03)
[2019-04-10 06:00] VITALS: BP 142/86
[2019-04-10] MEDS: HumaLOG INSULIN (NovoLOG) PER UNIT SC SCH ×4 (08:18→20:56)
[2019-04-10] MEDS: amLODIPine 5 MG TAB PO SCH (08:18)
[2019-04-10] MEDS: ENOXAPARIN 40 MG/0.4 ML SYRINGE (J1650) SC SCH (08:18)
[2019-04-10 10:00] VITALS: BP 147/86
[2019-04-10 10:32] VITALS: O2SAT 96
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
[2019-04-10] MEDS: QUEtiapine FUMARATE 25 MG TAB PO SCH ×2 (13:17→21:03)
[2019-04-10 14:00] VITALS: BP 132/77
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
[2019-04-10] MEDS: LEVEMIR (INSULIN DETEMIR) 1 UNITS/0.01ML SC SCH (21:04)
[2019-04-10 22:00] VITALS: BP 115/71
[2019-04-11] MEDS: METOPROLOL TART 50 MG TAB PO SCH ×3 (05:33→21:28)
[2019-04-11 06:00] VITALS: BP 113/71
[2019-04-11] MEDS: ENOXAPARIN 40 MG/0.4 ML SYRINGE (J1650) SC SCH (08:20)
[2019-04-11] MEDS: HumaLOG INSULIN (NovoLOG) PER UNIT SC SCH ×4 (08:20→21:28)
[2019-04-11] MEDS: amLODIPine 5 MG TAB PO SCH (08:21)
[2019-04-11] MEDS: QUEtiapine FUMARATE 25 MG TAB PO SCH ×2 (08:21→21:27)
[2019-04-11] MEDS ORDERED: QUEtiapine FUMARATE 25 MG TAB PO ONE (11:00)
[2019-04-11 14:00] VITALS: BP 121/72
[2019-04-11 17:05] VITALS: O2SAT 96
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
[2019-04-11] MEDS: LEVEMIR (INSULIN DETEMIR) 1 UNITS/0.01ML SC SCH (21:29)
[2019-04-11 22:00] VITALS: BP 115/73
[2019-04-12 06:00] VITALS: BP 119/72
[2019-04-12] MEDS: METOPROLOL TART 50 MG TAB PO SCH ×3 (06:24→22:05)
[2019-04-12] MEDS: diphenhydrAMINE CREAM 30GM TOP PRN (06:27)
[2019-04-12] MEDS: QUEtiapine FUMARATE 25 MG TAB PO SCH ×2 (09:05→21:57)
[2019-04-12] MEDS: HumaLOG INSULIN (NovoLOG) PER UNIT SC SCH ×4 (09:05→21:00)
[2019-04-12] MEDS: ENOXAPARIN 40 MG/0.4 ML SYRINGE (J1650) SC SCH (09:05)
[2019-04-12] MEDS: amLODIPine 5 MG TAB PO SCH (09:06)
[2019-04-12 14:00] VITALS: BP 142/67
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
[2019-04-12] MEDS: ACETAMINOPHEN TAB 650MG DOSE (2X325MG) PO PRN (15:27)
[2019-04-12] MEDS: LEVEMIR (INSULIN DETEMIR) 1 UNITS/0.01ML SC SCH (21:57)
[2019-04-12 22:00] VITALS: BP 108/74
[2019-04-13 06:00] VITALS: BP 119/72
[2019-04-13] MEDS: METOPROLOL TART 50 MG TAB PO SCH ×3 (06:06→22:51)
[2019-04-13] MEDS: amLODIPine 5 MG TAB PO SCH (09:02)
[2019-04-13] MEDS: QUEtiapine FUMARATE 25 MG TAB PO SCH ×2 (09:02→22:51)
[2019-04-13] MEDS: ENOXAPARIN 40 MG/0.4 ML SYRINGE (J1650) SC SCH (09:03)
[2019-04-13] MEDS: HumaLOG INSULIN (NovoLOG) PER UNIT SC SCH ×4 (09:06→21:00)
[2019-04-13 10:05] LABS: CALCIUM LEVEL 9.2 MG/DL (8.8-10.2); CREATININE FOR GFR 1.26 MG/DL (0.55-1.30); GLOMERULAR FILTRATION RATE 44.2 (>39); POTASSIUM SERUM 3.8 MEQ/L (3.5-5.1)
[2019-04-13 11:11] LABS: HEMATOCRIT 36.3 % (36.0-47.0); HEMOGLOBIN 11.5 g/dl (12.0-15.5); MEAN CORPUSCULAR HEMOGLOBIN 34.1 pg (27.0-33.0); MEAN CORPUSCULAR HGB CONC 31.7 g/dl (32.0-36.5); MEAN CORPUSCULAR VOLUME 107.7 fl (80.0-96.0); PLATELET COUNT, AUTOMATED 260 10^3/uL (150-450); RED BLOOD COUNT 3.37 10^6/uL (4.00-5.40); WHITE BLOOD COUNT 5.5 10^3/uL (4.0-10.0)
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
[2019-04-13] MEDS: ACETAMINOPHEN TAB 650MG DOSE (2X325MG) PO PRN (13:46)
[2019-04-13 14:00] VITALS: BP 116/68
[2019-04-13 22:00] VITALS: BP 118/84
[2019-04-13] MEDS: LEVEMIR (INSULIN DETEMIR) 1 UNITS/0.01ML SC SCH (22:51)
[2019-04-14 06:00] VITALS: BP 118/72
[2019-04-14] MEDS: METOPROLOL TART 50 MG TAB PO SCH ×3 (06:22→21:57)
[2019-04-14] MEDS: QUEtiapine FUMARATE 25 MG TAB PO SCH ×2 (08:39→21:57)
[2019-04-14] MEDS: HumaLOG INSULIN (NovoLOG) PER UNIT SC SCH ×4 (08:39→21:00)
[2019-04-14] MEDS: amLODIPine 5 MG TAB PO SCH (08:40)
[2019-04-14] MEDS: ACETAMINOPHEN TAB 650MG DOSE (2X325MG) PO PRN (08:40)
[2019-04-14] MEDS: ENOXAPARIN 40 MG/0.4 ML SYRINGE (J1650) SC SCH (08:41)
[2019-04-14 10:54] LABS: CLOSTRIDIUM DIFFICILE PCR NEGATIVE (NEGATIVE)
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
[2019-04-14 14:00] VITALS: BP 113/69
[2019-04-14] MEDS: NS 1,000 ML IV SCH ×2 (14:07→22:16)
[2019-04-14] MEDS: DIAPER RELIEF PASTE (DESITIN) 60GM TOP SCH (21:58)
[2019-04-14] MEDS: LEVEMIR (INSULIN DETEMIR) 1 UNITS/0.01ML SC SCH (21:58)
[2019-04-14 22:00] VITALS: BP 132/80
[2019-04-15] MEDS: METOPROLOL TART 50 MG TAB PO SCH ×3 (05:53→21:45)
[2019-04-15] MEDS: HumaLOG INSULIN (NovoLOG) PER UNIT SC SCH ×4 (08:55→21:00)
[2019-04-15 11:41] LABS: CALCIUM LEVEL 8.5 MG/DL (8.8-10.2); CREATININE FOR GFR 1.17 MG/DL (0.55-1.30); GLOMERULAR FILTRATION RATE 48.1 (>39); POTASSIUM SERUM 3.9 MEQ/L (3.5-5.1)
[2019-04-15] MEDS ORDERED: LOPERAMIDE 2 MG CAPLET PO PRN (12:15)
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
[2019-04-15] MEDS: amLODIPine 5 MG TAB PO SCH (12:21)
[2019-04-15] MEDS: QUEtiapine FUMARATE 25 MG TAB PO SCH ×2 (12:21→21:45)
[2019-04-15] MEDS: ENOXAPARIN 40 MG/0.4 ML SYRINGE (J1650) SC SCH (12:21)
[2019-04-15] MEDS: DIAPER RELIEF PASTE (DESITIN) 60GM TOP SCH ×2 (12:21→21:45)
[2019-04-15] MEDS: diphenhydrAMINE CREAM 30GM TOP PRN (12:22)
[2019-04-15] MEDS: D5W 1,000 ML IV SCH ×2 (13:38→22:53)
[2019-04-15 14:00] VITALS: BP 126/74
[2019-04-15] MEDS: LEVEMIR (INSULIN DETEMIR) 1 UNITS/0.01ML SC SCH (21:42)
[2019-04-15 22:00] VITALS: BP 146/88
[2019-04-16 06:00] VITALS: BP 155/98
[2019-04-16] MEDS: METOPROLOL TART 50 MG TAB PO SCH ×3 (06:12→21:50)
[2019-04-16 07:30] LABS: HEMATOCRIT 36.7 % (36.0-47.0); HEMOGLOBIN 11.1 g/dl (12.0-15.5); MEAN CORPUSCULAR HEMOGLOBIN 33.5 pg (27.0-33.0); MEAN CORPUSCULAR HGB CONC 30.2 g/dl (32.0-36.5); MEAN CORPUSCULAR VOLUME 110.9 fl (80.0-96.0); PLATELET COUNT, AUTOMATED 193 10^3/uL (150-450); RED BLOOD COUNT 3.31 10^6/uL (4.00-5.40); WHITE BLOOD COUNT 5.1 10^3/uL (4.0-10.0)
[2019-04-16] MEDS: QUEtiapine FUMARATE 25 MG TAB PO SCH ×2 (08:15→21:49)
[2019-04-16] MEDS: ENOXAPARIN 40 MG/0.4 ML SYRINGE (J1650) SC SCH (08:15)
[2019-04-16] MEDS: amLODIPine 5 MG TAB PO SCH (08:15)
[2019-04-16] MEDS: DIAPER RELIEF PASTE (DESITIN) 60GM TOP SCH ×2 (08:16→21:50)
[2019-04-16] MEDS: HumaLOG INSULIN (NovoLOG) PER UNIT SC SCH ×4 (08:18→21:00)
[2019-04-16 09:16] LABS: CALCIUM LEVEL 8.4 MG/DL (8.8-10.2); CREATININE FOR GFR 1.13 MG/DL (0.55-1.30); GLOMERULAR FILTRATION RATE 50.1 (>39); POTASSIUM SERUM 3.8 MEQ/L (3.5-5.1)
[2019-04-16] MEDS ORDERED: D5W 1,000 ML IV ONE (11:00)
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
[2019-04-16] MEDS: ACETAMINOPHEN TAB 650MG DOSE (2X325MG) PO PRN (18:01)
[2019-04-16] MEDS: LEVEMIR (INSULIN DETEMIR) 1 UNITS/0.01ML SC SCH (21:51)
[2019-04-16 22:00] VITALS: BP 132/65
[2019-04-17 06:00] VITALS: BP 146/73
[2019-04-17] MEDS: METOPROLOL TART 50 MG TAB PO SCH ×3 (06:01→21:26)
[2019-04-17 06:06] LABS: HEMATOCRIT 37.2 % (36.0-47.0); HEMOGLOBIN 11.1 g/dl (12.0-15.5); MEAN CORPUSCULAR HEMOGLOBIN 33.2 pg (27.0-33.0); MEAN CORPUSCULAR HGB CONC 29.8 g/dl (32.0-36.5); MEAN CORPUSCULAR VOLUME 111.4 fl (80.0-96.0); PLATELET COUNT, AUTOMATED 224 10^3/uL (150-450); RED BLOOD COUNT 3.34 10^6/uL (4.00-5.40); WHITE BLOOD COUNT 4.3 10^3/uL (4.0-10.0)
[2019-04-17 06:33] LABS: CALCIUM LEVEL 8.8 MG/DL (8.8-10.2); CREATININE FOR GFR 1.03 MG/DL (0.55-1.30); GLOMERULAR FILTRATION RATE 55.8 (>39); POTASSIUM SERUM 4.2 MEQ/L (3.5-5.1)
[2019-04-17] MEDS: HumaLOG INSULIN (NovoLOG) PER UNIT SC SCH ×4 (07:27→21:00)
[2019-04-17] MEDS: QUEtiapine FUMARATE 25 MG TAB PO SCH ×2 (09:05→21:26)
[2019-04-17] MEDS: DIAPER RELIEF PASTE (DESITIN) 60GM TOP SCH ×2 (09:06→21:27)
[2019-04-17] MEDS: amLODIPine 5 MG TAB PO SCH (09:06)
[2019-04-17] MEDS: ENOXAPARIN 40 MG/0.4 ML SYRINGE (J1650) SC SCH (09:06)
[2019-04-17] MEDS: ACETAMINOPHEN TAB 650MG DOSE (2X325MG) PO PRN (09:07)
[2019-04-17 14:00] VITALS: BP 116/69
[2019-04-17] MEDS ORDERED: LORazepam 2 MG/ML VIAL (J2060) IM PRN (15:00)
[2019-04-17] MEDS ORDERED: LIDOCAINE 1% MDV 20ML VIAL As Ordered ONE (15:56)
--- NOTE | 2019-04-17 17:14 | REP ---
MIDLINE CATHETER INSERTION WITH SITE HEATHER The procedure was performed under the direct supervision of Dr. Graves. The risks and benefits of the procedure were explained and informed consent was obtained by the health care proxy. The right basilic vein was localized using ultrasound guidance. The skin was prepped and draped in a sterile fashion. 1% lidocaine was used as a local anesthetic. Using ultrasound guidance the basilic vein was cannulated and a 0.018 guidewire was inserted. The needle was removed and a 4.5 [place] dilator and peel-away sheath was inserted over the guide wire. A 4.5 [place] single-lumen catheter was cut to length of 14 cm. The dilator was removed and the catheter was inserted over the guide wire. The peel-away sheath was removed and the catheter was flushed with heparinized saline as per Hospital protocol. The catheter was affixed to the skin and a sterile dressing was applied. The patient tolerated the procedure well and there were no immediate complications. After the appropriate amount of monitored convalescence the patient was discharged from the department. Electronically Signed by GUNNER Dunn 04/17/2019 04:49 P Electronically Signed by Dada Graves MD 04/17/2019 05:06 P
[2019-04-17] MEDS ORDERED: SODIUM CHLORIDE 0.9% INJ 10 ML SYR IV PRN (17:15)
[2019-04-17] MEDS: SODIUM CHLORIDE 0.9% INJ 10 ML SYR IV SCH (17:50)
[2019-04-17] MEDS: D5W/0.2% SODIUM CHLORIDE 1,000 ML IV SCH (17:50)
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
[2019-04-17] MEDS: LEVEMIR (INSULIN DETEMIR) 1 UNITS/0.01ML SC SCH (21:25)
[2019-04-17 22:00] VITALS: BP 136/88
[2019-04-17 23:18] LABS: CALCIUM LEVEL 8.4 MG/DL (8.8-10.2); CREATININE FOR GFR 1.01 MG/DL (0.55-1.30); POTASSIUM SERUM 3.7 MEQ/L (3.5-5.1)
[2019-04-18] MEDS: METOPROLOL TART 50 MG TAB PO SCH ×3 (05:19→20:50)
[2019-04-18] MEDS: SODIUM CHLORIDE 0.9% INJ 10 ML SYR IV SCH ×2 (05:19→17:42)
[2019-04-18 06:00] VITALS: BP 129/71
[2019-04-18] MEDS: D5W/0.2% SODIUM CHLORIDE 1,000 ML IV SCH ×2 (06:14→19:31)
[2019-04-18 06:21] LABS: HEMATOCRIT 37.6 % (36.0-47.0); HEMOGLOBIN 11.5 g/dl (12.0-15.5); MEAN CORPUSCULAR HEMOGLOBIN 33.7 pg (27.0-33.0); MEAN CORPUSCULAR HGB CONC 30.6 g/dl (32.0-36.5); MEAN CORPUSCULAR VOLUME 110.3 fl (80.0-96.0); PLATELET COUNT, AUTOMATED 203 10^3/uL (150-450); RED BLOOD COUNT 3.41 10^6/uL (4.00-5.40); WHITE BLOOD COUNT 4.6 10^3/uL (4.0-10.0)
[2019-04-18 06:44] LABS: CALCIUM LEVEL 8.3 MG/DL (8.8-10.2); CREATININE FOR GFR 1.05 MG/DL (0.55-1.30); GLOMERULAR FILTRATION RATE 54.5 (>39); POTASSIUM SERUM 3.6 MEQ/L (3.5-5.1)
[2019-04-18] MEDS: ENOXAPARIN 40 MG/0.4 ML SYRINGE (J1650) SC SCH (08:50)
[2019-04-18] MEDS: HumaLOG INSULIN (NovoLOG) PER UNIT SC SCH ×4 (08:50→21:00)
[2019-04-18] MEDS: QUEtiapine FUMARATE 25 MG TAB PO SCH ×2 (08:52→20:48)
[2019-04-18] MEDS: amLODIPine 5 MG TAB PO SCH (08:52)
[2019-04-18] MEDS: DIAPER RELIEF PASTE (DESITIN) 60GM TOP SCH ×2 (08:53→20:50)
[2019-04-18] MEDS: ACETAMINOPHEN TAB 650MG DOSE (2X325MG) PO PRN (11:33)
[2019-04-18] MEDS: traMADol 50 MG TAB PO SCH ×2 (13:49→20:49)
[2019-04-18 14:00] VITALS: BP 121/73
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
[2019-04-18] MEDS: LEVEMIR (INSULIN DETEMIR) 1 UNITS/0.01ML SC SCH (21:00)
[2019-04-18 22:00] VITALS: BP 130/59
[2019-04-19] MEDS: SODIUM CHLORIDE 0.9% INJ 10 ML SYR IV SCH ×2 (05:22→17:54)
[2019-04-19] MEDS: METOPROLOL TART 50 MG TAB PO SCH ×3 (05:26→21:08)
[2019-04-19 06:00] VITALS: BP 125/72
[2019-04-19 06:04] LABS: HEMATOCRIT 36.1 % (36.0-47.0); MEAN CORPUSCULAR HEMOGLOBIN 33.6 pg (27.0-33.0); MEAN CORPUSCULAR HGB CONC 30.5 g/dl (32.0-36.5); MEAN CORPUSCULAR VOLUME 110.4 fl (80.0-96.0); PLATELET COUNT, AUTOMATED 182 10^3/uL (150-450); RED BLOOD COUNT 3.27 10^6/uL (4.00-5.40); WHITE BLOOD COUNT 4.1 10^3/uL (4.0-10.0)
[2019-04-19] MEDS: NYSTATIN 100,000 UNITS/GM TOPICAL PWD 15 GM TOP PRN ×2 (06:07→22:21)
[2019-04-19 06:23] LABS: BLOOD UREA NITROGEN 7 MG/DL (7-18); CALCIUM LEVEL 8.4 MG/DL (8.8-10.2); CARBON DIOXIDE LEVEL 23 MEQ/L (21-32); CHLORIDE LEVEL 114 MEQ/L (98-107); CREATININE FOR GFR 0.95 MG/DL (0.55-1.30); GLOMERULAR FILTRATION RATE > 60.0 (>39); GLUCOSE, FASTING 248 MG/DL (70-100); POTASSIUM SERUM 3.8 MEQ/L (3.5-5.1); SODIUM LEVEL 142 MEQ/L (136-145)
[2019-04-19] MEDS: HumaLOG INSULIN (NovoLOG) PER UNIT SC SCH ×4 (08:33→21:00)
[2019-04-19] MEDS: ENOXAPARIN 40 MG/0.4 ML SYRINGE (J1650) SC SCH (08:34)
[2019-04-19] MEDS: diphenhydrAMINE CREAM 30GM TOP PRN (08:35)
[2019-04-19] MEDS: traMADol 50 MG TAB PO SCH ×2 (08:36→21:00)
[2019-04-19] MEDS: QUEtiapine FUMARATE 25 MG TAB PO SCH ×2 (08:36→21:08)
[2019-04-19] MEDS: amLODIPine 5 MG TAB PO SCH (08:37)
[2019-04-19] MEDS: DIAPER RELIEF PASTE (DESITIN) 60GM TOP SCH ×2 (09:05→21:13)
[2019-04-19] MEDS: D5W/0.2% SODIUM CHLORIDE 1,000 ML IV SCH ×2 (09:18→22:21)
[2019-04-19 14:00] VITALS: BP 126/70
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
[2019-04-19] MEDS: LEVEMIR (INSULIN DETEMIR) 1 UNITS/0.01ML SC SCH (21:07)
[2019-04-19 22:00] VITALS: BP 142/67
[2019-04-20] MEDS: METOPROLOL TART 50 MG TAB PO SCH ×3 (05:33→21:51)
[2019-04-20] MEDS: SODIUM CHLORIDE 0.9% INJ 10 ML SYR IV SCH ×2 (05:34→17:31)
[2019-04-20 06:00] VITALS: BP 130/59
[2019-04-20 07:09] LABS: HEMATOCRIT 34.8 % (36.0-47.0); MEAN CORPUSCULAR HEMOGLOBIN 33.7 pg (27.0-33.0); MEAN CORPUSCULAR HGB CONC 31.6 g/dl (32.0-36.5); MEAN CORPUSCULAR VOLUME 106.7 fl (80.0-96.0); PLATELET COUNT, AUTOMATED 193 10^3/uL (150-450); RED BLOOD COUNT 3.26 10^6/uL (4.00-5.40); WHITE BLOOD COUNT 3.4 10^3/uL (4.0-10.0)
[2019-04-20 07:40] LABS: BLOOD UREA NITROGEN 5 MG/DL (7-18); CALCIUM LEVEL 8.6 MG/DL (8.8-10.2); CARBON DIOXIDE LEVEL 27 MEQ/L (21-32); CHLORIDE LEVEL 109 MEQ/L (98-107); CREATININE FOR GFR 0.84 MG/DL (0.55-1.30); GLOMERULAR FILTRATION RATE > 60.0 (>39); GLUCOSE, FASTING 139 MG/DL (70-100); POTASSIUM SERUM 3.3 MEQ/L (3.5-5.1); SODIUM LEVEL 144 MEQ/L (136-145)
[2019-04-20] MEDS: QUEtiapine FUMARATE 25 MG TAB PO SCH ×2 (08:23→21:50)
[2019-04-20] MEDS: traMADol 50 MG TAB PO SCH ×2 (08:26→21:50)
[2019-04-20] MEDS: amLODIPine 5 MG TAB PO SCH (08:27)
[2019-04-20] MEDS: ENOXAPARIN 40 MG/0.4 ML SYRINGE (J1650) SC SCH (08:27)
[2019-04-20] MEDS: DIAPER RELIEF PASTE (DESITIN) 60GM TOP SCH ×2 (08:28→21:53)
[2019-04-20] MEDS: HumaLOG INSULIN (NovoLOG) PER UNIT SC SCH ×4 (08:28→21:00)
[2019-04-20] MEDS ORDERED: POTASSIUM CHLORIDE 10 MEQ SR TABLET PO ONE (09:00)
[2019-04-20] MEDS: D5W/0.2% SODIUM CHLORIDE 1,000 ML IV SCH (12:07)
[2019-04-20 14:00] VITALS: BP 140/64
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
[2019-04-20] MEDS: LEVEMIR (INSULIN DETEMIR) 1 UNITS/0.01ML SC SCH (21:51)
[2019-04-20] MEDS: diphenhydrAMINE CREAM 30GM TOP PRN ×2 (21:52→21:53)
[2019-04-20 22:00] VITALS: BP 124/61
[2019-04-21] MEDS: D5W/0.2% SODIUM CHLORIDE 1,000 ML IV SCH ×3 (01:38→22:29)
[2019-04-21 06:00] VITALS: BP 144/69
[2019-04-21] MEDS: METOPROLOL TART 50 MG TAB PO SCH ×3 (06:34→22:28)
[2019-04-21] MEDS: SODIUM CHLORIDE 0.9% INJ 10 ML SYR IV SCH ×2 (06:35→17:17)
[2019-04-21 06:39] LABS: BLOOD UREA NITROGEN 4 MG/DL (7-18); CALCIUM LEVEL 8.2 MG/DL (8.8-10.2); CARBON DIOXIDE LEVEL 23 MEQ/L (21-32); CHLORIDE LEVEL 114 MEQ/L (98-107); GLOMERULAR FILTRATION RATE > 60.0 (>39); GLUCOSE, FASTING 130 MG/DL (70-100); POTASSIUM SERUM 3.5 MEQ/L (3.5-5.1); SODIUM LEVEL 144 MEQ/L (136-145)
[2019-04-21] MEDS: HumaLOG INSULIN (NovoLOG) PER UNIT SC SCH ×4 (07:53→21:00)
[2019-04-21] MEDS: ENOXAPARIN 40 MG/0.4 ML SYRINGE (J1650) SC SCH (07:57)
[2019-04-21] MEDS: amLODIPine 5 MG TAB PO SCH (07:58)
[2019-04-21] MEDS: traMADol 50 MG TAB PO SCH ×2 (07:58→22:27)
[2019-04-21] MEDS: QUEtiapine FUMARATE 25 MG TAB PO SCH ×2 (07:58→22:26)
[2019-04-21] MEDS: DIAPER RELIEF PASTE (DESITIN) 60GM TOP SCH ×2 (07:59→22:28)
[2019-04-21] MEDS: NYSTATIN 100,000 UNITS/GM TOPICAL PWD 15 GM TOP PRN (12:47)
[2019-04-21 14:00] VITALS: BP 147/69
[2019-04-21] MEDS ORDERED: diphenhydrAMINE 25 MG CAP PO PRN (15:15)
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
[2019-04-21 22:00] VITALS: BP 144/70
[2019-04-21] MEDS ORDERED: HALOPERIDOL 5 MG/ML VIAL (J1630) IM PRN (22:00)
[2019-04-21] MEDS ORDERED: HALOPERIDOL 5 MG/ML VIAL (J1630) IV ONE (22:00)
[2019-04-21] MEDS: LEVEMIR (INSULIN DETEMIR) 1 UNITS/0.01ML SC SCH (22:25)
[2019-04-22] MEDS: METOPROLOL TART 50 MG TAB PO SCH ×3 (05:39→21:48)
[2019-04-22] MEDS: HALOPERIDOL 5 MG/ML VIAL (J1630) IV PRN ×2 (05:39→15:11)
[2019-04-22 06:00] VITALS: BP 137/106
[2019-04-22] MEDS: SODIUM CHLORIDE 0.9% INJ 10 ML SYR IV SCH ×2 (06:00→17:08)
[2019-04-22 06:52] LABS: BLOOD UREA NITROGEN 3 MG/DL (7-18); CALCIUM LEVEL 8.7 MG/DL (8.8-10.2); CARBON DIOXIDE LEVEL 26 MEQ/L (21-32); CHLORIDE LEVEL 108 MEQ/L (98-107); CREATININE FOR GFR 0.93 MG/DL (0.55-1.30); GLOMERULAR FILTRATION RATE > 60.0 (>39); GLUCOSE, FASTING 207 MG/DL (70-100); POTASSIUM SERUM 3.6 MEQ/L (3.5-5.1); SODIUM LEVEL 143 MEQ/L (136-145)
[2019-04-22] MEDS: HumaLOG INSULIN (NovoLOG) PER UNIT SC SCH ×4 (08:02→21:00)
[2019-04-22] MEDS: traMADol 50 MG TAB PO SCH ×2 (08:02→21:48)
[2019-04-22] MEDS: QUEtiapine FUMARATE 25 MG TAB PO SCH ×2 (08:03→21:49)
[2019-04-22] MEDS: ENOXAPARIN 40 MG/0.4 ML SYRINGE (J1650) SC SCH (08:03)
[2019-04-22] MEDS: amLODIPine 5 MG TAB PO SCH (08:05)
[2019-04-22] MEDS: DIAPER RELIEF PASTE (DESITIN) 60GM TOP SCH ×2 (08:06→21:49)
[2019-04-22] MEDS: D5W/0.2% SODIUM CHLORIDE 1,000 ML IV SCH (12:19)
[2019-04-22 14:00] VITALS: BP 126/89
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
[2019-04-22] MEDS: LEVEMIR (INSULIN DETEMIR) 1 UNITS/0.01ML SC SCH (21:49)
[2019-04-22 22:00] VITALS: BP 128/73
[2019-04-23] MEDS: D5W/0.2% SODIUM CHLORIDE 1,000 ML IV SCH (00:29)
[2019-04-23] MEDS: SODIUM CHLORIDE 0.9% INJ 10 ML SYR IV SCH ×2 (05:36→16:54)
[2019-04-23 06:00] VITALS: BP 125/70
[2019-04-23] MEDS: METOPROLOL TART 50 MG TAB PO SCH ×3 (06:37→22:14)
[2019-04-23 06:57] LABS: BLOOD UREA NITROGEN 3 MG/DL (7-18); CALCIUM LEVEL 8.3 MG/DL (8.8-10.2); CARBON DIOXIDE LEVEL 24 MEQ/L (21-32); CHLORIDE LEVEL 111 MEQ/L (98-107); CREATININE FOR GFR 0.84 MG/DL (0.55-1.30); GLOMERULAR FILTRATION RATE > 60.0 (>39); GLUCOSE, FASTING 100 MG/DL (70-100); POTASSIUM SERUM 3.3 MEQ/L (3.5-5.1); SODIUM LEVEL 144 MEQ/L (136-145)
[2019-04-23] MEDS: HumaLOG INSULIN (NovoLOG) PER UNIT SC SCH ×4 (07:30→21:00)
[2019-04-23] MEDS: QUEtiapine FUMARATE 25 MG TAB PO SCH ×2 (08:24→22:10)
[2019-04-23] MEDS: traMADol 50 MG TAB PO SCH ×2 (08:25→22:10)
[2019-04-23] MEDS: ENOXAPARIN 40 MG/0.4 ML SYRINGE (J1650) SC SCH (08:25)
[2019-04-23] MEDS: amLODIPine 5 MG TAB PO SCH (08:25)
[2019-04-23] MEDS: DIAPER RELIEF PASTE (DESITIN) 60GM TOP SCH ×2 (08:26→22:11)
[2019-04-23] MEDS ORDERED: POTASSIUM CHLORIDE 10 MEQ SR TABLET PO ONE (10:00)
[2019-04-23 14:00] VITALS: BP 115/66
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
[2019-04-23 22:00] VITALS: BP 142/71
[2019-04-23] MEDS: LEVEMIR (INSULIN DETEMIR) 1 UNITS/0.01ML SC SCH (22:09)
[2019-04-24 06:00] VITALS: BP 139/78
[2019-04-24] MEDS: SODIUM CHLORIDE 0.9% INJ 10 ML SYR IV SCH ×2 (06:21→17:38)
[2019-04-24] MEDS: METOPROLOL TART 50 MG TAB PO SCH ×3 (06:22→21:21)
[2019-04-24 06:50] LABS: BLOOD UREA NITROGEN 3 MG/DL (7-18); CALCIUM LEVEL 8.4 MG/DL (8.8-10.2); CARBON DIOXIDE LEVEL 26 MEQ/L (21-32); CHLORIDE LEVEL 109 MEQ/L (98-107); GLOMERULAR FILTRATION RATE > 60.0 (>39); GLUCOSE, FASTING 127 MG/DL (70-100); POTASSIUM SERUM 3.5 MEQ/L (3.5-5.1); SODIUM LEVEL 142 MEQ/L (136-145)
[2019-04-24] MEDS: QUEtiapine FUMARATE 25 MG TAB PO SCH ×2 (08:28→21:21)
[2019-04-24] MEDS: HumaLOG INSULIN (NovoLOG) PER UNIT SC SCH ×4 (08:28→21:00)
[2019-04-24] MEDS: ENOXAPARIN 40 MG/0.4 ML SYRINGE (J1650) SC SCH (08:29)
[2019-04-24] MEDS: DIAPER RELIEF PASTE (DESITIN) 60GM TOP SCH ×2 (08:29→21:22)
[2019-04-24] MEDS: traMADol 50 MG TAB PO SCH ×2 (08:29→21:21)
[2019-04-24] MEDS: amLODIPine 5 MG TAB PO SCH (08:29)
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
[2019-04-24 14:00] VITALS: BP 113/95
[2019-04-24] MEDS: LEVEMIR (INSULIN DETEMIR) 1 UNITS/0.01ML SC SCH (21:00)
[2019-04-24 22:00] VITALS: BP 139/72
[2019-04-25] MEDS: HALOPERIDOL 5 MG/ML VIAL (J1630) IV PRN (03:52)
[2019-04-25] MEDS: METOPROLOL TART 50 MG TAB PO SCH ×3 (05:48→21:36)
[2019-04-25 06:00] VITALS: BP 139/81
[2019-04-25] MEDS: SODIUM CHLORIDE 0.9% INJ 10 ML SYR IV SCH ×2 (07:02→17:52)
[2019-04-25 07:11] LABS: BLOOD UREA NITROGEN 4 MG/DL (7-18); CALCIUM LEVEL 8.8 MG/DL (8.8-10.2); CARBON DIOXIDE LEVEL 26 MEQ/L (21-32); CHLORIDE LEVEL 109 MEQ/L (98-107); CREATININE FOR GFR 0.94 MG/DL (0.55-1.30); GLOMERULAR FILTRATION RATE > 60.0 (>39); GLUCOSE, FASTING 244 MG/DL (70-100); POTASSIUM SERUM 3.8 MEQ/L (3.5-5.1); SODIUM LEVEL 142 MEQ/L (136-145)
[2019-04-25] MEDS: ENOXAPARIN 40 MG/0.4 ML SYRINGE (J1650) SC SCH (08:23)
[2019-04-25] MEDS: QUEtiapine FUMARATE 25 MG TAB PO SCH (08:24)
[2019-04-25] MEDS: traMADol 50 MG TAB PO SCH (08:24)
[2019-04-25] MEDS: amLODIPine 5 MG TAB PO SCH (08:25)
[2019-04-25] MEDS: HumaLOG INSULIN (NovoLOG) PER UNIT SC SCH ×4 (08:25→21:00)
[2019-04-25] MEDS: DIAPER RELIEF PASTE (DESITIN) 60GM TOP SCH ×2 (08:26→21:37)
[2019-04-25 14:00] VITALS: BP 135/84
[2019-04-25] MEDS ORDERED: traMADol 50 MG TAB PO PRN (15:30)
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
[2019-04-25] MEDS: QUEtiapine FUMARATE 100 MG TAB PO SCH (21:35)
[2019-04-25] MEDS: ACETAMINOPHEN 500 MG TAB PO SCH (21:36)
[2019-04-25] MEDS: LEVEMIR (INSULIN DETEMIR) 1 UNITS/0.01ML SC SCH (21:37)
[2019-04-25 22:00] VITALS: BP 146/65
[2019-04-26] MEDS: SODIUM CHLORIDE 0.9% INJ 10 ML SYR IV SCH ×2 (05:56→18:04)
[2019-04-26] MEDS: METOPROLOL TART 50 MG TAB PO SCH ×3 (05:59→22:10)
[2019-04-26 06:00] VITALS: BP 113/73
[2019-04-26 06:54] LABS: HEMATOCRIT 35.5 % (36.0-47.0); HEMOGLOBIN 11.2 g/dl (12.0-15.5); MEAN CORPUSCULAR HEMOGLOBIN 33.7 pg (27.0-33.0); MEAN CORPUSCULAR HGB CONC 31.5 g/dl (32.0-36.5); MEAN CORPUSCULAR VOLUME 106.9 fl (80.0-96.0); PLATELET COUNT, AUTOMATED 228 10^3/uL (150-450); RED BLOOD COUNT 3.32 10^6/uL (4.00-5.40); WHITE BLOOD COUNT 3.7 10^3/uL (4.0-10.0)
[2019-04-26 07:24] LABS: BLOOD UREA NITROGEN 5 MG/DL (7-18); CALCIUM LEVEL 9.4 MG/DL (8.8-10.2); CARBON DIOXIDE LEVEL 28 MEQ/L (21-32); CHLORIDE LEVEL 112 MEQ/L (98-107); CREATININE FOR GFR 0.92 MG/DL (0.55-1.30); GLOMERULAR FILTRATION RATE > 60.0 (>39); GLUCOSE, FASTING 51 MG/DL (70-100); POTASSIUM SERUM 3.4 MEQ/L (3.5-5.1); SODIUM LEVEL 147 MEQ/L (136-145)
[2019-04-26] MEDS: HumaLOG INSULIN (NovoLOG) PER UNIT SC SCH ×4 (07:30→21:00)
[2019-04-26] MEDS: ENOXAPARIN 40 MG/0.4 ML SYRINGE (J1650) SC SCH (09:13)
[2019-04-26] MEDS: ACETAMINOPHEN 500 MG TAB PO SCH ×2 (09:13→22:06)
[2019-04-26] MEDS: QUEtiapine FUMARATE 100 MG TAB PO SCH (09:13)
[2019-04-26] MEDS: amLODIPine 5 MG TAB PO SCH (09:19)
[2019-04-26] MEDS: DIAPER RELIEF PASTE (DESITIN) 60GM TOP SCH ×2 (09:22→22:10)
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
[2019-04-26 14:00] VITALS: BP 126/55
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
[2019-04-26 22:00] VITALS: BP 119/74
[2019-04-26] MEDS: QUEtiapine FUMARATE 200 MG TAB PO SCH (22:14)
[2019-04-26] MEDS: LEVEMIR (INSULIN DETEMIR) 1 UNITS/0.01ML SC SCH (22:22)
[2019-04-27] MEDS: SODIUM CHLORIDE 0.9% INJ 10 ML SYR IV SCH ×2 (05:30→17:09)
[2019-04-27] MEDS: METOPROLOL TART 50 MG TAB PO SCH ×3 (05:31→21:09)
[2019-04-27 06:00] VITALS: BP 124/76
[2019-04-27 06:02] LABS: MEAN CORPUSCULAR HGB CONC 30.6 g/dl (32.0-36.5); MEAN CORPUSCULAR VOLUME 108.1 fl (80.0-96.0); PLATELET COUNT, AUTOMATED 227 10^3/uL (150-450); RED BLOOD COUNT 3.33 10^6/uL (4.00-5.40); WHITE BLOOD COUNT 3.7 10^3/uL (4.0-10.0)
[2019-04-27 06:23] LABS: CALCIUM LEVEL 8.5 MG/DL (8.8-10.2); CREATININE FOR GFR 1.15 MG/DL (0.55-1.30); GLOMERULAR FILTRATION RATE 49.1 (>39); POTASSIUM SERUM 3.7 MEQ/L (3.5-5.1)
[2019-04-27] MEDS: ENOXAPARIN 40 MG/0.4 ML SYRINGE (J1650) SC SCH (08:39)
[2019-04-27] MEDS: HumaLOG INSULIN (NovoLOG) PER UNIT SC SCH ×4 (08:40→20:59)
[2019-04-27] MEDS: QUEtiapine FUMARATE 100 MG TAB PO SCH ×2 (08:41→09:00)
[2019-04-27] MEDS: ACETAMINOPHEN 500 MG TAB PO SCH ×3 (08:41→21:07)
[2019-04-27] MEDS: DIAPER RELIEF PASTE (DESITIN) 60GM TOP SCH ×2 (08:42→21:07)
[2019-04-27] MEDS: amLODIPine 5 MG TAB PO SCH ×2 (08:54→09:00)
[2019-04-27 14:00] VITALS: BP 139/75
[2019-04-27] MEDS: LEVEMIR (INSULIN DETEMIR) 1 UNITS/0.01ML SC SCH (21:07)
[2019-04-27] MEDS: QUEtiapine FUMARATE 200 MG TAB PO SCH (21:08)
[2019-04-27 22:00] VITALS: BP 126/97
[2019-04-28] MEDS: METOPROLOL TART 50 MG TAB PO SCH ×3 (05:54→21:41)
[2019-04-28 06:00] VITALS: BP 108/50
[2019-04-28] MEDS: SODIUM CHLORIDE 0.9% INJ 10 ML SYR IV SCH (06:17)
[2019-04-28 06:26] LABS: HEMATOCRIT 39.3 % (36.0-47.0); HEMOGLOBIN 12.4 g/dl (12.0-15.5); MEAN CORPUSCULAR HGB CONC 31.6 g/dl (32.0-36.5); MEAN CORPUSCULAR VOLUME 107.7 fl (80.0-96.0); PLATELET COUNT, AUTOMATED 254 10^3/uL (150-450); RED BLOOD COUNT 3.65 10^6/uL (4.00-5.40); WHITE BLOOD COUNT 3.8 10^3/uL (4.0-10.0)
[2019-04-28 06:54] LABS: CALCIUM LEVEL 8.8 MG/DL (8.8-10.2); CREATININE FOR GFR 1.01 MG/DL (0.55-1.30); POTASSIUM SERUM 3.4 MEQ/L (3.5-5.1)
[2019-04-28] MEDS: HumaLOG INSULIN (NovoLOG) PER UNIT SC SCH ×4 (07:30→21:00)
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
[2019-04-28] MEDS: ACETAMINOPHEN 500 MG TAB PO SCH ×3 (08:47→21:32)
[2019-04-28] MEDS: POTASSIUM CHLORIDE 10 MEQ SR TABLET PO ONE ×2 (08:47→10:10)
[2019-04-28] MEDS: QUEtiapine FUMARATE 100 MG TAB PO SCH ×2 (08:47→10:10)
[2019-04-28] MEDS: DIAPER RELIEF PASTE (DESITIN) 60GM TOP SCH ×2 (08:48→21:32)
[2019-04-28] MEDS: ENOXAPARIN 40 MG/0.4 ML SYRINGE (J1650) SC SCH (08:48)
[2019-04-28] MEDS: amLODIPine 5 MG TAB PO SCH ×2 (08:48→10:10)
[2019-04-28 14:00] VITALS: BP 96/75
[2019-04-28] MEDS: LEVEMIR (INSULIN DETEMIR) 1 UNITS/0.01ML SC SCH (21:30)
[2019-04-28] MEDS: QUEtiapine FUMARATE 200 MG TAB PO SCH (21:32)
[2019-04-28 22:00] VITALS: BP 106/70
[2019-04-29 05:57] LABS: HEMATOCRIT 35.9 % (36.0-47.0); HEMOGLOBIN 11.2 g/dl (12.0-15.5); MEAN CORPUSCULAR HEMOGLOBIN 33.4 pg (27.0-33.0); MEAN CORPUSCULAR HGB CONC 31.2 g/dl (32.0-36.5); MEAN CORPUSCULAR VOLUME 107.2 fl (80.0-96.0); PLATELET COUNT, AUTOMATED 216 10^3/uL (150-450); RED BLOOD COUNT 3.35 10^6/uL (4.00-5.40); WHITE BLOOD COUNT 3.4 10^3/uL (4.0-10.0)
[2019-04-29 06:00] VITALS: BP 104/68
[2019-04-29] MEDS: METOPROLOL TART 50 MG TAB PO SCH ×3 (06:00→21:41)
[2019-04-29 06:11] LABS: BLOOD UREA NITROGEN 10 MG/DL (7-18); CALCIUM LEVEL 8.3 MG/DL (8.8-10.2); CARBON DIOXIDE LEVEL 24 MEQ/L (21-32); CHLORIDE LEVEL 110 MEQ/L (98-107); CREATININE FOR GFR 0.96 MG/DL (0.55-1.30); GLOMERULAR FILTRATION RATE > 60.0 (>39); GLUCOSE, FASTING 110 MG/DL (70-100); POTASSIUM SERUM 3.6 MEQ/L (3.5-5.1); SODIUM LEVEL 143 MEQ/L (136-145)
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
[2019-04-29] MEDS: HumaLOG INSULIN (NovoLOG) PER UNIT SC SCH ×4 (07:30→21:00)
[2019-04-29] MEDS: QUEtiapine FUMARATE 100 MG TAB PO SCH (08:42)
[2019-04-29] MEDS: amLODIPine 5 MG TAB PO SCH (08:58)
[2019-04-29] MEDS: ACETAMINOPHEN 500 MG TAB PO SCH (09:00)
[2019-04-29] MEDS: ENOXAPARIN 40 MG/0.4 ML SYRINGE (J1650) SC SCH (09:00)
[2019-04-29] MEDS: DIAPER RELIEF PASTE (DESITIN) 60GM TOP SCH ×2 (09:42→21:42)
[2019-04-29 14:00] VITALS: BP 132/62
[2019-04-29 19:25] VITALS: BP 137/75
[2019-04-29] MEDS: QUEtiapine FUMARATE 200 MG TAB PO SCH (21:38)
[2019-04-29] MEDS: LEVEMIR (INSULIN DETEMIR) 1 UNITS/0.01ML SC SCH (21:41)
[2019-04-30] MEDS: METOPROLOL TART 50 MG TAB PO SCH ×3 (05:08→22:24)
[2019-04-30 06:10] VITALS: BP 129/73
[2019-04-30] MEDS: HumaLOG INSULIN (NovoLOG) PER UNIT SC SCH ×4 (07:30→21:00)
[2019-04-30] MEDS: QUEtiapine FUMARATE 100 MG TAB PO SCH (10:03)
[2019-04-30] MEDS: DIAPER RELIEF PASTE (DESITIN) 60GM TOP SCH ×2 (10:04→22:24)
[2019-04-30] MEDS: amLODIPine 5 MG TAB PO SCH (10:04)
[2019-04-30] MEDS: ENOXAPARIN 40 MG/0.4 ML SYRINGE (J1650) SC SCH (10:04)
[2019-04-30] MEDS: QUEtiapine FUMARATE 200 MG TAB PO SCH (22:25)
[2019-04-30] MEDS: LEVEMIR (INSULIN DETEMIR) 1 UNITS/0.01ML SC SCH (22:25)
[2019-05-01] MEDS: HALOPERIDOL 5 MG/ML VIAL (J1630) IM PRN ×4 (04:53→22:31)
[2019-05-01 06:00] VITALS: BP 126/80
[2019-05-01] MEDS: METOPROLOL TART 50 MG TAB PO SCH ×3 (06:02→22:30)
[2019-05-01 08:41] VITALS: BP 126/79
[2019-05-01] MEDS: QUEtiapine FUMARATE 100 MG TAB PO SCH (08:45)
[2019-05-01] MEDS: amLODIPine 5 MG TAB PO SCH (08:45)
[2019-05-01] MEDS: ENOXAPARIN 40 MG/0.4 ML SYRINGE (J1650) SC SCH (08:46)
[2019-05-01] MEDS: DIAPER RELIEF PASTE (DESITIN) 60GM TOP SCH ×2 (08:46→22:27)
[2019-05-01] MEDS: HumaLOG INSULIN (NovoLOG) PER UNIT SC SCH ×4 (09:17→21:00)
[2019-05-01 09:35] LABS: HEMATOCRIT 37.9 % (36.0-47.0); HEMOGLOBIN 11.7 g/dl (12.0-15.5); MEAN CORPUSCULAR HEMOGLOBIN 33.8 pg (27.0-33.0); MEAN CORPUSCULAR HGB CONC 30.9 g/dl (32.0-36.5); MEAN CORPUSCULAR VOLUME 109.5 fl (80.0-96.0); PLATELET COUNT, AUTOMATED 242 10^3/uL (150-450); RED BLOOD COUNT 3.46 10^6/uL (4.00-5.40); WHITE BLOOD COUNT 5.9 10^3/uL (4.0-10.0)
[2019-05-01 10:05] LABS: BLOOD UREA NITROGEN 12 MG/DL (7-18); CALCIUM LEVEL 8.7 MG/DL (8.8-10.2); CARBON DIOXIDE LEVEL 27 MEQ/L (21-32); CHLORIDE LEVEL 112 MEQ/L (98-107); CREATININE FOR GFR 0.96 MG/DL (0.55-1.30); GLOMERULAR FILTRATION RATE > 60.0 (>39); GLUCOSE, FASTING 227 MG/DL (70-100); POTASSIUM SERUM 4.2 MEQ/L (3.5-5.1); SODIUM LEVEL 146 MEQ/L (136-145)
[2019-05-01 14:55] VITALS: BP 118/94
[2019-05-01] MEDS ORDERED: IPRA0.00 NEB (17:47)
[2019-05-01] MEDS ORDERED: ANTI2TAB16 PO (17:47)
[2019-05-01] MEDS ORDERED: QUET1TAB8 PO (17:47)
[2019-05-01] MEDS ORDERED: NYST10006 TOP (17:47)
[2019-05-01] MEDS ORDERED: HUMA100I5 SC (17:47)
[2019-05-01] MEDS ORDERED: haloperidoL IM (17:47)
[2019-05-01] MEDS ORDERED: LANTINJ4 SC (17:47)
[2019-05-01] MEDS ORDERED: LOPR1TAB6 PO (17:47)
[2019-05-01] MEDS ORDERED: AMLO5TAB6 PO (17:47)
[2019-05-01] MEDS ORDERED: Petrolatum,White TOP (17:47)
[2019-05-01] MEDS ORDERED: QUET200T2 PO (17:47)
[2019-05-01 22:00] VITALS: BP 111/73
[2019-05-01] MEDS: QUEtiapine FUMARATE 200 MG TAB PO SCH (22:25)
[2019-05-01] MEDS: LEVEMIR (INSULIN DETEMIR) 1 UNITS/0.01ML SC SCH (22:27)
[2019-05-02 06:00] VITALS: BP 149/74
[2019-05-02 06:16] VITALS: BP 149/74
[2019-05-02] MEDS: METOPROLOL TART 50 MG TAB PO SCH (06:16)
[2019-05-02] MEDS: HumaLOG INSULIN (NovoLOG) PER UNIT SC SCH (07:30)
[2019-05-02 08:19] VITALS: BP 125/85
[2019-05-02] MEDS: amLODIPine 5 MG TAB PO SCH (08:24)
[2019-05-02] MEDS: ENOXAPARIN 40 MG/0.4 ML SYRINGE (J1650) SC SCH (08:24)
[2019-05-02] MEDS: QUEtiapine FUMARATE 100 MG TAB PO SCH (08:24)
[2019-05-02] MEDS: DIAPER RELIEF PASTE (DESITIN) 60GM TOP SCH (08:46)
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
== END 2019-05-02 08:45 | DRG 871 ==
LOC: M ED 17:32 → EDBD 17:32 → M ED INP 19:23 → M ICU 21:53 → M PCU 03-31 08:00 → M MSPAV 04-01 17:57
PROVIDERS: ADMIT Internal Medicine; ATTEND Internal Medicine Nephrology
PROC: 30233N1 Transfusion of Nonautologous Red Blood Cells into Peripheral Vein, Percutaneous Approach (ICD-10-PCS; principal; 2019-04-17 15:00)
DX: A41.9 Sepsis, unspecified organism (principal); G93.41 Metabolic encephalopathy; I26.99 Other pulmonary embolism without acute cor pulmonale; N39.0 Urinary tract infection, site not specified; E87.0 Hyperosmolality and hypernatremia; N17.9 Acute kidney failure, unspecified; T76.21XA Adult sexual abuse, suspected, initial encounter; R65.20 Severe sepsis without septic shock; F32.9 Major depressive disorder, single episode, unspecified; R19.7 Diarrhea, unspecified; I95.1 Orthostatic hypotension; I11.9 Hypertensive heart disease without heart failure; E11.9 Type 2 diabetes mellitus without complications; F41.9 Anxiety disorder, unspecified; J44.9 Chronic obstructive pulmonary disease, unspecified; M54.5 Low back pain; E78.5 Hyperlipidemia, unspecified; G47.33 Obstructive sleep apnea (adult) (pediatric); K21.9 Gastro-esophageal reflux disease without esophagitis; B96.29 Other Escherichia coli [E. coli] as the cause of diseases classified elsewhere; Z79.4 Long term (current) use of insulin; Z79.899 Other long term (current) drug therapy; Z88.5 Allergy status to narcotic agent; Z88.8 Allergy status to other drugs, medicaments and biological substances; Z87.891 Personal history of nicotine dependence; T79.6XXA Traumatic ischemia of muscle, initial encounter; I16.0 Hypertensive urgency; I25.10 Atherosclerotic heart disease of native coronary artery without angina pectoris; E66.9 Obesity, unspecified; Z68.37 Body mass index [BMI] 37.0-37.9, adult; E87.6 Hypokalemia; Z66 Do not resuscitate